=== PATIENT | male | born 1945 | race Caucasian/White ===

== ENCOUNTER 2017-09-01 08:33 | Inpatient (IN) | payer OTHER, MEDICARE ==
[~2017-09-01] VITALS: Ht 177.8 cm; Wt 120.8 kg
[~2017-09-01 08:33] MED LIST: ACET-1311 PO; ALL100 PO; AMLO10TA3 PO; ATOR10TA82 PO; CHOL20007 PO; CLC6 PO; HYDR12.56 PO; METO25TA56 PO; PXLUNK PO; REPA0.5T PO; WARF1TAB PO
[2017-09-01 09:07] LABS: BASO % 0.3 %; BASO ABS # 0.03 K/uL (0-0.2); EOS % 1.5 %; EOS ABS # 0.13 K/uL (0-0.5); HEMATOCRIT 41.1 % (42-52); HEMOGLOBIN 14.7 g/dL (14.0-18.0); IG# 0.04 K/uL (0.00-0.02); LYMPH % 15.3 %; LYMPH ABS # 1.34 K/uL (1.2-3.4); MEAN CELL VOLUME 91.7 fL (80-100); MEAN CORPUSCULAR HEMOGLOBIN 32.8 pg (25-34); MEAN CORPUSCULAR HGB CONC 35.8 g/dl (32-36); MEAN PLATELET VOLUME 9.8 fL (7.4-10.4); MONO % 11.4 %; PLATELET COUNT 169 K/uL (130-400); RED CELL DISTRIBUTION WIDTH CV 14.9 % (11.5-14.5); RED CELL DISTRIBUTION WIDTH SD 49.9 fL (36.4-46.3); WHITE BLOOD COUNT 8.74 K/uL (4.8-10.8)
--- NOTE | 2017-09-01 09:13 | DIAGNOSTIC IMAGING REPORT ---
CHEST ONE VIEW PORTABLE CLINICAL HISTORY: CHEST PAIN dyspnea COMPARISON STUDY: 12/06/2010 FINDINGS: Moderate cardiomegaly. Small left pleural effusion. Increased prominence of pulmonary vasculature. IMPRESSION: Congestive heart failure. Small left pleural effusion. The above report was generated using voice recognition software. It may contain grammatical, syntax or spelling errors. Electronically signed by: Alex Lara M.D. 09/01/2017 9:12 AM Dictated Date/Time: 09/01/2017 9:12 AM
[2017-09-01 09:22] LABS: ALBUMIN 3.5 gm/dl (3.4-5.0); ALKALINE PHOSPHATASE 167 U/L (45-117); ALT/SGPT 25 U/L (12-78); AST/SGOT 25 U/L (15-37); BLOOD UREA NITROGEN 28 mg/dl (7-18); CALCIUM 9.1 mg/dl (8.5-10.1); CARBON DIOXIDE 20 mmol/L (21-32); CKMB 1.1 ng/ml (0.5-3.6); CREATININE 1.52 mg/dl (0.60-1.40); GLUCOSE 94 mg/dl (70-99); LIPASE 103 U/L (73-393); POTASSIUM 3.2 mmol/L (3.5-5.1); SODIUM 137 mmol/L (136-145); TOTAL PROTEIN 8.2 gm/dl (6.4-8.2)
[2017-09-01] MEDS ORDERED: OPTIRAY 320 IV PRN (09:30)
[2017-09-01] MEDS ORDERED: PARO1TAB27 PO (09:36)
[2017-09-01] MEDS ORDERED: AMLO10TA3 PO (09:36)
[2017-09-01] MEDS ORDERED: ALL300 PO (09:36)
[2017-09-01] MEDS ORDERED: WARF2.5T8 PO ×2 (09:36)
[2017-09-01] MEDS ORDERED: HYDR-4716 PO (09:36)
[2017-09-01] MEDS ORDERED: GLIM2TAB2 PO (09:38)
[2017-09-01 09:46] LABS: INR 4.9 (0.9-1.1)
--- NOTE | 2017-09-01 09:55 | DIAGNOSTIC IMAGING REPORT ---
CT ANGIOGRAM OF THE CHEST CLINICAL HISTORY: Shortness of breath. History of pulmonary embolism. COMPARISON STUDY: Chest x-ray dated 09/01/2017 TECHNIQUE: Following the IV administration of 92 mL of Optiray-320, CT angiogram of the thorax was performed from the thoracic inlet to the lung bases utilizing the pulmonary embolus protocol. Images are reviewed in the axial, sagittal, and coronal planes. IV contrast was administered without complication. MIP imaging was performed. A dose lowering technique was utilized adhering to the principles of ALARA. CT DOSE: 604.31 mGy.cm FINDINGS: There are enlarged mediastinal lymph nodes with a right paratracheal lymph node measuring 18 mm in short axis. The ascending thoracic aorta measures 38 mm. There are coronary artery calcifications. There is dilatation of the right ventricle and right atrium. The left atrium also appears enlarged. Elevated right heart pressures are suspected. There were no pulmonary artery filling defects to indicate acute pulmonary embolism. There are bilateral pleural effusions left greater than right. There is respiratory motion artifact. There are left lower lobe airspace opacities, likely representing compressive atelectasis. An infectious process could appear similar. There is left-sided body wall edema. IMPRESSION: 1. No evidence of acute pulmonary embolism 2. CT findings suggestive of pulmonary arterial hypertension with elevated right heart pressures 3. Bilateral pleural effusions left greater than right. 4. Left lower lobe airspace opacities. Compressive atelectasis is favored over pneumonia 5. Mediastinal lymphadenopathy Electronically signed by: Milton Brooks M.D. 09/01/2017 9:53 AM Dictated Date/Time: 09/01/2017 9:46 AM
[2017-09-01] MEDS ORDERED: FUROSEMIDE 40 MG/4 ML VIAL IV STA (10:10)
[2017-09-01] MEDS ORDERED: NITROGLYCERIN 2% OINTMENT 30GM TUBE EXT ONE (10:15)
--- NOTE | 2017-09-01 10:42 | EMERGENCY ROOM VISIT NOTE ---
History Report prepared by Lani: Abel Mays Under the Supervision of: Dr. Kwasi De Los Santos M.D. First contact with patient: 08:45 Stated Complaint: SHORTNESS OF BREATH History of Present Illness The patient is a 72 year old male who presents to the Emergency Room by EMS with complaints of constant shortness of breath beginning shortly prior to arrival. He reports having a small amount of difficulty breathing over the past week, but it worsened significantly upon waking up this morning. He also complains of nausea. Nursing staff notes that the patient's oxygen saturation was found to be 87% upon arrival. The patient has a history of PE (thought to originally be from right knee) occurring six years ago, and states that his current symptoms remind him of his prior PE. He is currently on Coumadin. His most recent INR was checked 10 days ago, and was found to be 3.9. Pt denies chest pain, LOC, headache, fevers, chills, diaphoresis, visual changes, neck pain, tearing pain radiating to the back, uncontrolled hypertension, breathing difficulties, leg swelling, prolonged travel, recent surgery or immobilization, vomiting, abdominal pain, melena, hematochezia, urinary symptoms, numbness, weakness, lymphadenopathy, rash, or other complaints. He is on Allopurinol for gout, but has not had an attack for several years. He denies any recent medication changes. The patient notes that he had an IVF placed 6 years ago. Source of History: patient Onset: Shortly prior to arrival Symptom Intensity: oxygen saturation of 87% Quality: other (shortness of breath) Timing: constant Associated Symptoms: + nausea, No chest pain Review of Systems See HPI for pertinent positives and negatives. A total of ten systems were reviewed and were otherwise negative. Past Medical & Surgical Medical Problems: (1) Acute renal failure syndrome (2) Benign hypertension (3) Deep venous thrombosis of lower extremity (4) Diabetes mellitus type 2 (5) Gout (6) History of adenomatous polyp of colon (7) Hyperkalemia (8) Hyperlipidemia (9) Hypoxemia (10) Pulmonary embolism (11) Type II diabetes mellitus - poor control Family History No pertinent family history stated. Social History Smoking Status: Former Smoker Marital Status: Occupation Status: retired Current/Historical Medications Scheduled Allopurinol (Allopurinol), 300 MG PO DAILY Amlodipine (Norvasc), 10 MG PO DAILY Atorvastatin (Lipitor), 10 MG PO DAILY Cholecalciferol (Vitamin D3), 2,000 UNITS PO DAILY Glimepiride (Glimepiride), 2 MG PO DAILY Hydralazine HCl (Hydralazine HCl), 25 MG PO BID Hydrochlorothiazide (Hctz), 12.5 MG PO DAILY Metoprolol Tartrate (Lopressor) (Lopressor), 25 MG PO BID Paroxetine (Paxil), 20 MG PO DAILY Warfarin Sod (Jantoven), 2.5 MG PO 5XWK Warfarin Sod (Jantoven), 1.25 MG PO 2XWK Scheduled PRN Acetaminophen (Tylenol), 650 MG PO Q4H PRN Allergies Coded Allergies: No Known Allergies (Unverified , 09/01/17) Physical Exam Vital Signs Date Time Temp Pulse Resp B/P (MAP) Pulse Ox O2 Delivery O2 Flow Rate FiO2 09/01/17 11:09 95 Nasal Cannula 2.0 09/01/17 10:36 138/90 09/01/17 10:33 93 22 95 Nasal Cannula 2.0 09/01/17 10:03 97 17 94 Nasal Cannula 2.0 09/01/17 09:48 161/107 09/01/17 09:03 103 19 93 Nasal Cannula 2.0 09/01/17 09:02 94 Nasal Cannula 2.0 09/01/17 08:53 95 09/01/17 08:52 36.6 109 18 169/110 87 Room Air 09/01/17 08:52 87 Room Air 09/01/17 08:44 87 Room Air 09/01/17 08:39 169/120 Physical Exam GENERAL: Awake, alert, well-appearing, in no distress HENT: Normocephalic, atraumatic. Oropharynx unremarkable. EYES: Normal conjunctiva. Sclera non-icteric. NECK: Supple. No nuchal rigidity. FROM. No masses. RESPIRATORY: Clear to auscultation. No wheezes. No rales. Normal respiratory effort. CARDIAC: Borderline tachycardic rate. Irregular rhythm. No murmurs. No rubs. Extremities warm and well perfused. Pulses equal. No JVD. GI: Soft, non-distended. No tenderness to palpation. No rebound or guarding. No masses. RECTAL: Deferred. MUSCULOSKELETAL: Atraumatic. Chest examination reveals no tenderness. There is no CVA tenderness to palpation. No joint edema. LOWER EXTREMITIES: Calves are equal size bilaterally and non-tender. Chronic venous discoloration of the RLE (Patient states is normal). 1+ lower extremity edema. NEURO: Normal sensorium. No sensory or motor deficits noted. SKIN: No rash or jaundice noted. Medical Decision & Procedures ER Provider Diagnostic Interpretation: Radiology results as stated below per my review and radiologist interpretation: CHEST ONE VIEW PORTABLE FINDINGS: Moderate cardiomegaly. Small left pleural effusion. Increased prominence of pulmonary vasculature. IMPRESSION: Congestive heart failure. Small left pleural effusion. The above report was generated using voice recognition software. It may contain grammatical, syntax or spelling errors. Electronically signed by: Alex Lara M.D. 09/01/2017 9:[address] ANGIOGRAM OF THE CHEST FINDINGS: There are enlarged mediastinal lymph nodes with a right paratracheal lymph node measuring 18 mm in short axis. The ascending thoracic aorta measures 38 mm. There are coronary artery calcifications. There is dilatation of the right ventricle and right atrium. The left atrium also appears enlarged. Elevated right heart pressures are suspected. There were no pulmonary artery filling defects to indicate acute pulmonary embolism. There are bilateral pleural effusions left greater than right. There is respiratory motion artifact. There are left lower lobe airspace opacities, likely representing compressive atelectasis. An infectious process could appear similar. There is left-sided body wall edema. IMPRESSION: 1. No evidence of acute pulmonary embolism 2. CT findings suggestive of pulmonary arterial hypertension with elevated right heart pressures 3. Bilateral pleural effusions left greater than right. 4. Left lower lobe airspace opacities. Compressive atelectasis is favored over pneumonia 5. Mediastinal lymphadenopathy Electronically signed by: Milton Broosk M.D. 09/01/2017 9:53 AM Laboratory Results 09/01/17 08:49 Red Blood Count 4.48, Mean Corpuscular Volume 91.7, Mean Corpuscular Hemoglobin 32.8, Mean Corpuscular Hemoglobin Concent 35.8, Mean Platelet Volume 9.8, Neutrophils (%) (Auto) 71.0, Lymphocytes (%) (Auto) 15.3, Monocytes (%) (Auto) 11.4, Eosinophils (%) (Auto) 1.5, Basophils (%) (Auto) 0.3, Neutrophils # (Auto ) 6.20, Lymphocytes # (Auto) 1.34, Monocytes # (Auto) 1.00, Eosinophils # (Auto ) 0.13, Basophils # (Auto) 0.03 Test 09/01/17 08:49 White Blood Count 8.74 K/uL (4.8-10.8) Red Blood Count 4.48 M/uL (4.7-6.1) Hemoglobin 14.7 g/dL (14.0-18.0) Hematocrit 41.1 % (42-52) Mean Corpuscular Volume 91.7 fL (80-100) Mean Corpuscular Hemoglobin 32.8 pg (25-34) Mean Corpuscular Hemoglobin Concent 35.8 g/dl (32-36) Platelet Count 169 K/uL (130-400) Mean Platelet Volume 9.8 fL (7.4-10.4) Neutrophils (%) (Auto) 71.0 % Lymphocytes (%) (Auto) 15.3 % Monocytes (%) (Auto) 11.4 % Eosinophils (%) (Auto) 1.5 % Basophils (%) (Auto) 0.3 % Neutrophils # (Auto) 6.20 K/uL (1.4-6.5) Lymphocytes # (Auto) 1.34 K/uL (1.2-3.4) Monocytes # (Auto) 1.00 K/uL (0.11-0.59) Eosinophils # (Auto) 0.13 K/uL (0-0.5) Basophils # (Auto) 0.03 K/uL (0-0.2) RDW Standard Deviation 49.9 fL (36.4-46.3) RDW Coefficient of Variation 14.9 % (11.5-14.5) Immature Granulocyte % (Auto) 0.5 % Immature Granulocyte # (Auto) 0.04 K/uL (0.00-0.02) Prothrombin Time 49.4 SECONDS (9.0-12.0) Prothromb Time International Ratio 4.9 (0.9-1.1) Activated Partial Thromboplast Time 43.0 SECONDS (21.0-31.0) Partial Thromboplastin Ratio 1.7 Est Creatinine Clear Calc Drug Dose 58.7 ml/min Total Bilirubin 2.7 mg/dl (0.2-1) Direct Bilirubin 1.3 mg/dl (0-0.2) Aspartate Amino Transf (AST/SGOT) 25 U/L (15-37) Alanine Aminotransferase (ALT/SGPT) 25 U/L (12-78) Alkaline Phosphatase 167 U/L (45-117) Total Creatine Kinase 47 U/L (39-308) Creatine Kinase MB 1.1 ng/ml (0.5-3.6) Creatine Kinase MB Ratio 2.3 (0-3.0) Troponin I < 0.015 ng/ml (0-0.045) Pro-B-Type Natriuretic Peptide 5521 pg/ml (0-900) Total Protein 8.2 gm/dl (6.4-8.2) Albumin 3.5 gm/dl (3.4-5.0) Lipase 103 U/L (73-393) Hepatitis C Antibody Screen NEG (NEG) Laboratory results reviewed by me Medications Administered Medications (Trade) Dose Ordered Sig/Tash Route Start Time Stop Time Status Last Admin Dose Admin Nitroglycerin (Nitroglycerin 2% Oint) 1 inch NOW ONCE EXT 09/01/17 10:15 09/01/17 10:16 DC 09/01/17 10:15 1 INCH Furosemide (Lasix Inj) 20 mg NOW STAT IV 09/01/17 10:10 09/01/17 10:11 DC 09/01/17 10:10 20 MG Potassium Chloride (Klor-Con M10) 40 meq NOW STAT PO 09/01/17 11:15 09/01/17 11:34 DC 09/01/17 12:28 40 MEQ Potassium Chloride 100 ml @ 100 mls/hr NOW STAT IV 09/01/17 11:15 09/01/17 12:14 DC 09/01/17 12:28 100 MLS/HR ECG Per My Interpretation Indication: SOB/dyspnea Rate (beats per minute): 103 Rhythm: atrial fibrillation Findings: PAC, PVC, Q waves (Anterolateral, inferior), RBBB, other (No ST elevation. ) ED Course 851: The patient was evaluated in room C1B. A complete history and physical exam was performed. 1010: Ordered Lasix Inj 20 mg IV. 1015: Ordered Nitroglycerin 2% Oint 1 inch EXT. 1018: Upon reexamination, the patient was resting comfortably. I discussed the test results and treatment plan with him. The patient will be evaluated for further management. Medical Decision Prior records/ancillary studies reviewed. Triage Nursing notes reviewed and agree them. Additional history obtained from the family. The patient's history was concerning for shortness of breath. Differential diagnosis: Etiologies such as pneumonia, COPD, reactive airway disease, CHF, cardiac ischemia, pulmonary embolism, pneumothorax, musculoskeletal, infections, gastrointestinal, as well as others were entertained. Physical examination: As above. ER treatment provided: Nitropaste IV Lasix On reassessment the patient felt better. Diagnostic interpretation by me: The electrocardiogram was negative for pathologic change. The labs revealed an unremarkable CBC. Slightly supratherapeutic INR. Cardiac markers negative. The patient's BNP was elevated concerning for CHF. Imaging studies: Chest x-ray and CT scan as above. The patient appears to have a new onset A. fib and CHF. He was hypoxic on room air. Further management in the hospital will be necessary. Consultation: A consultation was placed with the hospitalist. The case was discussed and diagnostics were reviewed. The patient was evaluated in the ER for further treatment. Medication Reconcilliation Current Medication List: was personally reviewed by me Blood Pressure Screening Patient's blood pressure: Elevated blood pressure Blood pressure disposition: Referred to PCP Consults Time Called: 1018 Consulting Physician: Dr. Parmjit Long Hospitalist Returned Call: [phone] Discussed the patient's case. The patient will be evaluated for further treatment and disposition. Impression Primary Impression: Hypoxia Additional Impression: CHF (congestive heart failure) Scribe Attestation The scribe's documentation has been prepared under my direction and personally reviewed by me in its entirety. I confirm that the note above accurately reflects all work, treatment, procedures, and medical decision making performed by me. Departure Information Dispostion Being Evaluated By Hospitalist Referrals Ez Navarro D.O. (PCP) Problem Qualifiers
[2017-09-01 11:09] VITALS: O2SAT 95; Ht 177.8 cm; Wt 120.8 kg
[2017-09-01] MEDS ORDERED: ALUMINUM/MAGNESIUM/SIMETH (MAALOX MAX) 30 ML UDC PO PRN (11:15)
[2017-09-01] MEDS ORDERED: DEXTROSE 50% 50 ML SYR IV PRN (11:15)
[2017-09-01] MEDS ORDERED: MAGNESIUM HYDROXIDE SUSP 30 ML UDC PO PRN (11:15)
[2017-09-01] MEDS ORDERED: GLUCOSE 40% GEL 15 GM TUBE PO PRN (11:15)
[2017-09-01] MEDS ORDERED: POTASSIUM CHLORIDE 10 MEQ TABCR PO STA (11:15)
[2017-09-01] MEDS ORDERED: GLUCAGON FOR INJ 1 MG VIAL SQ PRN (11:15)
[2017-09-01] MEDS ORDERED: ACETAMINOPHEN 325 MG TAB PO PRN (11:15)
[2017-09-01] MEDS ORDERED: ONDANSETRON INJ 2 MG/ML 2 ML VIAL IV PRN (11:15)
[2017-09-01] MEDS ORDERED: POTASSIUM CHLR 10 MEQ / WTR 100 ML IV STA (11:15)
[2017-09-01] MEDS ORDERED: CARBOHYDRATES FOR HYPOGLYCEMIA PO PRN (11:15)
[2017-09-01] MEDS ORDERED: POLYETHYLENE (MIRALAX) 17 GM PACK PO PRN (11:15)
[2017-09-01] MEDS ORDERED: PHARMACY GLYCEMIC MGMT CONSULT PRN (11:15)
[2017-09-01] MEDS ORDERED: GLUCOSE 10 TABS/TUBE PO PRN (11:15)
--- NOTE | 2017-09-01 12:18 | History and Physical ---
History & Physical Date & Time of Service: Sep 01, 2017 at 11:42 Chief Complaint: Shortness Of Breath Primary Care Physician: Ez Navarro D.O. 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 States that it is worse with exertion - denies associated cough. Denies fevers/chills; states he does not have chest pain/palpitations. Breathing became acutely worse on the day of arrival. Presented to the ED - found to be hypoxic; improved with supplemental O2 via nasal cannula. On imaging; suggestion of fluid overload; patient has some lower extremity edema and venous stasis changes noted. Received IV Lasix in the ED and felt better. On EKG, there is an irregular rhythm with RBBB. Patient denies palpitations. Past Medical/Surgical History Medical Problems: (1) Acute renal failure syndrome (2) Benign hypertension (3) Deep venous thrombosis of lower extremity (4) Diabetes mellitus type 2 (5) Gout (6) History of adenomatous polyp of colon (7) Hyperkalemia (8) Hyperlipidemia (9) Hypoxemia (10) Pulmonary embolism (11) Type II diabetes mellitus - poor control Social History Smoking Status: Former Smoker Marital Status: Housing status: lives with family Occupational Status: retired Immunizations History of Influenza Vaccine: Yes Influenza Vaccine Date: Nov 19, 2010 History of Tetanus Vaccine?: Yes History of Pneumococcal: Yes Pneumococcal Date: Aug 29, 2009 History of Hepatitis B Vaccine: Yes Allergies Coded Allergies: No Known Allergies (Unverified , 09/01/17) Home Medications Scheduled Allopurinol (Allopurinol), 300 MG PO DAILY Amlodipine (Norvasc), 10 MG PO DAILY Atorvastatin (Lipitor), 10 MG PO DAILY Cholecalciferol (Vitamin D3), 2,000 UNITS PO DAILY Glimepiride (Glimepiride), 2 MG PO DAILY Hydralazine HCl (Hydralazine HCl), 25 MG PO BID Hydrochlorothiazide (Hctz), 12.5 MG PO DAILY Metoprolol Tartrate (Lopressor) (Lopressor), 25 MG PO BID Paroxetine (Paxil), 20 MG PO DAILY Warfarin Sod (Jantoven), 2.5 MG PO 5XWK Warfarin Sod (Jantoven), 1.25 MG PO 2XWK Scheduled PRN Acetaminophen (Tylenol), 650 MG PO Q4H PRN Review of Systems Constitutional: No fever, No chills, No weakness, No fatigue Respiratory: + shortness of breath, + dyspnea on exertion, No cough, No sputum , No wheezing, No dyspnea at rest, No hemoptysis Cardiovascular: + edema, No chest pain, No orthopnea, No palpitations Abdomen: No pain, No nausea, No vomiting, No diarrhea, No constipation, No GI bleeding Musculoskeletal: + joint pain (chronic knee pain), No muscle pain Genitourinary - Male: No hematuria, No dysuria, No urinary frequency, No urinary urgency Neurologic: No memory loss, No paralysis, No weakness, No numbness/tingling, No vertigo, No balance problems Psychiatric: No depression symptoms, No anxiety, No insomnia Endocrine: No fatigue Hematologic / Lymphatic: No abnormal bleeding/bruising Integumentary: No rash Allergic / Immunologic: No environmental allergies, No seasonal allergies Physical Exam Vital Signs Date Time Temp Pulse Resp B/P (MAP) Pulse Ox O2 Delivery O2 Flow Rate FiO2 09/01/17 11:25 88 09/01/17 11:09 95 Nasal Cannula 2.0 09/01/17 10:36 138/90 09/01/17 10:33 93 22 95 Nasal Cannula 2.0 09/01/17 10:03 97 17 94 Nasal Cannula 2.0 09/01/17 09:48 161/107 09/01/17 09:03 103 19 93 Nasal Cannula 2.0 09/01/17 09:02 94 Nasal Cannula 2.0 09/01/17 08:53 95 09/01/17 08:52 36.6 109 18 169/110 87 Room Air 09/01/17 08:52 87 Room Air 09/01/17 08:44 87 Room Air 09/01/17 08:39 169/120 General Appearance: no apparent distress, + obese Head: normocephalic, atraumatic Eyes: normal inspection ENT: hearing grossly normal Neck: supple Respiratory/Chest: no respiratory distress, no accessory muscle use, + decreased breath sounds Cardiovascular: no murmur, + irregularly irregular Abdomen/GI: normal bowel sounds, non tender, soft Extremities/Musculoskelatal: + pertinent finding (trace b/l edema; venous stasis dermatitis) Neurologic/Psych: research development director II-XII nml as tested, no motor/sensory deficits, alert, normal mood/affect, oriented x 3 Skin: normal color, warm/dry, no rash Lymphatic: no adenopathy Diagnostics Laboratory Results Results Past 24 Hours Test 09/01/17 08:49 Range/Units White Blood Count 8.74 4.8-10.8 K/uL Red Blood Count 4.48 4.7-6.1 M/uL Hemoglobin 14.7 14.0-18.0 g/dL Hematocrit 41.1 42-52 % Mean Corpuscular Volume 91.7 80-100 fL Mean Corpuscular Hemoglobin 32.8 25-34 pg Mean Corpuscular Hemoglobin Concent 35.8 32-36 g/dl Platelet Count 169 130-400 K/uL Mean Platelet Volume 9.8 7.4-10.4 fL Neutrophils (%) (Auto) 71.0 % Lymphocytes (%) (Auto) 15.3 % Monocytes (%) (Auto) 11.4 % Eosinophils (%) (Auto) 1.5 % Basophils (%) (Auto) 0.3 % Neutrophils # (Auto) 6.20 1.4-6.5 K/uL Lymphocytes # (Auto) 1.34 1.2-3.4 K/uL Monocytes # (Auto) 1.00 0.11-0.59 K/uL Eosinophils # (Auto) 0.13 0-0.5 K/uL Basophils # (Auto) 0.03 0-0.2 K/uL RDW Standard Deviation 49.9 36.4-46.3 fL RDW Coefficient of Variation 14.9 11.5-14.5 % Immature Granulocyte % (Auto) 0.5 % Immature Granulocyte # (Auto) 0.04 0.00-0.02 K/uL Prothrombin Time 49.4 9.0-12.0 SECONDS Prothromb Time International Ratio 4.9 0.9-1.1 Activated Partial Thromboplast Time 43.0 21.0-31.0 SECONDS Partial Thromboplastin Ratio 1.7 Sodium Level 137 136-145 mmol/L Potassium Level 3.2 3.5-5.1 mmol/L Chloride Level 104 98-107 mmol/L Carbon Dioxide Level 20 21-32 mmol/L Anion Gap 12.0 3-11 mmol/L Blood Urea Nitrogen 28 7-18 mg/dl Creatinine 1.52 0.60-1.40 mg/dl Est Creatinine Clear Calc Drug Dose 58.7 ml/min Estimated GFR () 51.9 Estimated GFR (Non- 44.8 BUN/Creatinine Ratio 18.2 10-20 Random Glucose 94 70-99 mg/dl Calcium Level 9.1 8.5-10.1 mg/dl Total Bilirubin 2.7 0.2-1 mg/dl Direct Bilirubin 1.3 0-0.2 mg/dl Aspartate Amino Transf (AST/SGOT) 25 15-37 U/L Alanine Aminotransferase (ALT/SGPT) 25 12-78 U/L Alkaline Phosphatase 167 45-117 U/L Total Creatine Kinase 47 39-308 U/L Creatine Kinase MB 1.1 0.5-3.6 ng/ml Creatine Kinase MB Ratio 2.3 0-3.0 Troponin I < 0.015 0-0.045 ng/ml Pro-B-Type Natriuretic Peptide 5521 0-900 pg/ml Total Protein 8.2 6.4-8.2 gm/dl Albumin 3.5 3.4-5.0 gm/dl Lipase 103 73-393 U/L Diagnostic Radiology CT ANGIOGRAM OF THE CHEST CLINICAL HISTORY: Shortness of breath. History of pulmonary embolism. COMPARISON STUDY: Chest x-ray dated 09/01/2017 TECHNIQUE: Following the IV administration of 92 mL of Optiray-320, CT angiogram of the thorax was performed from the thoracic inlet to the lung bases utilizing the pulmonary embolus protocol. Images are reviewed in the axial, sagittal, and coronal planes. IV contrast was administered without complication. MIP imaging was performed. A dose lowering technique was utilized adhering to the principles of ALARA. CT DOSE: 604.31 mGy.cm FINDINGS: There are enlarged mediastinal lymph nodes with a right paratracheal lymph node measuring 18 mm in short axis. The ascending thoracic aorta measures 38 mm. There are coronary artery calcifications. There is dilatation of the right ventricle and right atrium. The left atrium also appears enlarged. Elevated right heart pressures are suspected. There were no pulmonary artery filling defects to indicate acute pulmonary embolism. There are bilateral pleural effusions left greater than right. There is respiratory motion artifact. There are left lower lobe airspace opacities, likely representing compressive atelectasis. An infectious process could appear similar. There is left-sided body wall edema. IMPRESSION: 1. No evidence of acute pulmonary embolism 2. CT findings suggestive of pulmonary arterial hypertension with elevated right heart pressures 3. Bilateral pleural effusions left greater than right. 4. Left lower lobe airspace opacities. Compressive atelectasis is favored over pneumonia 5. Mediastinal lymphadenopathy CHEST ONE VIEW PORTABLE CLINICAL HISTORY: CHEST PAIN dyspnea COMPARISON STUDY: 12/06/2010 FINDINGS: Moderate cardiomegaly. Small left pleural effusion. Increased prominence of pulmonary vasculature. IMPRESSION: Congestive heart failure. Small left pleural effusion. 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 - will continue IV Lasix 20mg BID - cardiology consulted for further input Irregular Heart Rhythm - patient with a lot of artifactual beats noted on EKG - does not appear to be a regular rhythm - chronic RBBB - cardiology consulted for further input - continue Lopressor and continue anticoagulation - will check Mg and TSH Hx. of PE/DVT - on long-term Coumadin - supratherapuetic INR; will hold Coumadin and recheck in AM Hypokalemia - has had issues with low K in the past - will supplement potassium and will likely need chronic K supplementation - check Mg DM2 - hold oral agents - insulin sliding scale ordered - check Ha1c CKD stage 3 - creatinine at 1.5, baseline appears to be close to that (~1.4) - monitor kidney function with IV diuretic use OCD - continue Paxil Gilbert's Syndrome - elevated T. bili is chronic DVT ppx - Coumadin; goal INR of 2-3 FULL CODE Advanced Directives Existing Living Will: Yes Existing Power of Steam Brush Operator: Yes Resuscitation Status VTE Prophylaxis Will order VTE Prophylaxis: Yes
--- NOTE | 2017-09-01 12:30 | Pharmacy Progress Note ---
Glycemic Control Intl Consult Date of Service Sep 01, 2017. Scope Glycemic Pharmacist consulted by Dr Parnell on 09/01/17 for glycemic control and to write orders per [facility] inpatient glycemic control protocol Objective Weight (Kilograms): 130.200 Accuchecks BSG (last 24hrs): Test 09/01/17 08:49 Random Glucose 94 mg/dl (70-99) Laboratory Data (last 24hrs) Test 09/01/17 08:49 Anion Gap 12.0 mmol/L BUN/Creatinine Ratio 18.2 Blood Urea Nitrogen 28 mg/dl Creatinine 1.52 mg/dl Potassium Level 3.2 mmol/L Sodium Level 137 mmol/L White Blood Count 8.74 K/uL Red Blood Count 4.48 M/uL Hemoglobin 14.7 g/dL Hematocrit 41.1 % Mean Corpuscular Volume 91.7 fL Mean Corpuscular Hemoglobin 32.8 pg Mean Corpuscular Hemoglobin Concent 35.8 g/dl Platelet Count 169 K/uL Mean Platelet Volume 9.8 fL Neutrophils (%) (Auto) 71.0 % Lymphocytes (%) (Auto) 15.3 % Monocytes (%) (Auto) 11.4 % Eosinophils (%) (Auto) 1.5 % Basophils (%) (Auto) 0.3 % Neutrophils # (Auto) 6.20 K/uL Lymphocytes # (Auto) 1.34 K/uL Monocytes # (Auto) 1.00 K/uL Eosinophils # (Auto) 0.13 K/uL Basophils # (Auto) 0.03 K/uL Recent Pertinent Medications Outpatient Anti-diabetic Regimen: * glimepiride 2 mg PO daily * A1c = 7.6 % 12/06/10 Risk Factors for Insulin Resistance: * Diet: T2 DM Assessment & Plan ASSESSMENT: * Mr Pulido is a 72 y/o M with a PMH of DVT/PE on warfarin, HTN, gout, CHF, and type 2 diabetes with unknown control who presents with a RBBB and pulmonary complaints. The patient takes one oral medication at home and blood sugar this morning was 94 mg/dL. * Will provide basic scale for this evening of Lantus. Will start between weight -based stress of 1 and 2 Novolog. Utilizing lower stresses as the patient's weight is high and it appears that he should be insulin sensitive (only on one oral agent). * Pt is maintained on oral antidiabetic agents as an outpatient * Oral agents are not recommended for inpatient use d/t drug interactions, changing PO intake, and difficulty titrating for acute hyper/hypoglycemia. ADA recommends re-initiating outpatient oral agents 1-2 days prior to discharge if/ when appropriate if they were held on admission. * Will hold oral agents for admission and utilize SQ basal bolus insulin regimen which is the recommended regimen for inpatient glycemic control. * Will initiate weight based insulin dosing for insulin irving patient and titrate based on BSG trends. PLAN FOR INPATIENT GLYCEMIC CONTROL: * Holding outpatient oral diabetes medications * Basal insulin with LANTUS 0-15 units SQ HS (no insulin if blood sugar less than 140 mg/dL; 10 units if blood sugar between 140-180 mg/dL; 15 units if blood sugar greater than 180 mg/dL) * Correctional Insulin with NOVOLOG per scale ACHS or Q6hrs while NPO * Goal Range: Low 110 mg/dL - High 140 mg/dL * Correction Factor: 30 mg/dL/unit * Nutritional / Prandial insulin per carb ratio of 1 unit per 9 grams CHO consumed * Please note that the plan above was derived based on current level of insulin resistance and hospital stress. These recommendations are appropriate for inpatient admission only. Plan of care upon discharge will need to be reassessed to avoid potential outpatient hypo/hyperglycemia. Thank you.
--- NOTE | 2017-09-01 14:11 | ECHOCARDIOGRAM REPORT ---
*NOTICE TO RECEIVING REPUBLICAN AGENCY This information is strictly Confidential and protected under [place] law. [place] law prohibits you from making any further disclosure of this information unless further disclosure is expressly permitted by the written consent of the person to whom it pertains or is authorized by law. A general authorization for the release of medical or other information is not sufficient for this purpose. Hospital accepts no responsibility if the information is made available to any other person, INCLUDING THE PATIENT. Interpretation Summary * Name: SAMUEL AVELAR Study Date: 09/01/2017 12:56 PM BP: 145/87 mmHg * Patient Location: HR: 78 * : 1945 (M/d/yyyy) Gender: Male Height: 70 in * Age: 72 yrs Ethnicity: [place] Weight: 287 lb * Ordering Physician: Alireza Parnell * Performed By: Brandi Beal RDCS * * Reason For Study: CHF * BSA: 2.4 m2 * The study was technically difficult. * Compared to prior study, changes are noted. * -- Conclusions -- * The rhythm is atrial fibrillation. * Ejection Fraction = 55-60%. * The right ventricle is severely dilated. * The right ventricular systolic function is moderate to severely reduced. * Severe biatrial enlargement. * There is mild mitral regurgitation. * There is mild to moderate tricuspid regurgitation. * The estimated systolic pulmonary arterial pressure is 76mmHg. * Dilated inferior vena cava with reduced collapsability with sniff indicates an elevated right atrial pressure of 15 mmHg Procedure Details * A complete two-dimensional transthoracic echocardiogram was performed (2D, M-mode, Doppler and color flow Doppler). * The study was technically limited. * The study was technically difficult. * There were technical limitations due to patient'sbody habitus * A contrast injection of Definity was performed to improve assessment of LV function. * Contrast was injected into an intravenous site in the left arm. * One vial of Definity ultrasound contrast was diluted in normal saline to a total volume of 10 ml. A total of '4' ml of solution was administered during imaging. * Lot # [id number] of Definity utilized for procedure. * Expiration date 07/19. * The attending nurse who injected the contrast agent was IMANI GOODRICH RN. Left Ventricle * The left ventricle is normal in size. * The rhythm is atrial fibrillation. * There is normal left ventricular wall thickness. * Ejection Fraction = 55-60%. * No regional wall motion abnormalities noted. Right Ventricle * The right ventricle is severely dilated. * The right ventricular systolic function is moderate to severely reduced. Atria * The left atrium is severely dilated. * The right atrium is severely dilated. * There is no evidence of atrial septal defect, but resolution does not allow assessment for a patent foramen ovale. Mitral Valve * There is mild mitral annular calcification. * There is no mitral valve stenosis. * There is mild mitral regurgitation. Tricuspid Valve * The tricuspid valve is normal. * There is no tricuspid stenosis. * There is mild to moderate tricuspid regurgitation. * The estimated systolic pulmonary arterial pressure is 76mmHg. Aortic Valve * The aortic valve is trileaflet. * Aortic stenosis is absent. * There is no significant aortic regurgitation. Pulmonic Valve * The pulmonary valve is not well seen, but the Doppler examination is normal without significant regurgitation or stenosis. Great Vessels * The aortic root and proximal ascending aorta are normal sized. Pericardium/Pleural * There is no pericardial effusion. Great Vessels * Dilated inferior vena cava with reduced collapsability with sniff indicates an elevated right atrial pressure of 15 mmHg Left Ventricular Diastolic Function * Pulse wave TDI of the anterior and posterior mitral annulas demonstrates abnormal LV relaxation MMode 2D Measurements and Calculations IVSd 1.3 cm IVSs 2.0 cm LVIDd 3.9 cm LVIDs 2.3 cm LVPWd 1.3 cm LVPWs 1.7 cm IVS/LVPW 0.99 FS 40.4 % EDV(Teich) 66.0 ml ESV(Teich) 18.6 ml EF(Teich) 71.7 % EDV(cubed) 59.4 ml ESV(cubed) 12.6 ml EF(cubed) 78.8 % % IVS thick 52.7 % % LVPW thick 33.9 % LV mass(C)d 178.3 grams LV mass(C)dI 73.3 grams/m\S\2 LV mass(C)s 172.6 grams LV mass(C)sI 70.9 grams/m\S\2 CO(Teich) 4.1 l/min CI(Teich) 1.7 l/min/m\S\2 SV(Teich) 47.3 ml SI(Teich) 19.5 ml/m\S\2 CO(cubed) 4.1 l/min CI(cubed) 1.7 l/min/m\S\2 SV(cubed) 46.8 ml SI(cubed) 19.2 ml/m\S\2 asc Aorta Diam 3.7 cm LVOT diam 2.4 cm LVOT area 4.7 cm\S\2 LVAd ap4 38.1 cm\S\2 LVLd ap4 9.1 cm EDV(MOD-sp4) 129.0 ml LVAs ap4 17.7 cm\S\2 LVLs ap4 7.6 cm ESV(MOD-sp4) 36.1 ml EF(MOD-sp4) 72.0 % LVAd ap2 29.2 cm\S\2 LVLd ap2 8.5 cm EDV(MOD-sp2) 82.4 ml LVAs ap2 13.6 cm\S\2 LVLs ap2 7.0 cm ESV(MOD-sp2) 24.4 ml EF(MOD-sp2) 70.4 % CO(MOD-sp4) 8.1 l/min CI(MOD-sp4) 3.3 l/min/m\S\2 SV(MOD-sp4) 92.9 ml SI(MOD-sp4) 38.2 ml/m\S\2 CO(MOD-sp2) 5.0 l/min CI(MOD-sp2) 2.1 l/min/m\S\2 SV(MOD-sp2) 58.0 ml SI(MOD-sp2) 23.8 ml/m\S\2 Doppler Measurements and Calculations MV E max santy 142.6 cm/sec MV dec time 0.16 sec Ao V2 max 135.7 cm/sec Ao max PG 7.4 mmHg Ao max PG (full) 4.3 mmHg JASVIR(V,A) 3.0 cm\S\2 JASVIR(V,D) 3.0 cm\S\2 LV V1 max PG 3.1 mmHg LV V1 max 88.3 cm/sec MR max santy 389.2 cm/sec MR max PG 60.7 mmHg MR mean santy 271.5 cm/sec MR mean PG 33.6 mmHg MR VTI 122.4 cm PA V2 max 69.8 cm/sec PA max PG 2.0 mmHg
[2017-09-01 14:19] VITALS: BP 165/95; PULSE 92; TEMP 36.6; O2SAT 92
[2017-09-01 15:28] VITALS: BP 137/76; PULSE 92; TEMP 36.4; O2SAT 92
[2017-09-01 16:00] VITALS: O2SAT 94
--- NOTE | 2017-09-01 16:00 | CARDIOLOGY CONSULTATION ---
DATE OF CONSULTATION: 09/01/2017 REFERRING PHYSICIAN: Dr. Alireza Parnell. REASON FOR CONSULTATION: Congestive heart failure. HISTORY OF PRESENT ILLNESS: Mr. Pulido is a 72-year-old obese gentleman with a past medical history of deep venous thrombosis and pulmonary embolus in 2010, status post IVC filter placement and long-term anticoagulation. He also has a history of chronic right-sided heart failure, diabetes, hypertension, chronic kidney disease stage III and dyslipidemia. The patient reports gradually worsening dyspnea over a 6-8 week period. This morning, he was significantly short of breath when performing his a.m. tasks. Denies chest discomfort or heaviness. In the Emergency Department, the patient was found to be hypoxic with a room air SaO2 of 87%. Chest x-ray demonstrates congestive heart failure with bilateral pleural effusions. A CT angiogram of the chest was subsequently performed demonstrating a moderate to large left-sided effusion, mediastinal lymphadenopathy, as well as indirect evidence of pulmonary hypertension. Resting 2D transthoracic echocardiogram demonstrates significant right ventricular dilatation and dysfunction with evidence of severe pulmonary hypertension. Currently, the patient is resting comfortably. He has received 20 mg of intravenous furosemide. Diuresis has been adequate with more than 500 mL thus far. Clinically, feeling better. Denies orthopnea or PND. Reports chronic lower extremity edema for more than 1 year. Denies any palpitations or sensation of an irregular heart rhythm. Blood pressure has been elevated since admission. Topical nitrates applied with some improvement. The patient denies personal history of coronary disease or dysrhythmia. Telemetry reveals atrial fibrillation with borderline rate control. He has been chronically anticoagulated noted above due to history of DVT, PE with supratherapeutic INR on admission. is present at bedside. REVIEW OF SYSTEMS: The pertinent positive noted above. A comprehensive 10-system review is otherwise negative. PAST MEDICAL HISTORY: 1. DVT/PE 2010, status post IVC filter placement. 2. Obesity. 3. Diabetes type 2. 4. Chronic kidney disease stage III. 5. Gout. 6. Colon polyp. 7. Hyperkalemia. 8. Dyslipidemia. 9. Hypoxemia. PAST SURGICAL HISTORY: IVC filter placement. SOCIAL HISTORY: Former tobacco abuse, quitting in 1983. He is and lives with his family and he is retired. ALLERGIES: No known drug allergies. HOME MEDICATIONS: 1. Allopurinol 300 mg daily. 2. Amlodipine 10 mg daily. 3. Lipitor 10 mg daily. 4. Vitamin D 2000 units daily. 5. Glimepiride 2 mg daily. 6. Hydralazine 25 mg twice daily. 7. Hydrochlorothiazide 12.5 mg daily. 8. Lopressor 25 mg twice daily. 9. Paxil 20 mg daily. 10. Warfarin 2.5 mg on 5 days per week, 1.25 mg on the remaining 2 days. 11. Tylenol as needed. IMAGING DATA: ECG on admission demonstrates atrial fibrillation with right bundle-branch block and intermittent PVCs and/or aberrantly conducted complexes. LABORATORY DATA: ProBNP 5521, troponin less than 0.015. Sodium is 137, potassium is 3.8, chloride is 104, CO2 is 20, BUN is 20, creatinine is 1.52. White blood cell count is 8.74, hemoglobin is 14.7, platelet count is 169. INR is 4.9. Hepatitis screen is negative. PHYSICAL EXAMINATION: VITAL SIGNS: Temperature is 36.6 degrees centigrade, pulse is 97 beats per minute and irregular, respiratory rate is 17 breaths per minute, blood pressure 161/107. SaO2 is 94% on 2 liters nasal cannula. GENERAL: NAD, awake, alert and oriented x3. THROAT: His mucous membranes are moist. There is no scleral icterus. Conjunctivae are pink. NECK: Supple. There is elevated jugular venous distention. There are no carotid bruits appreciated. HEART: Irregular and borderline tachycardic with a normal S1, S2. No murmur, rub, gallop. LUNGS: Demonstrate diminished breath sounds at the bases. There are crackles at the left mid lung field. No wheezing. ABDOMEN: Obese and nontender. No rebound or guarding. Normal bowel sounds. EXTREMITIES: Warm and dry with bilateral +1 pedal edema and stasis changes. NEUROLOGIC: Demonstrates no focal motor deficit. FINAL IMPRESSION: 1. A 72-year-old male admitted with acute decompensated heart failure with preserved LV systolic function and evidence of significant right ventricular dilatation and dysfunction, cor pulmonale, pulmonary hypertension on 2D echocardiogram. 2. Paroxysmal atrial fibrillation with borderline rate control. 3. Chronic anticoagulation secondary to history of DVT/PE 2010 with supratherapeutic INR on admission. 4. Obesity. 5. Suspected obstructive sleep apnea. 6. Hypokalemia. 7. Chronic kidney disease stage III. 8. Mediastinal lymphadenopathy. PLAN AND RECOMMENDATIONS: Lasix will be titrated to 40 mg twice daily. We will monitor fluid balance, daily weight, electrolytes and renal function closely. Agree with topical nitrates and continued use of current antihypertensive therapies. We will consider titration of beta-carole pending clinical course. Coumadin will remain on hold today with a repeat INR in the a.m. Consider pulmonary consultation regarding large left pleural effusion and mediastinal lymphadenopathy. Thank you for allowing me to participate in the care of your patient. I will continue to follow the patient closely during hospitalization.
[2017-09-01] MEDS ORDERED: FUROSEMIDE INJ 20 MG in SYRINGE 0 ML IV SCH (17:00)
[2017-09-01] MEDS: FUROSEMIDE INJ 40 MG in SYRINGE 0 ML IV SCH (17:04)
[2017-09-01 17:49] LABS: CALCIUM 8.8 mg/dl (8.5-10.1); CREATININE 1.91 mg/dl (0.60-1.40); POTASSIUM 4.2 mmol/L (3.5-5.1)
[2017-09-01] MEDS: INSULIN ASPART 100 UNITS/ML 3 ML PEN SC SCH ×2 (18:17→21:00)
[2017-09-01 19:00] VITALS: BP 126/80; PULSE 99; TEMP 36.8; O2SAT 93
[2017-09-01] MEDS: INSULIN GLARGINE SOLOSTAR 100 UNITS/ML 3 ML PEN SC SCH (22:47)
[2017-09-01] MEDS: METOPROLOL TARTRATE 25 MG TAB PO SCH (22:47)
[2017-09-01 23:07] VITALS: BP 151/92; PULSE 90; TEMP 36.9; O2SAT 94
[2017-09-02] VITALS (8 sets, daily range): BP systolic 124–143; BP diastolic 78–84; PULSE 68–77; TEMP 36.7–37.3; O2SAT 89–95
[2017-09-02 05:39] LABS: INR 3.7 (0.9-1.1)
[2017-09-02 05:59] LABS: ALBUMIN 3.1 gm/dl (3.4-5.0); ALKALINE PHOSPHATASE 155 U/L (45-117); ALT/SGPT 30 U/L (12-78); AST/SGOT 32 U/L (15-37); BLOOD UREA NITROGEN 31 mg/dl (7-18); CALCIUM 8.5 mg/dl (8.5-10.1); CARBON DIOXIDE 25 mmol/L (21-32); CHOLESTEROL 98 mg/dl (0-200); CREATININE 1.76 mg/dl (0.60-1.40); GLUCOSE 88 mg/dl (70-99); LDL CHOLESTEROL CALCULATED 24 mg/dl; POTASSIUM 3.7 mmol/L (3.5-5.1); SODIUM 138 mmol/L (136-145); TOTAL PROTEIN 7.4 gm/dl (6.4-8.2)
[2017-09-02 06:25] LABS: HEMOGLOBIN A1C 6.2 % (4.5-5.6)
--- NOTE | 2017-09-02 06:47 | Clinical Documentation Query ---
CLINICAL DOCUMENTATION QUERY Dr. BATES, In your clinical opinion is this patient being managed for: ( x ) Acute kidney failure - please let me document prior to sending this ( ) Not Agree ( ) Other explanation of clinical findings (No explanation is considered a No Response) ( ) Unable to determine ( ) Need to Discuss (Phone CDS or qliq) (No discussion is considered a No Response) The medical record reflects the following clinical findings, treatment, and risk factors. Clinical Indicators: 72 yo male presenting with acute diastolic CHF. Baseline Cr approx 1.4 with initial Cr 1.5. Cr noemí to 1.91 and has started to trend back down, currently at 1.76. Treatment: monitor PRP's Risk Factors: acute diastolic CHF requiring IV lasix treatment, hypoxia, tachycardia/A fib, HTN, CKD, DMII Please clarify and document your clinical opinion in the progress notes and discharge summary. Terms such as "probable", "suspected", "likely", "questionable", "possible", or "still to be ruled out" are acceptable. IF IN AGREEMENT, YOU MUST DOCUMENT ABOVE DIAGNOSTIC STATEMENT IN DAILY PROGRESS NOTES AND DISCHARGE SUMMARY. This document is not part of the patient's record. Thank You, Celestina Singh, MARIA D [phone]
[2017-09-02] MEDS: INSULIN ASPART 100 UNITS/ML 3 ML PEN SC SCH ×4 (07:00→21:00)
[2017-09-02] MEDS ORDERED: POTASSIUM CHLORIDE 20 MEQ TABCR PO STA (07:33)
[2017-09-02] MEDS: FUROSEMIDE INJ 40 MG in SYRINGE 0 ML IV SCH ×2 (07:40→17:02)
[2017-09-02] MEDS: METOPROLOL TARTRATE 25 MG TAB PO SCH ×2 (07:41→21:25)
[2017-09-02] MEDS: ATORVASTATIN 10 MG TAB PO SCH (07:41)
[2017-09-02] MEDS: AMLODIPINE BESYLATE 5 MG TAB PO SCH (07:41)
[2017-09-02] MEDS: ALLOPURINOL 300 MG TAB PO SCH (07:42)
[2017-09-02] MEDS: PAROXETINE 20 MG TAB PO SCH (07:42)
[2017-09-02] MEDS: CHOLECALCIFEROL 1000 INTER.UNIT TAB PO SCH (07:42)
--- NOTE | 2017-09-02 11:21 | Pharmacy Progress Note ---
Pharmacy Glycemic Short Note 2 Date of Service Sep 02, 2017. OUTPATIENT ANTIDIABETIC REGIMEN: * glimepiride 2 mg PO daily * A1c = 7.6 % 12/06/10 Item Value Date Time Random Glucose 94 mg/dl 09/01/17 0849 Bedside Glucose 107 mg/dl H 09/01/17 1414 Bedside Glucose 150 mg/dl H 09/01/17 1624 Bedside Glucose 156 mg/dl H 09/01/17 1815 Bedside Glucose 128 mg/dl H 09/01/17 2039 Bedside Glucose 93 mg/dl 09/02/17 0731 Bedside Glucose 143 mg/dl H 09/02/17 1051 ASSESSMENT: * 72 yr old T2DM male with adequate outpatient glycemic control managed by a single oral anti-diabetic agent. * Will continue to hold oral agent for admission and utilize SQ basal bolus insulin regimen which is the recommended regimen for inpatient glycemic control. Only 1 unit of insulin was administered over the past 24 hours. * Fasting BSG and post-prandial BSGs are at goal. PLAN FOR INPATIENT GLYCEMIC CONTROL: * Hold outpatient oral diabetes medications * Basal insulin - only for BSG of 140 mg/dL or greater * Lantus SQ qPM * 0 units for BSG < 140 * 6 units for BSG 140-180 * 12 units for BSG > 180 * Bolus insulin - no change * NovoLog per scale ACHS or Q6hrs while NPO * Goal Range: Low 110 mg/dL - High 140 mg/dL * Correction Factor: 30 mg/dL/unit * Nutritional / Prandial insulin per carb ratio of 1 unit per 9 grams CHO consumed PLAN FOR DISCHARGE: * Continue home regimen based on A1c of 6.2%
--- NOTE | 2017-09-02 11:59 | Progress Note ---
Subjective Date of Service: Sep 02, 2017. Subjective Pt evaluation today including: conversation w/ patient, physical exam, lab review, review of studies, review of inpatient medication list Saw/examined the patient in room 238 He's feeling better today, shortness of breath improving +urinary frequency with Lasix use Output - 2L yesterday Denies chest pain/palpitations Problem List Medical Problems: (1) CHF (congestive heart failure) Status: Acute (2) Hypoxia Status: Acute Review of Systems Constitutional: No fever, No chills Respiratory: + shortness of breath (improving), + dyspnea on exertion ( improving), No cough, No sputum, No wheezing, No dyspnea at rest, No hemoptysis Cardiac: No chest pain, No edema, No palpitations Abdomen: No pain, No nausea, No vomiting, No diarrhea Medications Current Inpatient Medications Medications (Trade) Dose Ordered Sig/Tash Route Start Time Stop Time Status Last Admin Dose Admin Ioversol (Optiray 320) 100 ml UD PRN IV 09/01/17 09:30 09/05/17 09:29 Acetaminophen (Tylenol Tab) 650 mg Q4H PRN PO 09/01/17 11:15 10/01/17 11:14 Al Hydrox/Mg Hydrox/Simethicone (Maalox Max Susp) 15 ml Q4H PRN PO 09/01/17 11:15 10/01/17 11:14 Magnesium Hydroxide (Milk Of Magnesia Susp) 30 ml Q12H PRN PO 09/01/17 11:15 10/01/17 11:14 Ondansetron HCl (Zofran Inj) 4 mg Q6H PRN IV 09/01/17 11:15 10/01/17 11:14 Polyethylene (Miralax Powder Packet) 17 gm DAILY PRN PO 09/01/17 11:15 10/01/17 11:14 Insulin Aspart (novoLOG ASPART) SLIDING SCALE If C... ACHS SC 09/01/17 16:00 10/01/17 15:59 09/01/17 18:17 1 UNITS Glucose (Glucose 40% Gel) 15-30 GRAMS 15 GRAMS... UD PRN PO 09/01/17 11:15 10/01/17 11:14 Glucose (Glucose Chew Tab) 4-8 Tablets 4 Tabl... UD PRN PO 09/01/17 11:15 10/01/17 11:14 Dextrose (Dextrose 50% 50ML Syringe) 25-50ML 25ML FOR ... UD PRN IV 09/01/17 11:15 10/01/17 11:14 Glucagon (Glucagon Inj) 1 mg UD PRN SQ 09/01/17 11:15 10/01/17 11:14 Carbohydrates (Carbohydrates For Hypoglycemia) 15-30 GRAMS 15 grams if BSG 54-69... UD PRN PO 09/01/17 11:15 10/01/17 11:14 Miscellaneous Information (Consult Glycemic Management Pharmacy) 1 ea UD PRN N/A 09/01/17 11:15 10/01/17 11:14 Allopurinol (Zyloprim Tab) 300 mg DAILY PO 09/02/17 09:00 10/02/17 08:59 09/02/17 07:42 300 MG Amlodipine Besylate (Norvasc Tab) 10 mg DAILY PO 09/02/17 09:00 10/02/17 08:59 09/02/17 07:41 10 MG Atorvastatin Calcium (Lipitor Tab) 10 mg DAILY PO 09/02/17 09:00 10/02/17 08:59 09/02/17 07:41 10 MG Metoprolol Tartrate (Lopressor Tab) 25 mg BID PO 09/01/17 21:00 10/01/17 20:59 09/02/17 07:41 25 MG Paroxetine HCl (pAXil TAB) 20 mg DAILY PO 09/02/17 09:00 10/02/17 08:59 09/02/17 07:42 20 MG Cholecalciferol (Vitamin D Tab) 2,000 inter.unit DAILY PO 09/02/17 09:00 10/02/17 08:59 09/02/17 07:42 2,000 INTER.UNIT Insulin Glargine (Lantus Solostar Pen) SEE PROTOCOL TEXT HS SC 09/01/17 21:00 10/01/17 20:59 Furosemide 40 mg/ Syringe 4 ml @ 4 mls/min BID17 IV 09/01/17 17:00 10/01/17 16:59 09/02/17 07:40 4 MLS/MIN Objective Vital Signs Date Time Temp Pulse Resp B/P (MAP) Pulse Ox O2 Delivery O2 Flow Rate FiO2 09/02/17 08:00 95 Nasal Cannula 2.0 09/02/17 06:48 37.0 68 18 143/84 (103) 94 Nasal Cannula 2.0 09/02/17 04:33 36.7 75 19 140/82 (101) 94 Nasal Cannula 2.0 09/02/17 04:00 Nasal Cannula 2.0 09/02/17 00:01 Nasal Cannula 2.0 09/01/17 23:07 36.9 90 20 151/92 (111) 94 Nasal Cannula 2.0 09/01/17 20:00 Nasal Cannula 2.0 09/01/17 19:00 36.8 99 18 126/80 (95) 93 Nasal Cannula 2.0 09/01/17 16:00 94 Nasal Cannula 2.0 09/01/17 15:28 36.4 92 18 137/76 (96) 92 Nasal Cannula 2.0 09/01/17 14:19 36.6 92 18 165/95 (118) 92 Nasal Cannula 2.0 09/01/17 14:19 92 Nasal Cannula 2.0 09/01/17 12:30 78 18 145/87 98 Nasal Cannula 2.0 Physical Exam General Appearance: no apparent distress, + obese Respiratory/Chest: no respiratory distress, no accessory muscle use, + decreased breath sounds Cardiovascular: regular rate, rhythm, no edema, no murmur Extremities: no pedal edema, no calf tenderness, + pertinent finding (venous stasis dermatitis) Neurologic/Psychiatric: no motor/sensory deficits, alert, normal mood/affect Laboratory Results Last 24 Hours Test 09/01/17 14:14 09/01/17 16:24 09/01/17 17:09 09/01/17 18:15 Bedside Glucose 107 mg/dl 150 mg/dl 156 mg/dl Sodium Level 139 mmol/L Potassium Level 4.2 mmol/L Chloride Level 105 mmol/L Carbon Dioxide Level 25 mmol/L Anion Gap 9.0 mmol/L Blood Urea Nitrogen 30 mg/dl Creatinine 1.91 mg/dl Est Creatinine Clear Calc Drug Dose 46.7 ml/min Estimated GFR () 39.4 Estimated GFR (Non- 34.0 BUN/Creatinine Ratio 15.8 Random Glucose 151 mg/dl Calcium Level 8.8 mg/dl Magnesium Level 1.8 mg/dl Troponin I < 0.015 ng/ml Test 09/01/17 20:39 09/01/17 22:54 09/02/17 04:38 09/02/17 07:31 Bedside Glucose 128 mg/dl 93 mg/dl Troponin I < 0.015 ng/ml < 0.015 ng/ml Prothrombin Time 37.6 SECONDS Prothromb Time International Ratio 3.7 Sodium Level 138 mmol/L Potassium Level 3.7 mmol/L Chloride Level 103 mmol/L Carbon Dioxide Level 25 mmol/L Anion Gap 10.0 mmol/L Blood Urea Nitrogen 31 mg/dl Creatinine 1.76 mg/dl Est Creatinine Clear Calc Drug Dose 50.5 ml/min Estimated GFR () 43.5 Estimated GFR (Non- 37.5 BUN/Creatinine Ratio 17.5 Random Glucose 88 mg/dl Estimated Average Glucose 131 mg/dl Hemoglobin A1c 6.2 % Calcium Level 8.5 mg/dl Total Bilirubin 3.5 mg/dl Aspartate Amino Transf (AST/SGOT) 32 U/L Alanine Aminotransferase (ALT/SGPT) 30 U/L Alkaline Phosphatase 155 U/L Total Protein 7.4 gm/dl Albumin 3.1 gm/dl Globulin 4.3 gm/dl Albumin/Globulin Ratio 0.7 Triglycerides Level 93 mg/dl Cholesterol Level 98 mg/dl HDL Cholesterol 55 mg/dl LDL Cholesterol, Calculated 24 mg/dl VLDL Cholesterol, Calculated 19 mg/dl Cholesterol/HDL Ratio 1.8 Thyroid Stimulating Hormone (TSH) 2.920 uIu/ml Test 09/02/17 10:51 09/02/17 11:03 Bedside Glucose 143 mg/dl Assessment and Plan This is a 72 year old obese male with a 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, right heart failure, DM2, HTN, CKD stage 3, OCD, Gilbert's syndrome, hyperlipidemia - presents with worsening shortness of breath Acute Hypoxic Respiratory Failure secondary to Bilateral Pleural Effusions Underlying Pulmonary Artery Hypertension and R Heart Failure 09/02 - symptoms improving - continue Lasix and monitor I's and O's - will likely need maintenance diuretics - pulmonary consulted for management of L pleural effusion as well as possible underlying ALMITA - will likely need repeat imaging for mediastinal lymphadenopathy 09/01 - patient is coming in with hypoxia, requiring oxygen; with increased respiratory effort initially - improved with IV Lasix and supplemental oxygen - CT chest suggests bilateral pleural effusions; also suggests pulmonary artery hypertension - will check an echo for LVEF, pulmonary arterial pressures, etc. - will continue IV Lasix 20mg BID - cardiology consulted for further input Paroxysmal Atrial Fibrillation - patient with a lot of artifactual beats noted on EKG - does not appear to be a regular rhythm - chronic RBBB - cardiology consulted for further input - continue Lopressor and continue anticoagulation - TSH wnl, Mg wnl Hx. of PE/DVT - on long-term Coumadin - supratherapuetic INR; will hold Coumadin and recheck in AM Hypokalemia - has had issues with low K in the past - will supplement potassium and will likely need chronic K supplementation - check Mg DM2 - hold oral agents - insulin sliding scale ordered - check Ha1c Acute Kidney Injury superimposed on CKD stage 3 - creatinine up to 1.9 after diuretic dose - improving now to 1.7 will monitor, this may be his new baseline OCD - continue Paxil Gilbert's Syndrome - elevated T. bili is chronic DVT ppx - Coumadin; goal INR of 2-3 FULL CODE
--- NOTE | 2017-09-02 14:24 | Cardiology Follow-Up ---
Subjective General Date of Service: Sep 02, 2017. Pt evaluation today including: conversation w/ patient, physical exam, chart review, lab review, review of studies, review of inpatient medication list History of Present Illness The patient is a 72 year old male seen in follow-up. Respiratory status improved today. Edema improving as well. Fluid balance negative approximately 2700 cc. Patient reports urinary frequency. Denies dysuria. No orthopnea or paroxysmal nocturnal dyspnea. Allergies Coded Allergies: No Known Allergies (Unverified , 09/01/17) Social History Smoking Status: Former Smoker Hx Tobacco Use In Past Year?: No Hx Alcohol Use - Type And Amou: Yes (DAILY RUM 4OZ ) Hx Substance Use - Type And Am: No Problem List Medical Problems: (1) CHF (congestive heart failure) Status: Acute (2) Hypoxia Status: Acute Review of Systems Respiratory: No cough, No sputum, No wheezing, No shortness of breath, No dyspnea on exertion, No dyspnea at rest, No hemoptysis Cardiac: No chest pain, No orthopnea, No PND, No edema, No palpitations Physical Exam Vital Signs Last Vital Signs Documentation Date Time Temp Pulse Resp B/P (MAP) Pulse Ox O2 Delivery O2 Flow Rate FiO2 09/02/17 12:00 95 Nasal Cannula 2.0 09/02/17 10:55 36.8 76 20 135/83 (100) Physical Exam Constitutional: General Apperance: overweight Level of Distress: NAD ENMT: normal ENT inspection Lungs: Auscultation: no wheezing, decreased breath sounds, rales/crackles on the left Cardiovascular: Heart Auscultation: normal S1, normal S2, no murmurs, irregular rate rhythm Peripheral Pulses: Radial Pulse: normal on the left, normal on the right Abdomen: Bowel Sounds: normal Inspection & Palpation: soft, non-distended, no tenderness, guarding & rebound Extremities: no cyanosis, no clubbing, no ulcers, edema (1+ bilateral pedal and ankle edema) Neurologic: Gait & Station: pertinent finding (No focal motor deficit.) Cranial Nerves: grossly intact Assessment and Plan Assessment and Plan Final impression: 1. Acute decompensated heart failure with preserved LV systolic function and evidence of significant right ventricular dilatation and dysfunction, cor pulmonale, pulmonary hypertension on 2D echocardiogram. 2. Paroxysmal atrial fibrillation with borderline rate control. 3. Chronic anticoagulation secondary to history of DVT/PE 2010 with supratherapeutic INR on admission. -Coumadin on hold; INR 3.7 today 4. RBBB 5. Obesity with suspected obstructive sleep apnea. 6. Chronic kidney disease stage III. 7. Mediastinal lymphadenopathy. PLAN AND RECOMMENDATIONS: Continue on intravenous Lasix 40 mg twice daily. Follow fluid balance, electrolytes, renal function daily. Continue current fluids/sodium restriction. Patient will require outpatient ischemic evaluation in the future. Laboratory Results Last 24 Hours Test 09/01/17 16:24 09/01/17 17:09 09/01/17 18:15 09/01/17 20:39 Bedside Glucose 150 mg/dl 156 mg/dl 128 mg/dl Sodium Level 139 mmol/L Potassium Level 4.2 mmol/L Chloride Level 105 mmol/L Carbon Dioxide Level 25 mmol/L Anion Gap 9.0 mmol/L Blood Urea Nitrogen 30 mg/dl Creatinine 1.91 mg/dl Est Creatinine Clear Calc Drug Dose 46.7 ml/min Estimated GFR () 39.4 Estimated GFR (Non- 34.0 BUN/Creatinine Ratio 15.8 Random Glucose 151 mg/dl Calcium Level 8.8 mg/dl Magnesium Level 1.8 mg/dl Troponin I < 0.015 ng/ml Test 09/01/17 22:54 09/02/17 04:38 09/02/17 07:31 09/02/17 10:51 Troponin I < 0.015 ng/ml < 0.015 ng/ml Prothrombin Time 37.6 SECONDS Prothromb Time International Ratio 3.7 Sodium Level 138 mmol/L Potassium Level 3.7 mmol/L Chloride Level 103 mmol/L Carbon Dioxide Level 25 mmol/L Anion Gap 10.0 mmol/L Blood Urea Nitrogen 31 mg/dl Creatinine 1.76 mg/dl Est Creatinine Clear Calc Drug Dose 50.5 ml/min Estimated GFR () 43.5 Estimated GFR (Non- 37.5 BUN/Creatinine Ratio 17.5 Random Glucose 88 mg/dl Estimated Average Glucose 131 mg/dl Hemoglobin A1c 6.2 % Calcium Level 8.5 mg/dl Total Bilirubin 3.5 mg/dl Aspartate Amino Transf (AST/SGOT) 32 U/L Alanine Aminotransferase (ALT/SGPT) 30 U/L Alkaline Phosphatase 155 U/L Total Protein 7.4 gm/dl Albumin 3.1 gm/dl Globulin 4.3 gm/dl Albumin/Globulin Ratio 0.7 Triglycerides Level 93 mg/dl Cholesterol Level 98 mg/dl HDL Cholesterol 55 mg/dl LDL Cholesterol, Calculated 24 mg/dl VLDL Cholesterol, Calculated 19 mg/dl Cholesterol/HDL Ratio 1.8 Thyroid Stimulating Hormone (TSH) 2.920 uIu/ml Bedside Glucose 93 mg/dl 143 mg/dl Test 09/02/17 11:03 Troponin I < 0.015 ng/ml
--- NOTE | 2017-09-02 14:53 | Pulmonary Consultation ---
History General Date of Service: Sep 02, 2017. Stated Complaint: Chf,Hypoxia HPI The patient is a 72 year old male who presents to [facility] with complaints of Chf,Hypoxia. The patient's primary care provider is Ez Navarro D.O.. 72-year-old gentleman admitted for acute onset shortness of breath. Patient has a significant PmHx:VTE/PE/DVT (Coumadin & IVC), obesity, diabetes, hyperlipidemia, chronic RBBB, HIT, chronic kidney disease and Gilbert's Syndrome. After speaking with the patient he notes a progressive decline in his physical abilities/increasing dyspnea on exertion over 2 year window with appreciated lower extremity edema over that time as well. He does note that it seems to have progressed over the last 2 months in within the last month having a dry nonproductive cough which is associated with rhinitis. His signs and symptoms greatly increased on the morning of his admission but at that time he denied: Fever, chills, productive cough, pleurisy, palpitations or classic cardiac chest pain. His arrival to the emergency room his SaO2 was 87 % on room air which increased to 95% with 2 liters nasal cannula supplementation. Since this time of his arrival patient notes showed improvement in his respiratory status with no dyspnea at rest. Patient has been treated with aggressive diuresis with approximately 2.8 L of overall diuresis and oxygen supplementation. During our interview the patient denies: Fever, chills, B type symptoms, pleurisy, palpitations, classic cardiac chest pain, night sweats , rigors or chills. Current workup WBC: 9K PLT: 169K INR: 4.93.7 BUN/Cr: 31/1.76 Total Bili: >3.5 AO: >155 Albumin: <3.1 BNP: 5,521 CXR: Hilar fullness, peribronchial cuffing, opacification of the left costophrenic angle CTA: 4R adenopathy 18mm, (b) pleural effusion L>>R, L sided loculated EKG: Atrial fibrillation with a rate of 78 PmHx: 1. Hypertension 2. Diabetes mellitus type 2 3. Gout 4. Hyperlipidemia 5. Adenomatous tubular adenomas polyp of the colon 6. Obesity 7. Chronic right bundle-branch block 8. Lower Ext DVT 9. 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 Sigmoid and descending colonic diverticulosis 12. CKD stage III 13. 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 Colonoscopies 2. Dental surgeries 3. IVC filter placement 12/06/2010 Family History Mother- age 90, DM type II. Father- age 78, CAD/MO, DM, ? allergic reaction to heparin. Brother- DM. Brother- prostate Ca. Brother- heart disease, pacemaker. 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) Allergies No Known Allergies Home Medications Allopurinol (Allopurinol), 300 MG PO DAILY Amlodipine (Norvasc), 10 MG PO DAILY Atorvastatin (Lipitor), 10 MG PO DAILY Cholecalciferol (Vitamin D3), 2,000 UNITS PO DAILY Glimepiride (Glimepiride), 2 MG PO DAILY Hydralazine HCl (Hydralazine HCl), 25 MG PO BID Hydrochlorothiazide (Hctz), 12.5 MG PO DAILY Metoprolol Tartrate (Lopressor) (Lopressor), 25 MG PO BID Paroxetine (Paxil), 20 MG PO DAILY Warfarin Sod (Jantoven), 2.5 MG PO 5XWK Warfarin Sod (Jantoven), 1.25 MG PO 2XWK Acetaminophen (Tylenol), 650 MG PO Q4H PRN Historian: patient, EMS Review of Systems Constitutional: reports: as stated in HPI Eyes: reports: no symptoms ENT: reports: no symptoms Cardiovascular: reports: as stated in HPI Respiratory: reports: as stated in HPI Gastrointestinal: reports: no symptoms Genitourinary - Male: reports: no symptoms Musculoskeletal: reports: no symptoms Integumentary: reports: no symptoms Neurologic: reports: no symptoms Psychiatric: reports: no symptoms Endocrine: no symptoms Hematologic / Lymphatic: no symptoms Allergic / Immunologic: no symptoms Past Medical History Past Medical History: Please refer to HPI Past Surgical History: Please refer to HPI Family History Please refer to HPI Social History Please refer to HPI Hx Tobacco Use In Past Year?: No Smoking Status: Former Smoker Alcohol: daily Marital status: Housing status: lives with family Occupational Status: retired Immunizations History of Influenza Vaccine: Yes Influenza Vaccine Date: Nov 19, 2010 History of Tetanus Vaccine?: Yes History of Pneumococcal: Yes Pneumococcal Date: Aug 29, 2009 History of Hepatitis B Vaccine: Yes History of MDRO History of MDRO: No Allergies Coded Allergies: No Known Allergies (Unverified , 09/01/17) Current Medications Reported Home Medications Medications Dose Route/Sig Max Daily Dose Days Date Category Dose Instructions Glimepiride 2 Mg Tab 2 Mg PO DAILY 09/01/17 Reported Hydralazine HCl 25 Mg Tab 25 Mg PO BID 09/01/17 Reported Jantoven (Warfarin Sodium) 2.5 Mg Tab 1.25 Mg PO 2XWK 09/01/17 Reported TAKES MON AND FRI Jantoven (Warfarin Sodium) 2.5 Mg Tab 2.5 Mg PO 5XWK 09/01/17 Reported TAKES ,FRI,,SAT,SUN Paxil (Paroxetine HCl) 20 Mg Tab 20 Mg PO DAILY 09/01/17 Reported Norvasc (Amlodipine Besylate) 10 Mg Tab 10 Mg PO DAILY 09/01/17 Reported Allopurinol 300 Mg Tab 300 Mg PO DAILY 09/01/17 Reported Hctz (Hydrochlorothiazide) 12.5 Mg Cap 12.5 Mg PO DAILY 09/20/14 Reported Vitamin D3 (Cholecalciferol) 2,000 Unit Tab 2,000 Units PO DAILY 09/20/14 Reported Tylenol (Acetaminophen) 325 Mg Tab 650 Mg PO Q4H PRN 12/17/10 Rx Lopressor (Metoprolol Tartrate) 25 Mg Tab 25 Mg PO BID 12/17/10 Rx Lipitor (Atorvastatin Calcium) 10 Mg Tab 10 Mg PO DAILY 11/14/10 Reported Physical Physical Exam Vital Signs: Date Time Temp Pulse Resp B/P (MAP) Pulse Ox O2 Delivery O2 Flow Rate FiO2 09/02/17 12:00 95 Nasal Cannula 2.0 09/02/17 10:55 36.8 76 20 135/83 (100) 94 Room Air 09/02/17 08:00 95 Nasal Cannula 2.0 09/02/17 06:48 37.0 68 18 143/84 (103) 94 Nasal Cannula 2.0 09/02/17 04:33 36.7 75 19 140/82 (101) 94 Nasal Cannula 2.0 09/02/17 04:00 Nasal Cannula 2.0 09/02/17 00:01 Nasal Cannula 2.0 09/01/17 23:07 36.9 90 20 151/92 (111) 94 Nasal Cannula 2.0 09/01/17 20:00 Nasal Cannula 2.0 09/01/17 19:00 36.8 99 18 126/80 (95) 93 Nasal Cannula 2.0 09/01/17 16:00 94 Nasal Cannula 2.0 09/01/17 15:28 36.4 92 18 137/76 (96) 92 Nasal Cannula 2.0 General Appearance: WELL-APPEARING, NO APPARENT DISTRESS Head: NORMOCEPHALIC, ATRAUMATIC Eyes: PERRLA, NO DISCHARGE, EOMI, SCLERAE NORMAL ENT: NORMAL EAR EXAM, NORMAL NASAL EXAM, NORMAL MOUTH EXAM, NORMAL THROAT EXAM Neck: NORMAL RANGE OF MOTION, NO TENDERNESS, TRACHEA MIDLINE, NO STRIDOR, other (JVD approximately 2 centimeters) Respiratory: other (Decreased breath sounds at the bases left greater than right with some crackles appreciated) Cardiovasular: other (Regular rhythm but distant heart sounds unable to auscultate for murmurs rubs or gallops) Abdomen: other (Obese but positive bowel sounds soft nontender no rebound) Genitourinary - Male: EXTERNAL GENITALIA NORMAL Back: NORMAL INSPECTION, NO MIDLINE TENDERNESS, NO CVA TENDERNESS Upper Extremities: NO EDEMA, NO DEFORMITY, NORMAL ROM Lower Extremities: other (3+ bilateral pitting edema with stasis dermatitis) Pulses: carotid (R) (1+), carotid (L) (1+), dorsalis pedis (R) (0), dorsalis pedis (L) (0) Neuro: ALERT, ORIENTED x 3, NORMAL MOTOR EXAM, NORMAL SENSATION, NORMAL CEREBELLAR EXAM, NORMAL SPEECH Reflexes: biceps (R) (2+), bicpes (L) (2+), achilles (R) (1+), achilles (L) (1+ ) Babinski Testing: right (downgoing), left (downgoing) Psychiatric: NORMAL AFFECT, CONTRACTS FOR SAFETY Diagnostics Labs Results Past 24 Hours Test 09/01/17 16:24 09/01/17 17:09 09/01/17 18:15 09/01/17 20:39 Range/Units Bedside Glucose 150 156 128 70-99 mg/dl Sodium Level 139 136-145 mmol/L Potassium Level 4.2 3.5-5.1 mmol/L Chloride Level 105 98-107 mmol/L Carbon Dioxide Level 25 21-32 mmol/L Anion Gap 9.0 3-11 mmol/L Blood Urea Nitrogen 30 7-18 mg/dl Creatinine 1.91 0.60-1.40 mg/dl Est Creatinine Clear Calc Drug Dose 46.7 ml/min Estimated GFR () 39.4 Estimated GFR (Non- 34.0 BUN/Creatinine Ratio 15.8 10-20 Random Glucose 151 70-99 mg/dl Calcium Level 8.8 8.5-10.1 mg/dl Magnesium Level 1.8 1.8-2.4 mg/dl Troponin I < 0.015 0-0.045 ng/ml Test 09/01/17 22:54 09/02/17 04:38 09/02/17 07:31 09/02/17 10:51 Range/Units Troponin I < 0.015 < 0.015 0-0.045 ng/ml Prothrombin Time 37.6 9.0-12.0 SECONDS Prothromb Time International Ratio 3.7 0.9-1.1 Sodium Level 138 136-145 mmol/L Potassium Level 3.7 3.5-5.1 mmol/L Chloride Level 103 98-107 mmol/L Carbon Dioxide Level 25 21-32 mmol/L Anion Gap 10.0 3-11 mmol/L Blood Urea Nitrogen 31 7-18 mg/dl Creatinine 1.76 0.60-1.40 mg/dl Est Creatinine Clear Calc Drug Dose 50.5 ml/min Estimated GFR () 43.5 Estimated GFR (Non- 37.5 BUN/Creatinine Ratio 17.5 10-20 Random Glucose 88 70-99 mg/dl Estimated Average Glucose 131 mg/dl Hemoglobin A1c 6.2 4.5-5.6 % Calcium Level 8.5 8.5-10.1 mg/dl Total Bilirubin 3.5 0.2-1 mg/dl Aspartate Amino Transf (AST/SGOT) 32 15-37 U/L Alanine Aminotransferase (ALT/SGPT) 30 12-78 U/L Alkaline Phosphatase 155 45-117 U/L Total Protein 7.4 6.4-8.2 gm/dl Albumin 3.1 3.4-5.0 gm/dl Globulin 4.3 2.5-4.0 gm/dl Albumin/Globulin Ratio 0.7 0.9-2 Triglycerides Level 93 0-150 mg/dl Cholesterol Level 98 0-200 mg/dl HDL Cholesterol 55 mg/dl LDL Cholesterol, Calculated 24 mg/dl VLDL Cholesterol, Calculated 19 mg/dl Cholesterol/HDL Ratio 1.8 Thyroid Stimulating Hormone (TSH) 2.920 0.300-4.500 uIu/ml Bedside Glucose 93 143 70-99 mg/dl Test 09/02/17 11:03 Range/Units Troponin I < 0.015 0-0.045 ng/ml Diagnostic Radiology Please refer to HPI EKG Please refer to HPI Impression Assessment and Plan 72-year-old male admitted with acute on chronic shortness of breath: 1. Shortness of Breath: Patient appears to have acute on chronic shortness of breath after reviewing his history as well as his clinical evaluation. It does appear anywhere from cardiac 2 pulmonary derangements could be creating this patient's problems. I did review the CT angiogram with Radiology and there are no signs of pulmonary hypertension based off classic criteria with a pulmonary artery to aorta ratio being less than 1. Volumetric averaging of the left atrium does suggest signs of left atrial volume overload. To move forward this patient would most likely benefit from a right and left heart catheterization as well as pulmonary function studies, nocturnal desaturation study and possibly even V/Q study. At this time aggressive diuresis and monitoring are appropriate. Final results of the echocardiogram are currently pending. 2. Pulmonary Embolism: Possibility of recurrent pulmonary embolism or even CTEPH or low as the patient has been on chronic Coumadin and came in with a super therapeutic level. I will order DVT study for further evaluation. It should be noted that IVC filters chronically do not decrease the rate of pulmonary emboli and possibly mildly increased the rate of recurrent embolism, this is usually off anticoagulation though. We should continue to monitor his INR in maintain his levels in the therapeutic range on Coumadin. 3. Pleural Effusion: Patient's INR still supratherapeutic so moving forward with thoracentesis in a patient who is notably improving is not warranted. If with aggressive diuresis we do not on note improvement of the pleural effusion thoracentesis would be warranted at that time.
--- NOTE | 2017-09-02 18:37 | DIAGNOSTIC IMAGING REPORT ---
VENOUS DOPPLER LWR EXT BILA HISTORY: Pain. Edema. Evaluation for DVT COMPARISON STUDY: 12/10/2010 FINDINGS: There is normal compressibility, flow, and augmentation within the bilateral lower extremity deep venous systems. IMPRESSION: No DVT within the right or left lower extremity. The above report was generated using voice recognition software. It may contain grammatical, syntax or spelling errors. Electronically signed by: Alex Lara M.D. 09/02/2017 6:36 PM Dictated Date/Time: 09/02/2017 6:35 PM
[2017-09-02] MEDS: INSULIN GLARGINE SOLOSTAR 100 UNITS/ML 3 ML PEN SC SCH (21:00)
[2017-09-03] VITALS (8 sets, daily range): BP systolic 116–142; BP diastolic 72–81; PULSE 65–78; TEMP 36.1–37; O2SAT 91–94
[2017-09-03 08:00] LABS: HEMATOCRIT 39.8 % (42-52); HEMOGLOBIN 13.8 g/dL (14.0-18.0); MEAN CELL VOLUME 94.1 fL (80-100); MEAN CORPUSCULAR HEMOGLOBIN 32.6 pg (25-34); MEAN CORPUSCULAR HGB CONC 34.7 g/dl (32-36); MEAN PLATELET VOLUME 10.3 fL (7.4-10.4); PLATELET COUNT 160 K/uL (130-400); RED CELL DISTRIBUTION WIDTH CV 14.7 % (11.5-14.5); RED CELL DISTRIBUTION WIDTH SD 49.7 fL (36.4-46.3); WHITE BLOOD COUNT 7.39 K/uL (4.8-10.8)
[2017-09-03 08:05] LABS: INR 2.6 (0.9-1.1)
[2017-09-03] MEDS: FUROSEMIDE INJ 40 MG in SYRINGE 0 ML IV SCH ×2 (08:06→16:48)
[2017-09-03] MEDS: AMLODIPINE BESYLATE 5 MG TAB PO SCH (08:07)
[2017-09-03] MEDS: ATORVASTATIN 10 MG TAB PO SCH (08:07)
[2017-09-03] MEDS: METOPROLOL TARTRATE 25 MG TAB PO SCH ×2 (08:07→21:07)
[2017-09-03] MEDS: ALLOPURINOL 300 MG TAB PO SCH (08:08)
[2017-09-03] MEDS: PAROXETINE 20 MG TAB PO SCH (08:08)
[2017-09-03] MEDS: CHOLECALCIFEROL 1000 INTER.UNIT TAB PO SCH (08:08)
[2017-09-03] MEDS: INSULIN ASPART 100 UNITS/ML 3 ML PEN SC SCH ×4 (08:11→20:47)
[2017-09-03 08:27] LABS: CALCIUM 8.7 mg/dl (8.5-10.1); CREATININE 1.8 mg/dl (0.60-1.40); POTASSIUM 3.3 mmol/L (3.5-5.1)
[2017-09-03] MEDS ORDERED: POTASSIUM CHLORIDE 20 MEQ TABCR PO STA (09:40)
[2017-09-03] MEDS ORDERED: MAGNESIUM SULFATE 1GM / D5W 100 ML IV STA (11:24)
--- NOTE | 2017-09-03 11:35 | Progress Note ---
Subjective Date of Service: Sep 03, 2017. Subjective Pt evaluation today including: conversation w/ patient, conversation w/ family , physical exam, lab review, review of studies, review of inpatient medication list Saw/examined the patient in room 238 He's feeling better, denies shortness of breath/chest pain/palpitations Feeling better; with negative fluid balance Problem List Medical Problems: (1) CHF (congestive heart failure) Status: Acute (2) Hypoxia Status: Acute Review of Systems Constitutional: No fever, No chills Respiratory: No cough, No sputum, No shortness of breath Cardiac: No chest pain Abdomen: No pain, No nausea, No vomiting, No diarrhea Medications Current Inpatient Medications Medications (Trade) Dose Ordered Sig/Tash Route Start Time Stop Time Status Last Admin Dose Admin Ioversol (Optiray 320) 100 ml UD PRN IV 09/01/17 09:30 09/05/17 09:29 Acetaminophen (Tylenol Tab) 650 mg Q4H PRN PO 09/01/17 11:15 10/01/17 11:14 Al Hydrox/Mg Hydrox/Simethicone (Maalox Max Susp) 15 ml Q4H PRN PO 09/01/17 11:15 10/01/17 11:14 Magnesium Hydroxide (Milk Of Magnesia Susp) 30 ml Q12H PRN PO 09/01/17 11:15 10/01/17 11:14 Ondansetron HCl (Zofran Inj) 4 mg Q6H PRN IV 09/01/17 11:15 10/01/17 11:14 Polyethylene (Miralax Powder Packet) 17 gm DAILY PRN PO 09/01/17 11:15 10/01/17 11:14 Insulin Aspart (novoLOG ASPART) SLIDING SCALE If C... ACHS SC 09/01/17 16:00 10/01/17 15:59 09/03/17 08:11 3 UNITS Glucose (Glucose 40% Gel) 15-30 GRAMS 15 GRAMS... UD PRN PO 09/01/17 11:15 10/01/17 11:14 Glucose (Glucose Chew Tab) 4-8 Tablets 4 Tabl... UD PRN PO 09/01/17 11:15 10/01/17 11:14 Dextrose (Dextrose 50% 50ML Syringe) 25-50ML 25ML FOR ... UD PRN IV 09/01/17 11:15 10/01/17 11:14 Glucagon (Glucagon Inj) 1 mg UD PRN SQ 09/01/17 11:15 10/01/17 11:14 Carbohydrates (Carbohydrates For Hypoglycemia) 15-30 GRAMS 15 grams if BSG 54-69... UD PRN PO 09/01/17 11:15 10/01/17 11:14 Miscellaneous Information (Consult Glycemic Management Pharmacy) 1 ea UD PRN N/A 09/01/17 11:15 10/01/17 11:14 Allopurinol (Zyloprim Tab) 300 mg DAILY PO 09/02/17 09:00 10/02/17 08:59 09/03/17 08:08 300 MG Amlodipine Besylate (Norvasc Tab) 10 mg DAILY PO 09/02/17 09:00 10/02/17 08:59 09/03/17 08:07 10 MG Atorvastatin Calcium (Lipitor Tab) 10 mg DAILY PO 09/02/17 09:00 10/02/17 08:59 09/03/17 08:07 10 MG Metoprolol Tartrate (Lopressor Tab) 25 mg BID PO 09/01/17 21:00 10/01/17 20:59 09/03/17 08:07 25 MG Paroxetine HCl (pAXil TAB) 20 mg DAILY PO 09/02/17 09:00 10/02/17 08:59 09/03/17 08:08 20 MG Cholecalciferol (Vitamin D Tab) 2,000 inter.unit DAILY PO 09/02/17 09:00 10/02/17 08:59 09/03/17 08:08 2,000 INTER.UNIT Furosemide 40 mg/ Syringe 4 ml @ 4 mls/min BID17 IV 09/01/17 17:00 10/01/17 16:59 09/03/17 08:06 4 MLS/MIN Objective Vital Signs Date Time Temp Pulse Resp B/P (MAP) Pulse Ox O2 Delivery O2 Flow Rate FiO2 09/03/17 08:00 Nasal Cannula 2.0 09/03/17 07:58 36.4 77 18 131/72 (91) 94 Nasal Cannula 2.0 09/03/17 05:37 67 18 92 Room Air 09/03/17 04:30 Nasal Cannula 2.0 09/03/17 03:43 37.0 78 18 128/77 (94) 91 Room Air 09/03/17 00:25 Nasal Cannula 2.0 09/02/17 23:25 37.3 76 18 124/84 (97) 89 Room Air 09/02/17 20:50 Nasal Cannula 2.0 09/02/17 19:18 36.7 68 20 129/78 (95) 94 Nasal Cannula 3.0 09/02/17 16:00 Nasal Cannula 2.0 09/02/17 15:19 37.0 77 20 138/84 (102) 94 Nasal Cannula 2.0 09/02/17 12:00 95 Nasal Cannula 2.0 Physical Exam General Appearance: no apparent distress Respiratory/Chest: chest non-tender, lungs clear, normal breath sounds, no respiratory distress, no accessory muscle use Cardiovascular: regular rate, rhythm, no edema, no murmur Neurologic/Psychiatric: no motor/sensory deficits, alert, normal mood/affect Laboratory Results Last 24 Hours Test 09/02/17 16:34 09/02/17 20:45 09/03/17 07:22 09/03/17 07:30 Bedside Glucose 101 mg/dl 116 mg/dl 102 mg/dl White Blood Count 7.39 K/uL Red Blood Count 4.23 M/uL Hemoglobin 13.8 g/dL Hematocrit 39.8 % Mean Corpuscular Volume 94.1 fL Mean Corpuscular Hemoglobin 32.6 pg Mean Corpuscular Hemoglobin Concent 34.7 g/dl RDW Standard Deviation 49.7 fL RDW Coefficient of Variation 14.7 % Platelet Count 160 K/uL Mean Platelet Volume 10.3 fL Prothrombin Time 27.2 SECONDS Prothromb Time International Ratio 2.6 Sodium Level 139 mmol/L Potassium Level 3.3 mmol/L Chloride Level 102 mmol/L Carbon Dioxide Level 26 mmol/L Anion Gap 11.0 mmol/L Blood Urea Nitrogen 35 mg/dl Creatinine 1.80 mg/dl Est Creatinine Clear Calc Drug Dose 49.2 ml/min Estimated GFR () 42.3 Estimated GFR (Non- 36.5 BUN/Creatinine Ratio 19.4 Random Glucose 84 mg/dl Calcium Level 8.7 mg/dl Magnesium Level 1.5 mg/dl Assessment and Plan This is a 72 year old obese male with a 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, right heart failure, DM2, HTN, CKD stage 3, OCD, Gilbert's syndrome, hyperlipidemia - presents with worsening shortness of breath Acute Hypoxic Respiratory Failure secondary to Bilateral Pleural Effusions Underlying Pulmonary Artery Hypertension and R Heart Failure 09/03 - good output, with a negative fluid balance - has had a total of 3.5L removed - continue IV Lasix, replace Mg and K - further input from cardiology - nocturnal pulse ox without significant desaturation - can wean off O2 as tolerated 09/02 - symptoms improving - continue Lasix and monitor I's and O's - will likely need maintenance diuretics - pulmonary consulted for management of L pleural effusion as well as possible underlying ALMITA - will likely need repeat imaging for mediastinal lymphadenopathy 09/01 - patient is coming in with hypoxia, requiring oxygen; with increased respiratory effort initially - improved with IV Lasix and supplemental oxygen - CT chest suggests bilateral pleural effusions; also suggests pulmonary artery hypertension - will check an echo for LVEF, pulmonary arterial pressures, etc. - will continue IV Lasix 20mg BID - cardiology consulted for further input Paroxysmal Atrial Fibrillation - patient with a lot of artifactual beats noted on EKG - does not appear to be a regular rhythm - chronic RBBB - cardiology consulted for further input - continue Lopressor and continue anticoagulation - TSH wnl, Mg wnl Hx. of PE/DVT - on long-term Coumadin - INR therapeutic - continue Coumadin Hypokalemia - has had issues with low K in the past - will supplement potassium and will likely need chronic K supplementation - check Mg DM2 - hold oral agents - insulin sliding scale ordered - Ha1c = 6.2% and well controlled Acute Kidney Injury superimposed on CKD stage 3 - creatinine up to 1.9 after diuretic dose - improving now to 1.7 will monitor, this may be his new baseline OCD - continue Paxil Gilbert's Syndrome - elevated T. bili is chronic DVT ppx - Coumadin; goal INR of 2-3 FULL CODE
--- NOTE | 2017-09-03 13:00 | Cardiology Follow-Up ---
Subjective General Date of Service: Sep 03, 2017. Pt evaluation today including: conversation w/ patient, physical exam, chart review, lab review, review of studies, review of inpatient medication list History of Present Illness The patient is a 72 year old male seen in follow-up. Continues to improve from a respiratory perspective. Fluid balance is negative with mild weight loss. Denies chest pain or palpitations. Rate controlled atrial fibrillation on telemetry. Allergies Coded Allergies: No Known Allergies (Unverified , 09/01/17) Social History Smoking Status: Former Smoker Hx Tobacco Use In Past Year?: No Hx Alcohol Use - Type And Amou: Yes (DAILY RUM 4OZ ) Hx Substance Use - Type And Am: No Problem List Medical Problems: (1) CHF (congestive heart failure) Status: Acute (2) Hypoxia Status: Acute Review of Systems Respiratory: + shortness of breath, + dyspnea on exertion, No cough, No sputum , No wheezing, No dyspnea at rest, No hemoptysis Cardiac: + edema, No chest pain, No orthopnea, No PND, No claudication, No palpitations Physical Exam Vital Signs Last Vital Signs Documentation Date Time Temp Pulse Resp B/P (MAP) Pulse Ox O2 Delivery O2 Flow Rate FiO2 09/03/17 12:11 36.4 75 18 128/72 (90) 92 Nasal Cannula 2.0 Physical Exam Constitutional: General Apperance: overweight Level of Distress: NAD ENMT: normal ENT inspection Lungs: Auscultation: no wheezing, decreased breath sounds, rales/crackles on the left Cardiovascular: Heart Auscultation: normal S1, normal S2, no murmurs, irregular rate rhythm Peripheral Pulses: Radial Pulse: normal on the left, normal on the right Abdomen: Bowel Sounds: normal Inspection & Palpation: soft, non-distended, no tenderness, guarding & rebound Extremities: no cyanosis, no clubbing, no ulcers, edema (1+ bilateral pedal and ankle edema) Neurologic: Gait & Station: pertinent finding (No focal motor deficit.) Cranial Nerves: grossly intact Assessment and Plan Assessment and Plan Final impression: 1. Acute decompensated heart failure with preserved LV systolic function and evidence of significant right ventricular dilatation and dysfunction, cor pulmonale, pulmonary hypertension on 2D echocardiogram. 2. Paroxysmal atrial fibrillation -rate controlled 3. Chronic anticoagulation secondary to history of DVT/PE 2010 with supratherapeutic INR on admission. -Coumadin on hold; INR 2.6 today 4. RBBB 5. Obesity with suspected obstructive sleep apnea. 6. Chronic kidney disease stage III. 7. Mediastinal lymphadenopathy. PLAN AND RECOMMENDATIONS: Continue on intravenous Lasix 40 mg twice daily. Follow fluid balance, electrolytes, renal function daily. Continue current fluids/sodium restriction. Patient will likely require sleep study and VQ scan as per pulmonary medicine. Laboratory Results Last 24 Hours Test 09/02/17 16:34 09/02/17 20:45 09/03/17 07:22 09/03/17 07:30 Bedside Glucose 101 mg/dl 116 mg/dl 102 mg/dl White Blood Count 7.39 K/uL Red Blood Count 4.23 M/uL Hemoglobin 13.8 g/dL Hematocrit 39.8 % Mean Corpuscular Volume 94.1 fL Mean Corpuscular Hemoglobin 32.6 pg Mean Corpuscular Hemoglobin Concent 34.7 g/dl RDW Standard Deviation 49.7 fL RDW Coefficient of Variation 14.7 % Platelet Count 160 K/uL Mean Platelet Volume 10.3 fL Prothrombin Time 27.2 SECONDS Prothromb Time International Ratio 2.6 Sodium Level 139 mmol/L Potassium Level 3.3 mmol/L Chloride Level 102 mmol/L Carbon Dioxide Level 26 mmol/L Anion Gap 11.0 mmol/L Blood Urea Nitrogen 35 mg/dl Creatinine 1.80 mg/dl Est Creatinine Clear Calc Drug Dose 49.2 ml/min Estimated GFR () 42.3 Estimated GFR (Non- 36.5 BUN/Creatinine Ratio 19.4 Random Glucose 84 mg/dl Calcium Level 8.7 mg/dl Magnesium Level 1.5 mg/dl
--- NOTE | 2017-09-03 13:20 | Pulmonology Progress Note ---
Pulmonary Progress Note Date of Service Sep 03, 2017. Attending Dr. Cortes Subjective Patient is sitting up in bed notes overall improvement in his respiratory status. He was able to walk 25-30 yards last evening with minimal dyspnea which is notably improved from his baseline over the last 2-3 months which she can only walk 10-20 feet without experiencing dyspnea. Objective Patient is sitting up bed wearing nasal cannula no signs of respiratory insufficiency during our conversation: PmHx: Hypertension, Diabetes mellitus type 2, gout, hyperlipidemia, tubular adenomas of the colon, obesity, chronic RBBB, DVT/PE (Coumadin), HIT, sigmoid/ descending colonic diverticulosis, CKD stage III, OCD, Bolton Syndrome PsHx: Colonoscopy, dental surgery, IVC filter placement 12/06/2010 Vital Signs: Stable on 2 liters nasal cannula I/Os: -3.5L Respiratory: Bilateral crackles with dullness to percussion at the bases left greater than right Cardiac: S1-S2 regular rhythm but distant heart sounds Abdomen: Positive bowel sounds soft nontender Extremities: 2+ pitting edema Current workup WBC: 9K---7K PLT: [id number] INR: 4.9--3.7---2.9 BUN/Cr: 35/1.80 BNP: 5,521 CXR: Hilar fullness, peribronchial cuffing, opacification of the left costophrenic angle CTA: 4R adenopathy 18mm, (b) pleural effusion L>>R, L sided loculated EKG: Atrial fibrillation with PVCs and a rate of 72 (B) Lower EXT Doppler (09/02/17): No signs of DVT Nocturnal oximetry study 09/02/2017 --- 09/03/2017: Max single desaturation less than 88% 14min Echocardiogram 09/01/2017 LV: Normal size, EF=55-60% RV: Severely dilated, with systolic function moderately to severely reduced Atria: Left atrium severely dilated, right atrium severely dilated RSVP: 76mmHg IVC: Reduced collapsibility RA Pressure: 15mmHg Assessment & Plan 72-year-old male admitted with acute on chronic shortness of breath: 1. Shortness of Breath: Echocardiogram does show signs of elevated right ventricular pressures. This is most likely combination group 2 and group 3 pulmonary hypertension but will require more definitive workup with right and possibly left heart catheterization. 2. Pulmonary Embolism: Patient low risk for pulmonary embolism as he has been chronically/therapeutically anticoagulated and no signs of DVT in the his lower extremities. Patient is being re-initiated on Coumadin at this time as his INR is therapeutic. 3. Pleural Effusion: Left greater than right. Patient responding well to diuresis. This time his INR is therapeutic but I do not feel perform thoracentesis would provide clinical benefit at this time. I will continue to monitor. 4. Nocturnal Hypoxemia: Polysomnogram shows consistent desaturation less than 88% for 14 minutes with window. Patient does meet Medicare standards for initiating BiPAP. Will start at 7 over 10 cm H2O and at 2 liters of supplemental oxygen. Data Medications: Current Inpatient Medications Medications (Trade) Dose Ordered Sig/Tash Route Start Time Stop Time Status Last Admin Dose Admin Ioversol (Optiray 320) 100 ml UD PRN IV 09/01/17 09:30 09/05/17 09:29 Acetaminophen (Tylenol Tab) 650 mg Q4H PRN PO 09/01/17 11:15 10/01/17 11:14 Al Hydrox/Mg Hydrox/Simethicone (Maalox Max Susp) 15 ml Q4H PRN PO 09/01/17 11:15 10/01/17 11:14 Magnesium Hydroxide (Milk Of Magnesia Susp) 30 ml Q12H PRN PO 09/01/17 11:15 10/01/17 11:14 Ondansetron HCl (Zofran Inj) 4 mg Q6H PRN IV 09/01/17 11:15 10/01/17 11:14 Polyethylene (Miralax Powder Packet) 17 gm DAILY PRN PO 09/01/17 11:15 10/01/17 11:14 Insulin Aspart (novoLOG ASPART) SLIDING SCALE If C... ACHS SC 09/01/17 16:00 10/01/17 15:59 09/03/17 12:13 4 UNITS Glucose (Glucose 40% Gel) 15-30 GRAMS 15 GRAMS... UD PRN PO 09/01/17 11:15 10/01/17 11:14 Glucose (Glucose Chew Tab) 4-8 Tablets 4 Tabl... UD PRN PO 09/01/17 11:15 10/01/17 11:14 Dextrose (Dextrose 50% 50ML Syringe) 25-50ML 25ML FOR ... UD PRN IV 09/01/17 11:15 10/01/17 11:14 Glucagon (Glucagon Inj) 1 mg UD PRN SQ 09/01/17 11:15 10/01/17 11:14 Carbohydrates (Carbohydrates For Hypoglycemia) 15-30 GRAMS 15 grams if BSG 54-69... UD PRN PO 09/01/17 11:15 10/01/17 11:14 Miscellaneous Information (Consult Glycemic Management Pharmacy) 1 ea UD PRN N/A 09/01/17 11:15 10/01/17 11:14 Allopurinol (Zyloprim Tab) 300 mg DAILY PO 09/02/17 09:00 10/02/17 08:59 09/03/17 08:08 300 MG Amlodipine Besylate (Norvasc Tab) 10 mg DAILY PO 09/02/17 09:00 10/02/17 08:59 09/03/17 08:07 10 MG Atorvastatin Calcium (Lipitor Tab) 10 mg DAILY PO 09/02/17 09:00 10/02/17 08:59 09/03/17 08:07 10 MG Metoprolol Tartrate (Lopressor Tab) 25 mg BID PO 09/01/17 21:00 10/01/17 20:59 09/03/17 08:07 25 MG Paroxetine HCl (pAXil TAB) 20 mg DAILY PO 09/02/17 09:00 10/02/17 08:59 09/03/17 08:08 20 MG Cholecalciferol (Vitamin D Tab) 2,000 inter.unit DAILY PO 09/02/17 09:00 10/02/17 08:59 09/03/17 08:08 2,000 INTER.UNIT Furosemide 40 mg/ Syringe 4 ml @ 4 mls/min BID17 IV 09/01/17 17:00 10/01/17 16:59 09/03/17 08:06 4 MLS/MIN Warfarin Sodium (Coumadin Tab) 1.25 mg DAILY@16 PO 09/03/17 16:00 10/03/17 15:59 Vital Signs: Date Time Temp Pulse Resp B/P (MAP) Pulse Ox O2 Delivery O2 Flow Rate FiO2 09/03/17 12:11 36.4 75 18 128/72 (90) 92 Nasal Cannula 2.0 09/03/17 12:00 Room Air 09/03/17 08:00 Nasal Cannula 2.0 09/03/17 07:58 36.4 77 18 131/72 (91) 94 Nasal Cannula 2.0 09/03/17 05:37 67 18 92 Room Air 09/03/17 04:30 Nasal Cannula 2.0 09/03/17 03:43 37.0 78 18 128/77 (94) 91 Room Air 09/03/17 00:25 Nasal Cannula 2.0 09/02/17 23:25 37.3 76 18 124/84 (97) 89 Room Air 09/02/17 20:50 Nasal Cannula 2.0 09/02/17 19:18 36.7 68 20 129/78 (95) 94 Nasal Cannula 3.0 09/02/17 16:00 Nasal Cannula 2.0 09/02/17 15:19 37.0 77 20 138/84 (102) 94 Nasal Cannula 2.0 Laboratory Results: Last 24 Hours Test 09/02/17 16:34 09/02/17 20:45 09/03/17 07:22 09/03/17 07:30 Bedside Glucose 101 mg/dl 116 mg/dl 102 mg/dl White Blood Count 7.39 K/uL Red Blood Count 4.23 M/uL Hemoglobin 13.8 g/dL Hematocrit 39.8 % Mean Corpuscular Volume 94.1 fL Mean Corpuscular Hemoglobin 32.6 pg Mean Corpuscular Hemoglobin Concent 34.7 g/dl RDW Standard Deviation 49.7 fL RDW Coefficient of Variation 14.7 % Platelet Count 160 K/uL Mean Platelet Volume 10.3 fL Prothrombin Time 27.2 SECONDS Prothromb Time International Ratio 2.6 Sodium Level 139 mmol/L Potassium Level 3.3 mmol/L Chloride Level 102 mmol/L Carbon Dioxide Level 26 mmol/L Anion Gap 11.0 mmol/L Blood Urea Nitrogen 35 mg/dl Creatinine 1.80 mg/dl Est Creatinine Clear Calc Drug Dose 49.2 ml/min Estimated GFR () 42.3 Estimated GFR (Non- 36.5 BUN/Creatinine Ratio 19.4 Random Glucose 84 mg/dl Calcium Level 8.7 mg/dl Magnesium Level 1.5 mg/dl Test 09/03/17 11:16 Bedside Glucose 131 mg/dl
[2017-09-03] MEDS ORDERED: WARFARIN SOD 1.25 MG TAB PO SCH (16:00)
[2017-09-04] VITALS (9 sets, daily range): BP systolic 122–149; BP diastolic 69–90; PULSE 66–82; TEMP 36.6–37.1; O2SAT 91–94
[2017-09-04 06:37] LABS: HEMATOCRIT 41.4 % (42-52); HEMOGLOBIN 14.2 g/dL (14.0-18.0); MEAN CELL VOLUME 94.1 fL (80-100); MEAN CORPUSCULAR HEMOGLOBIN 32.3 pg (25-34); MEAN CORPUSCULAR HGB CONC 34.3 g/dl (32-36); PLATELET COUNT 151 K/uL (130-400); RED CELL DISTRIBUTION WIDTH CV 14.7 % (11.5-14.5); RED CELL DISTRIBUTION WIDTH SD 50.2 fL (36.4-46.3); WHITE BLOOD COUNT 8.91 K/uL (4.8-10.8)
[2017-09-04] MEDS: INSULIN ASPART 100 UNITS/ML 3 ML PEN SC SCH ×4 (07:00→20:31)
[2017-09-04 07:07] LABS: CALCIUM 9.1 mg/dl (8.5-10.1); CREATININE 2.11 mg/dl (0.60-1.40)
[2017-09-04] MEDS: ATORVASTATIN 10 MG TAB PO SCH (08:01)
[2017-09-04] MEDS: FUROSEMIDE INJ 40 MG in SYRINGE 0 ML IV SCH (08:01)
[2017-09-04] MEDS: METOPROLOL TARTRATE 25 MG TAB PO SCH (08:01)
[2017-09-04] MEDS: CHOLECALCIFEROL 1000 INTER.UNIT TAB PO SCH (08:02)
[2017-09-04] MEDS: AMLODIPINE BESYLATE 5 MG TAB PO SCH (08:02)
[2017-09-04] MEDS: PAROXETINE 20 MG TAB PO SCH (08:02)
[2017-09-04] MEDS: ALLOPURINOL 300 MG TAB PO SCH (08:03)
[2017-09-04] MEDS ORDERED: MAGNESIUM SULFATE 1GM / D5W 100 ML IV STA (10:06)
--- NOTE | 2017-09-04 10:44 | Pharmacy Progress Note ---
Pharmacy Glycemic Short Note 2 Date of Service Sep 04, 2017. OUTPATIENT ANTIDIABETIC REGIMEN: * glimepiride 2 mg PO daily * A1c = 7.6 % 12/06/10 Item Value Date Time Bedside Glucose 93 mg/dl 09/02/17 0731 Bedside Glucose 143 mg/dl H 09/02/17 1051 Bedside Glucose 101 mg/dl H 09/02/17 1634 Bedside Glucose 116 mg/dl H 09/02/17 2045 Bedside Glucose 102 mg/dl H 09/03/17 0730 ASSESSMENT: * 72 yr old T2DM male with adequate outpatient glycemic control managed by a single oral anti-diabetic agent. * Will continue to hold oral agent for admission and utilize SQ basal bolus insulin regimen which is the recommended regimen for inpatient glycemic control. Patient is requiring bolus insulin only. He was administered a total of 15 units over the past 24 hours. * Fasting BSG and post-prandial BSGs are at goal. * No basal insulin needed. * Current carb ratio appears to be too tight. Will reduce to 1 unit for every 12 grams CHO. PLAN FOR INPATIENT GLYCEMIC CONTROL: * Hold outpatient oral diabetes medications * Basal insulin - none * Bolus insulin - loosen * NovoLog per scale ACHS or Q6hrs while NPO * Goal Range: Low 110 mg/dL - High 140 mg/dL * Correction Factor: 30 mg/dL/unit * Nutritional / Prandial insulin per carb ratio of 1 unit per 12 grams CHO consumed PLAN FOR DISCHARGE: * Continue home regimen based on A1c of 6.2%
--- NOTE | 2017-09-04 10:44 | PROGRESS NOTE ---
DATE: 09/04/2017 The patient seen and examined. Chart, medications, telemetry reviewed. SUBJECTIVE: The patient feels substantially improved since hospitalization. His fluid balance is negative for approximately 5 kg. Heart rates have been controlled. Weight remains in atrial fibrillation, did trial with CPAP supplementation last night and noted a remarkably good tolerance by his own description. Notes generally feeling improved. OBJECTIVE: VITAL SIGNS: Heart rate is 66, blood pressure is 133/76. HEENT: Normocephalic and atraumatic. NECK: Thick. There is no jugular venous distention at 30 degrees. LUNGS: Reveal mildly diminished breath sounds diffusely, but are clear. CARDIOVASCULAR: Irregularly irregular. There is no S3 gallop. ABDOMEN: Soft. EXTREMITIES: Reveal mild stasis changes bilaterally. LABORATORY DATA: Today, white cell count 8.9, hemoglobin is 14.2, hematocrit is 41.4, sodium is 138, potassium is 4.0, chloride is 100, bicarbonate is 30, BUN is 39, creatinine is 2.1. Magnesium level is 1.6 today. Telemetry reveals atrial fibrillation with right bundle-branch block configuration with controlled ventricular response rate. IMPRESSION: 1. A complex 72-year-old male admitted with acute on chronic decompensated right heart failure, clinically improved with IV diuretics. 2. Acute on chronic renal insufficiency with longstanding history of stage III renal insufficiency with chronic proteinuria. 3. Newly observed atrial fibrillation with controlled ventricular response rate. 4. Obstructive sleep apnea with new initiation of CPAP therapy. PLAN: Will optimize medical therapies, beginning with holding diuretics today given worsening renal insufficiency and prompt diuresis. On previous admission, he was on low-dose hydrochlorothiazide, but will likely reinstitute furosemide once renal function plateaus. We will change metoprolol tartrate to metoprolol succinate for optimal therapy. We will reduce amlodipine to 5 mg per day, reinstitute hydralazine and held on time of admission for hypertension control. The patient is clinically improving. Urge continued use of CPAP at night.
[2017-09-04] MEDS ORDERED: WARFARIN SOD 2.5 MG TAB PO SCH (16:00)
--- NOTE | 2017-09-04 17:08 | Pulmonology Progress Note ---
Pulmonary Progress Note Date of Service Sep 04, 2017. Attending Dr. Cortes Subjective Patient did well with the BiPAP last night at 12/07. He notes initial 15 minutes were mildly difficult/claustrophobic otherwise he slept most of the evening with the mask on and the respiratory therapist verify this. He also noted increased energy level and decreased shortness of breath over the last 24 hours. Objective Patient did well on BiPAP in notes decreasing shortness of breath since his admission. PmHx: Hypertension, Diabetes mellitus type 2, gout, hyperlipidemia, tubular adenomas of the colon, obesity, chronic RBBB, DVT/PE (Coumadin), HIT, sigmoid/ descending colonic diverticulosis, CKD stage III, OCD, Paradox Syndrome PsHx: Colonoscopy, dental surgery, IVC filter placement 12/06/2010 Vital Signs: Stable on 2 liters nasal cannula I/Os: -6.3L Respiratory: Clear to auscultation Cardiac: S1-S2 regular rhythm but distant heart sounds Abdomen: Positive bowel sounds soft nontender Extremities: 2+ pitting edema Current workup Cr: 2.11 BNP: 5,521 CXR: Hilar fullness, peribronchial cuffing, opacification of the left costophrenic angle CTA: 4R adenopathy 18mm, (b) pleural effusion L>>R, L sided loculated EKG: Atrial fibrillation with PVCs and a rate of 72 (B) Lower EXT Doppler (09/02/17): No signs of DVT Nocturnal oximetry study 09/02/2017 --- 09/03/2017: Max single desaturation less than 88% 14min Echocardiogram 09/01/2017 LV: Normal size, EF=55-60% RV: Severely dilated, with systolic function moderately to severely reduced Atria: Left atrium severely dilated, right atrium severely dilated RSVP: 76mmHg IVC: Reduced collapsibility RA Pressure: 15mmHg Assessment & Plan 72-year-old male admitted with acute on chronic shortness of breath: 1. Shortness of Breath: Patient shortness of breath has greatly improved with almost 7 liters of diuresis as well as supplemental oxygen and initiated on BiPAP last night. This time I would like to perform a 2 step and help the patient get set up for home coverage both for BiPAP as well as oxygenation. 2. Pulmonary Embolism: Currently therapeutic on warfarin. 3. Pleural Effusion: Will continue to monitor with bedside ultrasonography. 4. Nocturnal Hypoxemia: Patient will require polysomnogram/split sleep study as an outpatient. Will continue him on BiPAP at the current settings of 7/10cm H2O and 2L supplemental oxygen. Patient will require home set up. Data Medications: Current Inpatient Medications Medications (Trade) Dose Ordered Sig/Tash Route Start Time Stop Time Status Last Admin Dose Admin Ioversol (Optiray 320) 100 ml UD PRN IV 09/01/17 09:30 09/05/17 09:29 Acetaminophen (Tylenol Tab) 650 mg Q4H PRN PO 09/01/17 11:15 10/01/17 11:14 Al Hydrox/Mg Hydrox/Simethicone (Maalox Max Susp) 15 ml Q4H PRN PO 09/01/17 11:15 10/01/17 11:14 Magnesium Hydroxide (Milk Of Magnesia Susp) 30 ml Q12H PRN PO 09/01/17 11:15 10/01/17 11:14 Ondansetron HCl (Zofran Inj) 4 mg Q6H PRN IV 09/01/17 11:15 10/01/17 11:14 Polyethylene (Miralax Powder Packet) 17 gm DAILY PRN PO 09/01/17 11:15 10/01/17 11:14 Insulin Aspart (novoLOG ASPART) SLIDING SCALE If C... ACHS SC 09/01/17 16:00 10/01/17 15:59 09/04/17 14:36 6 UNITS Glucose (Glucose 40% Gel) 15-30 GRAMS 15 GRAMS... UD PRN PO 09/01/17 11:15 10/01/17 11:14 Glucose (Glucose Chew Tab) 4-8 Tablets 4 Tabl... UD PRN PO 09/01/17 11:15 10/01/17 11:14 Dextrose (Dextrose 50% 50ML Syringe) 25-50ML 25ML FOR ... UD PRN IV 09/01/17 11:15 10/01/17 11:14 Glucagon (Glucagon Inj) 1 mg UD PRN SQ 09/01/17 11:15 10/01/17 11:14 Carbohydrates (Carbohydrates For Hypoglycemia) 15-30 GRAMS 15 grams if BSG 54-69... UD PRN PO 09/01/17 11:15 10/01/17 11:14 Miscellaneous Information (Consult Glycemic Management Pharmacy) 1 ea UD PRN N/A 09/01/17 11:15 10/01/17 11:14 Allopurinol (Zyloprim Tab) 300 mg DAILY PO 09/02/17 09:00 10/02/17 08:59 09/04/17 08:03 300 MG Atorvastatin Calcium (Lipitor Tab) 10 mg DAILY PO 09/02/17 09:00 10/02/17 08:59 09/04/17 08:01 10 MG Paroxetine HCl (pAXil TAB) 20 mg DAILY PO 09/02/17 09:00 10/02/17 08:59 09/04/17 08:02 20 MG Cholecalciferol (Vitamin D Tab) 2,000 inter.unit DAILY PO 09/02/17 09:00 10/02/17 08:59 09/04/17 08:02 2,000 INTER.UNIT Furosemide 40 mg/ Syringe 4 ml @ 4 mls/min BID17 IV 09/01/17 17:00 10/01/17 16:59 Future Hold 09/04/17 08:01 4 MLS/MIN Amlodipine Besylate (Norvasc Tab) 5 mg DAILY PO 09/05/17 09:00 10/02/17 08:59 Metoprolol Succinate (Toprol Xl Tab) 25 mg BID PO 09/04/17 21:00 10/04/17 20:59 Hydralazine HCl (Apresoline Tab) 12.5 mg BID17 PO 09/04/17 17:00 10/04/17 16:59 Warfarin Sodium (Coumadin Tab) 2.5 mg DAILY@16 PO 09/04/17 16:00 10/04/17 15:59 09/04/17 15:57 2.5 MG I & O: 24-Hour Column 09/05/17 08:00 Intake Total 900 ml Output Total 1350 ml Balance -450 ml Vital Signs: Date Time Temp Pulse Resp B/P (MAP) Pulse Ox O2 Delivery O2 Flow Rate FiO2 09/04/17 15:58 36.6 68 20 130/78 (95) 93 Nasal Cannula 2.0 100 09/04/17 12:00 Nasal Cannula 2.0 09/04/17 11:15 36.9 69 18 126/72 (90) 92 2.0 09/04/17 08:00 Nasal Cannula 2.0 09/04/17 07:03 36.8 66 20 133/76 (95) 94 Nasal Cannula 2.0 09/04/17 04:03 BiPAP 2.0 09/04/17 03:29 36.6 70 15 149/90 (109) 91 BiPAP 09/04/17 00:02 BiPAP 2.0 09/03/17 23:49 65 94 2.0 09/03/17 23:45 36.1 70 17 142/81 (101) 92 BiPAP 09/03/17 20:01 Nasal Cannula 2.0 09/03/17 19:27 36.7 71 18 120/76 (91) 94 Nasal Cannula 1.5 Laboratory Results: Last 24 Hours Test 09/03/17 20:20 09/04/17 06:17 09/04/17 07:27 09/04/17 11:27 Bedside Glucose 100 mg/dl 120 mg/dl 171 mg/dl White Blood Count 8.91 K/uL Red Blood Count 4.40 M/uL Hemoglobin 14.2 g/dL Hematocrit 41.4 % Mean Corpuscular Volume 94.1 fL Mean Corpuscular Hemoglobin 32.3 pg Mean Corpuscular Hemoglobin Concent 34.3 g/dl RDW Standard Deviation 50.2 fL RDW Coefficient of Variation 14.7 % Platelet Count 151 K/uL Mean Platelet Volume 10.0 fL Prothrombin Time 20.8 SECONDS Prothromb Time International Ratio 2.0 Sodium Level 138 mmol/L Potassium Level 4.0 mmol/L Chloride Level 100 mmol/L Carbon Dioxide Level 30 mmol/L Anion Gap 8.0 mmol/L Blood Urea Nitrogen 39 mg/dl Creatinine 2.11 mg/dl Est Creatinine Clear Calc Drug Dose 41.5 ml/min Estimated GFR () 34.9 Estimated GFR (Non- 30.1 BUN/Creatinine Ratio 18.6 Random Glucose 119 mg/dl Calcium Level 9.1 mg/dl Magnesium Level 1.6 mg/dl
--- NOTE | 2017-09-04 18:26 | Progress Note ---
Subjective Date of Service: Sep 04, 2017. Subjective Pt evaluation today including: conversation w/ patient, physical exam, lab review, review of studies, review of inpatient medication list Saw/examined the patient in room 238-1 No problems/issues at this time Feeling much better in terms of breathing Denies chest pain/palpitations Did well with bipap nocturnally Problem List Medical Problems: (1) CHF (congestive heart failure) Status: Acute (2) Hypoxia Status: Acute Review of Systems Constitutional: No fever, No chills Respiratory: No cough, No sputum, No wheezing, No shortness of breath, No dyspnea on exertion, No dyspnea at rest, No hemoptysis Cardiac: No chest pain, No edema, No palpitations Medications Current Inpatient Medications Medications (Trade) Dose Ordered Sig/Tash Route Start Time Stop Time Status Last Admin Dose Admin Ioversol (Optiray 320) 100 ml UD PRN IV 09/01/17 09:30 09/05/17 09:29 Acetaminophen (Tylenol Tab) 650 mg Q4H PRN PO 09/01/17 11:15 10/01/17 11:14 Al Hydrox/Mg Hydrox/Simethicone (Maalox Max Susp) 15 ml Q4H PRN PO 09/01/17 11:15 10/01/17 11:14 Magnesium Hydroxide (Milk Of Magnesia Susp) 30 ml Q12H PRN PO 09/01/17 11:15 10/01/17 11:14 Ondansetron HCl (Zofran Inj) 4 mg Q6H PRN IV 09/01/17 11:15 10/01/17 11:14 Polyethylene (Miralax Powder Packet) 17 gm DAILY PRN PO 09/01/17 11:15 10/01/17 11:14 Insulin Aspart (novoLOG ASPART) SLIDING SCALE If C... ACHS SC 09/01/17 16:00 10/01/17 15:59 09/04/17 17:28 6 UNITS Glucose (Glucose 40% Gel) 15-30 GRAMS 15 GRAMS... UD PRN PO 09/01/17 11:15 10/01/17 11:14 Glucose (Glucose Chew Tab) 4-8 Tablets 4 Tabl... UD PRN PO 09/01/17 11:15 10/01/17 11:14 Dextrose (Dextrose 50% 50ML Syringe) 25-50ML 25ML FOR ... UD PRN IV 09/01/17 11:15 10/01/17 11:14 Glucagon (Glucagon Inj) 1 mg UD PRN SQ 09/01/17 11:15 10/01/17 11:14 Carbohydrates (Carbohydrates For Hypoglycemia) 15-30 GRAMS 15 grams if BSG 54-69... UD PRN PO 09/01/17 11:15 10/01/17 11:14 Miscellaneous Information (Consult Glycemic Management Pharmacy) 1 ea UD PRN N/A 09/01/17 11:15 10/01/17 11:14 Allopurinol (Zyloprim Tab) 300 mg DAILY PO 09/02/17 09:00 10/02/17 08:59 09/04/17 08:03 300 MG Atorvastatin Calcium (Lipitor Tab) 10 mg DAILY PO 09/02/17 09:00 10/02/17 08:59 09/04/17 08:01 10 MG Paroxetine HCl (pAXil TAB) 20 mg DAILY PO 09/02/17 09:00 10/02/17 08:59 09/04/17 08:02 20 MG Cholecalciferol (Vitamin D Tab) 2,000 inter.unit DAILY PO 09/02/17 09:00 10/02/17 08:59 09/04/17 08:02 2,000 INTER.UNIT Furosemide 40 mg/ Syringe 4 ml @ 4 mls/min BID17 IV 09/01/17 17:00 10/01/17 16:59 Future Hold 09/04/17 08:01 4 MLS/MIN Amlodipine Besylate (Norvasc Tab) 5 mg DAILY PO 09/05/17 09:00 10/02/17 08:59 Metoprolol Succinate (Toprol Xl Tab) 25 mg BID PO 09/04/17 21:00 10/04/17 20:59 Hydralazine HCl (Apresoline Tab) 12.5 mg BID17 PO 09/04/17 17:00 10/04/17 16:59 09/04/17 17:22 12.5 MG Warfarin Sodium (Coumadin Tab) 2.5 mg DAILY@16 PO 09/04/17 16:00 10/04/17 15:59 09/04/17 15:57 2.5 MG Objective Vital Signs Date Time Temp Pulse Resp B/P (MAP) Pulse Ox O2 Delivery O2 Flow Rate FiO2 09/04/17 16:00 93 Nasal Cannula 2.0 09/04/17 15:58 36.6 68 20 130/78 (95) 93 Nasal Cannula 2.0 100 09/04/17 12:00 Nasal Cannula 2.0 09/04/17 11:15 36.9 69 18 126/72 (90) 92 2.0 09/04/17 08:00 Nasal Cannula 2.0 09/04/17 07:03 36.8 66 20 133/76 (95) 94 Nasal Cannula 2.0 09/04/17 04:03 BiPAP 2.0 09/04/17 03:29 36.6 70 15 149/90 (109) 91 BiPAP 09/04/17 00:02 BiPAP 2.0 09/03/17 23:49 65 94 2.0 09/03/17 23:45 36.1 70 17 142/81 (101) 92 BiPAP 09/03/17 20:01 Nasal Cannula 2.0 09/03/17 19:27 36.7 71 18 120/76 (91) 94 Nasal Cannula 1.5 Physical Exam General Appearance: no apparent distress Respiratory/Chest: chest non-tender, lungs clear, normal breath sounds, no respiratory distress, no accessory muscle use Cardiovascular: regular rate, rhythm, no edema, no murmur Extremities: normal inspection, no pedal edema Neurologic/Psychiatric: no motor/sensory deficits, alert, normal mood/affect Skin: normal color Laboratory Results Last 24 Hours Test 09/03/17 20:20 09/04/17 06:17 09/04/17 07:27 09/04/17 11:27 Bedside Glucose 100 mg/dl 120 mg/dl 171 mg/dl White Blood Count 8.91 K/uL Red Blood Count 4.40 M/uL Hemoglobin 14.2 g/dL Hematocrit 41.4 % Mean Corpuscular Volume 94.1 fL Mean Corpuscular Hemoglobin 32.3 pg Mean Corpuscular Hemoglobin Concent 34.3 g/dl RDW Standard Deviation 50.2 fL RDW Coefficient of Variation 14.7 % Platelet Count 151 K/uL Mean Platelet Volume 10.0 fL Prothrombin Time 20.8 SECONDS Prothromb Time International Ratio 2.0 Sodium Level 138 mmol/L Potassium Level 4.0 mmol/L Chloride Level 100 mmol/L Carbon Dioxide Level 30 mmol/L Anion Gap 8.0 mmol/L Blood Urea Nitrogen 39 mg/dl Creatinine 2.11 mg/dl Est Creatinine Clear Calc Drug Dose 41.5 ml/min Estimated GFR () 34.9 Estimated GFR (Non- 30.1 BUN/Creatinine Ratio 18.6 Random Glucose 119 mg/dl Calcium Level 9.1 mg/dl Magnesium Level 1.6 mg/dl Assessment and Plan This is a 72 year old obese male with a 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, right heart failure, DM2, HTN, CKD stage 3, OCD, Gilbert's syndrome, hyperlipidemia - presents with worsening shortness of breath Acute Hypoxic Respiratory Failure secondary to Bilateral Pleural Effusions Underlying Pulmonary Artery Hypertension and R Heart Failure 09/04 - Lasix stopped due to kidney function decline - did well with nocturnal bipap - will need bipap on discharge - two step to be performed in AM 09/03 - good output, with a negative fluid balance - has had a total of 3.5L removed - continue IV Lasix, replace Mg and K - further input from cardiology - nocturnal pulse ox without significant desaturation - can wean off O2 as tolerated 09/02 - symptoms improving - continue Lasix and monitor I's and O's - will likely need maintenance diuretics - pulmonary consulted for management of L pleural effusion as well as possible underlying ALMITA - will likely need repeat imaging for mediastinal lymphadenopathy 09/01 - patient is coming in with hypoxia, requiring oxygen; with increased respiratory effort initially - improved with IV Lasix and supplemental oxygen - CT chest suggests bilateral pleural effusions; also suggests pulmonary artery hypertension - will check an echo for LVEF, pulmonary arterial pressures, etc. - will continue IV Lasix 20mg BID - cardiology consulted for further input Paroxysmal Atrial Fibrillation - patient with a lot of artifactual beats noted on EKG - does not appear to be a regular rhythm - chronic RBBB - cardiology consulted for further input - continue Lopressor and continue anticoagulation - TSH wnl, Mg wnl Hx. of PE/DVT - on long-term Coumadin - INR therapeutic - continue Coumadin Hypokalemia - has had issues with low K in the past - will supplement potassium and will likely need chronic K supplementation - check Mg DM2 - hold oral agents - insulin sliding scale ordered - Ha1c = 6.2% and well controlled Acute Kidney Injury superimposed on CKD stage 3 - elevated creatinine on 09/04; hold Lasix OCD - continue Paxil Gilbert's Syndrome - elevated T. bili is chronic DVT ppx - Coumadin; goal INR of 2-3 FULL CODE
[2017-09-04] MEDS: METOPROLOL SUCC 25MG EXT REL TAB PO SCH (20:33)
--- NOTE | 2017-09-04 21:41 | DIAGNOSTIC IMAGING REPORT ---
DECUBITUS CHEST RADIOGRAPHS CLINICAL HISTORY: Pleural effusions. FINDINGS: Right and left lateral decubitus chest radiographs are compared to chest x-ray and chest CT dated 09/01/2017. The heart is enlarged and there is atherosclerotic calcification of the thoracic aorta. There is mild pulmonary vascular congestion. Small pleural effusions are identified and layer freely bilaterally. The left pleural effusion is larger than the right. There is associated atelectasis. The skeletal structures are osteopenic. The bony thorax is grossly intact. IMPRESSION: 1. Cardiomegaly with evidence of mild congestive failure. 2. Left larger than right layering pleural effusions. Electronically signed by: Danial Rajput M.D. 09/04/2017 9:40 PM Dictated Date/Time: 09/04/2017 9:37 PM
[2017-09-05] VITALS (10 sets, daily range): BP systolic 119–147; BP diastolic 60–91; PULSE 50–74; TEMP 36.5–37.1; O2SAT 91–94
[2017-09-05 06:36] LABS: HEMATOCRIT 39.6 % (42-52); HEMOGLOBIN 14.1 g/dL (14.0-18.0); MEAN CELL VOLUME 93.8 fL (80-100); MEAN CORPUSCULAR HEMOGLOBIN 33.4 pg (25-34); MEAN CORPUSCULAR HGB CONC 35.6 g/dl (32-36); MEAN PLATELET VOLUME 9.7 fL (7.4-10.4); PLATELET COUNT 141 K/uL (130-400); RED CELL DISTRIBUTION WIDTH CV 14.5 % (11.5-14.5); RED CELL DISTRIBUTION WIDTH SD 49.2 fL (36.4-46.3); WHITE BLOOD COUNT 8.14 K/uL (4.8-10.8)
[2017-09-05 06:45] LABS: INR 1.7 (0.9-1.1)
[2017-09-05 07:14] LABS: CALCIUM 8.9 mg/dl (8.5-10.1); CREATININE 1.93 mg/dl (0.60-1.40); POTASSIUM 3.6 mmol/L (3.5-5.1)
[2017-09-05] MEDS: INSULIN ASPART 100 UNITS/ML 3 ML PEN SC SCH ×4 (07:53→20:54)
[2017-09-05] MEDS: METOPROLOL SUCC 25MG EXT REL TAB PO SCH ×2 (08:35→20:51)
[2017-09-05] MEDS: ALLOPURINOL 300 MG TAB PO SCH (08:37)
[2017-09-05] MEDS: ATORVASTATIN 10 MG TAB PO SCH (08:37)
[2017-09-05] MEDS: PAROXETINE 20 MG TAB PO SCH (08:37)
[2017-09-05] MEDS: AMLODIPINE BESYLATE 5 MG TAB PO SCH (08:38)
[2017-09-05] MEDS: CHOLECALCIFEROL 1000 INTER.UNIT TAB PO SCH (08:38)
[2017-09-05] MEDS ORDERED: FUROSEMIDE 40 MG TAB PO ONE (10:49)
--- NOTE | 2017-09-05 11:17 | CARDIOLOGY PROGRESS NOTE ---
DATE: 09/05/2017 The patient was seen and examined. Chart, medications, and telemetry reviewed. SUBJECTIVE: The patient once again demonstrates improvement. Notes has been up in the room, walked with physical therapy yesterday, tolerated CPAP for 6 hours overnight. Notes no chest pains. Notes no dizziness. Notes no lightheadedness. OBJECTIVE: VITAL SIGNS: Heart rate is 68, blood pressure is 124/64. HEENT: Normocephalic and atraumatic. NECK: Thick. There is no distinct jugular venous distention. LUNGS: Revealed diminished breath sounds at the bases. CARDIOVASCULAR: Regular. There is no S3 gallop. ABDOMEN: Soft. EXTREMITIES: Without cyanosis or clubbing. There is trace pedal edema. LABORATORY DATA: White cell count is 8.1, hemoglobin is 14.1. Sodium is 138, potassium is 3.6, chloride is 100, bicarbonate is 29, BUN is 43, creatinine is 1.9. IMPRESSION: A 72-year-old male with complex issues as outlined prior includin. [id number] decompensated right heart failure. 2. Kgyll-[id number] renal insufficiency with stage III chronic renal insufficiency and chronic proteinuria. 3. Atrial fibrillation with good rate control, on chronic anticoagulation due to past thromboembolic history. PLAN: Medication optimization will be once again continued. We will resume diuretic dosing orally with furosemide 40 mg per day. If renal function continues to improve, would have low threshold for adding low dose spironolactone to regimen as an outpatient. Gradual increase in activities will be pursued. The patient will require cardiology and have followup as an outpatient.
--- NOTE | 2017-09-05 11:34 | Pharmacy Progress Note ---
Pharmacy Glycemic Sign Off Nt Date of Service Sep 05, 2017. Assessment & Plan ASSESSMENT: * Pharmacy was consulted by Dr Parnell on 09/01/17 for glycemic control and to write orders per [facility] inpatient glycemic control protocol. * Major changes made by pharmacy to antidiabetic regimen include: * holding outpatient glimepiride and utilizing bolus insulin scale with NovoLog * No basal insulin was needed as AM fasting BSGs in range * Patient has been receiving/requiring 10-15 units of insulin per day for adequate glycemic control * BSGs ranging 119-180 mg/dl * Regimen has only required minor adjustments over the past 48hrs to achieve this level of control * Do not anticipate further changes in patient status that would quickly deteriorate glycemic control (i.e. patient to be NPO for upcoming procedure, steroids tapering, starting tube feedings, etc). * Please see recommendations for outpatient antidiabetic regimen below. PLAN FOR INPATIENT GLYCEMIC CONTROL: No changes needed to current regimen. * No basal insulin needed * Continue NovoLog per scale ACHS/Q6hrs while NPO * Goal range = 110 - 140 mg/dl * CF = 35 mg/dl/unit * CR = 1 unit for ever 9 g CHO consumed * A1c added to discharge instructions to be communicated to PCP. * Pharmacy is signing off of glycemic consult and will no longer be making adjustments to inpatient regimen. Please feel free to re-consult if needed. Thank you. DISCHARGE RECOMMENDATIONS: * A1c 6.2 % on 09/02/17 * Indicates excellent glycemic control as an outpatient * Reasonable to continue glimepiride 2mg PO QAM at discharge. No insulin or additional PO agents needed at discharge
[2017-09-05] MEDS ORDERED: POTASSIUM CHLORIDE 10 MEQ TABCR PO STA (11:37)
[2017-09-05] MEDS ORDERED: MAGNESIUM SULFATE 1GM / D5W 100 ML IV STA (11:37)
--- NOTE | 2017-09-05 12:21 | Progress Note ---
Subjective Date of Service: Sep 05, 2017. Subjective Pt evaluation today including: conversation w/ patient, physical exam, lab review, review of studies, conversation w/ senior safety management consultant, review of inpatient medication list Saw/examined the patient in room 238 No problems today; his breathing is much improved Denies any chest pain/palpitations Problem List Medical Problems: (1) CHF (congestive heart failure) Status: Acute (2) Hypoxia Status: Acute Review of Systems Constitutional: No fever, No chills Respiratory: No wheezing, No shortness of breath (improved), No dyspnea on exertion (improved) Cardiac: No chest pain, No edema, No palpitations Abdomen: No pain, No nausea, No vomiting, No diarrhea Medications Current Inpatient Medications Medications (Trade) Dose Ordered Sig/Tash Route Start Time Stop Time Status Last Admin Dose Admin Acetaminophen (Tylenol Tab) 650 mg Q4H PRN PO 09/01/17 11:15 10/01/17 11:14 Al Hydrox/Mg Hydrox/Simethicone (Maalox Max Susp) 15 ml Q4H PRN PO 09/01/17 11:15 10/01/17 11:14 Magnesium Hydroxide (Milk Of Magnesia Susp) 30 ml Q12H PRN PO 09/01/17 11:15 10/01/17 11:14 Ondansetron HCl (Zofran Inj) 4 mg Q6H PRN IV 09/01/17 11:15 10/01/17 11:14 Polyethylene (Miralax Powder Packet) 17 gm DAILY PRN PO 09/01/17 11:15 10/01/17 11:14 Insulin Aspart (novoLOG ASPART) SLIDING SCALE If C... ACHS SC 09/01/17 16:00 10/01/17 15:59 09/05/17 07:53 6 UNITS Glucose (Glucose 40% Gel) 15-30 GRAMS 15 GRAMS... UD PRN PO 09/01/17 11:15 10/01/17 11:14 Glucose (Glucose Chew Tab) 4-8 Tablets 4 Tabl... UD PRN PO 09/01/17 11:15 10/01/17 11:14 Dextrose (Dextrose 50% 50ML Syringe) 25-50ML 25ML FOR ... UD PRN IV 09/01/17 11:15 10/01/17 11:14 Glucagon (Glucagon Inj) 1 mg UD PRN SQ 09/01/17 11:15 10/01/17 11:14 Carbohydrates (Carbohydrates For Hypoglycemia) 15-30 GRAMS 15 grams if BSG 54-69... UD PRN PO 09/01/17 11:15 10/01/17 11:14 Allopurinol (Zyloprim Tab) 300 mg DAILY PO 09/02/17 09:00 10/02/17 08:59 09/05/17 08:37 300 MG Atorvastatin Calcium (Lipitor Tab) 10 mg DAILY PO 09/02/17 09:00 10/02/17 08:59 09/05/17 08:37 10 MG Paroxetine HCl (pAXil TAB) 20 mg DAILY PO 09/02/17 09:00 10/02/17 08:59 09/05/17 08:37 20 MG Cholecalciferol (Vitamin D Tab) 2,000 inter.unit DAILY PO 09/02/17 09:00 10/02/17 08:59 09/05/17 08:38 2,000 INTER.UNIT Furosemide 40 mg/ Syringe 4 ml @ 4 mls/min BID17 IV 09/01/17 17:00 10/01/17 16:59 Future Hold 09/04/17 08:01 4 MLS/MIN Amlodipine Besylate (Norvasc Tab) 5 mg DAILY PO 09/05/17 09:00 10/02/17 08:59 09/05/17 08:38 5 MG Metoprolol Succinate (Toprol Xl Tab) 25 mg BID PO 09/04/17 21:00 10/04/17 20:59 09/05/17 08:35 25 MG Hydralazine HCl (Apresoline Tab) 12.5 mg BID17 PO 09/04/17 17:00 10/04/17 16:59 09/05/17 08:38 12.5 MG Furosemide (Lasix Tab) 40 mg QAM PO 09/06/17 09:00 10/06/17 08:59 Magnesium Sulfate 100 ml @ 100 mls/hr NOW STAT IV 09/05/17 11:37 09/05/17 12:36 Magnesium Oxide (Mag-Ox Tab) 400 mg QAM PO 09/06/17 09:00 10/06/17 08:59 Warfarin Sodium (Coumadin Tab) 5 mg DAILY@16 PO 09/05/17 16:00 8/5/18 15:59 Objective Vital Signs Date Time Temp Pulse Resp B/P (MAP) Pulse Ox O2 Delivery O2 Flow Rate FiO2 09/05/17 08:36 68 09/05/17 07:54 36.6 54 18 124/64 (84) 93 09/05/17 07:50 Nasal Cannula 2.0 09/05/17 04:35 36.6 50 16 119/73 (88) 91 Nasal Cannula 3.0 09/05/17 04:00 Nasal Cannula 2.0 09/05/17 02:20 74 92 2.0 09/04/17 23:59 CPAP 09/04/17 23:38 36.7 82 20 139/84 (102) 92 CPAP 09/04/17 22:42 73 94 2.0 09/04/17 20:00 92 Nasal Cannula 2.0 09/04/17 19:18 37.1 66 18 122/69 (86) 92 Nasal Cannula 2.0 100 09/04/17 16:00 93 Nasal Cannula 2.0 09/04/17 15:58 36.6 68 20 130/78 (95) 93 Nasal Cannula 2.0 100 Physical Exam General Appearance: no apparent distress Respiratory/Chest: no respiratory distress, no accessory muscle use, + decreased breath sounds Cardiovascular: regular rate, rhythm, no edema, no murmur Extremities: normal range of motion, non-tender, normal inspection, no pedal edema, no calf tenderness Neurologic/Psychiatric: no motor/sensory deficits, alert, normal mood/affect Laboratory Results Last 24 Hours Test 09/04/17 16:50 09/04/17 19:58 09/05/17 06:22 09/05/17 07:21 Bedside Glucose 147 mg/dl 121 mg/dl 147 mg/dl White Blood Count 8.14 K/uL Red Blood Count 4.22 M/uL Hemoglobin 14.1 g/dL Hematocrit 39.6 % Mean Corpuscular Volume 93.8 fL Mean Corpuscular Hemoglobin 33.4 pg Mean Corpuscular Hemoglobin Concent 35.6 g/dl RDW Standard Deviation 49.2 fL RDW Coefficient of Variation 14.5 % Platelet Count 141 K/uL Mean Platelet Volume 9.7 fL Prothrombin Time 18.0 SECONDS Prothromb Time International Ratio 1.7 Sodium Level 138 mmol/L Potassium Level 3.6 mmol/L Chloride Level 100 mmol/L Carbon Dioxide Level 29 mmol/L Anion Gap 9.0 mmol/L Blood Urea Nitrogen 43 mg/dl Creatinine 1.93 mg/dl Est Creatinine Clear Calc Drug Dose 45.0 ml/min Estimated GFR () 38.9 Estimated GFR (Non- 33.6 BUN/Creatinine Ratio 22.1 Random Glucose 141 mg/dl Calcium Level 8.9 mg/dl Magnesium Level 1.7 mg/dl Test 09/05/17 11:20 Bedside Glucose 180 mg/dl Assessment and Plan This is a 72 year old obese male with a 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, right heart failure, DM2, HTN, CKD stage 3, OCD, Gilbert's syndrome, hyperlipidemia - presents with worsening shortness of breath Acute Hypoxic Respiratory Failure secondary to Bilateral Pleural Effusions Underlying Pulmonary Artery Hypertension and R Heart Failure 09/05 - restart Lasix 40mg today, and likely once daily - replacing K and Mg, will likely need daily supplementation - two step to be performed - nocturnal pulse ox to be performed in AM (09/06), AM ABG to be performed on 09/06 to see if he qualifies for bipap 09/04 - Lasix stopped due to kidney function decline - did well with nocturnal bipap - will need bipap on discharge - two step to be performed in AM 09/03 - good output, with a negative fluid balance - has had a total of 3.5L removed - continue IV Lasix, replace Mg and K - further input from cardiology - nocturnal pulse ox without significant desaturation - can wean off O2 as tolerated 09/02 - symptoms improving - continue Lasix and monitor I's and O's - will likely need maintenance diuretics - pulmonary consulted for management of L pleural effusion as well as possible underlying ALMITA - will likely need repeat imaging for mediastinal lymphadenopathy 09/01 - patient is coming in with hypoxia, requiring oxygen; with increased respiratory effort initially - improved with IV Lasix and supplemental oxygen - CT chest suggests bilateral pleural effusions; also suggests pulmonary artery hypertension - will check an echo for LVEF, pulmonary arterial pressures, etc. - will continue IV Lasix 20mg BID - cardiology consulted for further input Paroxysmal Atrial Fibrillation - patient with a lot of artifactual beats noted on EKG - does not appear to be a regular rhythm - chronic RBBB - cardiology consulted for further input - continue Lopressor and continue anticoagulation - TSH wnl, Mg wnl Hx. of PE/DVT - giving an increased dose of Coumadin (5mg) today due to INR being 1.7 - recheck INR in AM Hypokalemia - resolved Hypomagnesemia - improving DM2 - hold oral agents - insulin sliding scale ordered - Ha1c = 6.2% and well controlled Acute Kidney Injury superimposed on CKD stage 3 - restart Lasix on 09/05 OCD - continue Paxil Gilbert's Syndrome - elevated T. bili is chronic DVT ppx - Coumadin; goal INR of 2-3 FULL CODE
--- NOTE | 2017-09-05 14:40 | Procedure Note ---
Procedure Note Date of Service Sep 05, 2017. Procedure Note Procedures: left sided Thoracentesis Consent: obtained via the patient and placed into the chart Pre-Procedural Dx: Pleural Effusion Post-Procedural Dx: Pleural Effusion Analgesia: 8cc of 1% Liquid Lidocaine Procedure: The patient was placed in an upright position and thoracic US was used to select a spot for the procedure. A spot along the posterior axillary line was marked in the 7th intercostal space. The patient was then draped and prepped in a sterile fashion. A modified Seldinger technique was then used for catheter placement. Flowing this approximately 800cc of orange-yellow pleural fluid was removed. The patient was then cleaned and placed at a 60 degree angle in the bed were the US was used to evaluate for possible pneumothorax. The US showed good lung sliding and [place]. EBL: none Complications: none
--- NOTE | 2017-09-05 15:12 | Pulmonology Progress Note ---
Pulmonary Progress Note Date of Service Sep 05, 2017. Attending Dr. Cortes Subjective Patient notes stability over the last 24 hours and his respiratory status but notes dramatic improvement since his arrival. He was able to do a two-step ambulation study yesterday with no significant desaturations. During our conversation the patient showed no signs of respiratory insufficiency. Objective Patient doing well no signs of respiratory insufficiency able to sit up in bed. PmHx: Hypertension, Diabetes mellitus type 2, gout, hyperlipidemia, tubular adenomas of the colon, obesity, chronic RBBB, DVT/PE (Coumadin), HIT, sigmoid/ descending colonic diverticulosis, CKD stage III, OCD, [place] Syndrome PsHx: Colonoscopy, dental surgery, IVC filter placement 12/06/2010 Vital Signs: Stable on room air I/Os: -7.0L Respiratory: Clear to auscultation Cardiac: S1-S2 regular rhythm but distant heart sounds Abdomen: Positive bowel sounds soft nontender Extremities: 2+ pitting edema Thoracic US: Moderate sized left pleural effusion Current workup Cr: 1.93 INR: 1.7 BNP: 5,521 CXR: Hilar fullness, peribronchial cuffing, opacification of the left costophrenic angle CTA: 4R adenopathy 18mm, (b) pleural effusion L>>R, L sided loculated EKG: Atrial fibrillation with PVCs and a rate of 72 (B) Lower EXT Doppler (09/02/17): No signs of DVT Nocturnal oximetry study 09/02/2017 --- 09/03/2017: Max single desaturation less than 88% 14min Echocardiogram 09/01/2017 LV: Normal size, EF=55-60% RV: Severely dilated, with systolic function moderately to severely reduced Atria: Left atrium severely dilated, right atrium severely dilated RSVP: 76mmHg IVC: Reduced collapsibility RA Pressure: 15mmHg Two-step 09/05/2017: Per notation did not have significant drop to meet Medicare standards for oxygen supplementation Assessment & Plan 72-year-old male admitted with acute on chronic shortness of breath: 1. Shortness of Breath: Patient shortness of breath has greatly improved with almost 7 liters of diuresis as well as supplemental oxygen and initiated on BiPAP last night. Patient's two-step was within normal limits so he did not cry follow-up for home oxygen supplementation. I should also note that patient did not have an ABG with a PaCO2 greater than 55 which would qualify him for BiPAP. 2. Pulmonary Embolism: Patient currently on warfarin but INR subtherapeutic. 3. Pleural Effusion: Left lateral decubitus as well as thoracic ultrasound showed free-flowing fluid. Thoracentesis performed please refer to note. 4. Nocturnal Hypoxemia: Patient currently does not meet Medicare standards for BiPAP. Will need outside split study titration/polysomnogram for further evaluation. The patient should follow-up with the [facility] sleep team either Alessandro Barnes, Delilah Gonzalez or Armando Ruiz. Data Medications: Current Inpatient Medications Medications (Trade) Dose Ordered Sig/Tash Route Start Time Stop Time Status Last Admin Dose Admin Acetaminophen (Tylenol Tab) 650 mg Q4H PRN PO 09/01/17 11:15 10/01/17 11:14 Al Hydrox/Mg Hydrox/Simethicone (Maalox Max Susp) 15 ml Q4H PRN PO 09/01/17 11:15 10/01/17 11:14 Magnesium Hydroxide (Milk Of Magnesia Susp) 30 ml Q12H PRN PO 09/01/17 11:15 10/01/17 11:14 Ondansetron HCl (Zofran Inj) 4 mg Q6H PRN IV 09/01/17 11:15 10/01/17 11:14 Polyethylene (Miralax Powder Packet) 17 gm DAILY PRN PO 09/01/17 11:15 10/01/17 11:14 Insulin Aspart (novoLOG ASPART) SLIDING SCALE If C... ACHS SC 09/01/17 16:00 10/01/17 15:59 09/05/17 12:27 6 UNITS Glucose (Glucose 40% Gel) 15-30 GRAMS 15 GRAMS... UD PRN PO 09/01/17 11:15 10/01/17 11:14 Glucose (Glucose Chew Tab) 4-8 Tablets 4 Tabl... UD PRN PO 09/01/17 11:15 10/01/17 11:14 Dextrose (Dextrose 50% 50ML Syringe) 25-50ML 25ML FOR ... UD PRN IV 09/01/17 11:15 10/01/17 11:14 Glucagon (Glucagon Inj) 1 mg UD PRN SQ 09/01/17 11:15 10/01/17 11:14 Carbohydrates (Carbohydrates For Hypoglycemia) 15-30 GRAMS 15 grams if BSG 54-69... UD PRN PO 09/01/17 11:15 10/01/17 11:14 Allopurinol (Zyloprim Tab) 300 mg DAILY PO 09/02/17 09:00 10/02/17 08:59 09/05/17 08:37 300 MG Atorvastatin Calcium (Lipitor Tab) 10 mg DAILY PO 09/02/17 09:00 10/02/17 08:59 09/05/17 08:37 10 MG Paroxetine HCl (pAXil TAB) 20 mg DAILY PO 09/02/17 09:00 10/02/17 08:59 09/05/17 08:37 20 MG Cholecalciferol (Vitamin D Tab) 2,000 inter.unit DAILY PO 09/02/17 09:00 10/02/17 08:59 09/05/17 08:38 2,000 INTER.UNIT Furosemide 40 mg/ Syringe 4 ml @ 4 mls/min BID17 IV 09/01/17 17:00 10/01/17 16:59 Future Hold 09/04/17 08:01 4 MLS/MIN Amlodipine Besylate (Norvasc Tab) 5 mg DAILY PO 09/05/17 09:00 10/02/17 08:59 09/05/17 08:38 5 MG Metoprolol Succinate (Toprol Xl Tab) 25 mg BID PO 09/04/17 21:00 10/04/17 20:59 09/05/17 08:35 25 MG Hydralazine HCl (Apresoline Tab) 12.5 mg BID17 PO 09/04/17 17:00 10/04/17 16:59 09/05/17 08:38 12.5 MG Furosemide (Lasix Tab) 40 mg QAM PO 09/06/17 09:00 10/06/17 08:59 Magnesium Oxide (Mag-Ox Tab) 400 mg QAM PO 09/06/17 09:00 10/06/17 08:59 Warfarin Sodium (Coumadin Tab) 5 mg DAILY@16 PO 09/05/17 16:00 10/05/17 15:59 I & O: 24-Hour Column 09/06/17 08:00 Intake Total 575 ml Output Total 750 ml Balance -175 ml Vital Signs: Date Time Temp Pulse Resp B/P (MAP) Pulse Ox O2 Delivery O2 Flow Rate FiO2 09/05/17 12:09 36.7 62 18 131/60 (83) 93 09/05/17 11:30 Room Air 09/05/17 08:36 68 09/05/17 07:54 36.6 54 18 124/64 (84) 93 09/05/17 07:50 Nasal Cannula 2.0 09/05/17 04:35 36.6 50 16 119/73 (88) 91 Nasal Cannula 3.0 09/05/17 04:00 Nasal Cannula 2.0 09/05/17 02:20 74 92 2.0 09/04/17 23:59 CPAP 09/04/17 23:38 36.7 82 20 139/84 (102) 92 CPAP 09/04/17 22:42 73 94 2.0 09/04/17 20:00 92 Nasal Cannula 2.0 09/04/17 19:18 37.1 66 18 122/69 (86) 92 Nasal Cannula 2.0 100 09/04/17 16:00 93 Nasal Cannula 2.0 09/04/17 15:58 36.6 68 20 130/78 (95) 93 Nasal Cannula 2.0 100 Laboratory Results: Last 24 Hours Test 09/04/17 16:50 09/04/17 19:58 09/05/17 06:22 09/05/17 07:21 Bedside Glucose 147 mg/dl 121 mg/dl 147 mg/dl White Blood Count 8.14 K/uL Red Blood Count 4.22 M/uL Hemoglobin 14.1 g/dL Hematocrit 39.6 % Mean Corpuscular Volume 93.8 fL Mean Corpuscular Hemoglobin 33.4 pg Mean Corpuscular Hemoglobin Concent 35.6 g/dl RDW Standard Deviation 49.2 fL RDW Coefficient of Variation 14.5 % Platelet Count 141 K/uL Mean Platelet Volume 9.7 fL Prothrombin Time 18.0 SECONDS Prothromb Time International Ratio 1.7 Sodium Level 138 mmol/L Potassium Level 3.6 mmol/L Chloride Level 100 mmol/L Carbon Dioxide Level 29 mmol/L Anion Gap 9.0 mmol/L Blood Urea Nitrogen 43 mg/dl Creatinine 1.93 mg/dl Est Creatinine Clear Calc Drug Dose 45.0 ml/min Estimated GFR () 38.9 Estimated GFR (Non- 33.6 BUN/Creatinine Ratio 22.1 Random Glucose 141 mg/dl Calcium Level 8.9 mg/dl Magnesium Level 1.7 mg/dl Test 09/05/17 11:20 09/05/17 14:20 Bedside Glucose 180 mg/dl Pleural Fluid pH 7.47
[2017-09-05] MEDS ORDERED: WARFARIN SOD 5 MG TAB PO SCH (16:00)
[2017-09-06 03:20] VITALS: BP 131/76; PULSE 69; TEMP 36.5; O2SAT 94
[2017-09-06 06:31] LABS: INR 1.8 (0.9-1.1)
[2017-09-06 06:42] LABS: CREATININE 1.57 mg/dl (0.60-1.40); POTASSIUM 3.7 mmol/L (3.5-5.1)
[2017-09-06] MEDS: INSULIN ASPART 100 UNITS/ML 3 ML PEN SC SCH (07:00)
[2017-09-06 07:11] VITALS: BP 138/86; PULSE 78; TEMP 36.7; O2SAT 94
[2017-09-06] MEDS: METOPROLOL SUCC 25MG EXT REL TAB PO SCH (07:50)
[2017-09-06] MEDS: PAROXETINE 20 MG TAB PO SCH (07:50)
[2017-09-06] MEDS: CHOLECALCIFEROL 1000 INTER.UNIT TAB PO SCH (07:50)
[2017-09-06] MEDS: ALLOPURINOL 300 MG TAB PO SCH (07:50)
[2017-09-06] MEDS: ATORVASTATIN 10 MG TAB PO SCH (07:50)
[2017-09-06] MEDS: AMLODIPINE BESYLATE 5 MG TAB PO SCH (07:51)
[2017-09-06] MEDS ORDERED: FUROSEMIDE 40 MG TAB PO SCH (09:00)
[2017-09-06] MEDS ORDERED: MAGNESIUM OXIDE 400 MG TAB PO SCH (09:00)
--- NOTE | 2017-09-06 11:08 | Pulmonology Progress Note ---
Pulmonary Progress Note Date of Service Sep 06, 2017. Attending Dr. Cortes Subjective Patient doing well sitting up bed notes overall positive progress in his breathing status since admission and stability over the last 24 hours. The patient did note any notable relief via thoracentesis. Objective Patient is sitting up in bed showing no signs of respiratory insufficiency PmHx: Hypertension, Diabetes mellitus type 2, gout, hyperlipidemia, tubular adenomas of the colon, obesity, chronic RBBB, DVT/PE (Coumadin), HIT, sigmoid/ descending colonic diverticulosis, CKD stage III, OCD, [place] Syndrome PsHx: Colonoscopy, dental surgery, IVC filter placement 12/06/2010 Vital Signs: Stable on room air I/Os: -8.7L Respiratory: Clear to auscultation Cardiac: S1-S2 regular rhythm but distant heart sounds Abdomen: Positive bowel sounds soft nontender Extremities: 1+ pitting edema Thoracic US: Minimal pleural effusion left-sided/right-sided Current workup Cr: 1.57 INR: 1.8 BNP: 5,521 CXR: Hilar fullness, peribronchial cuffing, opacification of the left costophrenic angle CTA: 4R adenopathy 18mm, (b) pleural effusion L>>R, L sided loculated EKG: Atrial fibrillation with PVCs and a rate of 72 (B) Lower EXT Doppler (09/02/17): No signs of DVT Nocturnal oximetry study 09/02/2017 --- 09/03/2017: Max single desaturation less than 88% 14min Echocardiogram 09/01/2017 LV: Normal size, EF=55-60% RV: Severely dilated, with systolic function moderately to severely reduced Atria: Left atrium severely dilated, right atrium severely dilated RSVP: 76mmHg IVC: Reduced collapsibility RA Pressure: 15mmHg Two-step 09/05/2017: Per notation did not have significant drop to meet Medicare standards for oxygen supplementation Assessment & Plan 72-year-old male admitted with acute on chronic shortness of breath: 1. Shortness of Breath: Patient shortness of breath has greatly improved with almost 8.7L of diuresis as well as supplemental oxygen and initiated on BiPAP last night. At this time is difficult to say if the patient's overall improvement is just based off his diuresis. I do believe this patient needs an outpatient workup for possible sleep apnea with the [facility] sleep teen. Members of this team are Dr. Alessandro burrell, Delilah Gonzalez are Armando Ruiz. Prior to this patient's discharge I do believe repeating his 2 step is appropriate as he did desaturate to 87% which is significant via 2 step protocol /6 minute-walk study. 2. Pulmonary Embolism: Patient currently on warfarin but INR subtherapeutic. Patient will need follow-up on his INR currently 1.8. 3. Pleural Effusion: Status post left-sided thoracentesis with no respiratory improvement. Minimal pleural effusion noted on the left side as well as right at this time. 4. Nocturnal Hypoxemia: Patient currently does not meet Medicare standards for BiPAP. Will need outside split study titration/polysomnogram for further evaluation. The patient should follow-up with the [facility] sleep team either Delilah Cameron or Armando Ruiz. Data Medications: Current Inpatient Medications Medications (Trade) Dose Ordered Sig/Tash Route Start Time Stop Time Status Last Admin Dose Admin Acetaminophen (Tylenol Tab) 650 mg Q4H PRN PO 09/01/17 11:15 10/01/17 11:14 Al Hydrox/Mg Hydrox/Simethicone (Maalox Max Susp) 15 ml Q4H PRN PO 09/01/17 11:15 10/01/17 11:14 Magnesium Hydroxide (Milk Of Magnesia Susp) 30 ml Q12H PRN PO 09/01/17 11:15 10/01/17 11:14 Ondansetron HCl (Zofran Inj) 4 mg Q6H PRN IV 09/01/17 11:15 10/01/17 11:14 Polyethylene (Miralax Powder Packet) 17 gm DAILY PRN PO 09/01/17 11:15 10/01/17 11:14 Insulin Aspart (novoLOG ASPART) SLIDING SCALE If C... ACHS SC 09/01/17 16:00 10/01/17 15:59 09/05/17 20:54 1 UNITS Glucose (Glucose 40% Gel) 15-30 GRAMS 15 GRAMS... UD PRN PO 09/01/17 11:15 10/01/17 11:14 Glucose (Glucose Chew Tab) 4-8 Tablets 4 Tabl... UD PRN PO 09/01/17 11:15 10/01/17 11:14 Dextrose (Dextrose 50% 50ML Syringe) 25-50ML 25ML FOR ... UD PRN IV 09/01/17 11:15 10/01/17 11:14 Glucagon (Glucagon Inj) 1 mg UD PRN SQ 09/01/17 11:15 10/01/17 11:14 Carbohydrates (Carbohydrates For Hypoglycemia) 15-30 GRAMS 15 grams if BSG 54-69... UD PRN PO 09/01/17 11:15 10/01/17 11:14 Allopurinol (Zyloprim Tab) 300 mg DAILY PO 09/02/17 09:00 10/02/17 08:59 09/06/17 07:50 300 MG Atorvastatin Calcium (Lipitor Tab) 10 mg DAILY PO 09/02/17 09:00 10/02/17 08:59 09/06/17 07:50 10 MG Paroxetine HCl (pAXil TAB) 20 mg DAILY PO 09/02/17 09:00 10/02/17 08:59 09/06/17 07:50 20 MG Cholecalciferol (Vitamin D Tab) 2,000 inter.unit DAILY PO 09/02/17 09:00 10/02/17 08:59 09/06/17 07:50 2,000 INTER.UNIT Furosemide 40 mg/ Syringe 4 ml @ 4 mls/min BID17 IV 09/01/17 17:00 10/01/17 16:59 Future Hold 09/04/17 08:01 4 MLS/MIN Amlodipine Besylate (Norvasc Tab) 5 mg DAILY PO 09/05/17 09:00 10/02/17 08:59 09/06/17 07:51 5 MG Metoprolol Succinate (Toprol Xl Tab) 25 mg BID PO 09/04/17 21:00 10/04/17 20:59 09/06/17 07:50 25 MG Hydralazine HCl (Apresoline Tab) 12.5 mg BID17 PO 09/04/17 17:00 10/04/17 16:59 09/06/17 07:52 12.5 MG Furosemide (Lasix Tab) 40 mg QAM PO 09/06/17 09:00 10/06/17 08:59 09/06/17 07:51 40 MG Magnesium Oxide (Mag-Ox Tab) 400 mg QAM PO 09/06/17 09:00 10/06/17 08:59 09/06/17 07:51 400 MG Warfarin Sodium (Coumadin Tab) 5 mg DAILY@16 PO 09/05/17 16:00 10/05/17 15:59 09/05/17 15:56 5 MG Vital Signs: Date Time Temp Pulse Resp B/P (MAP) Pulse Ox O2 Delivery O2 Flow Rate FiO2 09/06/17 08:00 Room Air 09/06/17 07:11 36.7 78 20 138/86 (103) 94 09/06/17 03:20 36.5 69 24 131/76 (94) 94 Room Air 09/05/17 23:59 Room Air 09/05/17 23:02 37.1 70 22 133/69 (90) 93 Room Air 09/05/17 21:34 73 16 91 Room Air 09/05/17 19:20 36.6 73 18 141/91 (108) 94 09/05/17 16:03 36.5 69 18 147/86 (106) 93 09/05/17 16:00 93 Room Air 09/05/17 12:09 36.7 62 18 131/60 (83) 93 09/05/17 11:30 Room Air Laboratory Results: Last 24 Hours Test 09/05/17 11:20 09/05/17 14:20 09/05/17 16:16 09/05/17 20:34 Bedside Glucose 180 mg/dl 171 mg/dl 148 mg/dl Pleural Fluid Source LEFT LUNG Pleural Fluid Color YELLOW Pleural Fluid Appearance CLOUDY Pleural Fluid WBC 1168 /uL Pleural Fluid RBC 4000 /uL Pleural Fluid pH 7.47 Pleural Fluid Polynuclear WBCs % 7.4 % Pleural Fluid Mononuclear WBCs % 92.6 % Pleural Fluid Total Protein 3.0 g/dl Pleural Fluid LDH 78 IU Pleural Fluid Glucose 201 mg/dl Pleural Fluid Amylase 22 U/L Test 09/06/17 05:55 09/06/17 06:02 09/06/17 07:19 Prothrombin Time 18.6 SECONDS Prothromb Time International Ratio 1.8 Sodium Level 136 mmol/L Potassium Level 3.7 mmol/L Chloride Level 100 mmol/L Carbon Dioxide Level 28 mmol/L Anion Gap 8.0 mmol/L Blood Urea Nitrogen 32 mg/dl Creatinine 1.57 mg/dl Est Creatinine Clear Calc Drug Dose 54.6 ml/min Estimated GFR () 49.9 Estimated GFR (Non- 43.1 BUN/Creatinine Ratio 20.6 Random Glucose 124 mg/dl Calcium Level 9.0 mg/dl Magnesium Level 1.8 mg/dl Arterial Blood pH 7.48 Arterial Blood Partial Pressure CO2 36 mmHg Arterial Blood Partial Pressure O2 56 mm/Hg Arterial Blood HCO3 26 mmol/L Arterial Blood Oxygen Saturation 89.6 % Arterial Blood Base Excess 2.9 mEq/L Arterial Blood Gas Delivery RA Dinesh Test POS Bedside Glucose 131 mg/dl
--- NOTE | 2017-09-06 11:29 | PROGRESS NOTE ---
DATE: 09/06/2017 The patient seen and examined. Chart, medications, telemetry reviewed. SUBJECTIVE: The patient once again feels gradually improved this morning. Did undergo thoracentesis yesterday with good tolerance with removal of 800 mL pleural effusion from left chest. Pulmonary status has been stable. Notes no dizziness or lightheadedness. Generally, he has been tolerating CPAP, first 2 days trial, last night underwent nocturnal oximetry. OBJECTIVE: VITAL SIGNS: Heart rate 78, blood pressure is 138/86. NECK: Thick. There is no distinct jugular venous distention. LUNGS: Reveal improved aeration of the left base. CARDIOVASCULAR: Irregularly irregular. There is no S3 gallop. ABDOMEN: Soft. EXTREMITIES: Reveals diminishing edema. LABORATORY DATA: Sodium is 136, potassium is 3.7, chloride is 100, bicarbonate is 28, BUN is 32, creatinine is 1.57. IMPRESSION: A 72-year-old male with complex history, admitted with acute on chronic decompensated right heart failure with associated acute renal insufficiency. The patient has demonstrated substantial improvement since hospitalization with 9 kg weight loss and improving renal function. PLAN: Continue current oral dosing of furosemide at 40 mg per day, adjustments made in medical therapies as noted, including reduction in amlodipine and hydralazine dosing. Switch to long-acting extended release Toprol versus metoprolol. We will trial dose of spironolactone today at 12.5 mg, increase activity with close clinical follow up recommended post-hospital discharge. [facility]
[2017-09-06] MEDS ORDERED: SPIRONOLACTONE 25 MG TAB PO ONE (11:30)
[2017-09-06 11:34] VITALS: BP 120/79; PULSE 68; TEMP 36.6; O2SAT 95
[2017-09-06] MEDS ORDERED: WARFARIN SOD 5 MG TAB PO ONE (11:50)
--- NOTE | 2017-09-06 11:52 | Progress Note ---
Subjective Date of Service: Sep 06, 2017. Subjective Pt evaluation today including: conversation w/ patient, conversation w/ family , physical exam, lab review, review of studies, conversation w/ marketing operations consultant, review of inpatient medication list Saw/examined the patient in room 238 Breathing is much improved after diuresis and thoracentesis Denies chest pain/palpitations Problem List Medical Problems: (1) CHF (congestive heart failure) Status: Acute (2) Hypoxia Status: Acute Review of Systems Constitutional: No fever, No chills Respiratory: No cough, No sputum, No shortness of breath (improving) Cardiac: No chest pain, No edema, No palpitations Abdomen: No pain, No nausea, No vomiting, No diarrhea Medications Current Inpatient Medications Medications (Trade) Dose Ordered Sig/Tash Route Start Time Stop Time Status Last Admin Dose Admin Acetaminophen (Tylenol Tab) 650 mg Q4H PRN PO 09/01/17 11:15 10/01/17 11:14 Al Hydrox/Mg Hydrox/Simethicone (Maalox Max Susp) 15 ml Q4H PRN PO 09/01/17 11:15 10/01/17 11:14 Magnesium Hydroxide (Milk Of Magnesia Susp) 30 ml Q12H PRN PO 09/01/17 11:15 10/01/17 11:14 Ondansetron HCl (Zofran Inj) 4 mg Q6H PRN IV 09/01/17 11:15 10/01/17 11:14 Polyethylene (Miralax Powder Packet) 17 gm DAILY PRN PO 09/01/17 11:15 10/01/17 11:14 Insulin Aspart (novoLOG ASPART) SLIDING SCALE If C... ACHS SC 09/01/17 16:00 10/01/17 15:59 09/05/17 20:54 1 UNITS Glucose (Glucose 40% Gel) 15-30 GRAMS 15 GRAMS... UD PRN PO 09/01/17 11:15 10/01/17 11:14 Glucose (Glucose Chew Tab) 4-8 Tablets 4 Tabl... UD PRN PO 09/01/17 11:15 10/01/17 11:14 Dextrose (Dextrose 50% 50ML Syringe) 25-50ML 25ML FOR ... UD PRN IV 09/01/17 11:15 10/01/17 11:14 Glucagon (Glucagon Inj) 1 mg UD PRN SQ 09/01/17 11:15 10/01/17 11:14 Carbohydrates (Carbohydrates For Hypoglycemia) 15-30 GRAMS 15 grams if BSG 54-69... UD PRN PO 09/01/17 11:15 10/01/17 11:14 Allopurinol (Zyloprim Tab) 300 mg DAILY PO 09/02/17 09:00 10/02/17 08:59 09/06/17 07:50 300 MG Atorvastatin Calcium (Lipitor Tab) 10 mg DAILY PO 09/02/17 09:00 10/02/17 08:59 09/06/17 07:50 10 MG Paroxetine HCl (pAXil TAB) 20 mg DAILY PO 09/02/17 09:00 10/02/17 08:59 09/06/17 07:50 20 MG Cholecalciferol (Vitamin D Tab) 2,000 inter.unit DAILY PO 09/02/17 09:00 10/02/17 08:59 09/06/17 07:50 2,000 INTER.UNIT Furosemide 40 mg/ Syringe 4 ml @ 4 mls/min BID17 IV 09/01/17 17:00 10/01/17 16:59 Future Hold 09/04/17 08:01 4 MLS/MIN Amlodipine Besylate (Norvasc Tab) 5 mg DAILY PO 09/05/17 09:00 10/02/17 08:59 09/06/17 07:51 5 MG Metoprolol Succinate (Toprol Xl Tab) 25 mg BID PO 09/04/17 21:00 10/04/17 20:59 09/06/17 07:50 25 MG Hydralazine HCl (Apresoline Tab) 12.5 mg BID17 PO 09/04/17 17:00 10/04/17 16:59 09/06/17 07:52 12.5 MG Furosemide (Lasix Tab) 40 mg QAM PO 09/06/17 09:00 10/06/17 08:59 09/06/17 07:51 40 MG Magnesium Oxide (Mag-Ox Tab) 400 mg QAM PO 09/06/17 09:00 10/06/17 08:59 09/06/17 07:51 400 MG Warfarin Sodium (Coumadin Tab) 5 mg DAILY@16 PO 09/05/17 16:00 10/05/17 15:59 7/6/18 15:56 5 MG Spironolactone (Aldactone Tab) 12.5 mg NOW ONCE PO 09/06/17 11:30 09/06/17 11:31 Objective Vital Signs Date Time Temp Pulse Resp B/P (MAP) Pulse Ox O2 Delivery O2 Flow Rate FiO2 09/06/17 08:00 Room Air 09/06/17 07:11 36.7 78 20 138/86 (103) 94 09/06/17 03:20 36.5 69 24 131/76 (94) 94 Room Air 09/05/17 23:59 Room Air 09/05/17 23:02 37.1 70 22 133/69 (90) 93 Room Air 09/05/17 21:34 73 16 91 Room Air 09/05/17 19:20 36.6 73 18 141/91 (108) 94 09/05/17 16:03 36.5 69 18 147/86 (106) 93 09/05/17 16:00 93 Room Air 09/05/17 12:09 36.7 62 18 131/60 (83) 93 09/05/17 11:30 Room Air Physical Exam General Appearance: no apparent distress, + obese Respiratory/Chest: chest non-tender, lungs clear, normal breath sounds, no respiratory distress, no accessory muscle use Cardiovascular: regular rate, rhythm, no edema, no murmur Extremities: normal inspection, no pedal edema Neurologic/Psychiatric: no motor/sensory deficits, alert, normal mood/affect Laboratory Results Last 24 Hours Test 09/05/17 14:20 09/05/17 16:16 09/05/17 20:34 09/06/17 05:55 Pleural Fluid Source LEFT LUNG Pleural Fluid Color YELLOW Pleural Fluid Appearance CLOUDY Pleural Fluid WBC 1168 /uL Pleural Fluid RBC 4000 /uL Pleural Fluid pH 7.47 Pleural Fluid Polynuclear WBCs % 7.4 % Pleural Fluid Mononuclear WBCs % 92.6 % Pleural Fluid Total Protein 3.0 g/dl Pleural Fluid LDH 78 IU Pleural Fluid Glucose 201 mg/dl Pleural Fluid Amylase 22 U/L Bedside Glucose 171 mg/dl 148 mg/dl Prothrombin Time 18.6 SECONDS Prothromb Time International Ratio 1.8 Sodium Level 136 mmol/L Potassium Level 3.7 mmol/L Chloride Level 100 mmol/L Carbon Dioxide Level 28 mmol/L Anion Gap 8.0 mmol/L Blood Urea Nitrogen 32 mg/dl Creatinine 1.57 mg/dl Est Creatinine Clear Calc Drug Dose 54.6 ml/min Estimated GFR () 49.9 Estimated GFR (Non- 43.1 BUN/Creatinine Ratio 20.6 Random Glucose 124 mg/dl Calcium Level 9.0 mg/dl Magnesium Level 1.8 mg/dl Test 09/06/17 06:02 09/06/17 07:19 Arterial Blood pH 7.48 Arterial Blood Partial Pressure CO2 36 mmHg Arterial Blood Partial Pressure O2 56 mm/Hg Arterial Blood HCO3 26 mmol/L Arterial Blood Oxygen Saturation 89.6 % Arterial Blood Base Excess 2.9 mEq/L Arterial Blood Gas Delivery RA Dinesh Test POS Bedside Glucose 131 mg/dl Assessment and Plan This is a 72 year old obese male with a 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, right heart failure, DM2, HTN, CKD stage 3, OCD, Gilbert's syndrome, hyperlipidemia - presents with worsening shortness of breath Acute Hypoxic Respiratory Failure secondary to Bilateral Pleural Effusions Underlying Pulmonary Artery Hypertension and R Heart Failure 09/06 - will d/c with Lasix 40mg and Aldactone 12.5mg daily - qualifies for nocturnal oxygen; will use 2L nocturnally - 5mg of Coumadin now, recheck INR as outpatient 09/05 - restart Lasix 40mg today, and likely once daily - replacing K and Mg, will likely need daily supplementation - two step to be performed - nocturnal pulse ox to be performed in AM (09/06), AM ABG to be performed on 09/06 to see if he qualifies for bipap 09/04 - Lasix stopped due to kidney function decline - did well with nocturnal bipap - will need bipap on discharge - two step to be performed in AM 09/03 - good output, with a negative fluid balance - has had a total of 3.5L removed - continue IV Lasix, replace Mg and K - further input from cardiology - nocturnal pulse ox without significant desaturation - can wean off O2 as tolerated 09/02 - symptoms improving - continue Lasix and monitor I's and O's - will likely need maintenance diuretics - pulmonary consulted for management of L pleural effusion as well as possible underlying ALMITA - will likely need repeat imaging for mediastinal lymphadenopathy 09/01 - patient is coming in with hypoxia, requiring oxygen; with increased respiratory effort initially - improved with IV Lasix and supplemental oxygen - CT chest suggests bilateral pleural effusions; also suggests pulmonary artery hypertension - will check an echo for LVEF, pulmonary arterial pressures, etc. - will continue IV Lasix 20mg BID - cardiology consulted for further input Paroxysmal Atrial Fibrillation - patient with a lot of artifactual beats noted on EKG - does not appear to be a regular rhythm - chronic RBBB - cardiology consulted for further input - continue Lopressor and continue anticoagulation - TSH wnl, Mg wnl Hx. of PE/DVT - giving an increased dose of Coumadin (5mg) today due to INR being 1.7 - recheck INR in AM Hypokalemia - resolved Hypomagnesemia - improving DM2 - hold oral agents - insulin sliding scale ordered - Ha1c = 6.2% and well controlled Acute Kidney Injury superimposed on CKD stage 3 - restart Lasix on 09/05 OCD - continue Paxil Gilbert's Syndrome - elevated T. bili is chronic DVT ppx - Coumadin; goal INR of 2-3 FULL CODE
[2017-09-06] MEDS ORDERED: METO-478 PO (12:00)
[2017-09-06] MEDS ORDERED: MGNO400 PO (12:00)
[2017-09-06] MEDS ORDERED: AMLO5TAB2 PO (12:00)
[2017-09-06] MEDS ORDERED: HYDR-4716 PO (12:00)
[2017-09-06] MEDS ORDERED: LSX40 PO (12:00)
[2017-09-06] MEDS ORDERED: OXGN (12:00)
--- NOTE | 2017-09-06 12:24 | Discharge Instructions ---
Discharge Instructions Date of Service Sep 06, 2017. Admission Reason for Admission: Chf,Hypoxia Discharge Discharge Diagnosis / Problem: CHF, Hypoxia, R sided heart failure Discharge Goals Goal(s): Decrease discomfort, Improve function, Diagnostic testing, Therapeutic intervention Activity Recommendations Activity Limitations: resume your previous activity . Instructions / Follow-Up Instructions / Follow-Up Please follow-up with Dr. Soni (covering for Dr. Navarro) on September 12 at 11:05AM * You will be on Lasix and Aldactone (diuretics/water pills) to remove fluid * Stop taking hydrochlorothiazide * Your metoprolol is changed to a different type of metoprolol (succinate); please take the new one * Your dose of amlodipine and hydralazine are both lower * Continue magnesium supplementation * have your INR checked sometime early next week * Please follow-up with cardiology as an outpatient * Please follow-up with pulmonology (Dr. Alessandro Barnes) for a sleep study as an outpatient Current Hospital Diet Patient's current hospital diet: AHA Diet (Heart Healthy), Diabetes Type 2 Diet Discharge Diet Recommended Diet: AHA Diet (Heart Healthy), Diabetes Type 2 Diet Pending Studies Studies pending at discharge: no Laboratory Results Hemoglobin A1c Test 09/02/17 04:38 Range/Units Estimated Average Glucose 131 mg/dl Hemoglobin A1c 6.2 H 4.5-5.6 % Lipid Panel Test 09/02/17 04:38 Range/Units Triglycerides Level 93 0-150 mg/dl Cholesterol Level 98 0-200 mg/dl HDL Cholesterol 55 mg/dl Cholesterol/HDL Ratio 1.8 LDL Cholesterol, Calculated 24 mg/dl Medical Emergencies . Who to Call and When: Medical Emergencies: If at any time you feel your situation is an emergency, please call 911 immediately. . Non-Emergent Contact Non-Emergency issues call your: Primary Care Provider, Political Science Professor, Scrap Piler . . "Provider Documentation" section prepared by Alireza Parnell. .
--- NOTE | 2017-09-06 12:28 | Discharge Summary ---
Discharge Summary Date of Service Sep 06, 2017. Discharge Summary Admission Date: Sep 01, 2017 at 11:21 Discharge Date: Sep 06, 2017 Discharge Disposition: Home Principal Diagnosis: Acute Hypoxic Respiratory Failure secondary to Bilateral Pleural Effusions Underlying Pulmonary Artery Hypertension and R Heart Failure Paroxysmal Atrial Fibrillation Hx. of PE/DVT on long-term anticoagulation Hypokalemia - resolved Hypomagnesemia - improving DM2 Acute Kidney Injury superimposed on CKD stage 3 - improved OCD Gilbert's Syndrome Medication Reconciliation New Medications: Home O2 Therapy (Oxygen) Gas 2 LITERS NA HS for 30 Days, BTL Furosemide (Furosemide) 40 Mg Tab 40 MG PO QAM for 30 Days, #30 TAB Magnesium Oxide (Magnesium-Oxide) 400 Mg Tab 400 MG PO QAM for 30 Days, #30 TAB Changed Medications: Amlodipine Besylate (Norvasc) 5 Mg Tab 1 TAB PO DAILY for 30 Days, #30 TAB 5 Refills (Changed from: Amlodipine (Norvasc ) 10 Mg Tab 10 Mg PO DAILY) Hydralazine HCl (Hydralazine HCl) 25 Mg Tab 12.5 MG PO BID for 30 Days, #30 TABS (Changed from: 25 MG) Metoprolol Succinate (Toprol Xl) 25 Mg Tab 1 TAB PO BID for 30 Days, #60 TAB 5 Refills (Changed from: Metoprolol Tartrate ( Lopressor) (Lopressor) 25 Mg Tab 25 Mg PO BID #60 Ref 0) Continued Medications: Acetaminophen (Tylenol) 325 Mg Tab 650 MG PO Q4H PRN, #0 0 Refills Allopurinol (Allopurinol) 300 Mg Tab 300 MG PO DAILY Atorvastatin (Lipitor) 10 Mg Tab 10 MG PO DAILY, 0 Refills Cholecalciferol (Vitamin D3) 2,000 Unit Tab 2000 UNITS PO DAILY Glimepiride (Glimepiride) 2 Mg Tab 2 MG PO DAILY Paroxetine (Paxil) 20 Mg Tab 20 MG PO DAILY Warfarin Sod (Jantoven) 2.5 Mg Tab 2.5 MG PO 5XWK TAKES TUES,WED,THURS,SAT,SUN Warfarin Sod (Jantoven) 2.5 Mg Tab 1.25 MG PO 2XWK TAKES MON AND FRI Discontinued Medications: Hydrochlorothiazide (Hctz) 12.5 Mg Cap 12.5 MG PO DAILY Admission Information HPI (per Admitting provider): This is a 72 year old obese male with a 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 States that it is worse with exertion - denies associated cough. Denies fevers/chills; states he does not have chest pain/palpitations. Breathing became acutely worse on the day of arrival. Presented to the ED - found to be hypoxic; improved with supplemental O2 via nasal cannula. On imaging; suggestion of fluid overload; patient has some lower extremity edema and venous stasis changes noted. Received IV Lasix in the ED and felt better. On EKG, there is an irregular rhythm with RBBB. Patient denies palpitations. Physical Exam (per Admitting): General Appearance: no apparent distress, + obese Head: normocephalic, atraumatic Eyes: normal inspection ENT: hearing grossly normal Neck: supple Respiratory/Chest: no respiratory distress, no accessory muscle use, + decreased breath sounds Cardiovascular: no murmur, + irregularly irregular Abdomen/GI: normal bowel sounds, non tender, soft Extremities/Musculoskelatal: + pertinent finding (trace b/l edema; venous stasis dermatitis) Neurologic/Psych: bag sorter II-XII nml as tested, no motor/sensory deficits, alert , normal mood/affect, oriented x 3 Skin: normal color, warm/dry, no rash Lymphatic: no adenopathy Hospital Course This is a 72 year old obese male with a 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, right heart failure, DM2, HTN, CKD stage 3, OCD, Gilbert's syndrome, hyperlipidemia - presents with worsening shortness of breath Acute Hypoxic Respiratory Failure secondary to Bilateral Pleural Effusions Underlying Pulmonary Artery Hypertension and R Heart Failure 09/06 - will d/c with Lasix 40mg and Aldactone 12.5mg daily - qualifies for nocturnal oxygen; will use 2L nocturnally - 5mg of Coumadin now, recheck INR as outpatient 09/05 - restart Lasix 40mg today, and likely once daily - replacing K and Mg, will likely need daily supplementation - two step to be performed - nocturnal pulse ox to be performed in AM (09/06), AM ABG to be performed on 09/06 to see if he qualifies for bipap 09/04 - Lasix stopped due to kidney function decline - did well with nocturnal bipap - will need bipap on discharge - two step to be performed in AM 09/03 - good output, with a negative fluid balance - has had a total of 3.5L removed - continue IV Lasix, replace Mg and K - further input from cardiology - nocturnal pulse ox without significant desaturation - can wean off O2 as tolerated 09/02 - symptoms improving - continue Lasix and monitor I's and O's - will likely need maintenance diuretics - pulmonary consulted for management of L pleural effusion as well as possible underlying ALMITA - will likely need repeat imaging for mediastinal lymphadenopathy 09/01 - patient is coming in with hypoxia, requiring oxygen; with increased respiratory effort initially - improved with IV Lasix and supplemental oxygen - CT chest suggests bilateral pleural effusions; also suggests pulmonary artery hypertension - will check an echo for LVEF, pulmonary arterial pressures, etc. - will continue IV Lasix 20mg BID - cardiology consulted for further input Paroxysmal Atrial Fibrillation - patient with a lot of artifactual beats noted on EKG - does not appear to be a regular rhythm - chronic RBBB - cardiology consulted for further input - continue Lopressor and continue anticoagulation - TSH wnl, Mg wnl Hx. of PE/DVT - giving an increased dose of Coumadin (5mg) today due to INR being 1.7 - recheck INR in AM Hypokalemia - resolved Hypomagnesemia - improving DM2 - hold oral agents - insulin sliding scale ordered - Ha1c = 6.2% and well controlled Acute Kidney Injury superimposed on CKD stage 3 - restart Lasix on 09/05 OCD - continue Paxil Gilbert's Syndrome - elevated T. bili is chronic DVT ppx - Coumadin; goal INR of 2-3 FULL CODE Total time spent on discharge = 50 minutes This includes examination of the patient, discharge planning, medication reconciliation, and communication with other providers. Discharge Instructions Please follow-up with Dr. Soni (covering for Dr. Navarro) on September 12 at 11:05AM * You will be on Lasix and Aldactone (diuretics/water pills) to remove fluid * Stop taking hydrochlorothiazide * Your metoprolol is changed to a different type of metoprolol (succinate); please take the new one * Your dose of amlodipine and hydralazine are both lower * Continue magnesium supplementation * have your INR checked sometime early next week * Please follow-up with cardiology as an outpatient * Please follow-up with pulmonology (Dr. Alessandro Barnes) for a sleep study as an outpatient
[2017-09-06 12:42] VITALS: BP 120/79; PULSE 68; TEMP 36.6; O2SAT 95
== END 2017-09-06 14:58 | disposition home or self-care (01) | DRG 291 ==
LOC: EDBD 08:33 → C.EDC 08:34 → C.2T 11:21 → ENRESERV 11:44 → C.2T 09-02 08:10
PROVIDERS: ADMIT Family Medicine; ATTEND Family Medicine
PROC: 0W993ZX Drainage of Right Pleural Cavity, Percutaneous Approach, Diagnostic (ICD-10-PCS; principal; 2017-09-05)
DX: I13.0 Hypertensive heart and chronic kidney disease with heart failure and stage 1 through stage 4 chronic kidney disease, or unspecified chronic kidney disease (principal); J96.01 Acute respiratory failure with hypoxia; N17.9 Acute kidney failure, unspecified; J91.8 Pleural effusion in other conditions classified elsewhere; Z86.718 Personal history of other venous thrombosis and embolism; E11.9 Type 2 diabetes mellitus without complications; Z86.010 Personal history of colon polyps; I50.810 Right heart failure, unspecified; E78.5 Hyperlipidemia, unspecified; Z86.711 Personal history of pulmonary embolism; Z87.891 Personal history of nicotine dependence; I50.9 Heart failure, unspecified; E66.9 Obesity, unspecified; N18.3 Chronic kidney disease, stage 3 (moderate); F42.9 Obsessive-compulsive disorder, unspecified; E80.4 Gilbert syndrome; I27.20 Pulmonary hypertension, unspecified; I48.0 Paroxysmal atrial fibrillation; E87.6 Hypokalemia; E83.42 Hypomagnesemia

== ENCOUNTER → 2017-10-15 | Outpatient (CLI) | payer OTHER, MEDICARE ==
[~2017-10-15] MED LIST changes: -ALL100 PO; +ALL300 PO; -AMLO10TA3 PO; +AMLO5TAB2 PO; -CLC6 PO; +GLIM2TAB2 PO; +HYDR-4716 PO; -HYDR12.56 PO; +LSX40 PO; +METO-478 PO; -METO25TA56 PO; +MGNO400 PO; +OXGN; +PARO1TAB27 PO; -PXLUNK PO; -REPA0.5T PO; -WARF1TAB PO; +WARF2.5T8 PO
--- NOTE | 2017-10-16 06:06 | SPLIT NIGHT TECHNICIAN REPORT ---
[facility] Split Night Polysomnogram - Linotype Machinist Apprentice Report Study date: 10/15/2017 Referring Physician: DR. STU BOJORQUEZ Name: SAMUEL PULIDO Linotype Machinist Apprentice: KISHAN Herrera. Date of : 1945 Height: 72 years, Height 5' 10" Sex: Male Weight: 267 lbs Age: 72 BMI: Medications: 38.31 HYDRALAZINE 25 MG, FUROSEMIDE 40 MG, MAGNESIUM 400 MG, AMLODIPINE 5 MG, WARFARIN 2.5 MG, O2 GAS 2 LPM AT NIGHT, TYLENOL 325 MG Patient History 72 yr-old male here for a baseline/split study. He was hospitalized for shortness of breath. While in the hospital, he was placed on CPAP. He is here to assess his ALMITA. His [place] scale is 5. The test was started on room air. ETCO2 testing is included in this study. Room 7 Parameters Monitored NPSG: E1-M2, E2-M1, Fp1-M2, Fp2-M1, F3-M2, F4-M2, F4-M1, C3-M2, C4-M2, C4-M1, O1-M2, O2-M2, O2-M1, T3-M2, T4-M1, P3-M2, P4-M1, CHIN1, CHIN2, HR, EKG, Legs, PFLOW, SNOR, FLOW, CFLOW, Tidal Volume, THOR, ABDO, SpO2, PLTH, CPRESS, ETCO2 Wave, ETCO2, pH SLEEP SUMMARY DATA DIAGNOSTIC TREATMENT Lights Out: 10:15:27 PM 2:18:27 AM Lights On: 2:06:27 AM 5:28:57 AM Total Recording Time (TRT): 231.0 min. 190.5 min. Total Sleep Time (TST): 137.5 min. 114.0 min. NREM Time: 137.5 min. 114.0 min. REM Time: 0.0 min. 0.0 min. Sleep Period Time (SPT): 183.0 min. 123.0 min. Sleep Efficiency (SE): 60 % 60 % Sleep Latency: 48.0 min. 49.0 min. Arousal Index: 19.2 8.4 PAP Treatment Levels: 4, 6, 8, 9, 10, 11 * Optimal Pressure(s) SLEEP STAGING DATA DIAGNOSTIC TREATMENT Duration (min) TST % Duration (min) TST % Stage Wake: 93.5 min. -- 76.5 min. -- WASO: 45.5 min. -- 9.0 min. -- NREM: 137.5 min. 100 % 114.0 min. 100 % Stage N1: 62.5 min. 45 % 22.0 min. 19 % Stage N2: 75.0 min. 55 % 92.0 min. 81 % Stage N3: 0.0 min. 0 % 0.0 min. 0 % REM: 0.0 min. 0 % 0.0 min. 0 % POSITIONAL DATA Event Count Index Event Count Index Supine: 94 38 69 36.3 Supine NREM: 94 37.5 69 36.3 Supine REM: N/A N/A N/A N/A Non-Supine: N/A N/A N/A N/A Non-Supine NREM: N/A N/A N/A N/A Non-Supine REM: N/A N/A N/A N/A AROUSAL SUMMARY DATA: Event Count Index Event Count Index Apnea Arousals: 1 2.6 0 3.2 Hypopnea Arousals: 5 2.2 1 0.5 Snore Arousals: 3 1.3 5 2.6 PLM Arousals: 0 0.0 2 1.1 Non-Specific Arousals: 25 10.9 8 4.2 Total Arousals: 44 19.2 16 8.4 MYOCLONUS (PLM) Event Count Index Event Count Index PLM: 0 0.0 126 66.3 PLM AROUSAL: 0 0.0 2 1.1 PLM W/O AROUSAL 0 0.0 124 65.3 PLM W/RESP EVENT 0 0.0 4 0.0 MYOCLONUS (PLM) Event Count Index Event Count Index LM: 2 7.9 18 9.5 LM AROUSAL: 2 0.9 0 0.0 LM W/O AROUSAL LM W/RESP EVENT LM NON SPECIFIC 14 6.1 134 70.5 HEART RATE DATA DIAGNOSTIC TREATMENT Sleep (bpm): 71 66 REM (bpm): N/A N/A NREM (bpm): 90 92 Tachycardia Count: 0 0 Tachycardia Duration: 0.00 0 Bradycardia Count: 0 0 Bradycardia Duration: 0.00 0 DIAGNOSTIC PORTION TREATMENT PORTION RESPIRATORY DATA Event Count Index Event Count Index AHI: -- 37.5 -- 36.3 RDI: -- 41.0 -- 36 Obstructive Apnea: 4 1.7 0 0.0 Central Apnea: 2 0.9 6 3.2 Mixed Apnea: 0 0.0 0 0.0 Hypopnea: 80 34.9 63 33.2 RERA: 8 3.5 0 0.0 Total Apneas: 6 2.6 6 3.2 RESPIRATORY DATA REM NREM SLEEP REM NREM SLEEP Supine Position: Obstructive Apneas: N/A 4 4 N/A 0 0 Central Apneas: N/A 2 2 N/A 6 6 Mixed Apneas: N/A 0 0 N/A 0 0 Hypopneas: N/A 80 80 N/A 63 63 RERA N/A 8 8 N/A 0 0 Total Supine Events: N/A 94 94 N/A 69 69 Supine AHI: N/A 37.5 38 N/A 36.3 36.3 Supine RDI: N/A 41.0 41.0 N/A 36.3 36.3 REM NREM SLEEP REM NREM SLEEP Non-Supine Position: Obstructive Apneas: N/A N/A N/A N/A N/A N/A Central Apneas: N/A N/A N/A N/A N/A N/A Mixed Apneas: N/A N/A N/A N/A N/A N/A Hypopneas: N/A N/A N/A N/A N/A N/A RERA N/A N/A N/A N/A N/A N/A Total Supine Events: N/A N/A N/A N/A N/A N/A Supine AHI: N/A N/A N/A N/A N/A N/A Supine RDI: N/A N/A N/A N/A N/A N/A OXYGEN DESTAURATION DATA: Event Count Index Event Count Index REM Desaturations: N/A N/A N/A N/A NREM Desaturations: 93 40.6 80 42.1 SNORE DATA DIAGNOSTIC TREATMENT Snore Time: 1.5 3:07:27 AM Snore TST%: 1 3 Snore Arousal Count: 3 5 Snore Arousal Index: 1.3 2.6 Desaturation Event Summary: Minimum %SpO2 Event Count Mean/Min/Max Duration(sec.) Desaturation Index % Time In Bed > 90 156 22.8 / 8.8 / 60.0 36.9 60.8 86 - 90 73 18.9 / 11.0 / 58.0 27.9 37.6 81 - 85 1 18.8 / 18.8 / 18.8 9.0 1.6 76 - 80 0 N/A 0.0 0.0 71 - 75 0 N/A 0.0 0.0 66 - 70 0 N/A 0.0 0.0 61 - 65 0 N/A 0.0 0.0 56 - 60 0 N/A 0.0 0.0 51 - 55 0 N/A 0.0 0.0 < 50 0 N/A 0.0 0.0 OXYGEN SATURATION DATA DIAGNOSTIC TREATMENT SpO2 Mean Sleep: 90 % 92 % SpO2 Mean REM: N/A % N/A % SpO2 Mean NREM: 90 % 92 % SpO2 Minimum Sleep: 83 % 85 % SpO2 Minimum REM: N/A % N/A % SpO2 Minimum NREM: 83 % 85 % Time Below 90% (TST): 59.4 16.2 Time Below 88% (TST): 21.0 3.1 Total REM NREM Awake <50% 0.0 min. 0.0 min. 0.0 min. 0.0 min. 51 - 60% 0.0 min. 0.0 min. 0.0 min. 0.0 min. 61 - 70% 0.0 min. 0.0 min. 0.0 min. 0.0 min. 71 - 80% 0.0 min. 0.0 min. 0.0 min. 0.0 min. 81 - 90% 163.7 min. 0.0 min. 115.6 min. 48.0 min. 91 - 100% 253.4 min. 0.0 min. 135.7 min. 117.7 min. Average 91 0 91 92 Minimum SpO2 83 N/A 83 85 Desaturation Event Index 25.8 0.0 41.3 3.5 # Desat. Events below 89% 96 N/A 94 2 Time(%) with Saturation below 89% 16.4 0.0 11.1 5.3 Time(min.) with Saturation below 89% 68.3 0.0 46.3 22.1 Recording Linotype Machinist Apprentice Comments: Mr. Pulido slept only in the supine position with the head of the bed elevated. Cardiac arrhythmias were noted (please refer to the printouts). PLMs were noted. No bruxism noted. Snoring was noted and scored as a 2 on a scale of 1 through 5. (0=no snoring, 5=snoring loud enough to be heard through a closed door or down the dover way) At 2:15 am, he met specific Split-Night criteria during the diagnostic portion of this study. CPAP was initiated at +4 CMH2O and up-titrated to a level of +11 CMH2O, Cflex 3. A Mirage FX Soft edge nasal mask size standard from [employer] was used during titration. He awoke to use the restroom three times during the night. Mr. Pulido stated that he slept ok with the mask. The final report will be interpreted and signed by a sleep physician. The completed physician report will then be placed in the patient medical record. Therapy Event: Therapy (cm H20) 0 4 6 8 9 10 11 Total Time at Pressure (min.) 231.0 75.1 19.9 14.9 33.0 22.8 24.8 TST at Pressure (min.) 137.5 26.1 18.4 14.9 27.0 21.3 6.3 # Periods 1 1 1 1 1 1 1 Sleep Onset (min.) 48.0 49.0 0.0 0.0 0.0 0.0 0.0 REM Onset (min.) N/A N/A N/A N/A N/A N/A N/A Sleep Efficiency % 59 34 92 100 81 93 25 Wakefulness (%) 40.5 65.2 7.5 0.0 18.2 6.6 74.6 Wakefulness (min.) 93.5 49.0 1.5 0.0 6.0 1.5 18.5 NREM 1 (%) 27.1 14.6 17.6 0.0 15.2 4.4 6.0 NREM 1 (min.) 62.5 11.0 3.5 0.0 5.0 1.0 1.5 NREM 2 (%) 32.5 20.1 74.8 100.0 66.6 89.0 19.4 NREM 2 (min.) 75.0 15.1 14.9 14.9 22.0 20.3 4.8 NREM 3 (%) 0.0 0.0 0.0 0.0 0.0 0.0 0.0 NREM 3 (min.) 0.0 0.0 0.0 0.0 0.0 0.0 0.0 REM (%) 0.0 0.0 0.0 0.0 0.0 0.0 0.0 REM (min.) 0.0 0.0 0.0 0.0 0.0 0.0 0.0 # Arousals 44 4 2 0 4 1 5 Arousal Index 19.2 9.2 6.5 0.0 8.9 2.8 47.6 # Snore 48 17 14 6 21 25 21 Snore Index 20.9 39.1 45.7 24.1 46.7 70.4 199.8 AHI 37.5 64.4 42.4 28.1 26.7 25.3 0.0 AHI Supine 37.5 64.4 42.4 28.1 26.7 25.3 0.0 AHI Non-Supine N/A N/A N/A N/A N/A N/A N/A NREM AHI 37.5 64.4 42.4 28.1 26.7 25.3 0.0 REM AHI N/A N/A N/A N/A N/A N/A N/A RDI 41.0 64.4 42.4 28.1 26.7 25.3 0.0 # Obstructive 4 0 0 0 0 0 0 # Central Ap 2 6 0 0 0 0 0 # Mixed 0 0 0 0 0 0 0 # Hypopneas 80 22 13 7 12 9 0 RERAS 8 0 0 0 0 0 0 Total Respiratory Events 94 28 13 7 12 9 0 Time Below SpO2 89.00% (min.) 39.7 5.7 0.7 0.1 0.0 0.0 0.0 Mean NREM SpO2 (%) 90 90 91 92 93 93 94 Mean REM SpO2 (%) N/A N/A N/A N/A N/A N/A N/A Mean Sleep SpO2 (%) 90 90 91 92 93 93 94 Min NREM SpO2 (%) 83 85 88 88 89 90 90 Min REM SpO2 (%) N/A N/A N/A N/A N/A N/A N/A Position Supine (min.) 137.5 26.1 18.4 14.9 27.0 21.3 6.3 Position Non-supine (min.) 0.0 0.0 0.0 0.0 0.0 0.0 0.0 LM Index Sleep 7.9 69.0 81.6 92.4 64.5 73.2 104.6 LM Index NREM 7.9 69.0 81.6 92.4 64.5 73.2 104.6 LM Index REM N/A N/A N/A N/A N/A N/A N/A Mean Heart Rate (bpm) 71 64 66 66 67 66 66 Min Heart Rate (bpm) 53 48 52 54 54 53 57 CPAP REPORT Therapy Detail Time / Page # Comment CPAP 4 cm H2O Nasal Mask Flex Pressure Relief Humidifier on 2:17:40 AM / pg. 706 HE IS MEDICARE, USING SLEEP TIME. HE HAS BEEN ASLEEP FOR OVER 2 HOURS AND HIS AHI IS BETWEEN 20 AND 40 WITH COMORBIDITIES. CPAP 6 cm H2O Nasal Mask Flex Pressure Relief Humidifier on 3:33:33 AM / pg. 858 INCREASED FOR HYPOPNEAS CPAP 8 cm H2O Nasal Mask Flex Pressure Relief Humidifier on 3:53:26 AM / pg. 897 INCREASED FOR MORE HYPOPNEAS CPAP 9 cm H2O Nasal Mask Flex Pressure Relief Humidifier on 4:08:22 AM / pg. 927 INCREASED FOR HYPOPNEAS CPAP 10 cm H2O Nasal Mask Flex Pressure Relief Humidifier on 4:41:20 AM / pg. 993 INCREASED FOR HYPOPNEAS CPAP 11 cm H2O Nasal Mask Flex Pressure Relief Humidifier on 5:04:09 AM / pg. 1039 INCREASED FOR HYPOPNEAS
--- NOTE | 2017-10-18 02:11 | POLYSOMNOGRAPH REPORT ---
CLINICAL DATA: The patient is a 72-year-old male who recently was hospitalized with shortness of breath. He was found to have nocturnal hypoxia. He has a history of atrial fibrillation. Obstructive sleep apnea is suspected. This was an in-lab split night study. The patient's BMI is 38.31. SLEEP ARCHITECTURE: For the diagnostic portion of the study, the sleep period time was 183 minutes. The total sleep time was 137.5 minutes. The sleep efficiency was reduced to 60%. The sleep latency was prolonged to 48 minutes. Sleep consisted of stage N1 45%, stage N2 55%, stage N3 0%, stage REM 0%. During the treatment portion of the study, the patient was treated with nasal CPAP. The sleep period time was 123 minutes. The total sleep time was 114 minutes. The sleep efficiency was again reduced to 60%. The sleep latency was prolonged to 49 minutes. Sleep consisted of stage N1 19%, stage N2 81%, stage N3 0%, stage REM 0%. AROUSAL DATA: During the diagnostic portion of the study, the patient had 44 arousals including 25 nonspecific arousals, 3 snoring arousals, 5 hypopnea arousals, and 1 apnea arousal. The arousal index was 19.2. During the treatment portion of the study, he had 16 arousals including 8 nonspecific arousals, 2 PLM arousals, 5 snoring arousals, and 1 hypopnea arousal. The arousal index was 8.4. PERIODIC LIMB MOVEMENTS DATA: During the diagnostic portion of the study, there were no periodic limb movements. During the treatment portion of the study, he had 126 periodic limb movements for a PLM index of 66.3. There were 2 arousals associated with limb movements for a PLM arousal index of 1.1. EKG: The cardiac rates ranged from 66-92 beats per minute. The rhythm was atrial fibrillation throughout. RESPIRATORY DATA: During the diagnostic portion of the study, the patient had 86 respiratory events including 4 obstructive apneas, 2 central apneas, and 80 hypopneas. The patient also had 8 RERAs. The apnea hypopnea index was elevated at 37.5. This reflects moderately severe sleep apnea. During the treatment portion of the study, he was treated with nasal CPAP, which was titrated to a final pressure of 11 cm. There was a total of 69 respiratory events including 6 central apneas, 63 hypopneas. The apnea hypopnea index was 36.3. At the final pressure of 11 cm, the apnea-hypopnea index was 0, but the patient only had 6.3 minutes of sleep at that pressure. OXIMETRY DATA: During the diagnostic portion of the study, the mean saturation was 90%. The minimum saturation was 83%. There was 21 minutes with saturations less than 88%. During the treatment portion of the study, the mean saturation was 92%, the minimum saturation was 85%, and the time below 88% was 3.1 minutes. AQUATIC ECOLOGIST COMMENTS: The patient slept in the supine position with the head of the bed elevated. Cardiac arrhythmia noted. PLMs were noted. No bruxism noted. Snoring was noted and scored as a 2 on a scale of 1 through 5. At 2:15 a.m., he met the specific split night criteria during the diagnostic portion of the study. CPAP was initiated at 4 cm and up titrated to a level of 11 cm with C-Flex 3. A Mirage FX soft edge nasal mask size standard from [employer] was used during the titration. He stated that he slept okay with the mask. IMPRESSION: 1. Obstructive sleep apnea - moderately severe. 2. Atrial fibrillation. COMMENTS: A split study was performed. The patient had moderately severe sleep apnea. This prompted performing a split study. An overall adequate titration could not be obtained. The patient persisted with a moderate amount of apnea with a CPAP of 10. At a CPAP of 11, he had no events, but with only 6.3 minutes of sleep time. In light of this, it is advised that he be treated with an auto CPAP. The patient did have atrial fibrillation throughout but the rates were controlled. It should be noted he had no stage N3 or REM sleep at any time during the night. His sleep architecture did improve somewhat with the addition of CPAP. Likewise, there was an improvement in the arousals. There was an increase in limb movements, which is not unexpected with resolution of sleep disordered breathing. RECOMMENDATIONS: 1. It is advised that the patient be treated with auto CPAP with a minimum pressure of 6 and a maximum of 16. 2. Weight loss is advised in light of the elevation of body mass index at 38.31. 3. If possible, the patient should avoid sleeping in the supine position. 4. The patient should be reevaluated between day 31 and day 90 after the initiation of nasal CPAP.
== END | disposition home or self-care (01) ==
LOC: C.NEUR 20:00
PROVIDERS: ATTEND Internal Medicine Critical Care Medicine
DX: G47.33 Obstructive sleep apnea (adult) (pediatric) (principal); I48.91 Unspecified atrial fibrillation

== ENCOUNTER 2018-08-06 02:00 | Inpatient (IN) ==
--- OUTSIDE RECORDS SUMMARY | 2018-08-06 02:03 | External Medical Summary | Continuity of Care Document ---
:1945 Author Name Samantha Gómez, Provider Address Unavailable Unavailable , Care Team Providers Name Role Phone Unavailable Unavailable Unavailable MRAU HODGES Unavailable Unavailable Unavailable Unavailable Unavailable Problems Gilbert's syndrome (277.4) (E80.4) HTN (hypertension) (401.9) (I10) OCD (obsessive compulsive disorder) (300.3) (F42.9) Obesity (278.00) (E66.9) Pulmonary embolism (415.19) (I26.99) Obstructive sleep apnea of adult (327.23) (G47.33) Paroxysmal atrial fibrillation (427.31) (I48.0) Chronic edema (782.3) (R60.9) SOB (shortness of breath) (786.05) (R06.02) Hyperlipidemia (272.4) (E78.5) Allergies and Adverse Reactions No Known Allergies (Allergy) Medications Toprol XL 25 MG Oral Tablet Extended Release 24 Hour; take 1 tab PO BID , M.D. Start: 22-Sep-2017 Refills: 0 Magnesium Oxide 400 MG Oral Tablet; TAKE 1 TABLET DAILY. , M .DLeopoldo Start: 22-Sep-2017 Refills: 0 Oxygen; 2L NA HS FOR 30 DAYS. , M.DLeopoldo Start: Aug-2017 Refills: 0 Lasix 40 MG Oral Tablet; TAKE 1 TABLET TWICE DAILY. , M.DLeopoldo Start: 22-Sep-2017 Refills: 0 Tylenol 325 MG Oral Capsule; prn , M.D. Start: 22-Sep-2017 Refills: 0 Warfarin Sodium 2.5 MG Oral Tablet; TAKE 2.5MG ON 5 DAYS PER WEEK, 1.25MG ON THE REMAINING TWO DAYS. , M.D. Start: 22-Sep-2017 Refills: 0 Paxil 20 MG Oral Tablet; TAKE 1 TABLET DAILY DIRECTED. Rico Start: 22-Sep-2017 Refills: 0 hydrALAZINE HCl - 25 MG Oral Tablet; Take 1/2 tab po bid. , M.D. Start: 22-Sep-2017 Refills: 0 Glimepiride 4 MG Oral Tablet; TAKE 2 TABLETS DAILY. , M.DLeopoldo Start: 22-Sep-2017 Refills: 0 Vitamin D 2000 UNIT Oral Tablet; take 1 po daily. M.DLeopoldo Start: 22-Sep-2017 Refills: 0 Lipitor 10 MG Oral Tablet; TAKE 1 TABLET DAILY DIRECTED. , M.DLeopoldo Start: 22-Sep-2017 Refills: 0 amLODIPine Besylate 5 MG Oral Tablet; TAKE 1 TABLET DAILY DIRECTED. Sarabjit.DLeopoldo Start: 22-Sep-2017 Refills: 0 90 Tablet Bottle Allopurinol 300 MG Oral Tablet; TAKE 1 TABLET DAILY. , M.DLeopoldo Start: 22-Sep-2017 Refills: 0 Docusate Sodium 100 MG Oral Capsule; TAKE 1 CAPSULE TW ICE DAILY NEEDED. , M.DLeopoldo Refills: 0 Milk of Magnesia SUSP Rioc Refills: 0 Bisacodyl 10 MG Rectal Suppository , M.DLeopoldo Refills: 0 Fleet Enema ENEM Rico Refills: 0 Senokot S TABS Rico Refills: 0 MiraLax POWD Rico Refills: 0 NovoLOG SOLN Rico Refills: 0 traMADol HCl - 50 MG Oral Tablet; TAKE 1 TABLET EVERY 4 HOUR S NEEDED Rico Refills: 0 Lidoderm PTCH Rico Refills: 0 Procedures History of inferior vena cava filter placement Status: Completed Immunizations Pneumococcal polysaccharide vaccine, 23 valent On: 30-Aug-19 influenza, seasonal, intradermal, preservative free On: Tetanus-Diphtheria Toxoids Td 2-2 LF/0.5ML Intramuscular [place]ina pension Comments:unknown Hepatitis B, adult Comments:unknown Social History - Smoking Status Former smoker Interventions SuppliesCPAP/Supplies; Done: 18 Nov 2017 Plan of Treatment Planned Observations Planned Goals not documented Results No Known Results Results not documented Encounters Appointment; Alessandro Barnes DO 07-Nov-2017 15:00 Encounter Diagnosis: Problem not documented Appointment; Pulmonary, Funct Testing 07-Nov-2017 14:00 Encounter Diagnosis: Problem not documented Appointment; Hilton Cortes M.D. 23-Sep-2017 15:45 Encounter Diagnosis: Problem not documented
[2018-08-06 02:32] LABS: Basophils # (auto) 0.05 K/uL (0-0.2); Basophils % (auto) 0.4 %; Eosinophils # (auto) 0.31 K/uL (0-0.5); Eosinophils % (auto) 2.5 %; Hematocrit (blood only) 39.4 % (42-52); Hemoglobin 14.2 g/dL (14.0-18.0); Immature Granulocytes # (auto) 0.05 K/uL (0.00-0.02); Immature Granulocytes % (auto) 0.4 %; Lymphocytes # (auto) 2.75 K/uL (1.2-3.4); Lymphocytes % (auto) 21.8 %; Mean Corpuscular Volume 92.7 fL (80-100); Mean Platelet Volume 10.2 fL (7.4-10.4); Monocytes # (auto) 0.82 K/uL (0.11-0.59); Monocytes % (auto) 6.5 %; Neutrophils # (auto) 8.65 K/uL (1.4-6.5); Neutrophils % (auto) 68.4 %; Platelet Count 168 K/uL (130-400); RDW Coefficient of Variation 13.9 % (11.5-14.5); RDW Standard Deviation 46.3 fL (36.4-46.3); Red Blood Count 4.25 M/uL (4.7-6.1); White Blood Count 12.63 K/uL (4.8-10.8)
[2018-08-06 02:50] LABS: Albumin Level 3.3 gm/dl (3.4-5.0); BUN Creatinine Ratio 20.7 (10-20); Calcium 8.9 mg/dl (8.5-10.1); Creatinine Clr Calc Pharmacy 38.8 ml/min; Est GFR (African American) 31.9; Est GFR (Non-African American) 27.5; Magnesium 2.2 mg/dl (1.8-2.4); Potassium 3.6 mmol/L (3.5-5.1)
[2018-08-06] MEDS ORDERED: SODIUM CHLORIDE 0.9% 500 ML IV ONE (02:57)
[2018-08-06 03:01] LABS: Albumin Globulin Ratio 0.8 (0.9-2); Bilirubin,Total 1.4 mg/dl (0.2-1); Total Protein 7.3 gm/dl (6.4-8.2)
[2018-08-06 06:19] LABS: Appearance Urine Clear (Clear); Bacteria Urine Automated Negative (Negative); Bilirubin Urine Negative (Negative); Blood Urine Negative (Negative); Color Urine Dark Yellow; Glucose Urine UA Negative (Negative); Ketones Urine Negative (Negative); Leukocyte Esterase Urine Negative (Negative); Nitrite Urine Negative (Negative); Protein Urine Trace (Negative); RBC Urine Automated 0-4 /hpf (0-4); Specific Gravity Urine 1.023 (1.000-1.030); Urobilinogen Urine Negative (Negative)
[2018-08-06 06:39] LABS: Cast Urine Automated >30 /lpf (0-5)
--- NOTE | 2018-08-06 07:02 | CT Scan Report ---
CT hip LT wo con HISTORY: 73 years-old Male eval for fx. Acute left hip pain status post fall COMPARISON: Pelvis and left hip radiographs 08/06/2018 TECHNIQUE: Multiple axial CT images of the left hip were obtained without the use of IV contrast. A d ose lowering technique was used consistent with the principals of MAGDA. FINDINGS: Demineralized appearance the bones limits evaluation for acute nondisplaced fracture. The imaged left hemipelvis structures appear intact without acute fracture. Moderate left hip osteoarthritis. No acu te fracture or dislocation of the imaged left femur. No avascular necrosis or intra-articular loose b osman. No large joint effusion identified. Peripheral arterial calcifications are noted. Colonic diverticulo sis. Small fat filled left inguinal hernia. IMPRESSION: 1. Demineralized appearance of the bones without acute fracture or dislocation identified. 2. Moderate left hip osteoarthritis. The above report was generated using voice recognition software. It may contain grammatical, syntax o r spelling errors. Electronically signed by: Sami Rodrigues M.D. 08/06/2018 7:01 AM
--- NOTE | 2018-08-06 07:17 | XRay Report ---
XR hip LT 2-3V w pelvis CLINICAL HISTORY: fall. Left hip pain. COMPARISON STUDY: None. FINDINGS: No fracture or dislocation within the left hip. The pelvic bones and right hip are intact. Mild osteoarthritis within the bilateral hips. 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 IMPRESSION: 1. No fracture or dislocation within the pelvis are hips. 2. Recommend follow-up CT of the left femur for further evaluation of the lytic lesion within the pro ximal femoral shaft. Electronically signed by: Carroll Chong M.D. 08/06/2018 7:15 AM
--- NOTE | 2018-08-06 07:56 | CT Scan Report ---
LEFT FEMUR CT CT DOSE: 442.02 mGy.cm HISTORY: Abnormal radiograph. eval lytic lesion TECHNIQUE: Multiaxial CT images of the left femur were performed and reformatted in the sagittal and coronal plane without the use of contrast. A dose lowering technique was utilized adhering to the pr inciples of MAGDA. COMPARISON: Left hip radiograph 08/06/2018. FINDINGS: Confirmation of the 2.3 x 1.6 cm lytic lesion within the posterior medullary cavity of the left proximal femoral shaft. This is best seen on axial image 353 and sagittal image 45. This demonst rates greater than 50% erosion of the posterior cortex of the proximal femoral shaft. Therefore, this is at risk for an impending fracture. No associated soft tissue component. Trace knee effusion. No a cute fracture or dislocation within the left femur. IMPRESSION: Confirmation of the 2.3 x 1.6 cm lytic lesion within the posterior medullary cavity of the left proxi mal femoral shaft. This is nonspecific could represent benign or aggressive lesions. This demonstrate s greater than 50% erosion of the posterior cortex and is therefore at risk for an impending fracture . Orthopedic consultation recommended. Electronically signed by: Carroll Chong M.D. 08/06/2018 7:55 AM
[2018-08-06] MEDS ORDERED: SODIUM CHLORIDE 0.9% 500 ML IV SCH (08:15)
--- NOTE | 2018-08-06 08:21 | Emergency Department Note ---
Entered by Perfecto Milligan acting as a scribe for Veda Jacob DO History of Present Illness General Chief complaint: Weakness Stated complaint: WEAKNESS Time Seen by Provider: 08/06/18 02:08 Source: patient History of Present Illness Provider complaint: weakness Onset (ago): hour(s) less than 1 Location: lower extremity Pain Consistency: + now resolved Relieved By: + none Exacerbated By: + none Associated symptoms: + denies other symptoms The patient is a 73 y/o male who presents to the emergency department for evaluation of weakness beginning prior to arrival. The patient states that he was lying down, when he stood up to go to the bathroom he fell hitting his left hip. He notes that once he made it to the bathroom, he had a loose bowel movement. The patient believes that he fell because he stood up to quickly, though he notes it felt like a low blood sugar episode which he does not comm only have. He also stated that he had a few rum and diet cokes this evening. The patient denies hitting his head or having pain anywhere else. Home Medications Home Medications Medication Instructions Recorded Confirmed Type allopurinol 300 mg PO DAILY 08/06/18 08/06/18 History amlodipine 5 mg PO DAILY 08/06/18 08/06/18 History atorvastatin 10 mg PO DAILY 08/06/18 08/06/18 History cholecalciferol (vitamin D3) 2,000 unit PO DAILY 08/06/18 08/06/18 History [Vitamin D3] furosemide 20 mg PO DAILY 08/06/18 08/06/18 History glimepiride 2 mg PO DAILY 08/06/18 08/06/18 History lisinopril 10 mg PO DAILY 08/06/18 08/06/18 History magnesium oxide 400 mg PO QAM 08/06/18 08/06/18 History metoprolol succinate 25 mg PO BID 08/06/18 08/06/18 History paroxetine HCl 20 mg PO DAILY 08/06/18 08/06/18 History warfarin 1.25 mg PO WK 08/06/18 08/06/18 History warfarin 2.5 mg PO 6XWK 08/06/18 08/06/18 History Allergies Allergy/AdvReac Type Severity Reaction Status Date / Time No Known Allergies Allergy Unverified 06/06/19 04:45 Past Med/Surg History Medical History Type 2 diabetes mellitus (Chronic) Hypoxemia (Resolved) Hyperkalemia Social History Feels Safe at Home: Yes Smoking Status: Unknown if ever smoked Review of Systems See HPI for pertinent positives & negatives. and A total of 10 systems reviewed and were otherwise negative Physical Exam Vital Signs Vital Signs - 24 hr 08/06/18 02:04 08/06/18 02:17 08/06/18 02:21 Temperature 36.8 C Temperature Source Oral Sepsis Recent Fever Within 48 Hours No Sepsis New/Unexplained Change in Mental Status No Sepsis Action Taken by Nursing No Action Required Pulse Rate - Lying Pulse Rate - Sitting Pulse Rate - Standing Pulse Rate 61 72 65 Pulse Rate [Right Finger] Pulse Rate from SpO2 Sensor Pulse Rhythm Regular Respiratory Rate 15 15 16 Respiratory Effort / Characteristics Non-Labored Spontaneous Respiratory Depth Normal Respiratory Pattern Regular Blood Pressure - Lying Blood Pressure - Sitting Blood Pressure- Standing Blood Pressure 97/54 L Blood Pressure [Right Arm] Blood Pressure Mean 68 Blood Pressure Mean [Right Arm] Blood Pressure Position Lying Pulse Oximetry 95 95 Oxygen Delivery Method Room Air Room Air 08/06/18 02:33 08/06/18 02:34 08/06/18 03:00 Temperature Temperature Source Sepsis Recent Fever Within 48 Hours Sepsis New/Unexplained Change in Mental Status Sepsis Action Taken by Nursing Pulse Rate - Lying Pulse Rate - Sitting Pulse Rate - Standing Pulse Rate 75 80 85 Pulse Rate [Right Finger] Pulse Rate from SpO2 Sensor 72 78 73 Pulse Rhythm Respiratory Rate 24 23 Respiratory Effort / Characteristics Respiratory Depth Respiratory Pattern Blood Pressure - Lying Blood Pressure - Sitting Blood Pressure- Standing Blood Pressure 96/45 L Blood Pressure [Right Arm] Blood Pressure Mean 62 Blood Pressure Mean [Right Arm] Blood Pressure Position Pulse Oximetry 95 99 90 Oxygen Delivery Method Room Air 08/06/18 03:01 08/06/18 03:13 08/06/18 03:27 Temperature Temperature Source Sepsis Recent Fever Within 48 Hours Sepsis New/Unexplained Change in Mental Status Sepsis Action Taken by Nursing Pulse Rate - Lying 66 Pulse Rate - Sitting 78 Pulse Rate - Standing 75 Pulse Rate 67 61 Pulse Rate [Right Finger] Pulse Rate from SpO2 Sensor 65 59 L Pulse Rhythm Respiratory Rate 20 20 Respiratory Effort / Characteristics Respiratory Depth Respiratory Pattern Blood Pressure - Lying 112/68 Blood Pressure - Sitting 94/58 L Blood Pressure- Standing 119/74 Blood Pressure 88/60 L 108/58 L Blood Pressure [Right Arm] Blood Pressure Mean 69 74 Blood Pressure Mean [Right Arm] Blood Pressure Position Pulse Oximetry 90 90 Oxygen Delivery Method 08/06/18 04:01 08/06/18 04:03 08/06/18 04:04 Temperature Temperature Source Sepsis Recent Fever Within 48 Hours Sepsis New/Unexplained Change in Mental Status Sepsis Action Taken by Nursing Pulse Rate - Lying Pulse Rate - Sitting Pulse Rate - Standing Pulse Rate 66 78 Pulse Rate [Right Finger] Pulse Rate from SpO2 Sensor 73 74 77 Pulse Rhythm Respiratory Rate 17 25 H Respiratory Effort / Characteristics Respiratory Depth Respiratory Pattern Blood Pressure - Lying Blood Pressure - Sitting Blood Pressure- Standing Blood Pressure 115/72 Blood Pressure [Right Arm] Blood Pressure Mean 86 Blood Pressure Mean [Right Arm] Blood Pressure Position Pulse Oximetry 98 97 96 Oxygen Delivery Method 08/06/18 04:30 08/06/18 04:31 08/06/18 05:21 Temperature Temperature Source Sepsis Recent Fever Within 48 Hours Sepsis New/Unexplained Change in Mental Status Sepsis Action Taken by Nursing Pulse Rate - Lying Pulse Rate - Sitting Pulse Rate - Standing Pulse Rate 67 71 65 Pulse Rate [Right Finger] Pulse Rate from SpO2 Sensor 76 72 70 Pulse Rhythm Respiratory Rate 18 18 19 Respiratory Effort / Characteristics Respiratory Depth Respiratory Pattern Blood Pressure - Lying Blood Pressure - Sitting Blood Pressure- Standing Blood Pressure 112/70 109/66 Blood Pressure [Right Arm] Blood Pressure Mean 84 80 Blood Pressure Mean [Right Arm] Blood Pressure Position Pulse Oximetry 95 93 93 Oxygen Delivery Method Room Air 08/06/18 06:00 08/06/18 06:30 08/06/18 06:31 Temperature Temperature Source Sepsis Recent Fever Within 48 Hours Sepsis New/Unexplained Change in Mental Status Sepsis Action Taken by Nursing Pulse Rate - Lying Pulse Rate - Sitting Pulse Rate - Standing Pulse Rate 76 69 82 Pulse Rate [Right Finger] Pulse Rate from SpO2 Sensor 76 70 81 Pulse Rhythm Respiratory Rate 14 22 20 Respiratory Effort / Characteristics Respiratory Depth Respiratory Pattern Blood Pressure - Lying Blood Pressure - Sitting Blood Pressure- Standing Blood Pressure 137/63 108/68 Blood Pressure [Right Arm] Blood Pressure Mean 87 81 Blood Pressure Mean [Right Arm] Blood Pressure Position Pulse Oximetry 98 92 92 Oxygen Delivery Method Room Air 08/06/18 08:09 Temperature Temperature Source Sepsis Recent Fever Within 48 Hours Sepsis New/Unexplained Change in Mental Status Sepsis Action Taken by Nursing Pulse Rate - Lying Pulse Rate - Sitting Pulse Rate - Standing Pulse Rate Pulse Rate [Right Finger] 81 Pulse Rate from SpO2 Sensor Pulse Rhythm Respiratory Rate 18 Respiratory Effort / Characteristics Respiratory Depth Respiratory Pattern Blood Pressure - Lying Blood Pressure - Sitting Blood Pressure- Standing Blood Pressure Blood Pressure [Right Arm] 120/79 Blood Pressure Mean Blood Pressure Mean [Right Arm] 92 Blood Pressure Position Pulse Oximetry 95 Oxygen Delivery Method General: Patient smells of alcohol. HEENT: Head - normocephalic and atraumatic Pupils are equal, round, and reactive to light. Extraocular eye muscles are intact, and sclera are anicteric. Nose - moist nasal mucosa without discharge. Mouth - moist buccal mucosa. Oropharynx is nonerythematous and there is no tonsillar exudate or edema noted. Neck: Supple; no JVD, nuchal rigidity, cervical lymphadenopathy, or auscultated bruits. Heart: Regular rate and rhythm. There is a normal S1 and S2 with no murmurs, clicks, or gallops appreciated. Lungs: Clear to auscultation bilaterally with no wheezes, rales, or rhonchi. Abdomen: Soft, completely nontender, nondistended, with good bowel sounds. There are no palpable pulsatile masses or hepatosplenomegaly. There is no guarding, rigidity, or rebound noted. Extremities: No evidence of cyanosis, clubbing, or edema. There are easily palpable peripheral pulses. Dried stool on legs. Skin: warm and dry with good turgor and no rashes. Course 0215: The patient was evaluated in room A11B. A complete history and physical exam was performed. 0257: Ordered Nss 999mls/hr. 0337: orthostatic vital signs were normal but he complained of left hip pain upon standing . 0400: Patient is at X-ray. 0440: I spoke with patient regarding his results. He will be tested to see if he is fit to return home. 0546: I spoke with patient following him trying to walk. He was not able to walk very far. He will go for a CT of the hip. 0714: [facility] will evaluate for further management. Radiology called this morning and is concerned about a possible lytic lesion on left femur that was see on the x-ray. 0808: I spoke with Dr. Tapia Hospitalist. He will evaluate for further management. Administered Medications Sodium Chloride (Nss) 500 mls @ 125 mls/hr IV .Q4H JESSICA Stop: 09/05/18 08:14 Last Admin: 08/06/18 08:13 Dose: 125 mls/hr Documented by: [id number] Discontinued Medications Sodium Chloride (Nss) 500 mls @ 999 mls/hr IV .Q31M ONE Stop: 08/06/18 03:27 Last Infusion: 08/06/18 03:40 Dose: 0 mls/hr Documented by: [id number] Admin: 08/06/18 03:08 Dose: 999 mls/hr Documented by: [id number] Medical Decision Making Differential Diagnosis Differential diagnosis: syncope, alcohol intoxication, dehydration. Medical Records Attestation: I reviewed the patient's medical records. Home Medications Current Medication List: was personally reviewed by me Laboratory Data Attestation: I reviewed the patient's lab results. Result diagrams: 08/06/18 02:18 08/06/18 02:18 Lab Results 08/06/18 08/06/18 08/06/18 Range/Units 02:18 02:18 02:18 WBC 12.63 H (4.8-10.8) K/uL RBC 4.25 L (4.7-6.1) M/uL Hgb 14.2 (14.0-18.0) g/dL Hct 39.4 L (42-52) % MCV 92.7 (80-100) fL MCH 33.4 (25-34) pg MCHC 36.0 (32-36) g/dL RDW Std Deviation 46.3 (36.4-46.3) fL RDW Coeff of Tarun 13.9 (11.5-14.5) % Plt Count 168 (130-400) K/uL MPV 10.2 (7.4-10.4) fL Immature Gran % (Auto) 0.4 % Neut % (Auto) 68.4 % Lymph % (Auto) 21.8 % Andrews % (Auto) 6.5 % Eos % (Auto) 2.5 % Baso % (Auto) 0.4 % Immature Gran # (Auto) 0.05 H (0.00-0.02) K/uL Neut # (Auto) 8.65 H (1.4-6.5) K/uL Lymph # (Auto) 2.75 (1.2-3.4) K/uL Andrews # (Auto) 0.82 H (0.11-0.59) K/uL Eos # (Auto) 0.31 (0-0.5) K/uL Baso # (Auto) 0.05 (0-0.2) K/uL Sodium 138 (136-145) mmol/L Potassium 3.6 (3.5-5.1) mmol/L Chloride 104 (98-107) mmol/L Carbon Dioxide 19 L (21-32) mmol/L Anion Gap 15.0 H (3-11) BUN 47 H (7-18) mg/dl Creatinine 2.26 H (0.6-1.4) mg/dl Est Cr Clr Drug Dosing 38.8 ml/min Est GFR ( Amer) 31.9 Est GFR (Non-Af Amer) 27.5 BUN/Creatinine Ratio 20.7 H (10-20) Glucose 248 H (70-99) mg/dl Calcium 8.9 (8.5-10.1) mg/dl Magnesium 2.2 (1.8-2.4) mg/dl Total Bilirubin 1.4 H (0.2-1) mg/dl AST 27 (15-37) U/L ALT 48 (12-78) U/L Alkaline Phosphatase 103 (45-117) U/L Total Protein 7.3 (6.4-8.2) gm/dl Albumin 3.3 L (3.4-5.0) gm/dl Globulin 4.0 (2.5-4.0) gm/dl Albumin/Globulin Ratio 0.8 L (0.9-2) TSH 3.700 (0.300-4.500) uIu/ml Urine Color Urine Appearance (Clear) Urine pH (4.5-7.5) Ur Specific [place] (1.000-1.030) Urine Protein (Negative) Urine Glucose (UA) (Negative) Urine Ketones (Negative) Urine Blood (Negative) Urine Nitrite (Negative) Urine Bilirubin (Negative) Urine Urobilinogen (Negative) Ur Leukocyte Esterase (Negative) Urine WBC (Auto) (0-5) /hpf Urine RBC (Auto) (0-4) /hpf U Hyaline Cast (Auto) (0-5) /lpf U Epithel Cells (Auto) (0-5) /lpf Urine Bacteria (Auto) (Negative) Ethyl Alcohol mg/dL 90.0 H (0-3) mg/dl 08/06/18 Range/Units 06:00 WBC (4.8-10.8) K/uL RBC (4.7-6.1) M/uL Hgb (14.0-18.0) g/dL Hct (42-52) % MCV (80-100) fL MCH (25-34) pg MCHC (32-36) g/dL RDW Std Deviation (36.4-46.3) fL RDW Coeff of Tarun (11.5-14.5) % Plt Count (130-400) K/uL MPV (7.4-10.4) fL Immature Gran % (Auto) % Neut % (Auto) % Lymph % (Auto) % Andrews % (Auto) % Eos % (Auto) % Baso % (Auto) % Immature Gran # (Auto) (0.00-0.02) K/uL Neut # (Auto) (1.4-6.5) K/uL Lymph # (Auto) (1.2-3.4) K/uL Andrews # (Auto) (0.11-0.59) K/uL Eos # (Auto) (0-0.5) K/uL Baso # (Auto) (0-0.2) K/uL Sodium (136-145) mmol/L Potassium (3.5-5.1) mmol/L Chloride (98-107) mmol/L Carbon Dioxide (21-32) mmol/L Anion Gap (3-11) BUN (7-18) mg/dl Creatinine (0.6-1.4) mg/dl Est Cr Clr Drug Dosing ml/min Est GFR ( Amer) Est GFR (Non-Af Amer) BUN/Creatinine Ratio (10-20) Glucose (70-99) mg/dl Calcium (8.5-10.1) mg/dl Magnesium (1.8-2.4) mg/dl Total Bilirubin (0.2-1) mg/dl AST (15-37) U/L ALT (12-78) U/L Alkaline Phosphatase (45-117) U/L Total Protein (6.4-8.2) gm/dl Albumin (3.4-5.0) gm/dl Globulin (2.5-4.0) gm/dl Albumin/Globulin Ratio (0.9-2) TSH (0.300-4.500) uIu/ml Urine Color Dark Yellow Urine Appearance Clear (Clear) Urine pH 5.0 (4.5-7.5) Ur Specific [place] 1.023 (1.000-1.030) Urine Protein Trace H (Negative) Urine Glucose (UA) Negative (Negative) Urine Ketones Negative (Negative) Urine Blood Negative (Negative) Urine Nitrite Negative (Negative) Urine Bilirubin Negative (Negative) Urine Urobilinogen Negative (Negative) Ur Leukocyte Esterase Negative (Negative) Urine WBC (Auto) 1-5 (0-5) /hpf Urine RBC (Auto) 0-4 (0-4) /hpf U Hyaline Cast (Auto) >30 H (0-5) /lpf U Epithel Cells (Auto) 10-20 H (0-5) /lpf Urine Bacteria (Auto) Negative (Negative) Ethyl Alcohol mg/dL (0-3) mg/dl Imaging Data Attestation: I personally reviewed and interpreted this imaging study as follows: My Impression: Left hip x-ray: Showed no obvious fracture, or dislocation Radiologist's Impression: Radiology results as stated below per my review and the radiologist's interpretation: XR hip LT 2-3V w pelvis CLINICAL HISTORY: fall. Left hip pain. COMPARISON STUDY: None. FINDINGS: No fracture or dislocation within the left hip. The pelvic bones and right hip are intact. Mild osteoarthritis within the bilateral hips. 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 IMPRESSION: 1. No fracture or dislocation within the pelvis are hips. 2. Recommend follow-up CT of the left femur for further evaluation of the lytic lesion within the proximal femoral shaft. Electronically signed by: Carroll Chong M.D. 08/06/2018 7:[address] hip LT wo con HISTORY: 73 years-old Male eval for fx. Acute left hip pain status post fall COMPARISON: Pelvis and left hip radiographs 08/06/2018 TECHNIQUE: Multiple axial CT images of the left hip were obtained without the use of IV contrast. A dose lowering technique was used consistent with the principals of ALARA. FINDINGS: Demineralized appearance the bones limits evaluation for acute nondisplaced fracture. The imaged left hemipelvis structures appear intact without acute fracture. Moderate left hip osteoarthritis. No acute fracture or dislocation of the imaged left femur. No avascular necrosis or intra-articular loose body. No large joint effusion identified. Peripheral arterial calcifications are noted. Colonic diverticulosis. Small fat filled left inguinal hernia. IMPRESSION: 1. Demineralized appearance of the bones without acute fracture or dislocation identified. 2. Moderate left hip osteoarthritis. The above report was generated using voice recognition software. It may contain grammatical, syntax or spelling errors. Electronically signed by: Sami Rodrigues M.D. 08/06/2018 7:[address] DOSE: 442.02 mGy.cm HISTORY: Abnormal radiograph. eval lytic lesion TECHNIQUE: Multiaxial CT images of the left femur were performed and reformatted in the sagittal and coronal plane without the use of contrast. A dose lowering technique was utilized adhering to the principles of ALARA. COMPARISON: Left hip radiograph 08/06/2018. FINDINGS: Confirmation of the 2.3 x 1.6 cm lytic lesion within the posterior medullary cavity of the left proximal femoral shaft. This is best seen on axial image 353 and sagittal image 45. This demonstrates greater than 50% erosion of the posterior cortex of the proximal femoral shaft. Therefore, this is at risk for an impending fracture. No associated soft tissue component. Trace knee effusion. No acute fracture or dislocation within the left femur. IMPRESSION: Confirmation of the 2.3 x 1.6 cm lytic lesion within the posterior medullary cav ity of the left proximal femoral shaft. This is nonspecific could represent benign or aggressive lesions. This demonstrates greater than 50% erosion of the posterior cortex and is therefore at risk for an impending fracture. Orthopedic consultation recommended. Electronically signed by: Carroll Chong M.D. 08/06/2018 7:55 AM ECG Data Attestation: I personally reviewed and interpreted this ECG as follows: Indication: weakness Rate (beats per minute): 65 Rhythm: atrial fibrillation Findings: + RBBB Comparison ECG Date: from (09/02/17) Change: no significant change Blood Pressure Blood Pressure Findings: Normal blood pressure Blood Pressure Disposition: did not require urgent referral MDM Narrative The patient is a 73 y/o male who presents to the emergency department for evaluation of weakness beginning prior to arrival. Impression & Plan Ambulatory dysfunction, Fall, Renal insufficiency Discharge Plan Visit Data Chief Complaint: Weakness Stated Complaint: WEAKNESS ED Provider: Veda Jacob Discharge Problem: Ambulatory dysfunction, Fall, Renal insufficiency Patient Disposition: Being Evaluated by Hospitalist Forms Stand Alone Forms: Important Visit Information Prescriptions Prescriptions: No Action atorvastatin 10 mg tablet 10 mg PO DAILY RF: 0 warfarin 2.5 mg tablet 1.25 mg PO WK RF: 0 amlodipine 5 mg tablet 5 mg PO DAILY RF: 0 glimepiride 2 mg tablet 2 mg PO DAILY RF: 0 magnesium oxide 400 mg (241.3 mg magnesium) tablet 400 mg PO QAM RF: 0 paroxetine HCl 20 mg tablet 20 mg PO DAILY RF: 0 lisinopril 10 mg tablet 10 mg PO DAILY RF: 0 allopurinol 300 mg tablet 300 mg PO DAILY RF: 0 metoprolol succinate 25 mg tablet extended release 24 hr 25 mg PO BID RF: 0 warfarin 2.5 mg tablet 2.5 mg PO [id number] RF: 0 furosemide 20 mg Tablet 20 mg PO DAILY RF: 0 cholecalciferol (vitamin D3) [Vitamin D3] 2,000 unit Tablet 2,000 unit PO DAILY RF: 0 Referrals Referrals: Ez Navarro DO [Primary Care Provider] - Discharge Problem: Fall Qualifiers: Encounter type: initial encounter Qualified Code(s): W19.XXXA - Unspecified fall, initial encounter The scribe's documentation has been prepared under my direction and personally reviewed by me in its entirety. I confirm that the note above accurately reflects all work, treatment, procedures, and medical decision making performed by me.
[2018-08-06] MEDS ORDERED: POTASSIUM CHLORIDE 10 MEQ TABCR PO STA (09:30)
--- NOTE | 2018-08-06 09:35 | History & Physical Report ---
Date of Service August 06, 2018 Assessment & Plan (1) Fall: (2) Ambulatory dysfunction: This is a 73-year-old male who has a significant PMH of PAF, history of DVT/PE, long-term anticoagulation with warfarin, right heart failure T2DM, CKD stage III, HTN, HLD, gout, OCD who presents to [facility] ED after sustaining fall from standing height at approximately 12 AM. Sustained fall likely secondary to orthostasis and mild dehydration, Bun/Cr 47/2.26 Imaging was without fracture but concerning for Incidental finding on Femur CT/Hip Xray admit under observation to med/tele consult PT/OT orthopedics consulted - spoke to IKER Guadarrama APAP for mild-mod pain; Perocet for severe pain Avoid NSAIDS given renal dysfunction; consider steroids but caution with T2DM (3) Osteoarthritis of hip: mild b/l osteoarthritis consult PT/OT avoid NSAIDS given CKD (4) Acute worsening of stage 3 chronic kidney disease: baseline Cr 1.5-1.7 Cr today 2.26 hold lasix for now, gentle IVF but caution given R heart Failure IVF NS 80 cc/hr x 1.5L reassess renal function in a.m. (5) Abnormal finding on CT scan: Incidental findings on CT: Confirmation of the 2.3 x 1.6 cm lytic lesion within the posterior medullary cavity of the left proximal femoral shaft. This is nonspecific could represent benign or aggressive lesions. This demonstrates greater than 50% erosion of the posterior cortex and is therefore at risk for an impending fracture. Consult orthopedics - discussed with Thierry Vargas PA-C (6) Right heart failure: Last echo 09/01/2017 revealed LVEF 55 to 60% with severely reduced right ventricular systolic function, RV dilated, biatrial enlargement, pulmonary arterial pressure elevated at [address] Acuña cardiology Daily Weights, Strict I and O Heart healthy, low na diet Hold lasix for now in light of GABRIELA reassess daily (7) PAF (paroxysmal atrial fibrillation): Rate controlled on metoprolol Continue warfarin for anticoagulant Follows Dr. Acuña for cardiology (8) T2DM (type 2 diabetes mellitus): A1C 7.1 ( 06/16/18) hold oral glimepride Lantus/novolog sliding scale per protocol (9) HTN (hypertension): Blood pressure stable continue amlodipine Holding lisinopril and Lasix in light of GABRIELA (10) History of pulmonary embolism: Continue warfarin Monitor INR (11) DVT prophylaxis: SCDS/TEDs, warfarin Disposition: case management consulted; likely rehab Follow up: PCP Dr. Navarro upon discharge Patient was seen and examined in collaboration with Dr. Vegas, please see addendum History of Present Illness Chief Complaint: Fall from standing height at 12am Primary Care Provider: Ez Navarro, DO This is a 73-year-old male who has a significant PMH of PAF, history of DVT/PE, long-term anticoagulation with warfarin, right heart failure T2DM, CKD stage III, HTN, HLD, gout, OCD who presents to [facility] ED after sustaining fall from standing height at approximately 12 AM. at bedside. Patient states he woke up abruptly from sleep and had to use the bathroom. He stood up quickly, got lightheaded, lost balance and fell on his left side. He immediately had left hip pain. He was able to make it to bathroom when he had a large loose BM. According to records he felt he may have had a low blood sugar which he usually doesn't have. He feels he fell because he got up to quickly. He also had 3 rum/cokes prior to going to bed last evening. He has done this for the past 50 years. He did not lose consciousness and did not hit his head. He remembers feeling lightheaded prior to falling, denies chest pain, palpitations, dizziness, n/v, pain. He further denies any recent illness, f/c/s, abdominal pain, cough. His appetite has been good and drinks approx 40-50oz fluid daily, excluding ETOH. Denies weight loss or freq falls. Last fall was november which required him to go to [facility] for acute rehab. Allergies Allergy/AdvReac Type Severity Reaction Status Date / Time No Known Allergies Allergy Unverified 08/06/18 04:45 Home Medications Home Medications Medication Instructions Recorded Confirmed Type allopurinol 300 mg PO DAILY 08/06/18 08/06/18 History amlodipine 5 mg PO DAILY 08/06/18 08/06/18 History atorvastatin 10 mg PO DAILY 08/06/18 08/06/18 History cholecalciferol (vitamin D3) 2,000 unit PO DAILY 08/06/18 08/06/18 History [Vitamin D3] furosemide 20 mg PO DAILY 08/06/18 08/06/18 History glimepiride 2 mg PO DAILY 08/06/18 08/06/18 History lisinopril 10 mg PO DAILY 08/06/18 08/06/18 History magnesium oxide 400 mg PO QAM 08/06/18 08/06/18 History metoprolol succinate 25 mg PO BID 08/06/18 08/06/18 History paroxetine HCl 20 mg PO DAILY 08/06/18 08/06/18 History warfarin 1.25 mg PO WK 08/06/18 08/06/18 History warfarin 2.5 mg PO 6XWK 08/06/18 08/06/18 History acetaminophen [Tylenol Arthritis 650 mg PO Q6H PRN #30 tab 08/09/18 Rx Pain] baclofen 5 mg PO BID #30 tab 08/09/18 Rx tramadol 50 mg PO Q6H PRN #10 tab 08/09/18 Rx Past Med/Surg History Medical History T2DM (type 2 diabetes mellitus) (Chronic) CKD (chronic kidney disease) stage 3, GFR 30-59 ml/min (Chronic) HLD (hyperlipidemia) (Chronic) Hyperparathyroidism (Chronic) Right heart failure (Chronic) HTN (hypertension) (Chronic) PAF (paroxysmal atrial fibrillation) (Chronic) Gout (Chronic) Obesity (Chronic) History of pulmonary embolism (Chronic) History of DVT (deep vein thrombosis) (Chronic) 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) Type 2 diabetes mellitus (Chronic) Hypoxemia (Resolved) Hyperkalemia Surgical History History of colonoscopy (Chronic) History of inferior vena caval filter placement (Chronic) Family History Brother Prostate cancer Diabetes Father Coronary heart disease, Onset Age: 78 during CABG - felt heparin allergy Mother Old age Social History Preferred Language: Micronesian Communication Ability: Effective Shank Skinner Required: No Beliefs That Will Affect Care: None marital status: Current Living Situation: Spouse Current Living Situation Comment: ambulate with cane/walker when out and about Other Information That Helps Us Care for You: No Feels Safe at Home: Yes Safety Concerns: Feels Safe At This Time Smoking Status: Former smoker Years Smoked: 10 Do You Dip or Chew Tobacco: No Smoking End Date: 1983 Second Hand Exposure: No Tobacco Cessation Education Requested by Patient: No Hx Alcohol Use: Yes Alcohol type: hard liquor Alcohol Intake Frequency Comment: 3 rum/cokes daily Hx Substance Use: No Review of Systems Review of Systems: As noted per HPI, 10 systems reviewed and negative unless noted above. Physical Exam Physical Exam: Gen: WD/WN, Obese, M, NAD, sitting up in bed, pleasant, conversing easily Head: Normocephalic, Atraumatic Eyes: Sclera normal, no conjunctival injection, PERRLA, EOMI ENT: Gross hearing intact, normal pharynx, mucous membranes moist Neck: supple, no adenopathy, No JVD, no bruit, Resp: Clear to auscultation b/l, no wheeze, rales, rhonchi. Normal insp/exp effort, no accessory muscle use CV: irregular rate, irregular rhythm, no murmur, rub, gallop, or ectopy Abd: +BS x 4, soft, nontender, nondistended Musculoskeletal: moves extremities active rom x 3, unwilling to actively move LLE given pain, strength intact, good recreational director strength Extremities: No edema bilaterally with venous stasis changes R > L, obese lower ext Skin: warm, moist, no rash, negative turgor, cap refill < 2sec Neuro: Alert and oriented x 3, speech normal, good mood/affect, cran nerve 2-12 intact grossly : deferred Results & Data Vital Signs (Past 12 Hours) Vital Signs Temp Pulse Pulse Resp BP BP Pulse Ox 08/06/18 08:31 76 19 120/80 94 08/06/18 08:30 77 21 93 08/06/18 08:09 81 18 120/79 95 08/06/18 07:01 70 21 111/64 85 L 08/06/18 06:31 82 20 108/68 92 08/06/18 06:30 69 22 92 08/06/18 06:00 76 14 137/63 98 08/06/18 05:21 65 19 109/66 93 08/06/18 04:31 71 18 112/70 93 08/06/18 04:30 67 18 95 08/06/18 04:04 78 25 H 96 08/06/18 04:03 66 17 115/72 97 08/06/18 04:01 98 08/06/18 03:13 61 20 108/58 L 90 08/06/18 03:01 67 20 88/60 L 90 08/06/18 03:00 85 23 90 08/06/18 02:34 80 99 08/06/18 02:33 75 24 96/45 L 95 08/06/18 02:21 65 16 95 08/06/18 02:17 72 15 08/06/18 02:04 36.8 C 61 15 97/54 L 95 Laboratory Results Sodium Chloride (Nss) 500 mls @ 125 mls/hr IV .Q4H [facility] Stop: 09/05/18 08:14 Last Admin: 08/06/18 08:13 Dose: 125 mls/hr Documented by: [id number] Discontinued Medications Sodium Chloride (Nss) 500 mls @ 999 mls/hr IV .Q31M ONE Stop: 08/06/18 03:27 Last Infusion: 08/06/18 03:40 Dose: 0 mls/hr Documented by: [id number] Admin: 08/06/18 03:08 Dose: 999 mls/hr Documented by: [id number] Diagnostic Findings Hip/Pelvis Xray: IMPRESSION: 1. No fracture or dislocation within the pelvis are hips. 2. Recommend follow-up CT of the left femur for further evaluation of the lytic lesion within the proximal femoral shaft. Hip CT: IMPRESSION: 1. Demineralized appearance of the bones without acute fracture or dislocation identified. 2. Moderate left hip osteoarthritis. Femur CT: IMPRESSION: Confirmation of the 2.3 x 1.6 cm lytic lesion within the posterior medullary cavity of the left proximal femoral shaft. This is nonspecific could represent benign or aggressive lesions. This demonstrates greater than 50% erosion of the posterior cortex and is therefore at risk for an impending fracture. Orthopedic consultation recommended. Medications Administered Sodium Chloride (Nss) 500 mls @ 125 mls/hr IV .Q4H [facility] Stop: 09/05/18 08:14 Last Admin: 08/06/18 08:13 Dose: 125 mls/hr Documented by: [id number] Discontinued Medications Sodium Chloride (Nss) 500 mls @ 999 mls/hr IV .Q31M ONE Stop: 08/06/18 03:27 Last Infusion: 08/06/18 03:40 Dose: 0 mls/hr Documented by: [id number] Admin: 08/06/18 03:08 Dose: 999 mls/hr Documented by: [id number] Potassium Chloride (Klor-Con M10) Confirm Administered Dose 20 meq PO .STK-MED ONE Stop: 08/06/18 09:40 Last Admin: 08/06/18 09:42 Dose: 20 meq Documented by: ECG Rhythm: atrial fibrillation Findings: + LAFB Code Status & VTE Plan Code Status Full Code VTE Prophylaxis Plan VTE Prophylaxis will be ordered: Yes Supervising Physician Co-Signing Physician Notes Pt was seen and examined. Agreed with Elsa DONG exam, assessment and plan. 73-year-old male with PMH of PAF, history of DVT/PE, long-term anticoagulation with warfarin, right heart failure T2DM, CKD stage III, HTN, HLD, gout, OCD was brought to [facility] after sustaining fall. Pt said that he woke up to use the bathroom, he said that when he got up too quick, he felt dizzy and lost his balance and felt on his left side. Pt denies any loss of consciousness, chest pain and palpitation. CT femur done showed confirmation of the 2.3 x 1.6 cm lytic lesion within the posterior medullary cavity of the left proximal femoral shaft. Lab also showed elevated creatinine. Will consult orthopedic. Will start on gentle hydration. Pain control and fall precaution. MD [facility] (1) Fall Encounter type: initial encounter Qualified Code(s): W19.XXXA - Unspecified fall, initial encounter
[2018-08-06 09:36] LABS: INR 2.2 (0.9-1.1)
[2018-08-06] MEDS ORDERED: POTASSIUM CHLORIDE 10 MEQ TABCR PO ONE (09:39)
[2018-08-06] MEDS ORDERED: GLUCOSE 40% GEL 15 GM TUBE PO PRN (10:25)
[2018-08-06] MEDS ORDERED: CARBOHYDRATES FOR HYPOGLYCEMIA PO PRN (10:25)
[2018-08-06] MEDS ORDERED: OXYCODONE/ACETAMINOPHEN 5mg/325mg TAB PO PRN (10:25)
[2018-08-06] MEDS ORDERED: POLYETHYLENE (MIRALAX) 17 GM PACK PO PRN (10:25)
[2018-08-06] MEDS ORDERED: GLUCOSE 10 TABS/TUBE PO PRN (10:25)
[2018-08-06] MEDS ORDERED: GLUCAGON FOR INJ 1 MG VIAL SQ PRN (10:25)
[2018-08-06] MEDS ORDERED: SODIUM CHLORIDE 0.9% 1000ML 1,000 ML IV SCH (10:25)
[2018-08-06] MEDS ORDERED: DEXTROSE 50% 50 ML SYRINGE IV PRN (10:25)
[2018-08-06] MEDS ORDERED: ONDANSETRON INJ 2 MG/ML 2 ML VIAL IV PRN (10:25)
[2018-08-06] MEDS ORDERED: GABAPENTIN 600MG ALCOHOL WITHDRAWAL LOAD PO STA (10:25)
[2018-08-06] MEDS ORDERED: LORazepam 1 MG TAB PO PRN (10:25)
[2018-08-06] MEDS ORDERED: GABAPENTIN 600 MG TAB PO ONE (10:45)
[2018-08-06] MEDS: INSULIN GLARGINE SOLOSTAR 100 UNITS/ML 3 ML PEN SC SCH ×2 (11:46→20:55)
[2018-08-06] MEDS: INSULIN ASPART 100 UNITS/ML 3 ML PEN SC SCH ×3 (12:27→20:54)
[2018-08-06] MEDS: GABAPENTIN 100 MG CAP PO SCH ×2 (16:34→20:53)
[2018-08-06] MEDS: WARFARIN SOD 2.5 MG TAB PO SCH (16:34)
[2018-08-06] MEDS ORDERED: METOPROLOL SUCC 25MG EXT REL TAB PO SCH (21:00)
[2018-08-07] MEDS ORDERED: POTASSIUM CHLORIDE 20 MEQ TABCR PO STA (01:57)
--- NOTE | 2018-08-07 01:59 | Hospitalist Progress Note ---
Date of Service August 07, 2018 Subjective Made aware by RN of transient bradycardia, cardiac rate 30s on the monitor with longer pauses than usual around 2 AM. Patient comfortable as per RN. AP Transient bradycardia/sinus pause Hold home beta-carole for now. Home beta-carole may need resumption at lower dose at a later time. Will relay to AM provider. Results & Data Vital Signs (Past 12 Hours) Vital Signs Temp Pulse Pulse Resp BP BP Pulse Ox 08/07/18 00:00 70 08/06/18 23:29 36.9 C 68 18 116/67 94 08/06/18 20:10 36.9 C 67 18 133/84 93 08/06/18 16:02 36.9 C 78 18 124/85 95 08/06/18 15:55 78
[2018-08-07 02:11] LABS: Basophils # (auto) 0.06 K/uL (0-0.2); Basophils % (auto) 0.7 %; Eosinophils # (auto) 0.54 K/uL (0-0.5); Eosinophils % (auto) 5.9 %; Hematocrit (blood only) 36.2 % (42-52); Hemoglobin 12.8 g/dL (14.0-18.0); Immature Granulocytes # (auto) 0.01 K/uL (0.00-0.02); Immature Granulocytes % (auto) 0.1 %; Lymphocytes # (auto) 2.18 K/uL (1.2-3.4); Lymphocytes % (auto) 23.7 %; Mean Corpuscular Hgb Conc 35.4 g/dL (32-36); Mean Corpuscular Volume 93.5 fL (80-100); Mean Platelet Volume 9.7 fL (7.4-10.4); Monocytes # (auto) 0.79 K/uL (0.11-0.59); Monocytes % (auto) 8.6 %; Neutrophils # (auto) 5.61 K/uL (1.4-6.5); Platelet Count 130 K/uL (130-400); RDW Standard Deviation 47.5 fL (36.4-46.3); Red Blood Count 3.87 M/uL (4.7-6.1); White Blood Count 9.19 K/uL (4.8-10.8)
[2018-08-07 02:19] LABS: INR 2.4 (0.9-1.1); Prothrombin Time 22.8 Seconds (9.0-12.0)
[2018-08-07 02:34] LABS: BUN Creatinine Ratio 23.8 (10-20); Calcium 8.4 mg/dl (8.5-10.1); Creatinine Clr Calc Pharmacy 45.8 ml/min; Est GFR (African American) 39.1; Est GFR (Non-African American) 33.8; Magnesium 2.1 mg/dl (1.8-2.4); Potassium 4.1 mmol/L (3.5-5.1)
--- NOTE | 2018-08-07 08:08 | Orthopedic Consultation ---
Date of Consultation August 07, 2018 Assessment & Plan (1) Lytic bone lesion of left femur: I discussed this case with Dr. Reid. Plan will be to order an MRI with contrast to further evaluate the lytic lesion. Per CT scan, with 50% erosion into the cortex, patient is at risk for fracture and may be a candidate for prophylactic rodding of the left femur. I discussed the case with Elsa Zamora PA-C. Patient has no previous history of cancer for himself. Oncology has been consulted. With his history of CKD, Med Service will give him gentle hydration prior to the MRI today. Await MRI results and Dr. Reid will see the patient later today to discuss further treatment. Pt should be Non weightbearing on the LLE at this time. History of Present Illness Reason for Consultation: Left Femur Lytic Lesion Attending Physician: Dalila Vegas MD History of Present Illness Patient is a 73 -year-old white male who was admitted yesterday after a fall. Patient states that he feels he stood up too fast and became lightheaded. He ended up falling hard onto his left side. He had pain in his left hip and was having some difficulty ambulating. He was also having weakness etc. and came into the emergency room. He denies loss of consciousness at the time of the fall. X-rays were taken of the left hip and did show a lytic type lesion in the proximal femur. CT scan was then done as well noting the lytic lesion. The patient was admitted per [facility] service and we have been asked to see him for this lytic lesion in his left femur. Patient denies any pain in the left femur prior to the fall. No history of left groin pain. He states that he has been in his usual state of health. Denies fevers or unexplained weight loss. Allergies Allergy/AdvReac Type Severity Reaction Status Date / Time No Known Allergies Allergy Unverified 08/06/18 04:45 Home Medications Home Medications Medication Instructions Recorded Confirmed Type allopurinol 300 mg PO DAILY 08/06/18 08/06/18 History amlodipine 5 mg PO DAILY 08/06/18 08/06/18 History atorvastatin 10 mg PO DAILY 08/06/18 08/06/18 History cholecalciferol (vitamin D3) 2,000 unit PO DAILY 08/06/18 08/06/18 History [Vitamin D3] furosemide 20 mg PO DAILY 08/06/18 08/06/18 History glimepiride 2 mg PO DAILY 08/06/18 08/06/18 History lisinopril 10 mg PO DAILY 08/06/18 08/06/18 History magnesium oxide 400 mg PO QAM 08/06/18 08/06/18 History metoprolol succinate 25 mg PO BID 08/06/18 08/06/18 History paroxetine HCl 20 mg PO DAILY 08/06/18 08/06/18 History warfarin 1.25 mg PO WK 08/06/18 08/06/18 History warfarin 2.5 mg PO 6XWK 08/06/18 08/06/18 History Patient History Medical History T2DM (type 2 diabetes mellitus) (Chronic) CKD (chronic kidney disease) stage 3, GFR 30-59 ml/min (Chronic) HLD (hyperlipidemia) (Chronic) Hyperparathyroidism (Chronic) Right heart failure (Chronic) HTN (hypertension) (Chronic) PAF (paroxysmal atrial fibrillation) (Chronic) Gout (Chronic) Obesity (Chronic) History of pulmonary embolism (Chronic) History of DVT (deep vein thrombosis) (Chronic) 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) Type 2 diabetes mellitus (Chronic) Hypoxemia (Resolved) Hyperkalemia Surgical History History of colonoscopy (Chronic) History of inferior vena caval filter placement (Chronic) Family History Brother Prostate cancer Diabetes Father Coronary heart disease, Onset Age: 78 during CABG - felt heparin allergy Mother Old age Social History Preferred Language: Indonesian Communication Ability: Effective Audio Narrator Required: No Beliefs That Will Affect Care: None marital status: Current Living Situation: Spouse Current Living Situation Comment: ambulate with cane/walker when out and about Other Information That Helps Us Care for You: No Feels Safe at Home: Yes Safety Concerns: Feels Safe At This Time Smoking Status: Former smoker Years Smoked: 10 Do You Dip or Chew Tobacco: No Smoking End Date: 1983 Second Hand Exposure: No Tobacco Cessation Education Requested by Patient: No Hx Alcohol Use: Yes Alcohol type: hard liquor Alcohol Intake Frequency Comment: 3 rum/cokes daily Hx Substance Use: No Physical Exam Physical Exam: On examination, the patient is sitting up in bed. He has his left leg in a comfortable position which is externally rotated with the knee slightly flexed. He states he has pain in the lateral hip where he had fallen onto the hip itself. No overt bruising that I can see but palpation over the area of the greater trochanter is tender on palpation to the point where it makes the patient jump a little bit. Patient currently has difficulty doing a straight leg raise because of the pain in his hip. He is able to fully straighten his knee at this time. He has good range of motion of the left ankle without pain. He has range of motion within normal limits of the left knee without pain. Trying to flex the hip at this time does cause him increased pain at the left hip. He denies any decreased sensation in left lower extremity and denies any radiculopathy. Right lower extremity is within normal limits at the hip knee and ankle. Upper extremities are unaffected and denies discomfort in the shoulders elbows or wrist. He denies any neck pain at this time and has good range of motion. Denies any thoracic or lumbar pain. Capillary refill is less than 2 seconds. He has decreased ability to do straight leg raise more due to pain in the left hip at this time. No gross motor or sensory loss seen at this time. Results & Data Vital Signs (Past 12 Hours) Vital Signs Temp Pulse Pulse Resp BP BP Pulse Ox 08/07/18 07:29 36.3 C L 67 20 115/72 92 08/07/18 03:09 36.4 C L 73 18 131/86 95 08/07/18 00:00 70 08/06/18 23:29 36.9 C 68 18 116/67 94 08/06/18 20:10 36.9 C 67 18 133/84 93 Diagnostic Findings LEFT FEMUR CT CT DOSE: 442.02 mGy.cm HISTORY: Abnormal radiograph. eval lytic lesion TECHNIQUE: Multiaxial CT images of the left femur were performed and reformatted in the sagittal and coronal plane without the use of contrast. A dose lowering technique was utilized adhering to the principles of ALARA. COMPARISON: Left hip radiograph 08/06/2018. FINDINGS: Confirmation of the 2.3 x 1.6 cm lytic lesion within the posterior medullary cavity of the left proximal femoral shaft. This is best seen on axial image 353 and sagittal image 45. This demonstrates greater than 50% erosion of the posterior cortex of the proximal femoral shaft. Therefore, this is at risk for an impending fracture. No associated soft tissue component. Trace knee effusion. No acute fracture or dislocation within the left femur. IMPRESSION: Confirmation of the 2.3 x 1.6 cm lytic lesion within the posterior medullary cavity of the left proximal femoral shaft. This is nonspecific could represent benign or aggressive lesions. This demonstrates greater than 50% erosion of the posterior cortex and is therefore at risk for an impending fracture. Orthopedic consultation recommended.
[2018-08-07] MEDS ORDERED: SODIUM CHLORIDE 0.9% 1000ML 1,000 ML IV SCH (08:30)
[2018-08-07] MEDS: MAGNESIUM OXIDE 400 MG TAB PO SCH (08:37)
[2018-08-07] MEDS: ATORVASTATIN 10 MG TAB PO SCH (08:37)
[2018-08-07] MEDS: CHOLECALCIFEROL 1,000 UNITS TAB PO SCH (08:37)
[2018-08-07] MEDS: PARoxetine HCl 20 MG TAB PO SCH (08:38)
[2018-08-07] MEDS: AMLODIPINE BESYLATE 5 MG TAB PO SCH (08:38)
[2018-08-07] MEDS: ALLOPURINOL 300 MG TAB PO SCH (08:38)
[2018-08-07] MEDS: INSULIN GLARGINE SOLOSTAR 100 UNITS/ML 3 ML PEN SC SCH ×2 (08:39→21:24)
[2018-08-07] MEDS: INSULIN ASPART 100 UNITS/ML 3 ML PEN SC SCH ×4 (08:40→21:25)
[2018-08-07] MEDS: ACETAMINOPHEN 325 MG TAB PO PRN (08:46)
[2018-08-07] MEDS ORDERED: GABAPENTIN 600 MG TAB PO SCH (10:00)
[2018-08-07] MEDS ORDERED: GADOBUTROL 65ML VIAL IV PRN (11:02)
--- NOTE | 2018-08-07 12:29 | Magnetic Resonance Report ---
MR femur LT wo/w con HISTORY: Lytic lesion proximal left femur TECHNIQUE: Multiplanar multisequence MRI of the left femur was performed both before and after the in travenous administration of 12 cc of Gadavist contrast. COMPARISON STUDY: Left femur CT 08/06/2018. FINDINGS: No fracture or dislocation within the left femur. Trace left knee effusion. Mild lateral caba bcutaneous edema within the left thigh. Trace knee effusion. Focal edema lateral to the greater troch anter. This favors a mild trochanteric bursitis. There is a nondisplaced fracture within the anterior column of the left acetabulum which extends into the superior pubic ramus. This is best seen on axia l image 6. There is associated mild edema within the anterior acetabulum. The fracture appears to ext end to the articular surface of the acetabulum. Mild edema within the groin muscles likely secondary to the adjacent fracture. Focal endosteal scalloping within the posterior cortex of the proximal to m id femoral shaft. This area measures 2.6 x 1.5 cm. This results in greater than 50% thinning of the p osterior cortex. However, there is no abnormal signal intensity or enhancement within the medullary c avity to confirm the presence of a lesion. IMPRESSION: 1. Nondisplaced fracture within the anterior column of the left acetabulum which extends into the sup erior pubic ramus. 2. No fracture or dislocation within the left femur. 3. Mild left trochanteric bursitis. 4. Focal endosteal scalloping within the posterior cortex of the proximal to mid femoral shaft. This area measures 2.6 x 1.5 cm. This results in greater than 50% thinning of the posterior cortex. Howeve r, there is no abnormal signal intensity or enhancement within the medullary cavity to confirm the pr esence of a lesion. Therefore, this is likely developmental and is considered to be benign. Electronically signed by: Carroll Chong M.D. 08/07/2018 12:28 PM
[2018-08-07] MEDS ORDERED: MoRPHine SULFATE 4 MG/ML 1 ML CARP\\VIAL IV STA (12:32)
--- NOTE | 2018-08-07 13:52 | Hospitalist Progress Note ---
Date of Service August 07, 2018 Assessment & Plan (1) Fall: (2) Closed left acetabular fracture: (3) Ambulatory dysfunction: This is a 73-year-old male who has a significant PMH of PAF, history of DVT/PE, long-term anticoagulation with warfarin, right heart failure T2DM, CKD stage III, HTN, HLD, gout, OCD who presents to [facility] ED after sustaining fall from standing height at approximately 12 AM. Sustained fall likely secondary to orthostasis and mild dehydration, Bun/Cr 47/2.26 Imaging was without fracture but concerning for Incidental finding on Femur CT/Hip Xray MRI Obtained reveals: 1. Nondisplaced fracture within the anterior column of the left acetabulum which extends into the superior pubic ramus. 2. No fracture or dislocation within the left femur. 3. Mild left trochanteric bursitis. 4. Focal endosteal scalloping within the posterior cortex of the proximal to mid femoral shaft. This area measures 2.6 x 1.5 cm. This results in greater than 50% thinning of the posterior cortex. However, there is no abnormal signal intensity or enhancement within the medullary cavity to confirm the presence of a lesion. Therefore, this is likely developmental and is considered to be benign. Orthopedics on board - appreciate their recommendations - NWB LLE until evaluated by Dr. Reid Lytic Lesion considered to be benign but consulted Dr. Manning oncology for thorough evaluation Patient had colonoscopy in 2014 with polypectomy of adenomatous polyp recommending follow-up in 2 years. His last PSA was in 2013, repeated today was 0.[address] scan of abdomen pelvis and chest SPEP, UPEP, kappa/lambda light chains, ldh, crp r/p Multiple myleoma Continue PT/OT APAP for mild-mod pain; Perocet for severe pain Avoid NSAIDS given renal dysfunction; consider steroids but caution with T2DM (4) Osteoarthritis of hip: mild b/l osteoarthritis consult PT/OT avoid NSAIDS given CKD (5) Acute worsening of stage 3 chronic kidney disease: baseline Cr 1.5-1.7 Cr improved with IVF to 1.91 receiving additional 1L of gentle IVF given MRI w/contrast lasix on hold - reassess initiation on daily basis bmp in a.m. (6) Abnormal finding on CT scan: Incidental findings on CT: Confirmation of the 2.3 x 1.6 cm lytic lesion within the posterior medullary cavity of the left proximal femoral shaft. This is nonspecific could represent benign or aggressive lesions. This demonstrates greater than 50% erosion of the posterior cortex and is therefore at risk for an impending fracture. Orthopedics on board MRI suspecting benign lesion work up as above (7) Right heart failure: Last echo 09/01/2017 revealed LVEF 55 to 60% with severely reduced right ventricular systolic function, RV dilated, biatrial enlargement, pulmonary arterial pressure elevated at [address] Acuña cardiology Daily Weights, Strict I and O Heart healthy, low na diet Hold lasix for now in light of GABRIELA reassess daily (8) PAF (paroxysmal atrial fibrillation): Rate controlled on metoprolol - currently on hold given sinus pause and mark into 30-40s overnight monitor - consider resuming at 12.5mg bid Continue warfarin for anticoagulant Follows Dr. Acuña for cardiology (9) T2DM (type 2 diabetes mellitus): A1C 7.1 ( 06/16/18) hold oral glimepride Blood sugars elevated - titrate lantus Lantus/novolog sliding scale per protocol (10) HTN (hypertension): Blood pressure stable continue amlodipine Holding lisinopril and Lasix in light of GABRIELA (11) History of pulmonary embolism: Continue warfarin Monitor INR (12) DVT prophylaxis: SCDS/TEDs, warfarin Disposition: case management consulted; likely [facility] Follow up: PCP Dr. Navarro upon discharge Patient was seen and examined in collaboration with Dr. Vegas, please see addendum Supervising Physician Co-Signing Physician Notes Pt was seen and examined. Agreed with Elsa DONG exam, assessment and Plan. Pt said that he only has pain when he moves his left leg. He said that the pain medication help with the pain. Denies any chest pain, palpitation, dizziness and SOB Exam General- No acute distress Head- atraumatic Eyes- PERRL, EOMI, ENT- oropharynx clear Neck- supple, no JVD Lungs- clear to auscultation Heart- irregular rhythm; no murmur Abdomen- normal bowel sounds, soft, nontender Extremities- No calf tenderness, left LE tenderness with movement Neuro- alert, oriented x 3; PERRL, EOMI; no facial palsy; no dysarthria Skin- warm & dry A/P 1) Fall 2) Ambulatory dysfunction MRI done today showed nondisplaced fracture within the anterior column of the left acetabulum which extends into the superior pubic ramus. Ortho on board Continue pain control Fall precaution 3)Abnormal finding on CT scan: Lytic lesion found on CT femur MRI femur showed Focal endosteal scalloping within the posterior cortex of the proximal to mid femoral shaft. This area measures 2.6 x 1.5 cm. This results in greater than 50% thinning of the posterior cortex. However, there is no abnormal signal intensity or enhancement within the medullary cavity to confirm the presence of a lesion. Therefore, this is likely developmental and is considered to be benign Case discussed with Oncology Dr. Manning recommended work up for multiple myeloma, will check PSA Will get CT chest/Abd/pelvis without contrast DVT px on Coumadin Please follow Elsa DONG documentation for other problems. MD [facility] Subjective Patient was seen and examined in room 286-2. Follow-up fall with left hip pain. Patient currently feels well. Complains of left hip pain only when standing. Has been having intermittent loose stool today. Denies fever, chills, sweats, chest pain, shortness of breath, nausea, vomiting, abdominal pain. Denies recent antibiotic use. His appetite is good. Feels like his day has been, "whirlwind." Review of Systems Review of Systems: As noted per HPI, 10 systems reviewed and negative unless noted above. Physical Exam Physical Exam: Gen: WD/WN, Morbidly obese M, NAD, A&O x3 HEENT: Normocephalic, atraumatic, conjunctivae moist, sclerae anicteric, mucous membranes moist. Lung: Clear to Auscultation bilaterally, no wheezes/rales/rhonchi Heart: Regular rate, regular rhythm, no murmurs, rubs, or gallops Abdomen: Soft, NT, ND +BS x 4 Extremities: No edema, b/l venous stasis changes Skin: Warm, +rash to b/l shoulders and upper thorax, lesions are macular and scabbed over, negative turgor. Results & Data Vital Signs (Past 12 Hours) Vital Signs Temp Pulse Resp BP BP Pulse Ox 08/07/18 11:49 36.5 C 71 18 118/72 95 08/07/18 07:29 36.3 C L 67 20 115/72 92 08/07/18 03:09 36.4 C L 73 18 131/86 95 Laboratory Results Short CBC 08/07/18 Range/Units 02:00 WBC 9.19 (4.8-10.8) K/uL Hgb 12.8 L (14.0-18.0) g/dL Hct 36.2 L (42-52) % Plt Count 130 (130-400) K/uL BMP 08/07/18 02:00 Sodium 139 Potassium 4.1 Chloride 111 H Carbon Dioxide 25 BUN 45 H Creatinine 1.91 H D Glucose 121 H Calcium 8.4 L Diagnostic Findings MR: 1. Nondisplaced fracture within the anterior column of the left acetabulum which extends into the superior pubic ramus. 2. No fracture or dislocation within the left femur. 3. Mild left trochanteric bursitis. 4. Focal endosteal scalloping within the posterior cortex of the proximal to mid femoral shaft. This area measures 2.6 x 1.5 cm. This results in greater than 50% thinning of the posterior cortex. However, there is no abnormal signal intensity or enhancement within the medullary cavity to confirm the presence of a lesion. Therefore, this is likely developmental and is considered to be benign. Medications Administered Acetaminophen (Tylenol) 650 mg PO Q4H PRN PRN Reason: Pain or Fever Stop: 09/05/18 10:24 Last Admin: 08/07/18 08:46 Dose: 650 mg Documented by: [id number] Allopurinol (Zyloprim) 300 mg PO DAILY [facility] Stop: 09/06/18 08:59 Last Admin: 08/07/18 08:38 Dose: 300 mg Documented by: [id number] Amlodipine Besylate (Norvasc) 5 mg PO DAILY [facility] Stop: 09/06/18 08:59 Last Admin: 08/07/18 08:38 Dose: 5 mg Documented by: [id number] Atorvastatin Calcium (Lipitor) 10 mg PO DAILY JESSICA Stop: 09/06/18 08:59 Last Admin: 08/07/18 08:37 Dose: 10 mg Documented by: [id number] Gadobutrol (Gadavist 65ml) 12 ml IV ONCE PRN PRN Reason: Interaction Checking Stop: 08/11/18 11:01 Last Admin: 08/07/18 11:04 Dose: 12 ml Documented by: [id number] Sodium Chloride (Nss 1000ml) 1,000 mls @ 60 mls/hr IV .[id number] JESSICA Stop: 08/08/18 01:09 Last Admin: 08/07/18 08:30 Dose: 60 mls/hr Documented by: [id number] Insulin Aspart (Novolog Flexpen) 0 units SC ACHS [facility] Stop: 09/05/18 11:29 Last Admin: 08/07/18 12:39 Dose: 6 units Documented by: [id number] Cosigned by: [id number] Admin: 08/07/18 08:40 Dose: 4 units Documented by: [id number] Cosigned by: [id number] Admin: 08/06/18 20:54 Dose: 2 units Documented by: [id number] Cosigned by: [id number] Admin: 08/06/18 17:39 Dose: 6 units Documented by: [id number] Cosigned by: [id number] Admin: 08/06/18 12:27 Dose: 7 units Documented by: [id number] Cosigned by: [id number] Insulin Glargine (Lantus Solostar Pen) 0 - 5 units SC BID [facility]; Protocol Stop: 09/05/18 10:59 Last Admin: 08/07/18 08:39 Dose: Not Given Documented by: [id number] Cosigned by: [id number] Admin: 08/06/18 20:55 Dose: 5 units Documented by: [id number] Cosigned by: [id number] Admin: 08/06/18 11:46 Dose: 5 units Documented by: [id number] Cosigned by: [id number] Magnesium Oxide (Mag-Ox) 400 mg PO QAM [facility] Stop: 09/06/18 08:59 Last Admin: 08/07/18 08:37 Dose: 400 mg Documented by: [id number] Paroxetine HCl (Paxil) 20 mg PO DAILY [facility] Stop: 09/06/18 08:59 Last Admin: 08/07/18 08:38 Dose: 20 mg Documented by: [id number] Vitamin D (Vitamin D3) 2,000 units PO DAILY [facility] Stop: 09/06/18 08:59 Last Admin: 08/07/18 08:37 Dose: 2,000 units Documented by: [id number] Warfarin Sodium (Coumadin) 2.5 mg PO [id number] [facility] Stop: 09/05/18 15:59 Last Admin: 08/06/18 16:34 Dose: 2.5 mg Documented by: [id number] Discontinued Medications Gabapentin (Neurontin) 100 mg PO Q6H [facility] Stop: 08/06/18 22:01 Last Admin: 08/06/18 20:53 Dose: 100 mg Documented by: [id number] Admin: 08/06/18 16:34 Dose: 100 mg Documented by: [id number] Gabapentin (Neurontin) 600 mg PO NOW ONE Stop: 08/06/18 10:46 Last Admin: 08/06/18 11:46 Dose: 600 mg Documented by: [id number] Gabapentin (Neurontin) 600 mg PO Q24H JESSICA Stop: 08/07/18 10:01 Last Admin: 08/07/18 11:50 Dose: 600 mg Documented by: [id number] Sodium Chloride (Nss) 500 mls @ 999 mls/hr IV .Q31M ONE Stop: 08/06/18 03:27 Last Infusion: 08/06/18 03:40 Dose: 0 mls/hr Documented by: [id number] Admin: 08/06/18 03:08 Dose: 999 mls/hr Documented by: [id number] Sodium Chloride (Nss) 500 mls @ 125 mls/hr IV .Q4H JESSICA Stop: 09/05/18 08:14 Last Infusion: 08/06/18 10:31 Dose: 0 mls/hr Documented by: [id number] Admin: 08/06/18 08:13 Dose: 125 mls/hr Documented by: [id number] Sodium Chloride (Nss 1000ml) 1,000 mls @ 80 mls/hr IV .[id number] [facility] Stop: 08/06/18 22:54 Last Infusion: 08/07/18 00:17 Dose: 0 mls/hr Documented by: [id number] Admin: 08/06/18 11:46 Dose: 80 mls/hr Documented by: [id number] Metoprolol Succinate (Toprol Xl) 25 mg PO BID JESSICA Stop: 09/05/18 20:59 Last Admin: 08/06/18 20:54 Dose: 25 mg Documented by: [id number] Potassium Chloride (Klor-Con M10) 20 meq PO NOW STA Stop: 08/06/18 09:31 Last Admin: 08/06/18 09:52 Dose: Not Given Documented by: [id number] Potassium Chloride (Klor-Con M10) Confirm Administered Dose 20 meq PO .STK-MED ONE Stop: 08/06/18 09:40 Last Admin: 08/06/18 09:42 Dose: 20 meq Documented by: [id number] Potassium Chloride (Klor-Con M20) 40 meq PO NOW STA Stop: 08/07/18 01:58 Last Admin: 08/07/18 03:27 Dose: 40 meq Documented by: [id number] (1) Fall Encounter type: initial encounter Qualified Code(s): W19.XXXA - Unspecified fall, initial encounter
--- NOTE | 2018-08-07 16:07 | CT Scan Report ---
CT chest wo con CT DOSE: 2584.21 mGy.cm CLINICAL HISTORY: 73 years-old Male with r/o malignancy. Screening for possible malignancy. Benign-a ppearing lesion of the left femur described on MRI study of same day TECHNIQUE: Multiaxial CT images of the chest were performed without contrast. A dose lowering techni que was utilized adhering to the principles of ALARA. COMPARISON: MRI of the left femur of same day, CTA chest 09/01/2017 FINDINGS: Moderate multichamber cardiac enlargement. No pericardial effusion. Coronary arterial calcifications are noted. No thoracic aortic aneurysm. Mild dilation of the main pulmonary artery may reflect pulmon vipin arterial hypertension the appropriate clinical setting. Mildly enlarged right paratracheal lymph node, 11 mm in short axis. Mildly enlarged subcarinal and right hilar lymph nodes are also seen measu ring up to 10 mm. Trace left pleural effusion. Subsegmental dependent bibasilar opacities suggest atelectasis/scarring. There is no pneumothorax or overt pulmonary edema. Punctate calcified granuloma of the lateral segme nt right middle lobe. Mild bibasilar traction bronchiectasis. No suspicious pulmonary nodules or mass es. No lobar airspace consolidation typical for pneumonia. Central airways appear to be patent. No acute process of the imaged upper abdominal structures. Gynecomastia is noted bilaterally. Soft ti ssues are unremarkable. Degenerative changes are seen about the shoulders and spine. No suspicious darshan ne lesions identified. IMPRESSION: 1. Nonspecific mildly prominent and enlarged mediastinal and hilar lymph nodes, possibly reactive. 2. Cardiomegaly with findings suggestive of pulmonary arterial hypertension. 3. Mild subsegmental bibasilar atelectasis/scarring with mild traction bronchiectasis of the lung bas es. 4. No suspicious pulmonary nodules or masses. Electronically signed by: Sami Rodrigues M.D. 08/07/2018 4:06 PM
[2018-08-07] MEDS: WARFARIN SOD 2.5 MG TAB PO SCH (16:12)
--- NOTE | 2018-08-07 16:18 | CT Scan Report ---
CT abd pelvis wo con CLINICAL HISTORY: 73 years-old Male presenting with r/o malignancy, left femur lesion on contemporane ous MRI. TECHNIQUE: Multidetector CT of the abdomen and pelvis was performed without the use of intravenous co ntrast. IV contrast: None. One or more dose lowering techniques were used consistent with the princip les of ALARA (as low as reasonably achievable), including automatic exposure control, mA or kV adjust ment to individual patient size, and/or use of iterative reconstruction. COMPARISON: None. CT DOSE (mGy.cm): The estimated cumulative dose is 2584.21. FINDINGS: [employer] topogram: IVC filter projects at the level of the mid lumbar spine. Lung bases: Multichamber enlargement of the heart. Coronary artery calcification. No pericardial or p leural effusion. Extensive reticular opacities at the lung bases likely indicating underlying chronic lung disease. Liver: Normal morphology. Density consistent with hepatic steatosis. Biliary: No gross biliary ductal dilatation allowing for noncontrast technique. Normal gallbladder. Pancreas: Moderate parenchymal atrophy. Spleen: Normal noncontrast appearance. Splenule noted. Adrenal glands: Normal noncontrast appearance. Kidneys and ureters: Normal noncontrast appearance. No nephrolithiasis. No hydronephrosis. Normal ure ters. Nonspecific moderate perinephric fat infiltration. Bladder: Incompletely evaluated secondary to underdistention. Pelvic organs: Mild prostate enlargement. Bowel: Mild circumferential wall thickening of the mid to lower rectum. Mild infiltration of the meso rectal fat with thickening of the presacral fascia. Diverticulosis of the proximal to mid sigmoid col on as well as the descending colon. No wall thickening or pericolonic inflammatory change in these re gions. Scattered additional colonic diverticula elsewhere. The appendix is normal. Peritoneal cavity: No free fluid or intraperitoneal gas. Lymph nodes: No gross lymphadenopathy allowing for noncontrast technique. Vasculature: Atherosclerosis of the normal caliber abdominal aorta. IVC filter in place in the infrar enal IVC. Abdominal wall: Normal. Musculoskeletal: Degenerative changes of the spine. IMPRESSION: 1. Mild circumferential rectal wall thickening in the mid to lower portion with associated mild infi ltration of perirectal fat and presacral fascial thickening. These findings can be seen in the settin g of post radiation change or a mild infectious or inflammatory proctitis. Correlate patient's clinic al history. 2. Allowing for noncontrast technique, no gross evidence of malignancy in abdomen or pelvis. 3. Hepatic steatosis. 4. Diverticulosis coli. No evidence of diverticulitis. Electronically signed by: Marquis Guerrero M.D. 08/07/2018 4:16 PM
--- NOTE | 2018-08-07 18:35 | Oncology Consultation ---
Date of Consultation August 07, 2018 Assessment & Plan (1) Lytic bone lesion of left femur: 73-year-old male, who is admitted at [facility] following a fall with injury to the left side of the hip region, imaging study showed nondisplaced fracture in the left acetabulum, also noticed to have about 2.5 cm cortical lesion involving the proximal femur, imaging study of the chest, abdomen pelvis showed no obvious mass lesions noted anywhere else, no history of cancer diagnosis in his case in the past, PSA level not increased, no lower GI symptoms, no bleeding from any sites, no blood in the stool, has several comorbid conditions. Seen by ortho, they have suggested MRI and they will decide about further diagnostic workup. SPEP and light chain assay result pending. (It may take couple of days to get a report back) As per the radiology findings of left femur, the lesion appears to be developmental and considered to be benign. Let us see what orthopedic surgeon suggest regarding further workup. If they decide to go for surgical intervention, will review the pathology report. It SPEP, light chain result is suspicious for myeloma, will consider for bone marrow for further diagnostic workup. Thanks for the consultation. Julio Manning MD Hem/Onc History of Present Illness Attending Physician: Dalila Vegas MD 73-year-old male, who is admitted at [facility] following a fall and found to have nondisplaced fracture in the left acetabulum, lytic lesion noted in the proximal humeral shaft, has few other comorbid conditions. - He is on oral Coumadin for the last 7 years for right lower extremity DVT and pulmonary embolism which occurred spontaneously - Diabetes mellitus - Chronic renal insufficiency - Hypertension - Hyperlipidemia - Gout, - OCD He says that recently in midnight, when he was trying to get off from the bed, he felt dizzy, fell down, injured left hip region, had increasing pain in the left hip region, came to ER, now admitted for further evaluation. I saw him at bedside, before the fall he denies any increasing pain, ambulating slowly by himself, he says that he ambulates with the help of the walker when he goes to the unfamiliar area, otherwise no weight loss, no fever, discontinued smoking habit about 35 years back, drinks alcohol on a regular basis, no nausea or vomiting, no predicament sites, no blood in the urine, no diarrhea, no constipation, no blood in stool. No history of any cancer diagnosis in the past His brother diagnosed with prostate cancer. No fever, no night sweats. No skin rash, no increasing headache, no focal neurological symptoms. Allergies Allergy/AdvReac Type Severity Reaction Status Date / Time No Known Allergies Allergy Unverified 08/06/18 04:45 Home Medications Home Medications Medication Instructions Recorded Confirmed Type allopurinol 300 mg PO DAILY 08/06/18 08/06/18 History amlodipine 5 mg PO DAILY 08/06/18 08/06/18 History atorvastatin 10 mg PO DAILY 08/06/18 08/06/18 History cholecalciferol (vitamin D3) 2,000 unit PO DAILY 08/06/18 08/06/18 History [Vitamin D3] furosemide 20 mg PO DAILY 08/06/18 08/06/18 History glimepiride 2 mg PO DAILY 08/06/18 08/06/18 History lisinopril 10 mg PO DAILY 08/06/18 08/06/18 History magnesium oxide 400 mg PO QAM 08/06/18 08/06/18 History metoprolol succinate 25 mg PO BID 08/06/18 08/06/18 History paroxetine HCl 20 mg PO DAILY 08/06/18 08/06/18 History warfarin 1.25 mg PO WK 08/06/18 08/06/18 History warfarin 2.5 mg PO 6XWK 08/06/18 08/06/18 History Patient History Medical History T2DM (type 2 diabetes mellitus) (Chronic) CKD (chronic kidney disease) stage 3, GFR 30-59 ml/min (Chronic) HLD (hyperlipidemia) (Chronic) Hyperparathyroidism (Chronic) Right heart failure (Chronic) HTN (hypertension) (Chronic) PAF (paroxysmal atrial fibrillation) (Chronic) Gout (Chronic) Obesity (Chronic) History of pulmonary embolism (Chronic) History of DVT (deep vein thrombosis) (Chronic) retirement current use of anticoagulant (Chronic) Type 2 diabetes mellitus (Chronic) Hypoxemia (Resolved) Hyperkalemia Surgical History History of colonoscopy (Chronic) History of inferior vena caval filter placement (Chronic) Family History Brother Prostate cancer Diabetes Father Coronary heart disease, Onset Age: 78 during CABG - felt heparin allergy Mother Old age Social History Preferred Language: Mohawk Communication Ability: Effective Sanitation Associate Required: No Beliefs That Will Affect Care: None marital status: Current Living Situation: Spouse Current Living Situation Comment: ambulate with cane/walker when out and about Other Information That Helps Us Care for You: No Feels Safe at Home: Yes Safety Concerns: Feels Safe At This Time Smoking Status: Former smoker Years Smoked: 10 Do You Dip or Chew Tobacco: No Smoking End Date: 1983 Second Hand Exposure: No Tobacco Cessation Education Requested by Patient: No Hx Alcohol Use: Yes Alcohol type: hard liquor Alcohol Intake Frequency Comment: 3 rum/cokes daily Hx Substance Use: No Review of Systems Review of Systems: GENERAL: No recent change in weight, no weakness, no fatigue, no fever, sweats or chills. SKIN: No skin rash, no bruising. HEAD: No new or increasing headache, no dizziness. EYES: No recent change in the vision, no diplopia, EARS: No earache ,no tinnitus, NOSE: No epistaxis, No nasal discharge or stuffiness, MOUTH: No sores, no dysphagia, no hoarseness of voice, NECK: No lumps, No swelling in thyroid area. No stiffness. PULMONARY: No cough, No shortness of breath, no hemoptysis, no chest pain, No wheezing. CARDIOVASCULAR: No anginal chest pain, no PND, no orthopnea. No palpitation, no leg edema. No syncope. GASTROINTESTINAL: No abdominal pain, no nausea or vomiting. No diarrhea, No constipation. No blood in stool or black tarry stools. No abdominal distention. UROLOGIC: No burning urination. No hematuria. MUSCULOSKELETAL: left hip pain noted. Before the recent fall, he did not have any left hip pain. He was ambulating with the help of the walker when you go to the unfamiliar area. HEMATOLOGIC: No anemia, no bleeding disorder, No bruising. No history of blood transfusion. NEUROLOGIC: No seizures, no focal weakness, no speech difficulty, No memory disturbances. No tingling or numbness of the extremities. Physical Exam Physical Exam: On exam: - Alert and oriented x3, well built man, not in any distress. - HEENT: no icterus, no pallor, Throat: Normal. - Neck: No palpable cervical lymphadenopathy. - Chest: clear to auscultation. - Abdomen: soft, nontender, no hepatomegaly, no splenomegaly. - No focal neuro deficit. - Extremities: no finger clubbing, no leg edema. Results & Data Vital Signs (Past 12 Hours) Vital Signs Temp Pulse Pulse Resp BP BP Pulse Ox 08/07/18 16:00 79 08/07/18 15:47 37.1 C 65 20 130/74 91 08/07/18 11:49 36.5 C 71 18 118/72 95 08/07/18 07:29 36.3 C L 67 20 115/72 92 LABS: - AST 27, ALT 48, plan phosphate is 103, Total bilirubin: 1.4 (08/06/2018). - Serum creatinine level > 2.6 (08/06/2018). Blood workup done on 08/07/2018: - WBC 9100, H&H of 12.8/36.2, MCV 93, Platelet count of 130,000 - BUN/creatinine: 45/1.9, calcium 8.4 - PSA level > 0.64 - SPEP and light chain assay > Pending. IMAGING: CT scan of the hip (08/06/2018) - Demineralization of the bones noted - Left hip osteoarthritis noted. Left femur CT scan (08/06/2018) - 2.3 x 1.6 cm lytic lesion within the posterior medullary cavity of the left proximal humeral shaft. This could be benign or aggressive lesion. This demonstrates greater than 50 was erosion of the posterior cortex and so it is at a risk for impending fracture. Femur MRI (08/07/2018) - Nondisplaced fracture of the anterior column of the left acetabulum which extends into the superior pubic ramus - 2.6 x 1.5 area of focal endosteal scalloping within the posterior cortex of the proximal to mid femur well shaft. It results in more than 50% thinning of the posterior cortex. No abnormal signal intensity or enhancement within the me dullary cavity to confirm the presence of lesion. This is likely developmental and it is considered to be benign. CT scan of the chest (08/07/2018, done without intravenous contrast) - Nonspecific mildly prominent and enlarged mediastinal hilar lymph nodes. Right paratracheal lymph node measuring 1.1 cm. Right hilar lymph node measuring 1 cm. - Trace left pleural effusion noted with - Cardiomegaly and findings suggestive of pulmonary hypertension noted. - No suspicious lung mass noted. CT scan of the abdomen and pelvis (08/07/2018, done without intravenous contrast because of abnormal kidney function test) - IVC filter present - Thickening of the rectal wall noted. - No liver lesions. - No intra-abdominal lymphadenopathy noted.
[2018-08-07] MEDS: BACLOFEN 10 MG TAB PO SCH (21:26)
--- NOTE | 2018-08-07 22:23 | Hospitalist Progress Note ---
Date of Service August 07, 2018 Subjective BP noted to be 150s, cardiac rate 80s. Patient comfortable. No sinus pauses since 2 AM event as per relay technician as per RN. Resume home beta-carole, Lopressor 12.5 BID for now. Results & Data Vital Signs (Past 12 Hours) Vital Signs Temp Pulse Pulse Resp BP BP Pulse Ox 08/07/18 21:17 36.7 C 84 20 158/84 H 94 08/07/18 16:00 79 08/07/18 15:47 37.1 C 65 20 130/74 91 08/07/18 11:49 36.5 C 71 18 118/72 95
[2018-08-07] MEDS: METOPROLOL TARTRATE 25 MG TAB PO SCH (23:15)
--- NOTE | 2018-08-08 00:03 | Consultation Report ---
DATE OF CONSULTATION: 08/07/2018 DATE OF CONSULTATION: 08/07/2018 PERTINENT HISTORY: This is a 73-year-old gentleman seen at request of Dr. Dalila Vegas and Dr. Alessandro Cordero. The patient had in his normal state of health until 08/06/2018. He had a fall from a standing height, approximately 12:00 a.m. He then presented to [facility], unable to ambulate and had radiographs performed and noted to have a lesion within the left hip with concern regarding bone lesion. Orthopedics was consulted. PAST MEDICAL HISTORY: Reviewed. CONSULTATION: Thierry Vargas PA-C and reviewed. Other care and management reviewed by the other medical services involved. The patient was noted to have a CT scan with 50% erosion into the posterior cortex of the femur. He had an MRI which also revealed the same findings; however, appeared to be benign per the findings on MRI. Multiple laboratory markers have been drawn. These were also reviewed. At this time, the lesion in the femur and the subsequent finding of anterior column nondisplaced fracture of the acetabulum appeared to be stable. The acetabular fracture will be treated closed. The femoral fractures should be likely instrumented, intramedullary device stabilize it, so he can regain weightbearing as soon as the procedure is cleared pending final workup by Dr. Manning with oncology and the medical team. The current weightbearing status should be touchdown weightbearing only with a walker for transfers to the bedside chair and to the commode or possibly into the bathroom for hygiene. Will discuss with my partner Dr. Moody who is zoning administrator this weekend and Robert Shanks PA-C for continuity of care. Will await further recommendations from the medical and oncologic teams to schedule likely long trochanteric nailing of the femur fracture. Thanks for the opportunity to consult in the care of this patient.
[2018-08-08 06:03] LABS: Basophils # (auto) 0.08 K/uL (0-0.2); Basophils % (auto) 0.9 %; Eosinophils # (auto) 0.54 K/uL (0-0.5); Eosinophils % (auto) 6.1 %; Hematocrit (blood only) 37.7 % (42-52); Hemoglobin 13.5 g/dL (14.0-18.0); Immature Granulocytes # (auto) 0.02 K/uL (0.00-0.02); Immature Granulocytes % (auto) 0.2 %; Lymphocytes # (auto) 1.87 K/uL (1.2-3.4); Lymphocytes % (auto) 21.3 %; Mean Corpuscular Hgb Conc 35.8 g/dL (32-36); Mean Corpuscular Volume 94.5 fL (80-100); Mean Platelet Volume 9.9 fL (7.4-10.4); Monocytes # (auto) 0.72 K/uL (0.11-0.59); Monocytes % (auto) 8.2 %; Neutrophils # (auto) 5.57 K/uL (1.4-6.5); Neutrophils % (auto) 63.3 %; Platelet Count 126 K/uL (130-400); RDW Coefficient of Variation 13.9 % (11.5-14.5); RDW Standard Deviation 47.6 fL (36.4-46.3); Red Blood Count 3.99 M/uL (4.7-6.1)
[2018-08-08 06:26] LABS: INR 1.8 (0.9-1.1); Prothrombin Time 17.9 Seconds (9.0-12.0)
[2018-08-08 06:27] LABS: BUN Creatinine Ratio 19.6 (10-20); C Reactive Protein 1.15 mg/dl (0-0.29); Calcium 8.9 mg/dl (8.5-10.1); Creatinine Clr Calc Pharmacy 55.8 ml/min; Est GFR (African American) 49.6; Est GFR (Non-African American) 42.8; Potassium 4.6 mmol/L (3.5-5.1)
[2018-08-08] MEDS: METOPROLOL TARTRATE 25 MG TAB PO SCH ×2 (09:23→20:44)
[2018-08-08] MEDS: MAGNESIUM OXIDE 400 MG TAB PO SCH (09:23)
[2018-08-08] MEDS: PARoxetine HCl 20 MG TAB PO SCH (09:23)
[2018-08-08] MEDS: BACLOFEN 10 MG TAB PO SCH ×2 (09:24→20:44)
[2018-08-08] MEDS: INSULIN GLARGINE SOLOSTAR 100 UNITS/ML 3 ML PEN SC SCH ×2 (09:25→20:43)
[2018-08-08] MEDS: ALLOPURINOL 300 MG TAB PO SCH (09:26)
[2018-08-08] MEDS: CHOLECALCIFEROL 1,000 UNITS TAB PO SCH (09:26)
[2018-08-08] MEDS: AMLODIPINE BESYLATE 5 MG TAB PO SCH (09:26)
[2018-08-08] MEDS: ATORVASTATIN 10 MG TAB PO SCH (09:26)
[2018-08-08] MEDS: INSULIN ASPART 100 UNITS/ML 3 ML PEN SC SCH ×4 (09:27→20:42)
[2018-08-08] MEDS ORDERED: GABAPENTIN 400 MG CAP PO SCH (10:00)
--- NOTE | 2018-08-08 12:16 | Progress Note ---
DATE: 08/08/2018 SUBJECTIVE: He notes pain in the hip region. He has no complaints of pain in the femur. He states that he has not had any complaints of pain in the femur prior to this injury. OBJECTIVE: He has no tenderness of the femur. No abnormal swelling in the femur region. No abnormal skin changes. REVIEW OF RADIOGRAPHIC STUDIES: Does show benign-appearing, slightly scalped eccentric lesion in the mid aspect of the femur. There was no increased signal on T1 or T2 images on MRI. There is absolutely no enhancement on MRI. ASSESSMENT: A 73-year-old male with: 1. Nondisplaced fracture anterior column of the left acetabulum. 2. Lytic lesion in the left mid femoral shaft, benign. PLAN: Discussed findings with the patient. I reviewed the studies with radiology. The lesion in the femur does appear to be an incidental finding and is completely benign on both radiographs as well as MRI and CAT scan. I do not see a significant risk of impending pathologic fracture. I feel this may likely represent either a burnt out non-ossifying fibroma or an ossified fibroma. It is likely developmental lesion that is noted incidentally. Recommendation at this point is for observation. I would not pursue further treatment. I did discuss with the radiology, possibility of bone scan, but they feel that is unnecessary. Would not recommend surgical treatment. We will sign off and then he will followup with [facility] in 10-14 days for management of a left anterior column acetabular fracture. Treatment for acetabular fracture will be toe-touch weightbearing. No further treatment needed.
[2018-08-08] MEDS: WARFARIN SOD 2.5 MG TAB PO SCH (17:25)
--- NOTE | 2018-08-08 17:26 | Hospitalist Progress Note ---
Date of Service August 08, 2018 Assessment & Plan (1) Fall: (2) Closed left acetabular fracture: (3) Ambulatory dysfunction: Present on admission after sustained a fall CT hip showed demineralized appearance of the bones without acute fracture or dislocation. Moderate left hip osteoarthritis. CT left femur showed Confirmation of the 2.3 x 1.6 cm lytic lesion within the posterior medullary cavity of the left proximal femoral shaft. This is nonspecific could represent benign or aggressive lesions. MRI showed nondisplaced fracture within the anterior column of the left acetabulum which extends into the superior pubic ramus.Focal endosteal scalloping within the posterior cortex of the proximal to mid femoral shaft. This area measures 2.6 x 1.5 cm. This results in greater than 50% thinning of the posterior cortex. However, there is no abnormal signal intensity or enhancement within the medullary cavity to confirm the presence of a lesion. Therefore, this is likely developmental and is considered to be benign. Ortho on board - no surgical intervention Case discussed with Ortho, who reviewed MRI finding with the radiologist and confirmed that it is mostly benign. Ortho asked radiology for possibility of bone scan, but they feel that is unnecessary. Ortho recommended toe-touch weightbearing for the the treatment of acetabular fracture Pain control and fall precaution Follow up with ortho in 10-14 days outpatient [place] from ortho standpoint to discharge (4) Osteoarthritis of hip: PT/OT Continue pain control (5) Acute worsening of stage 3 chronic kidney disease: Creatined baseline Cr 1.5-1.7 Cr improved to 1.5 Lasix and lisinopril on hold Will resume lasix in am Avoid nephrotoxic agent Monitor BMP (6) Abnormal finding on CT scan: Lytic lesion found on CT femur MRI femur showed Focal endosteal scalloping within the posterior cortex of the proximal to mid femoral shaft. This area measures 2.6 x 1.5 cm. This results in greater than 50% thinning of the posterior cortex. However, there is no abnormal signal intensity or enhancement within the medullary cavity to confirm the presence of a lesion. Therefore, this is likely developmental and is considered to be benign. No need to get bone scan as per radiologist because the finding mostly to be benign Oncology on board PSA normal CT chest/Abd/Pelvis showed no abnormal masses Work up for multiple myeloma pending (7) Right heart failure: Last echo 09/01/2017 revealed LVEF 55 to 60% with severely reduced right ventricular systolic function, RV dilated, biatrial enlargement, pulmonary arterial pressure elevated at 75 mmHg received IV fluid Lasix on hold due to elevate creatinine Will resume lasix in am Monitor for sign of fluid overload (8) PAF (paroxysmal atrial fibrillation): Rate controlled on metoprolol Continue metoprolol Continue warfarin for anticoagulant stable (9) T2DM (type 2 diabetes mellitus): A1C 7.1 ( 06/16/18) hold oral glimepride Blood sugars elevated - titrate lantus Lantus/novolog sliding scale per protocol (10) HTN (hypertension): Blood pressure stable continue amlodipine Will resume lisinopril and Lasix in am (11) History of pulmonary embolism: Continue warfarin Monitor INR (12) DVT prophylaxis: SCDS/TEDs, warfarin Disposition: Will discharge to [facility] for rehab tomorow Subjective Pt was seen and examined Lying in bed with no distress Pt said that he only has pain if he moves his left LE He said that he sat for about 90 minutes today on the chair after walking with therapy Pt said that he felt tired now Denies any chest pain, palpitation, dizziness and SOB Physical Exam Physical Exam: General- No acute distress Head- atraumatic Eyes- PERRL, EOMI, ENT- oropharynx clear Neck- supple, no JVD Lungs- clear to auscultation Heart- irregular rhythm; no murmur Abdomen- normal bowel sounds, soft, nontender Extremities- no calf tenderness Neuro- alert, oriented x 3; PERRL, EOMI; no facial palsy; no dysarthria Skin- warm & dry Results & Data Vital Signs (Past 12 Hours) Vital Signs Temp Pulse Pulse Resp BP BP Pulse Ox 08/08/18 15:38 36.9 C 71 18 136/80 95 08/08/18 11:58 37.0 C 75 18 127/76 91 08/08/18 07:00 36.7 C 70 20 140/85 90 (1) Fall Encounter type: initial encounter Qualified Code(s): W19.XXXA - Unspecified fall, initial encounter
[2018-08-09 06:39] LABS: INR 1.9 (0.9-1.1); Prothrombin Time 18.4 Seconds (9.0-12.0)
[2018-08-09 07:25] LABS: BUN Creatinine Ratio 22.4 (10-20); Creatinine Clr Calc Pharmacy 57.7 ml/min; Est GFR (African American) 51.6; Est GFR (Non-African American) 44.5; Potassium 4.4 mmol/L (3.5-5.1)
[2018-08-09] MEDS: INSULIN GLARGINE SOLOSTAR 100 UNITS/ML 3 ML PEN SC SCH (08:52)
[2018-08-09] MEDS: INSULIN ASPART 100 UNITS/ML 3 ML PEN SC SCH ×2 (08:53→12:56)
[2018-08-09] MEDS: MAGNESIUM OXIDE 400 MG TAB PO SCH (08:56)
[2018-08-09] MEDS: BACLOFEN 10 MG TAB PO SCH (08:56)
[2018-08-09] MEDS: ALLOPURINOL 300 MG TAB PO SCH (08:56)
[2018-08-09] MEDS: AMLODIPINE BESYLATE 5 MG TAB PO SCH (08:57)
[2018-08-09] MEDS: METOPROLOL TARTRATE 25 MG TAB PO SCH (08:57)
[2018-08-09] MEDS: CHOLECALCIFEROL 1,000 UNITS TAB PO SCH (08:57)
[2018-08-09] MEDS: PARoxetine HCl 20 MG TAB PO SCH (08:58)
[2018-08-09] MEDS: ATORVASTATIN 10 MG TAB PO SCH (08:58)
[2018-08-09] MEDS ORDERED: GABAPENTIN 100 MG CAP PO SCH (10:00)
--- NOTE | 2018-08-09 13:33 | Hospitalist Progress Note ---
Date of Service August 09, 2018 Assessment & Plan (1) Fall: (2) Closed left acetabular fracture: (3) Ambulatory dysfunction: Present on admission after sustained a fall CT hip showed demineralized appearance of the bones without acute fracture or dislocation. Moderate left hip osteoarthritis. CT left femur showed Confirmation of the 2.3 x 1.6 cm lytic lesion within the posterior medullary cavity of the left proximal femoral shaft. This is nonspecific could represent benign or aggressive lesions. MRI showed nondisplaced fracture within the anterior column of the left acetabulum which extends into the superior pubic ramus.Focal endosteal scalloping within the posterior cortex of the proximal to mid femoral shaft. This area measures 2.6 x 1.5 cm. This results in greater than 50% thinning of the posterior cortex. However, there is no abnormal signal intensity or enhancement within the medullary cavity to confirm the presence of a lesion. Therefore, this is likely developmental and is considered to be benign. Ortho on board - no surgical intervention Case discussed with Ortho, who reviewed MRI finding with the radiologist and confirmed that it is mostly benign. Ortho asked radiology for possibility of bone scan, but they feel that is unnecessary. Ortho recommended toe-touch weightbearing for the the treatment of acetabular fracture Pain control and fall precaution Follow up with ortho in 10-14 days outpatient [place] from ortho standpoint to discharge (4) Osteoarthritis of hip: PT/OT Continue pain control (5) Acute worsening of stage 3 chronic kidney disease: Creatined baseline Cr 1.5-1.7 Cr improved to 1.5 Lasix resumed today Avoid nephrotoxic agent Check BMP in 1 week (6) Abnormal finding on CT scan: Lytic lesion found on CT femur MRI femur showed Focal endosteal scalloping within the posterior cortex of the proximal to mid femoral shaft. This area measures 2.6 x 1.5 cm. This results in greater than 50% thinning of the posterior cortex. However, there is no abnormal signal intensity or enhancement within the medullary cavity to confirm the presence of a lesion. Therefore, this is likely developmental and is considered to be benign. No need to get bone scan as per radiologist because the finding mostly to be benign Oncology on board PSA normal CT chest/Abd/Pelvis showed no abnormal masses Work up for multiple myeloma pending Follow up with oncology outpatient (7) Right heart failure: Last echo 09/01/2017 revealed LVEF 55 to 60% with severely reduced right ventricular systolic function, RV dilated, biatrial enlargement, pulmonary arterial pressure elevated at 75 mmHg received IV fluid Lasix on hold due to elevate creatinine Lasix resumes today Monitor for sign of fluid overload (8) PAF (paroxysmal atrial fibrillation): Rate controlled on metoprolol Continue metoprolol Continue warfarin for anticoagulant INR 1.9 today Monitor PT/INR (9) T2DM (type 2 diabetes mellitus): A1C 7.1 ( 06/16/18) hold oral glimepride Blood sugars elevated - titrate lantus Lantus/novolog sliding scale per protocol (10) HTN (hypertension): Blood pressure stable continue amlodipine Will resume lisinopril and Lasix in am (11) History of pulmonary embolism: Continue warfarin INR 1.9 today Monitor INR (12) DVT prophylaxis: SCDS/TEDs, warfarin Disposition: Will discharge to [facility] for rehab today Subjective Pt was seen and examined Lying in bed with no distress Pt said that he slept well last night He said that the pain control with the pain med Denies any chest pain, palpitation, dizziness and SOB Physical Exam Physical Exam: General- No acute distress Head- atraumatic Eyes- PERRL, EOMI, ENT- oropharynx clear Neck- supple, no JVD Lungs- clear to auscultation Heart- irregular rhythm; no murmur Abdomen- normal bowel sounds, soft, nontender Extremities- no calf tenderness Neuro- alert, oriented x 3; PERRL, EOMI; no facial palsy; no dysarthria Skin- warm & dry Results & Data Vital Signs (Past 12 Hours) Vital Signs Temp Pulse Pulse Resp BP BP Pulse Ox 08/09/18 13:26 36.9 C 84 75 18 129/92 143/83 H 94 08/09/18 13:12 36.9 C 84 75 18 129/92 143/83 H 94 08/09/18 11:51 36.9 C 84 18 129/92 94 08/09/18 08:00 36.7 C 75 20 143/83 H 93 08/09/18 03:44 36.9 C 67 18 139/83 91 (1) Fall Encounter type: initial encounter Qualified Code(s): W19.XXXA - Unspecified fall, initial encounter
[2018-08-09] MEDS: ACETAMINOPHEN 325 MG TAB PO PRN (13:35)
[2018-08-09] MEDS ORDERED: FUROSEMIDE 20 MG TAB PO SCH (13:45)
--- NOTE | 2018-08-10 08:01 | Discharge Summary ---
Date of Service August 09, 2018 Admission HPI Per Admitting Provider This is a 73-year-old male who has a significant PMH of PAF, history of DVT/PE, long-term anticoagulation with warfarin, right heart failure T2DM, CKD stage III, HTN, HLD, gout, OCD who presents to [facility] ED after sustaining fall from standing height at approximately 12 AM. at bedside. Patient states he woke up abruptly from sleep and had to use the bathroom. He stood up quickly, got lightheaded, lost balance and fell on his left side. He immediately had left hip pain. He was able to make it to bathroom when he had a large loose BM. According to records he felt he may have had a low blood sugar which he usually doesn't have. He feels he fell because he got up to quickly. He also had 3 rum/cokes prior to going to bed last evening. He has done this for the past 50 years. He did not lose consciousness and did not hit his head. He remembers feeling lightheaded prior to falling, denies chest pain, palpitations, dizziness, n/v, pain. He further denies any recent illness, f/c/s, abdominal pain, cough. His appetite has been good and drinks approx 40-50oz fluid daily, excluding ETOH. Denies weight loss or freq falls. Last fall was november which required him to go to [facility] for acute rehab. Admission Exam Per Admitting Provider Gen: WD/WN, Obese, M, NAD, sitting up in bed, pleasant, conversing easily Head: Normocephalic, Atraumatic Eyes: Sclera normal, no conjunctival injection, PERRLA, EOMI ENT: Gross hearing intact, normal pharynx, mucous membranes moist Neck: supple, no adenopathy, No JVD, no bruit, Resp: Clear to auscultation b/l, no wheeze, rales, rhonchi. Normal insp/exp effort, no accessory muscle use CV: irregular rate, irregular rhythm, no murmur, rub, gallop, or ectopy Abd: +BS x 4, soft, nontender, nondistended Musculoskeletal: moves extremities active rom x 3, unwilling to actively move LLE given pain, strength intact, good joint filler strength Extremities: No edema bilaterally with venous stasis changes R > L, obese lower ext Skin: warm, moist, no rash, negative turgor, cap refill < 2sec Neuro: Alert and oriented x 3, speech normal, good mood/affect, cran nerve 2-12 intact grossly : deferred Principal Diagnosis (1) Fall: (2) Closed left acetabular fracture: (3) Ambulatory dysfunction: (4) Osteoarthritis of hip: (5) Acute worsening of stage 3 chronic kidney disease: (6) Paroxysmal A fib (7) History of pulmonary embolism: (8) Right heart failure (9) HTN (10) Tobacco use Discharge Exam General- No acute distress Head- atraumatic Eyes- PERRL, EOMI, ENT- oropharynx clear Neck- supple, no JVD Lungs- clear to auscultation Heart- irregular rhythm; no murmur Abdomen- normal bowel sounds, soft, nontender Extremities- no calf tenderness Neuro- alert, oriented x 3; PERRL, EOMI; no facial palsy; no dysarthria Skin- warm & dry Discharge Data Allergies Allergy/AdvReac Type Severity Reaction Status Date / Time No Known Allergies Allergy Unverified 08/06/18 04:45 Consultations 08/06/18 08:10 ED Decision to Admit Stat 08/06/18 08:50 Consult Orthopedic Surgery Routine 08/06/18 10:25 Consult Case Management - Discharge Planning Routine 08/07/18 08:30 Consult Oncology Routine Ordered Studies 08/06/18 05:46 CT hip LT wo con Urgent 08/06/18 07:19 CT femur LT wo con Stat 08/07/18 08:27 MR femur LT wo/w con Routine 08/07/18 15:06 CT abd pelvis wo con Routine CT chest wo con Routine CT chest wo con CT DOSE: 2584.21 mGy.cm CLINICAL HISTORY: 73 years-old Male with r/o malignancy. Screening for possible malignancy. Benign-appearing lesion of the left femur described on MRI study of same day TECHNIQUE: Multiaxial CT images of the chest were performed without contrast. A dose lowering technique was utilized adhering to the principles of ALARA. COMPARISON: MRI of the left femur of same day, CTA chest 09/01/2017 FINDINGS: Moderate multichamber cardiac enlargement. No pericardial effusion. Coronary arterial calcifications are noted. No thoracic aortic aneurysm. Mild dilation of the main pulmonary artery may reflect pulmonary arterial hypertension the appropriate clinical setting. Mildly enlarged right paratracheal lymph node, 11 mm in short axis. Mildly enlarged subcarinal and right hilar lymph nodes are also seen measuring up to 10 mm. Trace left pleural effusion. Subsegmental dependent bibasilar opacities suggest atelectasis/scarring. There is no pneumothorax or overt pulmonary edema. Punctate calcified granuloma of the lateral segment right middle lobe. Mild bibasilar traction bronchiectasis. No suspicious pulmonary nodules or masses. No lobar airspace consolidation typical for pneumonia. Central airways appear to be patent. No acute process of the imaged upper abdominal structures. Gynecomastia is noted bilaterally. Soft tissues are unremarkable. Degenerative changes are seen about the shoulders and spine. No suspicious bone lesions identified. IMPRESSION: 1. Nonspecific mildly prominent and enlarged mediastinal and hilar lymph nodes, possibly reactive. 2. Cardiomegaly with findings suggestive of pulmonary arterial hypertension. 3. Mild subsegmental bibasilar atelectasis/scarring with mild traction bronchiectasis of the lung bases. 4. No suspicious pulmonary nodules or masses. Electronically signed by: Sami Rodrigues M.D. 08/07/2018 4:06 PM Dictated: 08/07/18 1556 Transcribed: 08/07/[address] abd pelvis wo con CLINICAL HISTORY: 73 years-old Male presenting with r/o malignancy, left femur lesion on contemporaneous MRI. TECHNIQUE: Multidetector CT of the abdomen and pelvis was performed without the use of intravenous contrast. IV contrast: None. One or more dose lowering techniques were used consistent with the principles of ALARA (as low as reasonably achievable), including automatic exposure control, mA or kV adjustment to individual patient size, and/or use of iterative reconstruction. COMPARISON: None. CT DOSE (mGy.cm): The estimated cumulative dose is 2584.21. FINDINGS: Spanish Translator topogram: IVC filter projects at the level of the mid lumbar spine. Lung bases: Multichamber enlargement of the heart. Coronary artery calcification. No pericardial or pleural effusion. Extensive reticular opacities at the lung bases likely indicating underlying chronic lung disease. Liver: Normal morphology. Density consistent with hepatic steatosis. Biliary: No gross biliary ductal dilatation allowing for noncontrast technique. Normal gallbladder. Pancreas: Moderate parenchymal atrophy. Spleen: Normal noncontrast appearance. Splenule noted. Adrenal glands: Normal noncontrast appearance. Kidneys and ureters: Normal noncontrast appearance. No nephrolithiasis. No hydronephrosis. Normal ureters. Nonspecific moderate perinephric fat infiltration. Bladder: Incompletely evaluated secondary to underdistention. Pelvic organs: Mild prostate enlargement. Bowel: Mild circumferential wall thickening of the mid to lower rectum. Mild infiltration of the mesorectal fat with thickening of the presacral fascia. Diverticulosis of the proximal to mid sigmoid colon as well as the descending colon. No wall thickening or pericolonic inflammatory change in these regions. Scattered additional colonic diverticula elsewhere. The appendix is normal. Peritoneal cavity: No free fluid or intraperitoneal gas. Lymph nodes: No gross lymphadenopathy allowing for noncontrast technique. Vasculature: Atherosclerosis of the normal caliber abdominal aorta. IVC filter in place in the infrarenal IVC. Abdominal wall: Normal. Musculoskeletal: Degenerative changes of the spine. IMPRESSION: 1. Mild circumferential rectal wall thickening in the mid to lower portion with associated mild infiltration of perirectal fat and presacral fascial thickening. These findings can be seen in the setting of post radiation change or a mild infectious or inflammatory proctitis. Correlate patient's clinical history. 2. Allowing for noncontrast technique, no gross evidence of malignancy in abdomen or pelvis. 3. Hepatic steatosis. 4. Diverticulosis coli. No evidence of diverticulitis. Electronically signed by: Marquis Guerrero M.D. 08/07/2018 4:16 PM Dictated: 08/07/18 1610 Transcribed: 08/07/18 1610 MR femur LT wo/w con HISTORY: Lytic lesion proximal left femur TECHNIQUE: Multiplanar multisequence MRI of the left femur was performed both before and after the intravenous administration of 12 cc of Gadavist contrast. COMPARISON STUDY: Left femur CT 08/06/2018. FINDINGS: No fracture or dislocation within the left femur. Trace left knee effusion. Mild lateral subcutaneous edema within the left thigh. Trace knee effusion. Focal edema lateral to the greater trochanter. This favors a mild trochanteric bursitis. There is a nondisplaced fracture within the anterior column of the left acetabulum which extends into the superior pubic ramus. This is best seen on axial image 6. There is associated mild edema within the anterior acetabulum. The fracture appears to extend to the articular surface of the acetabulum. Mild edema within the groin muscles likely secondary to the adjacent fracture. Focal endosteal scalloping within the posterior cortex of the proximal to mid femoral shaft. This area measures 2.6 x 1.5 cm. This results in greater than 50% thinning of the posterior cortex. However, there is no abnormal signal intensity or enhancement within the medullary cavity to confirm the presence of a lesion. IMPRESSION: 1. Nondisplaced fracture within the anterior column of the left acetabulum which extends into the superior pubic ramus. 2. No fracture or dislocation within the left femur. 3. Mild left trochanteric bursitis. 4. Focal endosteal scalloping within the posterior cortex of the proximal to mid femoral shaft. This area measures 2.6 x 1.5 cm. This results in greater than 50% thinning of the posterior cortex. However, there is no abnormal signal intensity or enhancement within the medullary cavity to confirm the presence of a lesion. Therefore, this is likely developmental and is considered to be benign. Electronically signed by: Carroll Chong M.D. 08/07/2018 12:28 PM Dictated: 08/07/18 1123 Transcribed: 08/07/[address] DOSE: 442.02 mGy.cm HISTORY: Abnormal radiograph. eval lytic lesion TECHNIQUE: Multiaxial CT images of the left femur were performed and reformatted in the sagittal and coronal plane without the use of contrast. A dose lowering technique was utilized adhering to the principles of ALARA. COMPARISON: Left hip radiograph 08/06/2018. FINDINGS: Confirmation of the 2.3 x 1.6 cm lytic lesion within the posterior medullary cavity of the left proximal femoral shaft. This is best seen on axial image 353 and sagittal image 45. This demonstrates greater than 50% erosion of the posterior cortex of the proximal femoral shaft. Therefore, this is at risk for an impending fracture. No associated soft tissue component. Trace knee effusion. No acute fracture or dislocation within the left femur. IMPRESSION: Confirmation of the 2.3 x 1.6 cm lytic lesion within the posterior medullary cavity of the left proximal femoral shaft. This is nonspecific could represent benign or aggressive lesions. This demonstrates greater than 50% erosion of the posterior cortex and is therefore at risk for an impending fracture. Orthopedic consultation recommended. Electronically signed by: Carroll Chong M.D. 08/06/2018 7:55 AM Dictated: 08/06/18 0748 Transcribed: 08/06/[address] hip LT wo con HISTORY: 73 years-old Male eval for fx. Acute left hip pain status post fall COMPARISON: Pelvis and left hip radiographs 08/06/2018 TECHNIQUE: Multiple axial CT images of the left hip were obtained without the use of IV contrast. A dose lowering technique was used consistent with the principals of MAGDA. FINDINGS: Demineralized appearance the bones limits evaluation for acute nondisplaced fracture. The imaged left hemipelvis structures appear intact without acute fracture. Moderate left hip osteoarthritis. No acute fracture or dislocation of the imaged left femur. No avascular necrosis or intra-articular loose body. No large joint effusion identified. Peripheral arterial calcifications are noted. Colonic diverticulosis. Small fat filled left inguinal hernia. IMPRESSION: 1. Demineralized appearance of the bones without acute fracture or dislocation identified. 2. Moderate left hip osteoarthritis. The above report was generated using voice recognition software. It may contain grammatical, syntax or spelling errors. Electronically signed by: Sami Rodrigues M.D. 08/06/2018 7:01 AM Dictated: 08/06/18 0657 Transcribed: 08/06/18 0657 XR hip LT 2-3V w pelvis CLINICAL HISTORY: fall. Left hip pain. COMPARISON STUDY: None. FINDINGS: No fracture or dislocation within the left hip. The pelvic bones and right hip are intact. Mild osteoarthritis within the bilateral hips. 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 IMPRESSION: 1. No fracture or dislocation within the pelvis are hips. 2. Recommend follow-up CT of the left femur for further evaluation of the lytic lesion within the proximal femoral shaft. Electronically signed by: Carroll Chong M.D. 08/06/2018 7:15 AM Dictated: 08/06/18 0709 Transcribed: 08/06/18 0709 Hospital Course (1) Fall: (2) Closed left acetabular fracture: (3) Ambulatory dysfunction: Present on admission after sustained a fall CT hip showed demineralized appearance of the bones without acute fracture or dislocation. Moderate left hip osteoarthritis. CT left femur showed Confirmation of the 2.3 x 1.6 cm lytic lesion within the posterior medullary cavity of the left proximal femoral shaft. This is nonspecific could represent benign or aggressive lesions. MRI showed nondisplaced fracture within the anterior column of the left acetabulum which extends into the superior pubic ramus.Focal endosteal scalloping within the posterior cortex of the proximal to mid femoral shaft. This area measures 2.6 x 1.5 cm. This results in greater than 50% thinning of the posterior cortex. However, there is no abnormal signal intensity or enhancement within the medullary cavity to confirm the presence of a lesion. Therefore, this is likely developmental and is considered to be benign. Ortho on board - no surgical intervention Case discussed with Ortho, who reviewed MRI finding with the radiologist and confirmed that it is mostly benign. Ortho asked radiology for possibility of bone scan, but they feel that is unnecessary. Ortho recommended toe-touch weightbearing for the the treatment of acetabular fracture Pain control and fall precaution Follow up with ortho in 10-14 days outpatient OK from ortho standpoint to discharge (4) Osteoarthritis of hip: PT/OT Continue pain control (5) Acute worsening of stage 3 chronic kidney disease: Creatined baseline Cr 1.5-1.7 Cr improved to 1.5 Lasix resumed today Avoid nephrotoxic agent Check BMP in 1 week (6) Abnormal finding on CT scan: Lytic lesion found on CT femur MRI femur showed Focal endosteal scalloping within the posterior cortex of the proximal to mid femoral shaft. This area measures 2.6 x 1.5 cm. This results in greater than 50% thinning of the posterior cortex. However, there is no abnormal signal intensity or enhancement within the medullary cavity to confirm the presence of a lesion. Therefore, this is likely developmental and is considered to be benign. No need to get bone scan as per radiologist because the finding mostly to be benign Oncology on board PSA normal CT chest/Abd/Pelvis showed no abnormal masses Work up for multiple myeloma pending Follow up with oncology outpatient (7) Right heart failure: Last echo 09/01/2017 revealed LVEF 55 to 60% with severely reduced right ventricular systolic function, RV dilated, biatrial enlargement, pulmonary arterial pressure elevated at 75 mmHg received IV fluid Lasix on hold due to elevate creatinine Lasix resumes today Monitor for sign of fluid overload (8) PAF (paroxysmal atrial fibrillation): Rate controlled on metoprolol Continue metoprolol Continue warfarin for anticoagulant INR 1.9 today Monitor PT/INR (9) T2DM (type 2 diabetes mellitus): A1C 7.1 ( 06/16/18) hold oral glimepride Blood sugars elevated - titrate lantus Lantus/novolog sliding scale per protocol (10) HTN (hypertension): Blood pressure stable continue amlodipine Will resume lisinopril and Lasix in am (11) History of pulmonary embolism: Continue warfarin INR 1.9 today Monitor INR Alcohol abuse No signs of alcohol withdrawn received gabapentin for alcohol withdrawn Counseling on alcohol cessation (12) DVT prophylaxis: SCDS/TEDs, warfarin Disposition: Will discharge to [facility] for rehab today Total Time Total Time Spent Total Time Spent (In Minutes): 35 minutes Total Time Includes: Examination of the Patient, Discharge Planning, Medication Reconciliation, Communication With Other Providers and Other Discharge Plan Discharge Items Patient Disposition: Transfer Inpatient Rehab Fac Reason For Visit: WEAKNESS Discharge Diagnosis: (1) Fall: (2) Closed left acetabular fracture: (3) Ambulatory dysfunction: (4) Osteoarthritis of hip: (5) Acute worsening of stage 3 chronic kidney disease: (6) Paroxysmal A fib (7) History of pulmonary embolism: (8) Right heart failure (9) HTN Discharge Goals: Decrease discomfort, Improve disease control, Improve function and Increase independence Activity: As commented below Non-emergency contact: Primary Care Provider Call non-emergency contact if: you have any medication questions Follow-up/Referrals: Ez Navarro, [Primary Care Provider] - Diet: Carb Consistent or DM2 and Heart Healthy Addtl Provider Instructions: Follow up with your primary care provider once discharge from rehab Follow up with [facility] in 10-14 days (Please call to schedule follow appointment) Follow up with oncology Dr. Manning (Please call to schedule for the appointment ) Lab pending for multiple myeloma work up (your physician or oncology will review results with you) Ortho recommended toe-touch weightbearing for the the treatment of acetabular fracture Continue physical and occupational therapy Fall precaution Check BMP in 1 week to monitor kidney function Follow up with the coumadin clinic Monitor PT/INR (INT today 1.9) Continue pain control Please hold next dose of tramadol if pt becomes drowsy or lethargy Prescriptions: New baclofen 10 mg Tablet 5 mg PO BID Qty: 30 RF: 0 tramadol 50 mg tablet 50 mg PO Q6H PRN (Reason: pain) Qty: 10 RF: 0 acetaminophen [Tylenol Arthritis Pain] 650 mg tablet extended release 650 mg PO Q6H PRN (Reason: pain) Qty: 30 RF: 0 Continued atorvastatin 10 mg tablet 10 mg PO DAILY RF: 0 warfarin 2.5 mg tablet 1.25 mg PO WK RF: 0 amlodipine 5 mg tablet 5 mg PO DAILY RF: 0 glimepiride 2 mg tablet 2 mg PO DAILY RF: 0 magnesium oxide 400 mg (241.3 mg magnesium) tablet 400 mg PO QAM RF: 0 paroxetine HCl 20 mg tablet 20 mg PO DAILY RF: 0 lisinopril 10 mg tablet 10 mg PO DAILY RF: 0 allopurinol 300 mg tablet 300 mg PO DAILY RF: 0 metoprolol succinate 25 mg tablet extended release 24 hr 25 mg PO BID RF: 0 warfarin 2.5 mg tablet 2.5 mg PO [id number] RF: 0 furosemide 20 mg Tablet 20 mg PO DAILY RF: 0 cholecalciferol (vitamin D3) [Vitamin D3] 2,000 unit Tablet 2,000 unit PO DAILY RF: 0 Stand-Alone Forms: [facility] Discharge Orders: Discharge Order (Routine); Ordered 08/09/18 Ordered By: Dalila Vegas Skilled Items Patient informed of condition?: Yes DNR: No Discharge Level of Care: Acute rehab Communicable Disease: No Discharge Prognosis: Stable Admission Data Admit Date/Time: 08/08/18 07:29 Attending Provider: Dalila Vegas Admit Provider: Dalila Vegas Primary Care Provider: Ez Navarro Other Providers: Steven Reid Nilesh A ; Dalila Vegas Service: Telemetry Medical Other Interventions: Discharge Summary Assessment (RN) Last Done: 08/09/18 13:54 DC Date/Time DO NOT enter until pt leaves facility: 08/09/18 14:00
[2018-08-10 11:51] LABS: Free Kappa 54.5 MG/L (3.3-19.4); Free Kappa/Lambda Ratio 1.31 (0.26-1.65); Free Lambda 41.5 MG/L (5.7-26.3)
[2018-08-10] MEDS ORDERED: WARFARIN SOD 1.25 MG TAB PO SCH (16:00)
[2018-08-11 06:39] LABS: Creatinine Ur 67 MG/DL (20-320); Protein, Urine Random 44 MG/DL (5-25); Urine Protein/Creatinine Ratio 657 (22-128)
[2018-08-11 19:25] LABS: Alpha 1 Globulin 0.3 G/DL (0.2-0.3); Alpha 2 Globulin 0.6 G/DL (0.5-0.9); Beta-1-Globulin 0.4 G/DL (0.4-0.6); Beta-2-Globulin 0.4 G/DL (0.2-0.5); Gamma Globulin 1.1 G/DL (0.8-1.7); Monoclonal Protein Band 1 DNR G/DL (NOT DETECTED); Monoclonal Protein Band 2 DNR G/DL (NOT DETECTED); Monoclonal Protein Band 3 DNR G/DL (NOT DETECTED); Total Protein 5.9 G/DL (6.2-8.3)
== END 2018-08-09 14:00 | DRG 536 ==
LOC: 2N 02:00 → ED 02:00 → 2N 09:57
DX: F10.10 Alcohol abuse, uncomplicated; E11.22 Type 2 diabetes mellitus with diabetic chronic kidney disease; Z86.711 Personal history of pulmonary embolism; M10.9 Gout, unspecified; Z79.01 Long term (current) use of anticoagulants; W19.XXXA Unspecified fall, initial encounter; Z86.718 Personal history of other venous thrombosis and embolism; E86.0 Dehydration; I13.0 Hypertensive heart and chronic kidney disease with heart failure and stage 1 through stage 4 chronic kidney disease, or unspecified chronic kidney disease; I50.810 Right heart failure, unspecified; M16.0 Bilateral primary osteoarthritis of hip; N18.3 Chronic kidney disease, stage 3 (moderate); I95.1 Orthostatic hypotension; Y93.01 Activity, walking, marching and hiking; M89.9 Disorder of bone, unspecified; S32.415A Nondisplaced fracture of anterior wall of left acetabulum, initial encounter for closed fracture; Y92.009 Unspecified place in unspecified non-institutional (private) residence as the place of occurrence of the external cause; I48.0 Paroxysmal atrial fibrillation

== ENCOUNTER 2025-01-15 18:24 | Inpatient (IN) ==
--- NOTE | 2025-01-15 18:59 | Emergency Department Note ---
Impression & Plan Bilateral pleural effusion, Generalized weakness, Abnormal LFTs, Atrial fibrillation, Elevated INR ED Provider Note NAME: SAMUEL AVELAR AGE: 79 SEX: M : 1945 ARRIVES VIA: Ambulance INFORMANT: Patient, ED PROVIDER(S): Wing Ware DO CHIEF COMPLAINT: Generalized weakness HPI: The patient is an 79-year-old male who presented to the emergency department for an evaluation of generalized weakness. The patient states that he been having generalized weakness a dry cough as well as shortness of breath over the course of the last several days. The patient states symptoms did not improve in usual fashion. He denies having any black stool. He denies having any abdominal pain or chest pain. He states he normally does have some leg swelling but nothing new for him. The patient denies having any fever. The patient came to the emerged from today via ambulance for evaluation. ROS: See above HPI for pertinent positives & negatives. A total of 10 systems reviewed and were otherwise negative. PAST MEDICAL HISTORY: See Below PAST SURGICAL HISTORY: See Below FAMILY HISTORY: See Below SOCIAL HISTORY: See Below HOME MEDICATIONS: See Below ALLERGIES: See Below VITALS: See Below PHYSICAL EXAMINATION: GENERAL: Patient is awake alert in no acute distress patient is resting comfortably and showing no signs of anxiety EYES: The conjunctivae are clear. The pupils are round and reactive. EARS, NOSE, MOUTH AND THROAT: The nose is without any evidence of any deformity. NECK: The neck is nontender and supple. RESPIRATORY: Normal respiratory effort is noted there is no evidence of wheezing rhonchi or rales CARDIOVASCULAR: Irregular heart sounds were noted to auscultation. There is no definite murmur. GASTROINTESTINAL: The abdomen is soft and mildly distended. There is no guarding or rigidity noted. MUSCULOSKELETAL/EXTREMITIES: There is no evidence of gross deformity full range of motion is noted in the hips and shoulders. SKIN: Skin is warm and dry. Venous stasis changes were noted bilaterally. NEUROLOGIC: Patient is awake alert and oriented x3. Strength was symmetric but diminished bilateral. MEDICAL DECISION MAKING: The patient is an 79-year-old male who presented to the emergency department for an evaluation of generalized weakness. The patient did have hypertension noted in the emergency department. Oxygen saturation was borderline. The patient had ongoing and worsening symptoms over the course the last several days. I discussed patient's laboratory and radiographic studies with him. Given his age and comorbidities several laboratory and radiographic studies were obtained. Ultimately what was found is that the patient does have bilateral pleural effusions. It is likely this is what is causing the patient's problems. He does have borderline oxygen saturation. With exertion he states he does have some shortness of breath. The patient was felt to be a good candidate for inpatient management. [facility] have agreed to evaluate the patient in the emergency department for further management and disposition. Triage Nursing notes reviewed. Prior medical records reviewed Vital Signs: reviewed and remarkable for elevated blood pressure. Differential diagnosis: Infection, dehydration, metabolic abnormality, hypo/hyperglycemia, electrolyte disturbance, anemia, hypoxia, cardiac sources, intracerebral event, toxicologic, neurologic, as well as other pathologies. ER treatment provided: See below Diagnostics interpreted by me: ECG: EKG was obtained in the emergency department. My interpretation is atrial fibrillation at 99 bpm. No PVCs were noted. Right bundle branch block pattern was appreciated. This was compared to a tracing from August 06, 2018. No changes were noted. Cardiac Monitoring: An order was placed for continuous cardiac monitoring. The monitor shows a rate of 80 bpm with atrial fibrillation. Laboratory studies: As stated above and show below. Imaging studies: See below. Radiographic imaging was reviewed by myself Consultation(s): I discussed this case with Dr. Cordero who [facility] He will evaluate the patient in the emergency department. Past Med/Surg History Problem List (Updated 01/15/25 @ 22:18 by Wing Ware DO) Elevated INR (Acute) Abnormal LFTs (Acute) Generalized weakness (Acute) Bilateral pleural effusion (Acute) Compression fracture of body of thoracic vertebra Encounter for pre-operative examination Diabetic ulcer of left foot associated with type 2 diabetes mellitus Acquired lymphedema (Chronic) Venous insufficiency Dyslipidemia Hypertension Obstructive sleep apnea of adult Paroxysmal atrial fibrillation Personal history of diabetic foot ulcer Diabetic peripheral neuropathy associated with type 2 diabetes mellitus Venous ulcer of right lower extremity without varicose veins (Acute) Obsessive compulsive disorder Obstructive sleep apnea Morbid obesity with BMI of 40.0-44.9, adult Chronic venous insufficiency of lower extremity (Chronic) Venous stasis ulcer of left lower leg with edema of left lower leg (Acute) Diabetic ulcer of left foot associated with diabetes mellitus due to underlying condition, limited to breakdown of skin (Acute) Abnormal finding on CT scan DVT prophylaxis T2DM (type 2 diabetes mellitus) CKD (chronic kidney disease) stage 3, GFR 30-59 ml/min Hyperparathyroidism Right heart failure PAF (paroxysmal atrial fibrillation) Gout Obesity History of pulmonary embolism History of DVT (deep vein thrombosis) 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 History of inferior vena caval filter placement Ambulatory dysfunction Renal insufficiency Fall Atrial fibrillation (Acute) Medical History (Updated 01/15/25 @ 22:18 by Wing Ware DO) Gout Diabetes mellitus, type 2 On anticoagulant therapy warfarin daily Hypertension Hyperlipidemia Pulmonary embolism hx of 11/2009--unknown cause--reason for warfarin Sleep apnea pt states sleep study test stated he need CPAP, pt does not have a CPAP Morbid obesity [place] syndrome Lytic bone lesion of left femur Osteoarthritis of hip Acute worsening of stage 3 chronic kidney disease Hyperkalemia History of adenomatous polyp of colon (Unknown) Surgical History History of left cataract surgery History of prior ablation treatment left leg History of colonoscopy with polypectomy History of repair of retinal defect by laser photocoagulation bilt eyes S/P insertion of IVC (inferior vena caval) filter 11/2009 @ [facility] Family History Brother Prostate cancer Diabetes Father Coronary heart disease, Onset Age: 78 during CABG - felt heparin allergy Family history of diabetes mellitus Mother Old age Family history of diabetes mellitus Other No family history of adverse response to anesthesia Social History Smoking Status: Former smoker Second Hand Exposure: No; Do You Dip or Chew Tobacco: No; Hx Alcohol Use: Yes Alcohol type: beer, wine and hard liquor Alcohol Intake Frequency Comment: 2 rum/cokes daily Hx Substance Use: No Preferred Language: Portuguese Communication Ability: Effective 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 Beliefs That Will Affect Care: None marital status: Current Living Situation: Spouse Current Living Situation Comment: ambulate with cane/walker when out and about Feels Safe at Home: Yes Diet: low salt during the past year weight has: remained stable Assistive Devices: Glasses Allergies Allergies Allergy/AdvReac Type Severity Reaction Status Date / Time No Known Allergies Allergy Verified 01/15/25 19:52 Home Meds Home Medications Medication Instructions Recorded Confirmed warfarin 2.5 mg tablet 1.25 mg PO 2XWK 08/06/18 01/15/25 warfarin 2.5 mg tablet 2.5 mg PO 5XWK 08/06/18 01/15/25 furosemide 40 mg tablet (Lasix) 40 mg PO QAM 07/08/19 01/15/25 allopurinol 300 mg tablet 300 mg PO QAM 11/04/19 01/15/25 atorvastatin 40 mg tablet 40 mg PO QAM 01/15/25 01/15/25 empagliflozin 25 mg tablet 25 mg PO QAM 01/15/25 01/15/25 (Jardiance) furosemide 40 mg tablet (Lasix) 20 mg PO .QAFTERNOON 01/15/25 01/15/25 insulin glargine 100 unit/mL (3 28 unit subcut PENDING SALE TO [facility] 01/15/25 01/15/25 mL) subcutaneous pen (Lantus Solostar U-100 Insulin) magnesium oxide 400 mg PO DAILY 01/15/25 01/15/25 metoprolol succinate 50 mg 25 mg PO QPM 01/15/25 01/15/25 tablet,extended release 24 hr metoprolol succinate 50 mg 50 mg PO QAM 01/15/25 01/15/25 tablet,extended release 24 hr Results & Data (ED) Vital Signs Vital Signs - 24 hr 01/15/25 18:28 01/15/25 18:28 01/15/25 18:34 Temperature 36.5 C 36.5 C Temperature Source Oral Oral Pulse Rate 96 H 100 H Pulse Rate [Apical] 96 H Pulse Rate from SpO2 Sensor Respiratory Rate 18 18 Respiratory Effort / Characteristics Non-Labored Non-Labored Respiratory Depth Normal Normal Blood Pressure 146/108 H Blood Pressure [Right Arm] 146/108 H Blood Pressure Mean 120 Blood Pressure Mean [Right Arm] 120 Pulse Oximetry 94 94 Oxygen Delivery Method Room Air Room Air Sepsis Recent Fever Within 48 Hours No Sepsis New/Unexplained Change in Mental Status No Sepsis Action Taken by Nursing No Action Required 01/15/25 18:43 01/15/25 18:49 01/15/25 20:36 Temperature Temperature Source Pulse Rate 80 Pulse Rate [Apical] Pulse Rate from SpO2 Sensor 85 Respiratory Rate 21 Respiratory Effort / Characteristics Respiratory Depth Blood Pressure 143/82 H 133/103 H Blood Pressure [Right Arm] Blood Pressure Mean 108 113 Blood Pressure Mean [Right Arm] Pulse Oximetry 94 93 Oxygen Delivery Method Room Air Room Air Sepsis Recent Fever Within 48 Hours Sepsis New/Unexplained Change in Mental Status Sepsis Action Taken by Residential Medications Current Medication List: was personally reviewed by me Laboratory Data Attestation: I reviewed the patient's lab results. 01/15/25 18:52 01/15/25 18:52 Lab Results 01/15/25 01/15/25 Range/Units 18:52 20:05 WBC 11.64 H (4.8-10.8) K/ul RBC 5.41 (4.70-6.10) M/uL Hgb 16.4 (14.0-18.0) g/dL Hct 48.2 (42.0-52.0) % MCV 89.1 (80.0-100.0) fL MCH 30.3 (25.0-34.0) pg MCHC 34.0 (32.0-36.0) g/dL RDW Std Deviation 48.7 H (36.4-46.3) fL RDW Coeff of Tarun 14.9 H (11.5-14.5) % Plt Count 224 (130-400) K/uL MPV 9.5 (9.4-12.4) fL Immature Gran % (Auto) 0.9 % Neut % (Auto) 73.8 % Lymph % (Auto) 14.2 % [place] % (Auto) 9.3 % Eos % (Auto) 1.3 % Baso % (Auto) 0.5 % Neut # (Auto) 8.60 H (1.40-6.50) K/uL Lymph # (Auto) 1.65 (1.20-3.40) K/uL [place] # (Auto) 1.08 H (0.11-0.59) K/uL Eos # (Auto) 0.15 (0.00-0.50) K/uL Baso # (Auto) 0.06 (0.00-0.20) K/uL Immature Gran # (Auto) 0.10 (0.01-0.20) K/uL PT 70.2 H (9.0-12.0) Seconds INR 7.4 H* (0.9-1.1) APTT 53 H (21-31) Seconds PTT Ratio 1.9 Sodium 136 (136-145) mmol/L Potassium 3.9 (3.5-5.1) mmol/L Chloride 100 (98-107) mmol/L Carbon Dioxide 27 (21-32) mmol/L Anion Gap 9 (3-11) BUN 39 H (6-23) mg/dl Creatinine 1.61 H (0.6-1.4) mg/dl Est Cr Clr Drug Dosing 43.8 ml/min eGFR 42.96 BUN/Creatinine Ratio 24.2 H (10-20) Glucose 213 H (70-99(Fasting)) mg/dl Calcium 8.7 (8.6-10.3) mg/dl Magnesium 2.3 (1.7-2.4) mg/dl Total Bilirubin 1.6 H (0.2-1.0) mg/dl AST 80 H (13-39) U/L ALT 105 H (7-52) U/L Alkaline Phosphatase 177 H (34-104) U/L Total Creatine Kinase 20 L (30-223) U/L Troponin I High Sens 14.1 (0-20) pg/ml Total Protein 6.7 (6.0-8.3) gm/dl Albumin 2.9 L (3.4-5.0) gm/dl Globulin 3.8 (2.5-4.0) gm/dl Albumin/Globulin Ratio 0.8 L (0.9-2) TSH 2.106 (0.300-4.500) uIu/ml Urine Color Yellow Urine Appearance Clear (Clear) Urine pH 7.5 (4.5-7.5) Ur Specific [place] 1.019 (1.000-1.030) Urine Protein 2+ H (Negative) Urine Glucose (UA) 3+ H (Negative) Urine Ketones Negative (Negative) Urine Blood Negative (Negative) Urine Nitrite Negative (Negative) Urine Bilirubin Negative (Negative) Urine Urobilinogen Negative (Negative) Ur Leukocyte Esterase Negative (Negative) Urine WBC (Auto) 0-5 (0-5) /hpf Urine RBC (Auto) 0-2 (0-2) /hpf U Hyaline Cast (Auto) 0-2 (0-2) /lpf U Epithel Cells (Auto) 0-2 (0-2) /hpf Urine Bacteria (Auto) None Seen (None Seen) Urine Comment SARS-CoV-2 (PCR) NEGATIVE (Negative) Influenza Type A (PCR) Negative (Neg) Influenza Type B (PCR) Negative (Neg) RSV (RT-PCR) Negative (Neg) Administered Medications Discontinued Medications Ioversol (Optiray 320 125ml) 119 ml IV ONCE ONE Stop: 01/15/25 20:29 Last Admin: 01/15/25 20:28 Dose: 119 ml Documented By: KANK Imaging Data Attestation: I personally reviewed and interpreted this imaging study as follows: My Impression: 1 view chest x-ray was obtained in the emergency department. My interpretation is cardiomegaly, no free air, final report below. Radiologist's Impression: Chest X-Ray 01/15/25 18:41 Exam: Chest one view portable. Reason for exam: Weakness Previous studies: 11/21/2023. FINDINGS: Heart remains moderately enlarged with chronic pulmonary venous hypertension. Areas of bibasilar atelectasis/fibrosis persist without new areas of consolidation. IMPRESSION: 1. Chronic cardiomegaly and pulmonary venous hypertension. 2. Chronic bibasilar fibrosis/atelectasis. Electronically signed by Booker Anthony 01-15-2025 7:[address] 01/15/25 18:42 Exam: CT head/brain without contrast. Reason for exam: Weakness Previous studies: 10/31/2017. FINDINGS: Again the CSF density extra-axial space is increased on the right consistent with chronic hygroma unchanged since the previous study. At this time no acute intracranial mass, hemorrhage or edema is seen. Diffuse lucency again seen in the deep right matter. Vascular calcifications of the intercerebral artery is present. The mastoids and visualized sinuses remain well aerated. No acute process of the bony calvarium is noted. IMPRESSION: 1. Negative for acute intracranial process and unenhanced head CT scan. 2. 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 3. Stable appearance of the chronic ischemic angiopathy and atherosclerotic changes of the cerebral arteries. Electronically signed by Booker Anthony 01-15-2025 8:01 PM Abdomen/Pelvis CT 01/15/25 19:57 Exam(s): CT ABDOMEN + PELVIS With Contrast IV Amt: 119ML OPTIRAY 320 EXAM: CT Abdomen and Pelvis With Intravenous Contrast CLINICAL HISTORY: Reason for exam: RUQ pain. TECHNIQUE: Axial computed tomography images of the abdomen and pelvis with intravenous contrast. CTDI is 71.52 mGy and DLP is 2422.02 mGy-cm. Automated exposure control was utilized for the study. A dose lowering technique was utilized adhering to the principles of ALARA. CONTRAST: Patient received 119ML OPTIRAY 320 of IV contrast COMPARISON: No relevant prior studies available. FINDINGS: Lung bases: Unremarkable. No mass. No consolidation. ABDOMEN: Liver: Unremarkable. No mass. Gallbladder and bile ducts: Cholelithiasis without evidence acute cholecystitis Pancreas: Unremarkable. No mass. No ductal dilation. Spleen: Unremarkable. No splenomegaly. Adrenals: Unremarkable. No mass. Kidneys and ureters: Unremarkable. No solid mass. No hydronephrosis. Stomach and bowel: Moderate amount of stool within the colon. Diverticulosis without evidence of diverticulitis. No obstruction. PELVIS: Appendix: Postop changes prior appendectomy. Bladder: Unremarkable. No mass. Reproductive: Unremarkable as visualized. ABDOMEN and PELVIS: Intraperitoneal space: Unremarkable. No free air. No significant fluid collection. Bones/joints: Please see separate dictation for details of the intrathoracic contents. No acute fracture. No dislocation. Soft tissues: Unremarkable. Vasculature: IVC filter is present. . No abdominal aortic aneurysm. Lymph nodes: Unremarkable. No enlarged lymph nodes. IMPRESSION: No acute findings in the abdomen or pelvis. Electronically signed by: Toby Scott MD 01/15/25 21:32 PM Chest CTA 01/15/25 19:57 Exam(s): CTA CHEST IV Amt: 119ML OPTIRAY 320 EXAM: CT Angiography Chest With Intravenous Contrast CLINICAL HISTORY: Reason for exam: PE. TECHNIQUE: Axial computed tomographic angiography images of the chest with intravenous contrast. CTDI is 71.52 mGy and DLP is 2422.02 mGy-cm. Automated exposure control was utilized for the study. A dose lowering technique was utilized adhering to the principles of ALARA. MIP reconstructed images were created and reviewed. COMPARISON: No relevant prior studies available. FINDINGS: Pulmonary arteries: Unremarkable. No pulmonary embolism. Aorta: No acute findings. No thoracic aortic aneurysm. Lungs: See below. Pleural space: Large bilateral pleural effusions. Compressive atelectasis both lower lobes. No pneumothorax. Heart: Cardiomegaly. No significant pericardial effusion. No evidence of RV dysfunction. Bones/joints: No acute fracture. No dislocation. Soft tissues: Unremarkable. Lymph nodes: Unremarkable. No enlarged lymph nodes. IMPRESSION: No pulmonary embolus CHF with large bilateral pleural effusions [id number] Electronically signed by: Toby Scott MD 01/15/25 21:23 PM Discharge Plan Visit Data Chief Complaint: Illness Stated Complaint: ILLNESS ED Provider: Wing Ware Discharge Problem: Bilateral pleural effusion, Generalized weakness, Abnormal LFTs, Atrial fibrillation, Elevated INR Patient Disposition: Being Evaluated by Hospitalist Condition: Fair Forms Stand Alone Forms: [facility] Prescriptions Prescriptions: No Action furosemide [Lasix] 40 mg tablet 40 mg PO QAM allopurinol 300 mg Tablet 300 mg PO QAM warfarin 2.5 mg tablet 1.25 mg PO 2XWK Patient Comments: takes on sun/wed in the qpm Rx Instructions: MON, & FRI. EVENINGS warfarin 2.5 mg tablet 2.5 mg PO 5XWK Patient Comments: fri/e/thur/fri/sat Rx Instructions: SUN, TU, WED, THURS, & SAT EVENINGS furosemide [Lasix] 40 mg Tablet 20 mg PO .QAFTERNOON Rx Instructions: MAY TAKE ADDITIONAL 20 MG FOR INCREASED SWELLING, IF NEEDED. atorvastatin 40 mg tablet 40 mg PO QAM metoprolol succinate 50 mg tablet extended release 24 hr 50 mg PO QAM metoprolol succinate 50 mg tablet extended release 24 hr 25 mg PO QPM insulin glargine [Lantus Solostar U-100 Insulin] 100 unit/mL (3 mL) insulin pen 28 unit SUBCUT QAM Jardiance 25 mg Tablet 25 mg PO QAM magnesium oxide 400 mg magnesium Tablet 400 mg PO DAILY Referrals Referrals: Rachael Dao MD [Primary Care Provider] -
[2025-01-15 19:07] LABS: Hematocrit (blood only) 48.2 % (42.0-52.0); Hemoglobin 16.4 g/dL (14.0-18.0); Immature Granulocytes # (auto) 0.10 K/uL (0.01-0.20); Immature Granulocytes % (auto) 0.9 %; Mean Corpuscular Hemoglobin 30.3 pg (25.0-34.0); Mean Corpuscular Volume 89.1 fL (80.0-100.0); Platelet Count 224 K/uL (130-400); RDW Standard Deviation 48.7 fL (36.4-46.3); Red Blood Count 5.41 M/uL (4.70-6.10); White Blood Count 11.64 K/ul (4.8-10.8)
[2025-01-15 19:25] LABS: Alanine Aminotransferase 105.0 U/L (7-52); Albumin Globulin Ratio 0.8 (0.9-2); Albumin Level 2.9 gm/dl (3.4-5.0); Alkaline Phosphatase 177.0 U/L (34-104); Anion Gap 9.0 (3-11); Bilirubin,Total 1.6 mg/dl (0.2-1.0); Blood Urea Nitrogen 39.0 mg/dl (6-23); Calcium 8.7 mg/dl (8.6-10.3); Carbon Dioxide 27.0 mmol/L (21-32); Chloride 100.0 mmol/L (98-107); Creatine Kinase 20.0 U/L (30-223); Creatinine Clr Calc Pharmacy 43.8 ml/min; Globulin 3.8 gm/dl (2.5-4.0); Glucose 213.0 mg/dl (70-99(Fasting)); Magnesium 2.3 mg/dl (1.7-2.4); Potassium 3.9 mmol/L (3.5-5.1); Sodium 136.0 mmol/L (136-145); Total Protein 6.7 gm/dl (6.0-8.3)
--- NOTE | 2025-01-15 19:34 | XRay Report ---
Exam: Chest one view portable. Reason for exam: Weakness Previous studies: 11/21/2023. FINDINGS: Heart remains moderately enlarged with chronic pulmonary venous hypertension. Areas of bibasilar atelectasis/fibrosis persist without new areas of consolidation. IMPRESSION: 1. Chronic cardiomegaly and pulmonary venous hypertension. 2. Chronic bibasilar fibrosis/atelectasis. Electronically signed by Booker Anthony 01-15-2025 7:33 PM
[2025-01-15 19:39] LABS: Partial Thromboplastin Time 53 Seconds (21-31); Prothrombin Time 70.2 Seconds (9.0-12.0)
[2025-01-15 19:40] LABS: Thyroid Stimulating Hormone 2.106 uIu/ml (0.300-4.500)
[2025-01-15 19:52] LABS: INR 7.4 (0.9-1.1)
[2025-01-15 19:54] LABS: Influenza A virus by PCR Negative (Neg); Influenza B virus by PCR Negative (Neg); SARS CoV2 RNA(COVID-19) Ceph NEGATIVE (Negative)
--- NOTE | 2025-01-15 20:01 | CT Scan Report ---
Exam: CT head/brain without contrast. Reason for exam: Weakness Previous studies: 10/31/2017. FINDINGS: Again the CSF density extra-axial space is increased on the right consistent with chronic hygroma unchanged since the previous study. At this time no acute intracranial mass, hemorrhage or edema is seen. Diffuse lucency again seen in the deep right matter. Vascular calcifications of the intercerebral artery is present. The mastoids and visualized sinuses remain well aerated. No acute process of the bony calvarium is noted. IMPRESSION: 1. Negative for acute intracranial process and unenhanced head CT scan. 2. 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 3. Stable appearance of the chronic ischemic angiopathy and atherosclerotic changes of the cerebral arteries. Electronically signed by Booker Anthony 01-15-2025 8:01 PM
[2025-01-15 20:21] LABS: Appearance Urine Clear (Clear); Bacteria Urine Automated None Seen (None Seen); Cast Urine Automated 0-2 /lpf (0-2); Epithelial Cell Urine Auto 0-2 /hpf (0-2); Glucose Urine UA 3+ (Negative); RBC Urine Automated 0-2 /hpf (0-2); WBC Urine Automated 0-5 /hpf (0-5)
[2025-01-15] MEDS: OPTIRAY 320 125ml IV ONE (20:28)
--- NOTE | 2025-01-15 21:23 | CT Scan Report ---
Exam(s): CTA CHEST IV Amt: 119ML OPTIRAY 320 EXAM: CT Angiography Chest With Intravenous Contrast CLINICAL HISTORY: Reason for exam: PE. TECHNIQUE: Axial computed tomographic angiography images of the chest with intravenous contrast. CTDI is 71.52 mGy and DLP is 2422.02 mGy-cm. Automated exposure control was utilized for the study. A dose lowering technique was utilized adhering to the principles of ALARA. MIP reconstructed images were created and reviewed. COMPARISON: No relevant prior studies available. FINDINGS: Pulmonary arteries: Unremarkable. No pulmonary embolism. Aorta: No acute findings. No thoracic aortic aneurysm. Lungs: See below. Pleural space: Large bilateral pleural effusions. Compressive atelectasis both lower lobes. No pneumothorax. Heart: Cardiomegaly. No significant pericardial effusion. No evidence of RV dysfunction. Bones/joints: No acute fracture. No dislocation. Soft tissues: Unremarkable. Lymph nodes: Unremarkable. No enlarged lymph nodes. IMPRESSION: No pulmonary embolus CHF with large bilateral pleural effusions [id number] Electronically signed by: Toby Scott MD 01/15/25 21:23 PM
--- NOTE | 2025-01-15 21:34 | CT Scan Report ---
Exam(s): CT ABDOMEN + PELVIS With Contrast IV Amt: 119ML OPTIRAY 320 EXAM: CT Abdomen and Pelvis With Intravenous Contrast CLINICAL HISTORY: Reason for exam: RUQ pain. TECHNIQUE: Axial computed tomography images of the abdomen and pelvis with intravenous contrast. CTDI is 71.52 mGy and DLP is 2422.02 mGy-cm. Automated exposure control was utilized for the study. A dose lowering technique was utilized adhering to the principles of ALARA. CONTRAST: Patient received 119ML OPTIRAY 320 of IV contrast COMPARISON: No relevant prior studies available. FINDINGS: Lung bases: Unremarkable. No mass. No consolidation. ABDOMEN: Liver: Unremarkable. No mass. Gallbladder and bile ducts: Cholelithiasis without evidence acute cholecystitis Pancreas: Unremarkable. No mass. No ductal dilation. Spleen: Unremarkable. No splenomegaly. Adrenals: Unremarkable. No mass. Kidneys and ureters: Unremarkable. No solid mass. No hydronephrosis. Stomach and bowel: Moderate amount of stool within the colon. Diverticulosis without evidence of diverticulitis. No obstruction. PELVIS: Appendix: Postop changes prior appendectomy. Bladder: Unremarkable. No mass. Reproductive: Unremarkable as visualized. ABDOMEN and PELVIS: Intraperitoneal space: Unremarkable. No free air. No significant fluid collection. Bones/joints: Please see separate dictation for details of the intrathoracic contents. No acute fracture. No dislocation. Soft tissues: Unremarkable. Vasculature: IVC filter is present. . No abdominal aortic aneurysm. Lymph nodes: Unremarkable. No enlarged lymph nodes. IMPRESSION: No acute findings in the abdomen or pelvis. Electronically signed by: Toby Scott MD 01/15/25 21:32 PM
--- NOTE | 2025-01-15 22:33 | History & Physical Report ---
Date of Service January 15, 2025 Assessment & Plan (1) Decompensated heart failure: Plan: Assessment and plan below following discussion of case with ED provider and reviewing patient history/pertinent normal/abnormal diagnostic test results. Decompensated heart failure History diastolic dysfunction, right-sided heart failure as per records Underlying pulmonary hypertension ALMITA/CPAP noncompliance A-fib/PE DVT on Coumadin, INR supratherapeutic without bleeding concerns valvular heart disease (mild MR/TR) hypertension, hyperlipidemia, stable CRI, creatinine at baseline DM 2 insulin requiring, well-controlled as of recent hemoglobin A1c of 6.07 November 2024 past tobacco abuse Admit to PCU Diuretic Rx Strict I/Os, daily weights, CHF education Recheck chest x-ray in a.m. to evaluate pleural effusion response to initial diuretic dose Monitor renal function daily Cardiology consult re: CHF Patient amenable to outpatient Sleep Medicine appointment to discuss CPAP options following discharge. Basal-bolus insulin, ISS BG goal 110-140, carb count coverage Oral Vitamin K 1 dose now for supratherapeutic INR without bleeding concerns DVT prophylaxis. Coumadin INR goal between 2 and 3 Full code Text document was generated using [employer] voice recognition software. It may contain grammatical or spelling errors. Kindly contact undersigned for clarification of any documentation item in question. History of Present Illness Chief Complaint: Shortness of breath Primary Care Provider: Rachael Dao MD History obtained from patient and records. Medical history significant for chronic diastolic heart failure/right-sided heart failure (EF 60%, TTE, 2023), A-fib/PE DVT status post IVC filter placement on Coumadin, valvular heart disease (mild MR/TR), hypertension, hyperlipidemia, pulmonary hypertension, ALMITA (CPAP noncompliance), CRI (baseline creatinine 1.7), DM 2 insulin requiring, BPH, gout, OCD, past tobacco abuse. Last confinement August 2018 for traumatic left acetabular fracture secondary to fall. No operative intervention. 2 weeks ago, patient noted exertional SOB and fatigue symptoms. Usual dry cough symptoms. Denies chest pain or unusual fluid retention. Denies headache or bleeding concerns. Voluntary weight loss from cutting down on food intake over the last few years as per patient. Patient seen at PCPs office last week. Outpatient chest x-ray showed New mild elevation/eventration of the posterior left hemidiaphragm. Mild bl unting of the left costophrenic angle. Outpatient CT chest recommended. Patient consulted ER for worsening symptoms. 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 Allergies Allergy/AdvReac Type Severity Reaction Status Date / Time No Known Allergies Allergy Verified 01/15/25 19:52 Home Medications Medication Instructions Recorded Confirmed Type warfarin 2.5 mg tablet 1.25 mg PO 2XWK 08/06/18 01/15/25 History warfarin 2.5 mg tablet 2.5 mg PO 5XWK 08/06/18 01/15/25 History furosemide 40 mg tablet (Lasix) 40 mg PO QAM 07/08/19 01/15/25 History allopurinol 300 mg tablet 300 mg PO QAM 11/04/19 01/15/25 History atorvastatin 40 mg tablet 40 mg PO QAM 01/15/25 01/15/25 History empagliflozin 25 mg tablet 25 mg PO QAM 01/15/25 01/15/25 History (Jardiance) furosemide 40 mg tablet (Lasix) 20 mg PO .QAFTERNOON 01/15/25 01/15/25 History insulin glargine 100 unit/mL (3 28 unit subcut QAM 01/15/25 01/15/25 History mL) subcutaneous pen (Lantus Solostar U-100 Insulin) magnesium oxide 400 mg PO DAILY 01/15/25 01/15/25 History metoprolol succinate 50 mg 25 mg PO QPM 01/15/25 01/15/25 History tablet,extended release 24 hr metoprolol succinate 50 mg 50 mg PO QAM 01/15/25 01/15/25 History tablet,extended release 24 hr Past Med/Surg History Problem List (Updated 01/16/25 @ 05:33 by Alessandro Cordero MD) Decompensated heart failure Elevated INR (Acute) Abnormal LFTs (Acute) Generalized weakness (Acute) Bilateral pleural effusion (Acute) Compression fracture of body of thoracic vertebra Encounter for pre-operative examination Diabetic ulcer of left foot associated with type 2 diabetes mellitus Acquired lymphedema (Chronic) Venous insufficiency Dyslipidemia Hypertension Obstructive sleep apnea of adult Paroxysmal atrial fibrillation Personal history of diabetic foot ulcer Diabetic peripheral neuropathy associated with type 2 diabetes mellitus Venous ulcer of right lower extremity without varicose veins (Acute) Obsessive compulsive disorder Obstructive sleep apnea Morbid obesity with BMI of 40.0-44.9, adult Chronic venous insufficiency of lower extremity (Chronic) Venous stasis ulcer of left lower leg with edema of left lower leg (Acute) Diabetic ulcer of left foot associated with diabetes mellitus due to underlying condition, limited to breakdown of skin (Acute) Abnormal finding on CT scan DVT prophylaxis T2DM (type 2 diabetes mellitus) CKD (chronic kidney disease) stage 3, GFR 30-59 ml/min Hyperparathyroidism Right heart failure PAF (paroxysmal atrial fibrillation) Gout Obesity History of pulmonary embolism History of DVT (deep vein thrombosis) senior care current use of anticoagulant History of inferior vena caval filter placement Ambulatory dysfunction Renal insufficiency Fall Atrial fibrillation (Acute) Medical History (Updated 01/16/25 @ 05:33 by Alessandro Cordero MD) Gout Diabetes mellitus, type 2 On anticoagulant therapy warfarin daily Hypertension Hyperlipidemia Pulmonary embolism hx of 11/2009--unknown cause--reason for warfarin Sleep apnea pt states sleep study test stated he need CPAP, pt does not have a CPAP Morbid obesity [place] syndrome Lytic bone lesion of left femur Osteoarthritis of hip Acute worsening of stage 3 chronic kidney disease Hyperkalemia History of adenomatous polyp of colon (Unknown) Surgical History History of left cataract surgery History of prior ablation treatment left leg History of colonoscopy with polypectomy History of repair of retinal defect by laser photocoagulation bilt eyes S/P insertion of IVC (inferior vena caval) filter 11/2009 @ [facility] Family History Brother Prostate cancer Diabetes Father Coronary heart disease, Onset Age: 78 during CABG - felt heparin allergy Family history of diabetes mellitus Mother Old age Family history of diabetes mellitus Other No family history of adverse response to anesthesia Social History Smoking Status: Never smoker Second Hand Exposure: No; Do You Dip or Chew Tobacco: No; Hx Alcohol Use: Yes Alcohol type: hard liquor Alcohol Intake Frequency Comment: 2 rum/cokes daily Hx Substance Use: No Preferred Language: Ghanaian Communication Ability: Effective Uptwister Tender Required: No Beliefs That Will Affect Care: None marital status: Current Living Situation: Spouse Current Living Situation Comment: - gilma Other Information That Helps Us Care for You: No Feels Safe at Home: Yes Safety Concerns: Feels Safe At This Time Diet: low salt during the past year weight has: remained stable Assistive Devices: Glasses and Walker Review of Systems Review of Systems: As per HPI, all other systems reviewed and negative Physical Exam Physical Exam: GENERAL: Comfortable, pleasant, obese, no respiratory distress SKIN: Pallor, warm HEENT: Pale palpebral conjunctivae, no ptosis, dry buccal mucosa NECK : Supple, no tenderness CHEST : Decreased breath sounds, no tenderness HEART : Irregular, no obvious murmurs ABDOMEN: Some distention, nontender EXTREMITIES : Bilateral LE venous stasis (chronic as per patient) without tenderness, palpable pulses, no other conspicuous deformities noted NEUROLOGIC : Coherent, no facial asymmetry, no other gross focality Results & Data Results & Data Vital Signs (Past 12 Hours) Vital Signs Temp Pulse Pulse Resp BP BP Pulse Ox 01/15/25 22:30 86 01/15/25 20:36 80 21 133/103 H 93 01/15/25 18:49 94 01/15/25 18:43 143/82 H 01/15/25 18:34 100 H 01/15/25 18:28 36.5 C 96 H 18 146/108 H 94 01/15/25 18:28 36.5 C 96 H 18 146/108 H 94 O2 Del Method 01/15/25 22:30 01/15/25 20:36 Room Air 01/15/25 18:49 Room Air 01/15/25 18:43 01/15/25 18:34 01/15/25 18:28 Room Air 01/15/25 18:28 Room Air Laboratory Results Laboratory Results WBC 11.64 K/ul (4.8-10.8) H 01/15/25 18:52 RBC 5.41 M/uL (4.70-6.10) 01/15/25 18:52 Hgb 16.4 g/dL (14.0-18.0) 01/15/25 18:52 Hct 48.2 % (42.0-52.0) 01/15/25 18:52 MCV 89.1 fL (80.0-100.0) 01/15/25 18:52 MCH 30.3 pg (25.0-34.0) 01/15/25 18:52 MCHC 34.0 g/dL (32.0-36.0) 01/15/25 18:52 RDW Std Deviation 48.7 fL (36.4-46.3) H 01/15/25 18:52 RDW Coeff of [place] 14.9 % (11.5-14.5) H 01/15/25 18:52 Plt Count 224 K/uL (130-400) 01/15/25 18:52 MPV 9.5 fL (9.4-12.4) 01/15/25 18:52 Immature Gran % (Auto) 0.9 % 01/15/25 18:52 Neut % (Auto) 73.8 % 01/15/25 18:52 Lymph % (Auto) 14.2 % 01/15/25 18:52 [place] % (Auto) 9.3 % 01/15/25 18:52 Eos % (Auto) 1.3 % 01/15/25 18:52 Baso % (Auto) 0.5 % 01/15/25 18:52 Neut # (Auto) 8.60 K/uL (1.40-6.50) H 01/15/25 18:52 Lymph # (Auto) 1.65 K/uL (1.20-3.40) 01/15/25 18:52 [place] # (Auto) 1.08 K/uL (0.11-0.59) H 01/15/25 18:52 Eos # (Auto) 0.15 K/uL (0.00-0.50) 01/15/25 18:52 Baso # (Auto) 0.06 K/uL (0.00-0.20) 01/15/25 18:52 Immature Gran # (Auto) 0.10 K/uL (0.01-0.20) 01/15/25 18:52 PT 70.2 Seconds (9.0-12.0) H 01/15/25 18:52 INR 7.4 (0.9-1.1) H* 01/15/25 18:52 APTT 53 Seconds (21-31) H 01/15/25 18:52 PTT Ratio 1.9 01/15/25 18:52 Sodium 136 mmol/L (136-145) 01/15/25 18:52 Potassium 3.9 mmol/L (3.5-5.1) 01/15/25 18:52 Chloride 100 mmol/L (98-107) 01/15/25 18:52 Carbon Dioxide 27 mmol/L (21-32) 01/15/25 18:52 Anion Gap 9 (3-11) 01/15/25 18:52 BUN 39 mg/dl (6-23) H 01/15/25 18:52 Creatinine 1.61 mg/dl (0.6-1.4) H 01/15/25 18:52 Est Cr Clr Drug Dosing 43.8 ml/min 01/15/25 18:52 eGFR 42.96 01/15/25 18:52 BUN/Creatinine Ratio 24.2 (10-20) H 01/15/25 18:52 Glucose 213 mg/dl (70-99(Fasting)) H 01/15/25 18:52 Calcium 8.7 mg/dl (8.6-10.3) 01/15/25 18:52 Magnesium 2.3 mg/dl (1.7-2.4) 01/15/25 18:52 Total Bilirubin 1.6 mg/dl (0.2-1.0) H 01/15/25 18:52 AST 80 U/L (13-39) H 01/15/25 18:52 ALT 105 U/L (7-52) H 01/15/25 18:52 Alkaline Phosphatase 177 U/L (34-104) H 01/15/25 18:52 Total Creatine Kinase 20 U/L (30-223) L 01/15/25 18:52 Troponin I High Sens 14.1 pg/ml (0-20) 01/15/25 18:52 Total Protein 6.7 gm/dl (6.0-8.3) 01/15/25 18:52 Albumin 2.9 gm/dl (3.4-5.0) L 01/15/25 18:52 Globulin 3.8 gm/dl (2.5-4.0) 01/15/25 18:52 Albumin/Globulin Ratio 0.8 (0.9-2) L 01/15/25 18:52 TSH 2.106 uIu/ml (0.300-4.500) 01/15/25 18:52 Urine Color Yellow 01/15/25 20:05 Urine Appearance Clear (Clear) 01/15/25 20:05 Urine pH 7.5 (4.5-7.5) 01/15/25 20:05 Ur Specific [place] 1.019 (1.000-1.030) 01/15/25 20:05 Urine Protein 2+ (Negative) H 01/15/25 20:05 Urine Glucose (UA) 3+ (Negative) H 01/15/25 20:05 Urine Ketones Negative (Negative) 01/15/25 20:05 Urine Blood Negative (Negative) 01/15/25 20:05 Urine Nitrite Negative (Negative) 01/15/25 20:05 Urine Bilirubin Negative (Negative) 01/15/25 20:05 Urine Urobilinogen Negative (Negative) 01/15/25 20:05 Ur Leukocyte Esterase Negative (Negative) 01/15/25 20:05 Urine WBC (Auto) 0-5 /hpf (0-5) 01/15/25 20:05 Urine RBC (Auto) 0-2 /hpf (0-2) 01/15/25 20:05 U Hyaline Cast (Auto) 0-2 /lpf (0-2) 01/15/25 20:05 U Epithel Cells (Auto) 0-2 /hpf (0-2) 01/15/25 20:05 Urine Bacteria (Auto) None Seen (None Seen) 01/15/25 20:05 Urine Comment 01/15/25 20:05 SARS-CoV-2 (PCR) NEGATIVE (Negative) 01/15/25 18:52 Influenza Type A (PCR) Negative (Neg) 01/15/25 18:52 Influenza Type B (PCR) Negative (Neg) 01/15/25 18:52 RSV (RT-PCR) Negative (Neg) 01/15/25 18:52 Impressions Chest X-Ray 01/15/25 18:41 Exam: Chest one view portable. Reason for exam: Weakness Previous studies: 11/21/2023. FINDINGS: Heart remains moderately enlarged with chronic pulmonary venous hypertension. Areas of bibasilar atelectasis/fibrosis persist without new areas of consolidation. IMPRESSION: 1. Chronic cardiomegaly and pulmonary venous hypertension. 2. Chronic bibasilar fibrosis/atelectasis. Electronically signed by Booker Anthony 01-15-2025 7:[address] 01/15/25 18:42 Exam: CT head/brain without contrast. Reason for exam: Weakness Previous studies: 10/31/2017. FINDINGS: Again the CSF density extra-axial space is increased on the right consistent with chronic hygroma unchanged since the previous study. At this time no acute intracranial mass, hemorrhage or edema is seen. Diffuse lucency again seen in the deep right matter. Vascular calcifications of the intercerebral artery is present. The mastoids and visualized sinuses remain well aerated. No acute process of the bony calvarium is noted. IMPRESSION: 1. Negative for acute intracranial process and unenhanced head CT scan. 2. 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 3. Stable appearance of the chronic ischemic angiopathy and atherosclerotic changes of the cerebral arteries. Electronically signed by Booker Anthony 01-15-2025 8:01 PM Abdomen/Pelvis CT 01/15/25 19:57 Exam(s): CT ABDOMEN + PELVIS With Contrast IV Amt: 119ML OPTIRAY 320 EXAM: CT Abdomen and Pelvis With Intravenous Contrast CLINICAL HISTORY: Reason for exam: RUQ pain. TECHNIQUE: Axial computed tomography images of the abdomen and pelvis with intravenous contrast. CTDI is 71.52 mGy and DLP is 2422.02 mGy-cm. Automated exposure control was utilized for the study. A dose lowering technique was utilized adhering to the principles of ALARA. CONTRAST: Patient received 119ML OPTIRAY 320 of IV contrast COMPARISON: No relevant prior studies available. FINDINGS: Lung bases: Unremarkable. No mass. No consolidation. ABDOMEN: Liver: Unremarkable. No mass. Gallbladder and bile ducts: Cholelithiasis without evidence acute cholecystitis Pancreas: Unremarkable. No mass. No ductal dilation. Spleen: Unremarkable. No splenomegaly. Adrenals: Unremarkable. No mass. Kidneys and ureters: Unremarkable. No solid mass. No hydronephrosis. Stomach and bowel: Moderate amount of stool within the colon. Diverticulosis without evidence of diverticulitis. No obstruction. PELVIS: Appendix: Postop changes prior appendectomy. Bladder: Unremarkable. No mass. Reproductive: Unremarkable as visualized. ABDOMEN and PELVIS: Intraperitoneal space: Unremarkable. No free air. No significant fluid collection. Bones/joints: Please see separate dictation for details of the intrathoracic contents. No acute fracture. No dislocation. Soft tissues: Unremarkable. Vasculature: IVC filter is present. . No abdominal aortic aneurysm. Lymph nodes: Unremarkable. No enlarged lymph nodes. IMPRESSION: No acute findings in the abdomen or pelvis. Electronically signed by: Toby Scott MD 01/15/25 21:32 PM Chest CTA 01/15/25 19:57 Exam(s): CTA CHEST IV Amt: 119ML OPTIRAY 320 EXAM: CT Angiography Chest With Intravenous Contrast CLINICAL HISTORY: Reason for exam: PE. TECHNIQUE: Axial computed tomographic angiography images of the chest with intravenous contrast. CTDI is 71.52 mGy and DLP is 2422.02 mGy-cm. Automated exposure control was utilized for the study. A dose lowering technique was utilized adhering to the principles of ALARA. MIP reconstructed images were created and reviewed. COMPARISON: No relevant prior studies available. FINDINGS: Pulmonary arteries: Unremarkable. No pulmonary embolism. Aorta: No acute findings. No thoracic aortic aneurysm. Lungs: See below. Pleural space: Large bilateral pleural effusions. Compressive atelectasis both lower lobes. No pneumothorax. Heart: Cardiomegaly. No significant pericardial effusion. No evidence of RV dysfunction. Bones/joints: No acute fracture. No dislocation. Soft tissues: Unremarkable. Lymph nodes: Unremarkable. No enlarged lymph nodes. IMPRESSION: No pulmonary embolus CHF with large bilateral pleural effusions [id number] Electronically signed by: Toby Scott MD 01/15/25 21:23 PM Diagnostic Findings EKG as per my interpretation :Rate 100, NSR, LAD, LAFB, RBBB, 1 AVB, inferior infarct, T wave abnormalities inferior leads
[2025-01-15] MEDS: FUROSEMIDE 40 MG/4 ML VIAL IV STA (22:35)
[2025-01-15] MEDS: ALBUMIN 25% 12.5 GM/50 ML VIAL IV STA (22:35)
[2025-01-15] MEDS: PHYTONADIONE 5 MG TAB PO STA (23:15)
[2025-01-15] MEDS ORDERED: GLUCAGON FOR INJ 1 MG VIAL SQ PRN (23:49)
[2025-01-15] MEDS ORDERED: DEXTROSE 50% 50 ML SYRINGE IV PRN (23:49)
[2025-01-15] MEDS ORDERED: GLUCOSE 10 TAB/TUBE PO PRN (23:49)
[2025-01-15] MEDS ORDERED: CARBOHYDRATES FOR HYPOGLYCEMIA PO PRN (23:49)
[2025-01-15] MEDS ORDERED: GLUCOSE 40% GEL 15 GM TUBE PO PRN (23:49)
[2025-01-16] MEDS: INSULIN ASPART PER UNIT CHARGE SC SCH (00:13)
[2025-01-16] MEDS: METOPROLOL SUCC 25MG EXT REL TAB PO SCH (00:13)
[2025-01-16] MEDS: ATORVASTATIN 40 MG TAB PO SCH (00:13)
[2025-01-16] MEDS: MAGNESIUM OXIDE 400 MG TAB PO SCH (00:13)
[2025-01-16] MEDS: POTASSIUM CHLORIDE CRTAB 20 MEQ TABCR PO STA (00:46)
[2025-01-16 07:31] LABS: Hematocrit (blood only) 45.5 % (42.0-52.0); Hemoglobin 15.7 g/dL (14.0-18.0); Immature Granulocytes # (auto) 0.12 K/uL (0.01-0.20); Immature Granulocytes % (auto) 0.9 %; Mean Corpuscular Hemoglobin 30.5 pg (25.0-34.0); Mean Corpuscular Volume 88.3 fL (80.0-100.0); Platelet Count 194 K/uL (130-400); RDW Standard Deviation 46.3 fL (36.4-46.3); Red Blood Count 5.15 M/uL (4.70-6.10); White Blood Count 12.85 K/ul (4.8-10.8)
[2025-01-16 07:51] LABS: INR 5.0 (0.9-1.1); Prothrombin Time 48.1 Seconds (9.0-12.0)
[2025-01-16 08:03] LABS: Anion Gap 10.0 (3-11); Blood Urea Nitrogen 37.0 mg/dl (6-23); Calcium 8.8 mg/dl (8.6-10.3); Carbon Dioxide 27.0 mmol/L (21-32); Chloride 102.0 mmol/L (98-107); Creatinine Clr Calc Pharmacy 44.2 ml/min; Glucose 102.0 mg/dl (70-99(Fasting)); Potassium 3.6 mmol/L (3.5-5.1); Sodium 139.0 mmol/L (136-145)
--- NOTE | 2025-01-16 08:39 | XRay Report ---
EXAM: XR chest 1V portable CLINICAL HISTORY: Ffup, chf/pleural effusion TECHNIQUE: An X-ray image of the chest is obtained in AP portable projection. COMPARISON: 01/15/2025. FINDINGS: Pulmonary Parenchyma: Interval stable, opacification/haziness of the right lower zone and in the left infrahilar region. Interval stable, bilateral blunting of both costophrenic recess. Heart and Mediastinum: Cardiomegaly.. No mediastinal widening or masses. No hilar or mediastinal lymphadenopathy. Bony Thorax: Bony thorax appears intact without fractures or deformities. Soft Tissues: Soft tissues overlying the chest wall are unremarkable. IMPRESSION: 1. Interval stable, opacification/haziness of the right lower zone and band of haziness seen in the left infrahilar region. 2. Interval stable bilateral mild pleural effusion. 3. Comparing the previous x-ray dated 01/15/2025 the findings remain stable. Electronically signed by Paolo Hampton 01-16-2025 08:38 AM
[2025-01-16] MEDS: DOCUSATE SODIUM 100 MG CAP PO SCH (08:46)
[2025-01-16] MEDS: POLYETHYLENE (MIRALAX) 17 GM PACK PO SCH (08:46)
[2025-01-16] MEDS: METOPROLOL SUCC 50MG EXT REL TAB PO SCH (08:46)
[2025-01-16] MEDS: EMPAGLIFLOZIN 25 MG TAB PO SCH (08:46)
[2025-01-16] MEDS: LANTUS PER UNIT CHARGE SQ SCH (08:47)
[2025-01-16] MEDS ORDERED: LANTUS PER UNIT CHARGE SQ SCH (09:00)
[2025-01-16] MEDS ORDERED: POLYETHYLENE (MIRALAX) 17 GM PACK PO PRN (09:17)
[2025-01-16] MEDS ORDERED: ACETAMINOPHEN 500 MG TAB PO PRN (09:26)
[2025-01-16] MEDS: FUROSEMIDE 40 MG/4 ML VIAL IV SCH ×2 (10:09→17:38)
[2025-01-16] MEDS: POTASSIUM CHLORIDE CRTAB 20 MEQ TABCR PO SCH (10:09)
--- NOTE | 2025-01-16 11:48 | Electrocardiogram Report ---
Test Reason : Blood Pressure : */* mmHG Vent. Rate : 99 BPM Atrial Rate : 99 BPM P-R Int : 216 ms QRS Dur : 158 ms QT Int : 424 ms P-R-T Axes : 99 -78 -29 degrees QTcB Int : 544 ms Sinus rhythm with 1st degree A-V block with Premature atrial complexes Left axis deviation Right bundle branch block Inferior infarct (cited on or before 05-Dec-2010) Anterolateral infarct (cited on or before 05-Dec-2010) Abnormal ECG When compared with ECG of 06-Aug-2018 02:04, Sinus rhythm has replaced Atrial fibrillation Vent. rate has increased by 34 bpm Serial changes of Anterior infarct Present Confirmed by Wing Naqvi ([id number]) on 01/16/2025 11:48:00 AM Referred By: REFERRED SELF Confirmed By: Wing Naqvi
--- NOTE | 2025-01-16 11:51 | Electrocardiogram Report ---
Test Reason : Blood Pressure : */* mmHG Vent. Rate : 94 BPM Atrial Rate : * BPM P-R Int : * ms QRS Dur : 162 ms QT Int : 430 ms P-R-T Axes : * -73 133 degrees QTcB Int : 537 ms Atrial fibrillation Left axis deviation Right bundle branch block Inferior infarct (cited on or before 05-Dec-2010) Anterolateral infarct (cited on or before 05-Dec-2010) Abnormal ECG When compared with ECG of 15-Jan-2025 18:28, (unconfirmed) Atrial fibrillation has replaced Sinus rhythm Serial changes of Anterior infarct Present Confirmed by Wing Naqvi ([id number]) on 01/16/2025 11:51:32 AM Referred By: REFERRED SELF Confirmed By: Wing Naqvi
--- NOTE | 2025-01-16 14:23 | Cardiology Consultation ---
<Statement entered by Gillian Cronin, DO - 01/16/25 19:59> I have reviewed the advanced practitioner's documentation and agree with the plan of care. I accept the responsibility for the associated risk. Pt seen in cardiology consultation due to acute on chronic heart failure with preserved EF due to right sided HF, NYHA Class III in the setting of non- compliance with diet due to a recent tooth issue and not able to eat his usual. Pt is responding to IV diuresis would increase IV lasix to 40mg IV BID and monitor daily weights and BMP along with monitor I/Os echo today unchanged from prior still reveals preserved EF with RV hypokinesis and enlargement along with severe pulmonary HTN continue toprol and lipitor I spent a total of 45 minutes coordinating, documenting, and providing care for this patient excluding time spent in the performance of separately billed services or time spent by another provider/QHP. Date of Consultation January 16, 2025 Assessment & Plan (1) Decompensated heart failure: (2) Generalized weakness: (3) Bilateral pleural effusion: Plan -HR and BP well controlled - Permanent A-fib with adequate rate control -known history of severe pulmonary hypertension with cor pulmonale - Suspect his dietary adjustment due to his recent dental work contributed to volume overload - Strict I/O's - 2 L fluid restriction - Monitor replace electrolytes as necessary - Continue IV diuresis, but would increase to 40 mg IV furosemide twice daily -Continue atorvastatin, Toprol Case discussed with Dr. Cronin. Please see attestation for additional recommendations. DANIS Choe Department of Cardiology, [facility] This chart was completed in part utilizing Speech Voice Recognition Software. Grammatical errors, random word insertions, pronoun errors, and incomplete sentences are an occasional consequence of this system due to software limitations, ambient noise, and hardware issues. Any formal questions or concerns about the content, text, or information contained within the body of this dictation should be directly addressed to the provider for clarification. History of Present Illness Reason for Consultation: CHF Requesting Physician: Hospitalist Attending Physician: Francois Abel MD History of Present Illness 79-year-old male seen in consultation today in regard to CHF exacerbation. He has been noticing worsening shortness of breath over the last 2 weeks. Reportedly had recently undergone dental work which did change his diet he has been eating more soups which are likely higher in sodium and since then has noticed that the shortness of breath is worsened. He is on diuretic therapy at home but advised that she has not missed any doses. Denies chest pain, orthopnea, lightheadedness, dizziness or palpitations. Allergies Allergy/AdvReac Type Severity Reaction Status Date / Time banana Allergy Verified 01/16/25 09:58 lactose AdvReac Verified 01/16/25 09:58 Home Medications Medication Instructions Recorded Confirmed Type warfarin 2.5 mg tablet 1.25 mg PO 2XWK 08/06/18 01/15/25 History warfarin 2.5 mg tablet 2.5 mg PO 5XWK 08/06/18 01/15/25 History furosemide 40 mg tablet (Lasix) 40 mg PO QAM 07/08/19 01/15/25 History allopurinol 300 mg tablet 300 mg PO QAM 11/04/19 01/15/25 History atorvastatin 40 mg tablet 40 mg PO QAM 01/15/25 01/15/25 History empagliflozin 25 mg tablet 25 mg PO QAM 01/15/25 01/15/25 History (Jardiance) furosemide 40 mg tablet (Lasix) 20 mg PO .QAFTERNOON 01/15/25 01/15/25 History insulin glargine 100 unit/mL (3 28 unit subcut QAM 01/15/25 01/15/25 History mL) subcutaneous pen (Lantus Solostar U-100 Insulin) magnesium oxide 400 mg PO DAILY 01/15/25 01/15/25 History metoprolol succinate 50 mg 25 mg PO QPM 01/15/25 01/15/25 History tablet,extended release 24 hr metoprolol succinate 50 mg 50 mg PO QAM 01/15/25 01/15/25 History tablet,extended release 24 hr Patient History Medical History (Updated 01/16/25 @ 05:33 by Alessandro Cordero MD) Gout Diabetes mellitus, type 2 On anticoagulant therapy warfarin daily Hypertension Hyperlipidemia Pulmonary embolism hx of 11/2009--unknown cause--reason for warfarin Sleep apnea pt states sleep study test stated he need CPAP, pt does not have a CPAP Morbid obesity 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 Osteoarthritis of hip Acute worsening of stage 3 chronic kidney disease Hyperkalemia History of adenomatous polyp of colon (Unknown) Surgical History History of left cataract surgery History of prior ablation treatment left leg History of colonoscopy with polypectomy History of repair of retinal defect by laser photocoagulation bilt eyes S/P insertion of IVC (inferior vena caval) filter 11/2009 @ [facility] Family History Brother Prostate cancer Diabetes Father Coronary heart disease, Onset Age: 78 during CABG - felt heparin allergy Family history of diabetes mellitus Mother Old age Family history of diabetes mellitus Other No family history of adverse response to anesthesia Social History Smoking Status: Never smoker Second Hand Exposure: No; Do You Dip or Chew Tobacco: No; Hx Alcohol Use: Yes Alcohol type: hard liquor Alcohol Intake Frequency Comment: 2 rum/cokes daily Hx Substance Use: No Preferred Language: Malagasy Communication Ability: Effective Super[employer] Installation Required: No Beliefs That Will Affect Care: None marital status: Current Living Situation: Spouse Current Living Situation Comment: - gilma Other Information That Helps Us Care for You: No Feels Safe at Home: Yes Safety Concerns: Feels Safe At This Time Diet: low salt during the past year weight has: remained stable Assistive Devices: Glasses and Walker Review of Systems Review of Systems: All systems reviewed & are unremarkable except as noted in HPI & below Results & Data Vital Signs (Past 12 Hours) Vital Signs Temp Pulse Pulse Resp BP Pulse Ox O2 Del Method 01/16/25 13:02 100 H 01/16/25 12:21 36.3 C L 96 H 20 120/79 92 Room Air 01/16/25 07:08 36.4 C L 94 H 20 135/82 91 Room Air 01/16/25 05:33 82 01/16/25 02:25 36.4 C L 81 18 137/91 91 Room Air Laboratory Results Cardiac Enzymes 01/15/25 Range/Units 18:52 AST 80 H (13-39) U/L Troponin I High Sens 14.1 (0-20) pg/ml Coagulation 01/15/25 01/16/25 Range/Units 18:52 07:04 PT 70.2 H 48.1 H (9.0-12.0) Seconds APTT 53 H (21-31) Seconds CBC 01/15/25 01/16/25 Range/Units 18:52 07:04 WBC 11.64 H 12.85 H (4.8-10.8) K/ul RBC 5.41 5.15 (4.70-6.10) M/uL Hgb 16.4 15.7 (14.0-18.0) g/dL Hct 48.2 45.5 (42.0-52.0) % Plt Count 224 194 (130-400) K/uL Neut # (Auto) 8.60 H 9.61 H (1.40-6.50) K/uL Lymph # (Auto) 1.65 1.67 (1.20-3.40) K/uL [place] # (Auto) 1.08 H 1.21 H (0.11-0.59) K/uL Eos # (Auto) 0.15 0.17 (0.00-0.50) K/uL Baso # (Auto) 0.06 0.07 (0.00-0.20) K/uL Comprehensive Metabolic Panel 01/15/25 01/16/25 Range/Units 18:52 07:04 Sodium 136 139 (136-145) mmol/L Potassium 3.9 3.6 (3.5-5.1) mmol/L Chloride 100 102 (98-107) mmol/L Carbon Dioxide 27 27 (21-32) mmol/L BUN 39 H 37 H (6-23) mg/dl Creatinine 1.61 H 1.55 H (0.6-1.4) mg/dl Glucose 213 H 102 H (70-99(Fasting)) mg/dl Calcium 8.7 8.8 (8.6-10.3) mg/dl AST 80 H (13-39) U/L ALT 105 H (7-52) U/L Alkaline Phosphatase 177 H (34-104) U/L Total Protein 6.7 (6.0-8.3) gm/dl Albumin 2.9 L (3.4-5.0) gm/dl Intake and Output 01/15/25 01/16/25 01/16/25 22:59 06:59 14:59 Intake Total 50 / 50 480 / 480 Output Total 1856 / 1856 512 / 512 Balance -1806 / -180 - / -32 Intake: IV 50 / 50 Albumin 25% 12.5 gm In 50 ml @ 50 / 50 50 mls/hr IV ONE STA Rx#: [id number] Oral 480 / 480 Output: Urine 1855 / 1855 510 / 510 # Bowel Movements 2 Other: Weight 101.9 kg 96.1 kg Weight Measurement Method Chair Scale Built in [facility] Care Time/CCT Total # of Minutes Spent Total Time Spent with Patient: Total time spent is greater than 50% in coordination of care (as documented) at patient's floor/unit and/or counseling patient: C[place] [address] IN/OBS CONSULT LVL 4,60M Patient Type Established Medical Decision Making Moderate Complexity Diagnoses Decompensated heart failure I50.9 Generalized weakness R53.1 Bilateral pleural effusion J90
--- NOTE | 2025-01-16 14:27 | XCELERA ---
[id number]
--- NOTE | 2025-01-16 14:32 | Hospitalist Progress Note ---
Date of Service January 16, 2025 Assessment & Plan (1) Decompensated heart failure: Plan: Acute on chronic diastolic heart failure Pulmonary hypertension --Chest CTA:No pulmonary embolus. CHF with large bilateral pleural effusions [id number] -- Echo pending --BNP pending Hold PO Lasix Started on IV Lasix 40mg daily Continue Jardiance, metoprolol succinate Monitor I's and O's, daily weight, volume status Continue fluid restriction Cardiology consulted Constipation --ABD CT:Moderate amount of stool within the colon. Diverticulosis without evidence of diverticulitis. No obstruction. Continue bowel regimen Atrial fibrillation PE/ DVT Supratherapeutic INR received vitamin K Denies any bleeding issues Continue metoprolol succinate Hold warfarin for now Monitor INR 5.0 today Generalized weakness Ambulatory dysfunction Continue PT OT Fall precautions Chronic right subdural hygroma Incidental finding on CT --CT head:Stable appearance of the chronic right subdural hygroma as compared to the study of 10/31/2017. Stable appearance of the chronic ischemic angiopathy and atherosclerotic changes of the cerebral arteries. Follow-up as outpatient DM II Update HbA1c Continue insulin while hospitalized Monitor blood glucose levels CKD III Creatinine at baseline Monitor renal function Avoid nephrotoxic agents as able Hypertension Hyperlipidemia Gout Continue home medications Monitor blood pressure ALMITA/CPAP--noncompliance Past tobacco abuse Needs follow-up with sleep medicine on discharge DVT Px: Supratherapeutic INR CODE STATUS Full code Disposition PT OT prior to discharge Admission and Anticipated Discharge Date Admission Date: January 15, 2025 Subjective Patient is seen and examined at bedside Dyspnea much improved Still has minimal cough Had small bowel movement this morning Denies any nausea, vomiting, chest pain, dizziness Saturating well on room air Review of Systems Review of Systems: All systems reviewed & are unremarkable except as noted in Subjective Physical Exam Physical Exam: Physical Exam: Vitals signs as noted above General Appearance:Moderately built and nourished, no apparent distress Head: normocephalic, Atraumatic Eyes: normal inspection, EOMI Neck: supple, Trachea midline Respiratory/Chest: Decreased breath sounds, + Basal Crackles, No accessory muscle use Cardiovascular: Irregularly irregular, No murmur Abdomen/GI:Soft, Non tender, Bowel sounds present Extremities/Musculoskeletal:normal inspection, B/L LE edema, + chronic venous stasis changes Neurologic/Psych:AAOX3, grossly no focal neurological deficits Skin: normal color, warm Results & Data Results & Data Vital Signs (Past 12 Hours) Vital Signs Temp Pulse Pulse Resp BP Pulse Ox O2 Del Method 01/16/25 13:02 100 H 01/16/25 12:21 36.3 C L 96 H 20 120/79 92 Room Air 01/16/25 07:08 36.4 C L 94 H 20 135/82 91 Room Air 01/16/25 05:33 82 01/16/25 02:25 36.4 C L 81 18 137/91 91 Room Air Laboratory Results Short CBC 01/15/25 01/16/25 Range/Units 18:52 07:04 WBC 11.64 H 12.85 H (4.8-10.8) K/ul Hgb 16.4 15.7 (14.0-18.0) g/dL Hct 48.2 45.5 (42.0-52.0) % Plt Count 224 194 (130-400) K/uL BMP 01/15/25 01/16/25 18:52 07:04 Sodium 136 139 Potassium 3.9 3.6 Chloride 100 102 Carbon Dioxide 27 27 BUN 39 H 37 H Creatinine 1.61 H 1.55 H Glucose 213 H 102 H Calcium 8.7 8.8 Cardiac Enzymes 01/15/25 Range/Units 18:52 Total Creatine Kinase 20 L (30-223) U/L Liver Function 01/15/25 Range/Units 18:52 Total Bilirubin 1.6 H (0.2-1.0) mg/dl AST 80 H (13-39) U/L ALT 105 H (7-52) U/L Alkaline Phosphatase 177 H (34-104) U/L Albumin 2.9 L (3.4-5.0) gm/dl Urine 01/15/25 Range/Units 20:05 Urine Color Yellow Urine Appearance Clear (Clear) Urine pH 7.5 (4.5-7.5) Ur Specific [place] 1.019 (1.000-1.030) Urine Protein 2+ H (Negative) Urine Glucose (UA) 3+ H (Negative)
[2025-01-17 06:50] LABS: Hematocrit (blood only) 43.8 % (42.0-52.0); Hemoglobin 15.1 g/dL (14.0-18.0); Mean Corpuscular Hemoglobin 30.6 pg (25.0-34.0); Mean Corpuscular Volume 88.7 fL (80.0-100.0); Platelet Count 200 K/uL (130-400); RDW Standard Deviation 48.2 fL (36.4-46.3); Red Blood Count 4.94 M/uL (4.70-6.10); White Blood Count 13.20 K/ul (4.8-10.8)
[2025-01-17 07:13] LABS: Alanine Aminotransferase 60.0 U/L (7-52); Albumin Level 3.0 gm/dl (3.4-5.0); Alkaline Phosphatase 128.0 U/L (34-104); Anion Gap 8.0 (3-11); Bilirubin,Total 2.2 mg/dl (0.2-1.0); Blood Urea Nitrogen 43.0 mg/dl (6-23); Calcium 8.8 mg/dl (8.6-10.3); Carbon Dioxide 29.0 mmol/L (21-32); Chloride 102.0 mmol/L (98-107); Creatinine Clr Calc Pharmacy 33.6 ml/min; Glucose 89.0 mg/dl (70-99(Fasting)); Magnesium 2.4 mg/dl (1.7-2.4); Potassium 3.7 mmol/L (3.5-5.1); Sodium 139.0 mmol/L (136-145); Total Protein 6.0 gm/dl (6.0-8.3)
[2025-01-17 07:23] LABS: INR 2.6 (0.9-1.1); Prothrombin Time 26.1 Seconds (9.0-12.0)
--- NOTE | 2025-01-17 13:47 | XRay Report ---
XR chest 2V PA/lateral HISTORY: 79 years-old Male CHF acute shortness of breath COMPARISON: 01/16/2025 TECHNIQUE: PA and lateral views of the chest FINDINGS: Cardiac silhouette is enlarged. Pulmonary vascular congestion with interstitial coarsening, slightly improved. Layering pleural effusions with dependent bibasilar consolidation, also slightly improved. No pneumothorax. Degenerative changes of the shoulders and spine. IMPRESSION: 1. Cardiomegaly with stable to slightly improved interstitial pulmonary edema. 2. Layering pleural effusions with bibasilar opacities, also mildly improved. ACT 112: Negative or not required by law. The above report was generated using voice recognition software. It may contain grammatical, syntax o r spelling errors. Electronically signed by: Logan Rodrigues M.D. 01/17/2025 1:46 PM
--- NOTE | 2025-01-17 13:51 | Hospitalist Progress Note ---
Date of Service January 17, 2025 Assessment & Plan (1) Decompensated heart failure: Plan: Acute on chronic diastolic heart failure Pulmonary hypertension Right heart failure Valvular heart disease --Chest CTA:No pulmonary embolus. CHF with large bilateral pleural effusions [id number] -- Echo: EF 55 to 60%. Diastolic dysfunction based on LA enlargement. Right ventricle systolic function is severely reduced. Right ventricle is severely dilated. Left atrium is moderately dilated. Right atrium is severely dilated. Aortic valve sclerosis mild, without significant stenosis. Trace aortic regurgitation. Mild mitral regurgitation. Moderate to severe tricuspid regurgitation. Estimated systolic pulmonary artery pressure 76 mmHg. --BNP 215 Hold PO Lasix Continue IV diuretics per cardiology Continue Jardiance, metoprolol succinate Monitor I's and O's, daily weight, volume status Continue fluid restriction Appreciate cardiology input Constipation --ABD CT:Moderate amount of stool within the colon. Diverticulosis without evidence of diverticulitis. No obstruction. Continue bowel regimen Improved Atrial fibrillation PE/ DVT Supratherapeutic INR received vitamin K--Resolved Denies any bleeding issues Continue metoprolol succinate Monitor INR: 7.4>5.0>2.6 today Resume warfarin today Adjust warfarin dose as needed Advised to follow-up with Coumadin clinic on discharge GABRIELA on CKD III Baseline creatinine ~ 1.7 Monitor renal function closely Avoid nephrotoxic agents as able Expected rise in creatinine due to IV diuretics Generalized weakness Ambulatory dysfunction Continue PT OT Fall precautions Chronic right subdural hygroma Incidental finding on CT --CT head:Stable appearance of the chronic right subdural hygroma as compared to the study of 10/31/2017. Stable appearance of the chronic ischemic angiopathy and atherosclerotic changes of the cerebral arteries. Follow-up as outpatient DM II HbA1c 6.2 Continue insulin while hospitalized Monitor blood glucose levels Hypertension Hyperlipidemia Gout Continue home medications Monitor blood pressure ALMITA/CPAP--noncompliance Past tobacco abuse Needs follow-up with sleep medicine on discharge DVT Px: Warfarin CODE STATUS Full code Disposition PT OT prior to discharge Admission and Anticipated Discharge Date Admission Date: January 15, 2025 Subjective Patient is seen and examined at bedside Leg edema improving No dyspnea at rest Constipation resolved Denies any nausea, vomiting, chest pain, dizziness Saturating well on room air No other complaints Review of Systems Review of Systems: All systems reviewed & are unremarkable except as noted in Subjective Physical Exam Physical Exam: Physical Exam: Vitals signs as noted above General Appearance:Moderately built and nourished, no apparent distress Head: normocephalic, Atraumatic Eyes: normal inspection, EOMI Neck: supple, Trachea midline Respiratory/Chest: Decreased breath sounds, + Basal Crackles, No accessory muscle use Cardiovascular: Irregularly irregular, No murmur Abdomen/GI:Soft, Non tender, Bowel sounds present Extremities/Musculoskeletal:normal inspection, B/L LE edema, + chronic venous stasis changes Neurologic/Psych:AAOX3, grossly no focal neurological deficits Skin: normal color, warm Results & Data Results & Data Vital Signs (Past 12 Hours) Vital Signs Temp Pulse Pulse Resp BP Pulse Ox O2 Del Method 01/17/25 13:00 101 H 01/17/25 11:10 36.5 C 89 18 119/85 92 Room Air 01/17/25 07:33 36.4 C L 92 H 18 128/84 94 Room Air 01/17/25 05:44 88 01/17/25 04:46 36.3 C L 78 17 137/93 94 Room Air Laboratory Results Short CBC 01/17/25 Range/Units 06:32 WBC 13.20 H (4.8-10.8) K/ul Hgb 15.1 (14.0-18.0) g/dL Hct 43.8 (42.0-52.0) % Plt Count 200 (130-400) K/uL BMP 01/17/25 06:32 Sodium 139 Potassium 3.7 Chloride 102 Carbon Dioxide 29 BUN 43 H Creatinine 2.02 H D Glucose 89 Calcium 8.8 Liver Function 01/17/25 Range/Units 06:32 Total Bilirubin 2.2 H (0.2-1.0) mg/dl Direct Bilirubin 0.5 H (0-0.2) mg/dl AST 40 H (13-39) U/L ALT 60 H (7-52) U/L Alkaline Phosphatase 128 H (34-104) U/L Albumin 3.0 L (3.4-5.0) gm/dl
--- NOTE | 2025-01-17 15:05 | Cardiology Progress Note ---
Date of Service January 17, 2025 Assessment & Plan (1) Decompensated heart failure: (2) Generalized weakness: (3) Bilateral pleural effusion: Plan Severe PHTN R Heart Failure B/L Pleural Effusion Acute HFpEF Permanent AFib with CVR with episodes of RVR GABRIELA on CKD Deconditioned status DM HTN HLD ALMITA correct and f/u electrolytes f/u renal function IV diuretics - may have to accept some azotemia to optimize CHF status continue anticoagulation GDMT for HFpEF limited due to renal insufficiency and BP adjust rate control meds keeping HR between 60 to 100 BPM and systolic BP between 100-140 mmHg adjust anti-HTN meds keeping systolic BP between 100-140 mmHg avoid hypovolemia keep patient euvolemic keep LE elevated when sitting 1.5 L / 24 hr fluid restriction strict I&Os salt restriction counseling Continue atorvastatin, Toprol repeat CXR Admission and Anticipated Discharge Date Admission Date: January 15, 2025 Subjective Patient on exam is sitting on the side of bed in NAD; no c/o cp, sob, palpitations, dizziness, LOC leg swelling has significantly improved Review of Systems Review of Systems: as per HPI Physical Exam Physical Exam: General: no apparent distress Head: normocephalic, Atraumatic Eyes: normal inspection, anicteric sclerae, pinkish conjunctiva Neck: supple, NT Respiratory/Chest: Decreased breath sounds at bases, no wheezing Cardiovascular: Irregularly irregular, + systolic murmur Abdomen/GI:Soft, Non tender, Bowel sounds present Extremities/Musculoskeletal:normal inspection, trace edema, + chronic venous stasis changes Neurologic/Psych:AAOX3, grossly no focal neurological deficits Skin: normal color, warm Results & Data Vital Signs (Past 12 Hours) Vital Signs Vital Signs Temp 36.5 C 01/17/25 11:10 Pulse 101 H 01/17/25 13:00 Resp 18 01/17/25 11:10 BP 119/85 01/17/25 11:10 Pulse Ox 92 01/17/25 11:10 O2 Del Method Room Air 01/17/25 11:10 Intake & Output 01/16/25 01/17/25 01/17/25 18:59 06:59 18:59 Intake Total 480 / 830 350 / 830 480 / 480 Output Total 832 / 1948 996 / 1948 371 / 371 Balance -352 / -1118 -646 / -1118 109 / 109 Weight 94 kg Intake: Oral 480 / 830 350 / 830 480 / 480 Output: Urine 830 / 1945 995 / 1945 370 / 370 # Bowel Movements 2 / 3 1 / 3 Other: # Unmeasured Voids 1 Weight Measurement Method Built in [facility] Pulse Pulse Resp BP Pulse Ox O2 Del Method 01/17/25 13:00 101 H 01/17/25 11:10 36.5 C 89 18 119/85 92 Room Air 01/17/25 07:33 36.4 C L 92 H 18 128/84 94 Room Air 01/17/25 05:44 88 01/17/25 04:46 36.3 C L 78 17 137/93 94 Room Air Laboratory Results Laboratory Results - last 48 hr 01/15/25 01/15/25 01/15/25 18:52 20:05 23:47 WBC 11.64 H RBC 5.41 Hgb 16.4 Hct 48.2 MCV 89.1 MCH 30.3 MCHC 34.0 RDW Std Deviation 48.7 H RDW Coeff of Tarun 14.9 H Plt Count 224 MPV 9.5 Immature Gran % (Auto) 0.9 Neut % (Auto) 73.8 Lymph % (Auto) 14.2 [place] % (Auto) 9.3 Eos % (Auto) 1.3 Baso % (Auto) 0.5 Neut # (Auto) 8.60 H Lymph # (Auto) 1.65 [place] # (Auto) 1.08 H Eos # (Auto) 0.15 Baso # (Auto) 0.06 Immature Gran # (Auto) 0.10 PT 70.2 H INR 7.4 H* APTT 53 H PTT Ratio 1.9 Sodium 136 Potassium 3.9 Chloride 100 Carbon Dioxide 27 Anion Gap 9 BUN 39 H Creatinine 1.61 H Est Cr Clr Drug Dosing 43.8 eGFR 42.96 BUN/Creatinine Ratio 24.2 H Glucose 213 H POC Glucose 121 H Calcium 8.7 Magnesium 2.3 Total Bilirubin 1.6 H Direct Bilirubin AST 80 H ALT 105 H Alkaline Phosphatase 177 H Total Creatine Kinase 20 L Troponin I High Sens 14.1 B-Natriuretic Peptide Total Protein 6.7 Albumin 2.9 L Globulin 3.8 Albumin/Globulin Ratio 0.8 L TSH 2.106 Urine Color Yellow Urine Appearance Clear Urine pH 7.5 Ur Specific [place] 1.019 Urine Protein 2+ H Urine Glucose (UA) 3+ H Urine Ketones Negative Urine Blood Negative Urine Nitrite Negative Urine Bilirubin Negative Urine Urobilinogen Negative Ur Leukocyte Esterase Negative Urine WBC (Auto) 0-5 Urine RBC (Auto) 0-2 U Hyaline Cast (Auto) 0-2 U Epithel Cells (Auto) 0-2 Urine Bacteria (Auto) None Seen Urine Comment SARS-CoV-2 (PCR) NEGATIVE Influenza Type A (PCR) Negative Influenza Type B (PCR) Negative RSV (RT-PCR) Negative 01/16/25 01/16/25 01/16/25 07:04 07:24 11:22 WBC 12.85 H RBC 5.15 Hgb 15.7 Hct 45.5 MCV 88.3 MCH 30.5 MCHC 34.5 RDW Std Deviation 46.3 RDW Coeff of Tarun 14.3 Plt Count 194 MPV 9.2 L Immature Gran % (Auto) 0.9 Neut % (Auto) 74.9 Lymph % (Auto) 13.0 [place] % (Auto) 9.4 Eos % (Auto) 1.3 Baso % (Auto) 0.5 Neut # (Auto) 9.61 H Lymph # (Auto) 1.67 [place] # (Auto) 1.21 H Eos # (Auto) 0.17 Baso # (Auto) 0.07 Immature Gran # (Auto) 0.12 PT 48.1 H INR 5.0 H APTT PTT Ratio Sodium 139 Potassium 3.6 Chloride 102 Carbon Dioxide 27 Anion Gap 10 BUN 37 H Creatinine 1.55 H Est Cr Clr Drug Dosing 44.2 eGFR 44.97 BUN/Creatinine Ratio 23.9 H Glucose 102 H POC Glucose 100 H 108 H Calcium 8.8 Magnesium Total Bilirubin Direct Bilirubin AST ALT Alkaline Phosphatase Total Creatine Kinase Troponin I High Sens B-Natriuretic Peptide Total Protein Albumin Globulin Albumin/Globulin Ratio TSH Urine Color Urine Appearance Urine pH Ur Specific [place] Urine Protein Urine Glucose (UA) Urine Ketones Urine Blood Urine Nitrite Urine Bilirubin Urine Urobilinogen Ur Leukocyte Esterase Urine WBC (Auto) Urine RBC (Auto) U Hyaline Cast (Auto) U Epithel Cells (Auto) Urine Bacteria (Auto) Urine Comment SARS-CoV-2 (PCR) Influenza Type A (PCR) Influenza Type B (PCR) RSV (RT-PCR) 01/16/25 01/16/25 01/17/25 16:16 20:00 06:32 WBC 13.20 H RBC 4.94 Hgb 15.1 Hct 43.8 MCV 88.7 MCH 30.6 MCHC 34.5 RDW Std Deviation 48.2 H RDW Coeff of Tarun 15.0 H Plt Count 200 MPV 9.1 L Immature Gran % (Auto) Neut % (Auto) Lymph % (Auto) [place] % (Auto) Eos % (Auto) Baso % (Auto) Neut # (Auto) Lymph # (Auto) [place] # (Auto) Eos # (Auto) Baso # (Auto) Immature Gran # (Auto) PT 26.1 H INR 2.6 H APTT PTT Ratio Sodium 139 Potassium 3.7 Chloride 102 Carbon Dioxide 29 Anion Gap 8 BUN 43 H Creatinine 2.02 H D Est Cr Clr Drug Dosing 33.6 eGFR 32.73 BUN/Creatinine Ratio 21.3 H Glucose 89 POC Glucose 115 H 159 H Calcium 8.8 Magnesium 2.4 Total Bilirubin 2.2 H Direct Bilirubin 0.5 H AST 40 H ALT 60 H Alkaline Phosphatase 128 H Total Creatine Kinase Troponin I High Sens B-Natriuretic Peptide 215 H Total Protein 6.0 Albumin 3.0 L Globulin Albumin/Globulin Ratio TSH Urine Color Urine Appearance Urine pH Ur Specific [place] Urine Protein Urine Glucose (UA) Urine Ketones Urine Blood Urine Nitrite Urine Bilirubin Urine Urobilinogen Ur Leukocyte Esterase Urine WBC (Auto) Urine RBC (Auto) U Hyaline Cast (Auto) U Epithel Cells (Auto) Urine Bacteria (Auto) Urine Comment SARS-CoV-2 (PCR) Influenza Type A (PCR) Influenza Type B (PCR) RSV (RT-PCR) 01/17/25 01/17/25 07:13 11:07 WBC RBC Hgb Hct MCV MCH MCHC RDW Std Deviation RDW Coeff of Tarun Plt Count MPV Immature Gran % (Auto) Neut % (Auto) Lymph % (Auto) [place] % (Auto) Eos % (Auto) Baso % (Auto) Neut # (Auto) Lymph # (Auto) [place] # (Auto) Eos # (Auto) Baso # (Auto) Immature Gran # (Auto) PT INR APTT PTT Ratio Sodium Potassium Chloride Carbon Dioxide Anion Gap BUN Creatinine Est Cr Clr Drug Dosing eGFR BUN/Creatinine Ratio Glucose POC Glucose 97 155 H Calcium Magnesium Total Bilirubin Direct Bilirubin AST ALT Alkaline Phosphatase Total Creatine Kinase Troponin I High Sens B-Natriuretic Peptide Total Protein Albumin Globulin Albumin/Globulin Ratio TSH Urine Color Urine Appearance Urine pH Ur Specific [place] Urine Protein Urine Glucose (UA) Urine Ketones Urine Blood Urine Nitrite Urine Bilirubin Urine Urobilinogen Ur Leukocyte Esterase Urine WBC (Auto) Urine RBC (Auto) U Hyaline Cast (Auto) U Epithel Cells (Auto) Urine Bacteria (Auto) Urine Comment SARS-CoV-2 (PCR) Influenza Type A (PCR) Influenza Type B (PCR) RSV (RT-PCR) Laboratory Results WBC 13.20 K/ul (4.8-10.8) H 01/17/25 06:32 RBC 4.94 M/uL (4.70-6.10) 01/17/25 06:32 Hgb 15.1 g/dL (14.0-18.0) 01/17/25 06:32 Hct 43.8 % (42.0-52.0) 01/17/25 06:32 MCV 88.7 fL (80.0-100.0) 01/17/25 06:32 MCH 30.6 pg (25.0-34.0) 01/17/25 06:32 MCHC 34.5 g/dL (32.0-36.0) 01/17/25 06:32 RDW Std Deviation 48.2 fL (36.4-46.3) H 01/17/25 06:32 RDW Coeff of Tarun 15.0 % (11.5-14.5) H 01/17/25 06:32 Plt Count 200 K/uL (130-400) 01/17/25 06:32 MPV 9.1 fL (9.4-12.4) L 01/17/25 06:32 Immature Gran % (Auto) 0.9 % 01/16/25 07:04 Neut % (Auto) 74.9 % 01/16/25 07:04 Lymph % (Auto) 13.0 % 01/16/25 07:04 [place] % (Auto) 9.4 % 01/16/25 07:04 Eos % (Auto) 1.3 % 01/16/25 07:04 Baso % (Auto) 0.5 % 01/16/25 07:04 Neut # (Auto) 9.61 K/uL (1.40-6.50) H 01/16/25 07:04 Lymph # (Auto) 1.67 K/uL (1.20-3.40) 01/16/25 07:04 [place] # (Auto) 1.21 K/uL (0.11-0.59) H 01/16/25 07:04 Eos # (Auto) 0.17 K/uL (0.00-0.50) 01/16/25 07:04 Baso # (Auto) 0.07 K/uL (0.00-0.20) 01/16/25 07:04 Immature Gran # (Auto) 0.12 K/uL (0.01-0.20) 01/16/25 07:04 PT 26.1 Seconds (9.0-12.0) H 01/17/25 06:32 INR 2.6 (0.9-1.1) H 01/17/25 06:32 APTT 53 Seconds (21-31) H 01/15/25 18:52 PTT Ratio 1.9 01/15/25 18:52 Sodium 139 mmol/L (136-145) 01/17/25 06:32 Potassium 3.7 mmol/L (3.5-5.1) 01/17/25 06:32 Chloride 102 mmol/L (98-107) 01/17/25 06:32 Carbon Dioxide 29 mmol/L (21-32) 01/17/25 06:32 Anion Gap 8 (3-11) 01/17/25 06:32 BUN 43 mg/dl (6-23) H 01/17/25 06:32 Creatinine 2.02 mg/dl (0.6-1.4) H D 01/17/25 06:32 Est Cr Clr Drug Dosing 33.6 ml/min 01/17/25 06:32 eGFR 32.73 01/17/25 06:32 BUN/Creatinine Ratio 21.3 (10-20) H 01/17/25 06:32 Glucose 89 mg/dl (70-99(Fasting)) 01/17/25 06:32 POC Glucose 155 mg/dl (70-99) H 01/17/25 11:07 Calcium 8.8 mg/dl (8.6-10.3) 01/17/25 06:32 Magnesium 2.4 mg/dl (1.7-2.4) 01/17/25 06:32 Total Bilirubin 2.2 mg/dl (0.2-1.0) H 01/17/25 06:32 Direct Bilirubin 0.5 mg/dl (0-0.2) H 01/17/25 06:32 AST 40 U/L (13-39) H 01/17/25 06:32 ALT 60 U/L (7-52) H 01/17/25 06:32 Alkaline Phosphatase 128 U/L (34-104) H 01/17/25 06:32 Total Creatine Kinase 20 U/L (30-223) L 01/15/25 18:52 Troponin I High Sens 14.1 pg/ml (0-20) 01/15/25 18:52 B-Natriuretic Peptide 215 pg/ml (0-100) H 01/17/25 06:32 Total Protein 6.0 gm/dl (6.0-8.3) 01/17/25 06:32 Albumin 3.0 gm/dl (3.4-5.0) L 01/17/25 06:32 Globulin 3.8 gm/dl (2.5-4.0) 01/15/25 18:52 Albumin/Globulin Ratio 0.8 (0.9-2) L 01/15/25 18:52 TSH 2.106 uIu/ml (0.300-4.500) 01/15/25 18:52 Urine Color Yellow 01/15/25 20:05 Urine Appearance Clear (Clear) 01/15/25 20:05 Urine pH 7.5 (4.5-7.5) 01/15/25 20:05 Ur Specific [place] 1.019 (1.000-1.030) 01/15/25 20:05 Urine Protein 2+ (Negative) H 01/15/25 20:05 Urine Glucose (UA) 3+ (Negative) H 01/15/25 20:05 Urine Ketones Negative (Negative) 01/15/25 20:05 Urine Blood Negative (Negative) 01/15/25 20:05 Urine Nitrite Negative (Negative) 01/15/25 20:05 Urine Bilirubin Negative (Negative) 01/15/25 20:05 Urine Urobilinogen Negative (Negative) 01/15/25 20:05 Ur Leukocyte Esterase Negative (Negative) 01/15/25 20:05 Urine WBC (Auto) 0-5 /hpf (0-5) 01/15/25 20:05 Urine RBC (Auto) 0-2 /hpf (0-2) 01/15/25 20:05 U Hyaline Cast (Auto) 0-2 /lpf (0-2) 01/15/25 20:05 U Epithel Cells (Auto) 0-2 /hpf (0-2) 01/15/25 20:05 Urine Bacteria (Auto) None Seen (None Seen) 01/15/25 20:05 Urine Comment 01/15/25 20:05 SARS-CoV-2 (PCR) NEGATIVE (Negative) 01/15/25 18:52 Influenza Type A (PCR) Negative (Neg) 01/15/25 18:52 Influenza Type B (PCR) Negative (Neg) 01/15/25 18:52 RSV (RT-PCR) Negative (Neg) 01/15/25 18:[address] 01/15/25 18:42 Exam: CT head/brain without contrast. Reason for exam: Weakness Previous studies: 10/31/2017. FINDINGS: Again the CSF density extra-axial space is increased on the right consistent with chronic hygroma unchanged since the previous study. At this time no acute intracranial mass, hemorrhage or edema is seen. Diffuse lucency again seen in the deep right matter. Vascular calcifications of the intercerebral artery is present. The mastoids and visualized sinuses remain well aerated. No acute process of the bony calvarium is noted. IMPRESSION: 1. Negative for acute intracranial process and unenhanced head CT scan. 2. 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 3. Stable appearance of the chronic ischemic angiopathy and atherosclerotic changes of the cerebral arteries. Electronically signed by Booker Anthony 01-15-2025 8:01 PM Abdomen/Pelvis CT 01/15/25 19:57 Exam(s): CT ABDOMEN + PELVIS With Contrast IV Amt: 119ML OPTIRAY 320 EXAM: CT Abdomen and Pelvis With Intravenous Contrast CLINICAL HISTORY: Reason for exam: RUQ pain. TECHNIQUE: Axial computed tomography images of the abdomen and pelvis with intravenous contrast. CTDI is 71.52 mGy and DLP is 2422.02 mGy-cm. Automated exposure control was utilized for the study. A dose lowering technique was utilized adhering to the principles of ALARA. CONTRAST: Patient received 119ML OPTIRAY 320 of IV contrast COMPARISON: No relevant prior studies available. FINDINGS: Lung bases: Unremarkable. No mass. No consolidation. ABDOMEN: Liver: Unremarkable. No mass. Gallbladder and bile ducts: Cholelithiasis without evidence acute cholecystitis Pancreas: Unremarkable. No mass. No ductal dilation. Spleen: Unremarkable. No splenomegaly. Adrenals: Unremarkable. No mass. Kidneys and ureters: Unremarkable. No solid mass. No hydronephrosis. Stomach and bowel: Moderate amount of stool within the colon. Diverticulosis without evidence of diverticulitis. No obstruction. PELVIS: Appendix: Postop changes prior appendectomy. Bladder: Unremarkable. No mass. Reproductive: Unremarkable as visualized. ABDOMEN and PELVIS: Intraperitoneal space: Unremarkable. No free air. No significant fluid collection. Bones/joints: Please see separate dictation for details of the intrathoracic contents. No acute fracture. No dislocation. Soft tissues: Unremarkable. Vasculature: IVC filter is present. . No abdominal aortic aneurysm. Lymph nodes: Unremarkable. No enlarged lymph nodes. IMPRESSION: No acute findings in the abdomen or pelvis. Electronically signed by: Toby Scott MD 01/15/25 21:32 PM Chest CTA 01/15/25 19:57 Exam(s): CTA CHEST IV Amt: 119ML OPTIRAY 320 EXAM: CT Angiography Chest With Intravenous Contrast CLINICAL HISTORY: Reason for exam: PE. TECHNIQUE: Axial computed tomographic angiography images of the chest with intravenous contrast. CTDI is 71.52 mGy and DLP is 2422.02 mGy-cm. Automated exposure control was utilized for the study. A dose lowering technique was utilized adhering to the principles of ALARA. MIP reconstructed images were created and reviewed. COMPARISON: No relevant prior studies available. FINDINGS: Pulmonary arteries: Unremarkable. No pulmonary embolism. Aorta: No acute findings. No thoracic aortic aneurysm. Lungs: See below. Pleural space: Large bilateral pleural effusions. Compressive atelectasis both lower lobes. No pneumothorax. Heart: Cardiomegaly. No significant pericardial effusion. No evidence of RV dysfunction. Bones/joints: No acute fracture. No dislocation. Soft tissues: Unremarkable. Lymph nodes: Unremarkable. No enlarged lymph nodes. IMPRESSION: No pulmonary embolus CHF with large bilateral pleural effusions [id number] Electronically signed by: Toby Scott MD 01/15/25 21:23 PM Chest X-Ray 01/17/25 11:50 XR chest 2V PA/lateral HISTORY: 79 years-old Male CHF acute shortness of breath COMPARISON: 01/16/2025 TECHNIQUE: PA and lateral views of the chest FINDINGS: Cardiac silhouette is enlarged. Pulmonary vascular congestion with interstitial coarsening, slightly improved. Layering pleural effusions with dependent bibasilar consolidation, also slightly improved. No pneumothorax. Degenerative changes of the shoulders and spine. IMPRESSION: 1. Cardiomegaly with stable to slightly improved interstitial pulmonary edema. 2. Layering pleural effusions with bibasilar opacities, also mildly improved. ACT 112: Negative or not required by law. The above report was generated using voice recognition software. It may contain grammatical, syntax or spelling errors. Electronically signed by: Logan Rodrigues M.D. 01/17/2025 1:46 PM Diagnostic Findings Cardiac Enzymes 01/17/25 Range/Units 06:32 AST 40 H (13-39) U/L B-Natriuretic Peptide 215 H (0-100) pg/ml Coagulation 01/17/25 Range/Units 06:32 PT 26.1 H (9.0-12.0) Seconds B-Natriuretic Peptide 215 H (0-100) pg/ml CBC 01/17/25 Range/Units 06:32 WBC 13.20 H (4.8-10.8) K/ul RBC 4.94 (4.70-6.10) M/uL Hgb 15.1 (14.0-18.0) g/dL Hct 43.8 (42.0-52.0) % Plt Count 200 (130-400) K/uL Comprehensive Metabolic Panel 01/17/25 Range/Units 06:32 Sodium 139 (136-145) mmol/L Potassium 3.7 (3.5-5.1) mmol/L Chloride 102 (98-107) mmol/L Carbon Dioxide 29 (21-32) mmol/L BUN 43 H (6-23) mg/dl Creatinine 2.02 H D (0.6-1.4) mg/dl Glucose 89 (70-99(Fasting)) mg/dl Calcium 8.8 (8.6-10.3) mg/dl Direct Bilirubin 0.5 H (0-0.2) mg/dl AST 40 H (13-39) U/L ALT 60 H (7-52) U/L Alkaline Phosphatase 128 H (34-104) U/L Total Protein 6.0 (6.0-8.3) gm/dl Albumin 3.0 L (3.4-5.0) gm/dl Intake and Output 01/16/25 01/17/25 01/17/25 22:59 06:59 14:59 Intake Total 350 / 830 480 / 480 Output Total 695 / 8 621 / 8 371 / 371 Balance -695 / -1118 -271 / -1118 109 / 109 Intake: Oral 350 / 830 480 / 480 Output: Urine / 5 620 / 1945 370 / 370 # Bowel Movements Other: # Unmeasured Voids 1 Weight 94 kg Weight Measurement Method Built in [facility] Medications Administered Home Medications Medication Instructions Recorded Confirmed Last Taken warfarin 2.5 mg tablet 1.25 mg PO 2XWK 08/06/18 01/15/25 01/10/25 warfarin 2.5 mg tablet 2.5 mg PO [id number] 08/06/18 01/15/25 01/13/25 furosemide 40 mg tablet (Lasix) 40 mg PO QAM 07/08/19 01/15/25 01/15/25 allopurinol 300 mg tablet 300 mg PO QAM 11/04/19 01/15/25 01/15/25 atorvastatin 40 mg tablet 40 mg PO QAM 01/15/25 01/15/25 01/15/25 empagliflozin 25 mg tablet 25 mg PO QAM 01/15/25 01/15/25 01/15/25 (Jardiance) furosemide 40 mg tablet (Lasix) 20 mg PO .QAFTERNOON 01/15/25 01/15/25 01/14/25 insulin glargine 100 unit/mL (3 28 unit subcut QAM 01/15/25 01/15/25 01/15/25 mL) subcutaneous pen (Lantus Solostar U-100 Insulin) magnesium oxide 400 mg PO DAILY 01/15/25 01/15/25 01/15/25 metoprolol succinate 50 mg 25 mg PO QPM 01/15/25 01/15/25 01/14/25 tablet,extended release 24 hr metoprolol succinate 50 mg 50 mg PO QAM 01/15/25 01/15/25 01/15/25 tablet,extended release 24 hr Active Medications Generic Name Dose Route Start Last Admin Trade Name Carolyn PRN Reason Stop Dose Admin Allopurinol 300 mg 01/16/25 09:00 01/17/25 08:53 Allopurinol 300 Mg Tab PO 02/15/25 08:59 300 mg QAM JESSICA Administration Atorvastatin Calcium 40 mg 01/15/25 23:00 01/16/25 20:43 Atorvastatin 40 Mg Tab PO 02/14/25 22:59 40 mg HS JESSICA Administration Docusate Sodium 100 mg 01/16/25 09:00 01/17/25 08:53 Docusate Sodium 100 Mg Cap PO 02/15/25 08:59 100 mg BID JESSICA Administration Empagliflozin 25 mg 01/16/25 09:00 01/17/25 08:53 Empagliflozin 25 Mg Tab PO 02/15/25 08:59 25 mg QAM JESSICA Administration Furosemide 40 mg 01/16/25 17:00 01/17/25 08:52 Furosemide 40 Mg/4 Ml Vial IV 02/15/25 16:59 40 mg BIDM JESSICA Administration Insulin Aspart 0 units 01/15/25 23:49 01/17/25 12:28 Insulin Aspart Per Unit Charge SC 02/14/25 23:48 Not Given ACHS [facility] Insulin Glargine 28 units 01/16/25 09:00 01/17/25 08:11 Lantus Per Unit Charge SQ 02/15/25 08:59 28 units QAM JESSICA Administration Magnesium Oxide 400 mg 01/15/25 23:15 01/16/25 20:44 Magnesium Oxide 400 Mg Tab PO 02/14/25 23:14 400 mg HS JESSICA Administration Metoprolol Succinate 50 mg 01/16/25 09:00 01/17/25 08:53 Metoprolol Succ 50mg Ext Rel Tab PO 02/15/25 08:59 50 mg QAM JESSICA Administration Metoprolol Succinate 25 mg 01/15/25 23:00 01/16/25 20:44 Metoprolol Succ 25mg Ext Rel Tab PO 02/14/25 22:59 25 mg QPM JESSICA Administration Potassium Chloride 20 meq 01/16/25 09:30 01/17/25 08:57 Potassium Chloride Crtab 20 Meq Tabcr PO 02/15/25 09:29 20 meq QAM JESSICA Administration PG Care Time/CCT Total # of Minutes Spent Total Time Spent with Patient: Total time spent is greater than 50% in coordination of care (as documented) at patient's floor/unit and/or counseling patient: Coding Level of Care Code 40520 SUB INP/OBS CARE 3/50MIN Diagnoses Decompensated heart failure I50.9 Generalized weakness R53.1 Bilateral pleural effusion J90
[2025-01-17] MEDS: WARFARIN SOD 1 MG TAB PO SCH (15:43)
[2025-01-18 07:09] LABS: INR 2.4 (0.9-1.1); Prothrombin Time 24.2 Seconds (9.0-12.0)
[2025-01-18 07:10] LABS: Anion Gap 10.0 (3-11); Blood Urea Nitrogen 49.0 mg/dl (6-23); Calcium 8.9 mg/dl (8.6-10.3); Carbon Dioxide 26.0 mmol/L (21-32); Chloride 101.0 mmol/L (98-107); Creatinine Clr Calc Pharmacy 35.6 ml/min; Glucose 124.0 mg/dl (70-99(Fasting)); Potassium 3.4 mmol/L (3.5-5.1); Sodium 137.0 mmol/L (136-145)
--- NOTE | 2025-01-18 10:10 | XRay Report ---
XR chest 2V PA/lateral CLINICAL HISTORY: pleural effusion COMPARISON STUDY: 01/17/2025 through 01/15/2025. FINDINGS: Stable cardiomegaly with mild pulmonary vascular congestion. Stable small to moderate bilat eral pleural effusions and lung base consolidation, left greater than right. No pneumothorax. IMPRESSION: Stable exam. ACT 112: Negative or not required by law. Electronically signed by: Booker Mann M.D. 01/18/2025 10:08 AM
--- NOTE | 2025-01-18 12:07 | Cardiology Progress Note ---
Date of Service January 18, 2025 Assessment & Plan (1) Decompensated heart failure: (2) Generalized weakness: (3) Bilateral pleural effusion: Plan Severe PHTN R Heart Failure B/L Pleural Effusion Acute HFpEF Permanent AFib with CVR GABRIELA on CKD Deconditioned status DM HTN HLD ALMITA correct and f/u electrolytes f/u renal function IV diuretics - may have to accept some azotemia to optimize CHF status Additional diuretics given today if persisitent / no significant improvement in pleural effusion on CXR tomorrow - may consider US guided thoracentesis - dw hospitalist continue anticoagulation GDMT for HFpEF limited due to renal insufficiency and BP adjust metoprolol dose for rate control keeping HR between 60 to 100 BPM and systolic BP between 100-140 mmHg adjust anti-HTN meds keeping systolic BP between 100-140 mmHg avoid hypovolemia keep patient euvolemic keep LE elevated when sitting 1.5 L / 24 hr fluid restriction strict I&Os salt restriction counseling Continue atorvastatin repeat CXR Admission and Anticipated Discharge Date Admission Date: January 15, 2025 Subjective Patient on exam is sitting in bed in NAD; no c/o cp, sob, palpitations, dizziness, LOC leg swelling is at baseline still has FARLEY Review of Systems Review of Systems: as per HPI Physical Exam Physical Exam: General: no apparent distress Head: normocephalic, Atraumatic Eyes: normal inspection, anicteric sclerae, pinkish conjunctiva Neck: supple, NT Respiratory/Chest: Decreased breath sounds at bases, no wheezing Cardiovascular: Irregularly irregular, + systolic murmur Abdomen/GI:Soft, Non tender, Bowel sounds present Extremities/Musculoskeletal:normal inspection, trace edema, + chronic venous stasis changes Neurologic/Psych:AOX3, grossly no focal neurological deficits Skin: normal color, warm Results & Data Vital Signs (Past 12 Hours) Vital Signs Vital Signs Temp 36.3 C L 01/18/25 11:44 Pulse 59 L 01/18/25 11:44 Resp 18 01/18/25 11:44 BP 114/79 01/18/25 11:44 Pulse Ox 96 01/18/25 11:44 O2 Del Method Room Air 01/18/25 11:44 Intake & Output 01/17/25 01/18/25 01/18/25 18:59 06:59 18:59 Intake Total 480 / 820 340 / 820 Output Total 511 / 1536 1025 / 1536 Balance -31 / -716 -685 / -716 Weight 93.5 kg Intake: Oral 480 / 820 340 / 820 Output: Urine 510 / 1535 1025 / 1535 # Bowel Movements Other: Other Intake Source sips Weight Measurement Method Built in [facility] Pulse Pulse Resp BP Pulse Ox O2 Del Method 01/18/25 11:44 36.3 C L 59 L 18 114/79 96 Room Air 01/18/25 08:00 80 01/18/25 07:16 36.4 C L 84 19 106/67 94 Room Air 01/18/25 02:56 36.3 C L 84 19 135/91 91 Room Air Laboratory Results Laboratory Results WBC 13.20 K/ul (4.8-10.8) H 01/17/25 06:32 RBC 4.94 M/uL (4.70-6.10) 01/17/25 06:32 Hgb 15.1 g/dL (14.0-18.0) 01/17/25 06:32 Hct 43.8 % (42.0-52.0) 01/17/25 06:32 MCV 88.7 fL (80.0-100.0) 01/17/25 06:32 MCH 30.6 pg (25.0-34.0) 01/17/25 06:32 MCHC 34.5 g/dL (32.0-36.0) 01/17/25 06:32 RDW Std Deviation 48.2 fL (36.4-46.3) H 01/17/25 06:32 RDW Coeff of Tarun 15.0 % (11.5-14.5) H 01/17/25 06:32 Plt Count 200 K/uL (130-400) 01/17/25 06:32 MPV 9.1 fL (9.4-12.4) L 01/17/25 06:32 Immature Gran % (Auto) 0.9 % 01/16/25 07:04 Neut % (Auto) 74.9 % 01/16/25 07:04 Lymph % (Auto) 13.0 % 01/16/25 07:04 [place] % (Auto) 9.4 % 01/16/25 07:04 Eos % (Auto) 1.3 % 01/16/25 07:04 Baso % (Auto) 0.5 % 01/16/25 07:04 Neut # (Auto) 9.61 K/uL (1.40-6.50) H 01/16/25 07:04 Lymph # (Auto) 1.67 K/uL (1.20-3.40) 01/16/25 07:04 [place] # (Auto) 1.21 K/uL (0.11-0.59) H 01/16/25 07:04 Eos # (Auto) 0.17 K/uL (0.00-0.50) 01/16/25 07:04 Baso # (Auto) 0.07 K/uL (0.00-0.20) 01/16/25 07:04 Immature Gran # (Auto) 0.12 K/uL (0.01-0.20) 01/16/25 07:04 PT 24.2 Seconds (9.0-12.0) H 01/18/25 06:17 INR 2.4 (0.9-1.1) H 01/18/25 06:17 APTT 53 Seconds (21-31) H 01/15/25 18:52 PTT Ratio 1.9 01/15/25 18:52 Sodium 137 mmol/L (136-145) 01/18/25 06:17 Potassium 3.4 mmol/L (3.5-5.1) L 01/18/25 06:17 Chloride 101 mmol/L (98-107) 01/18/25 06:17 Carbon Dioxide 26 mmol/L (21-32) 01/18/25 06:17 Anion Gap 10 (3-11) 01/18/25 06:17 BUN 49 mg/dl (6-23) H 01/18/25 06:17 Creatinine 1.90 mg/dl (0.6-1.4) H 01/18/25 06:17 Est Cr Clr Drug Dosing 35.6 ml/min 01/18/25 06:17 eGFR 35.22 01/18/25 06:17 BUN/Creatinine Ratio 25.8 (10-20) H 01/18/25 06:17 Glucose 124 mg/dl (70-99(Fasting)) H 01/18/25 06:17 POC Glucose 187 mg/dl (70-99) H 01/18/25 11:25 Calcium 8.9 mg/dl (8.6-10.3) 01/18/25 06:17 Magnesium 2.4 mg/dl (1.7-2.4) 01/17/25 06:32 Total Bilirubin 2.2 mg/dl (0.2-1.0) H 01/17/25 06:32 Direct Bilirubin 0.5 mg/dl (0-0.2) H 01/17/25 06:32 AST 40 U/L (13-39) H 01/17/25 06:32 ALT 60 U/L (7-52) H 01/17/25 06:32 Alkaline Phosphatase 128 U/L (34-104) H 01/17/25 06:32 Total Creatine Kinase 20 U/L (30-223) L 01/15/25 18:52 Troponin I High Sens 14.1 pg/ml (0-20) 01/15/25 18:52 B-Natriuretic Peptide 215 pg/ml (0-100) H 01/17/25 06:32 Total Protein 6.0 gm/dl (6.0-8.3) 01/17/25 06:32 Albumin 3.0 gm/dl (3.4-5.0) L 01/17/25 06:32 Globulin 3.8 gm/dl (2.5-4.0) 01/15/25 18:52 Albumin/Globulin Ratio 0.8 (0.9-2) L 01/15/25 18:52 TSH 2.106 uIu/ml (0.300-4.500) 01/15/25 18:52 Urine Color Yellow 01/15/25 20:05 Urine Appearance Clear (Clear) 01/15/25 20:05 Urine pH 7.5 (4.5-7.5) 01/15/25 20:05 Ur Specific Gerry 1.019 (1.000-1.030) 01/15/25 20:05 Urine Protein 2+ (Negative) H 01/15/25 20:05 Urine Glucose (UA) 3+ (Negative) H 01/15/25 20:05 Urine Ketones Negative (Negative) 01/15/25 20:05 Urine Blood Negative (Negative) 01/15/25 20:05 Urine Nitrite Negative (Negative) 01/15/25 20:05 Urine Bilirubin Negative (Negative) 01/15/25 20:05 Urine Urobilinogen Negative (Negative) 01/15/25 20:05 Ur Leukocyte Esterase Negative (Negative) 01/15/25 20:05 Urine WBC (Auto) 0-5 /hpf (0-5) 01/15/25 20:05 Urine RBC (Auto) 0-2 /hpf (0-2) 01/15/25 20:05 U Hyaline Cast (Auto) 0-2 /lpf (0-2) 01/15/25 20:05 U Epithel Cells (Auto) 0-2 /hpf (0-2) 01/15/25 20:05 Urine Bacteria (Auto) None Seen (None Seen) 01/15/25 20:05 Urine Comment 01/15/25 20:05 SARS-CoV-2 (PCR) NEGATIVE (Negative) 01/15/25 18:52 Influenza Type A (PCR) Negative (Neg) 01/15/25 18:52 Influenza Type B (PCR) Negative (Neg) 01/15/25 18:52 RSV (RT-PCR) Negative (Neg) 01/15/25 18:[address] 01/15/25 18:42 Exam: CT head/brain without contrast. Reason for exam: Weakness Previous studies: 10/31/2017. FINDINGS: Again the CSF density extra-axial space is increased on the right consistent with chronic hygroma unchanged since the previous study. At this time no acute intracranial mass, hemorrhage or edema is seen. Diffuse lucency again seen in the deep right matter. Vascular calcifications of the intercerebral artery is present. The mastoids and visualized sinuses remain well aerated. No acute process of the bony calvarium is noted. IMPRESSION: 1. Negative for acute intracranial process and unenhanced head CT scan. 2. 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 3. Stable appearance of the chronic ischemic angiopathy and atherosclerotic changes of the cerebral arteries. Electronically signed by Booker Anthony 01-15-2025 8:01 PM Abdomen/Pelvis CT 01/15/25 19:57 Exam(s): CT ABDOMEN + PELVIS With Contrast IV Amt: 119ML OPTIRAY 320 EXAM: CT Abdomen and Pelvis With Intravenous Contrast CLINICAL HISTORY: Reason for exam: RUQ pain. TECHNIQUE: Axial computed tomography images of the abdomen and pelvis with intravenous contrast. CTDI is 71.52 mGy and DLP is 2422.02 mGy-cm. Automated exposure control was utilized for the study. A dose lowering technique was utilized adhering to the principles of ALARA. CONTRAST: Patient received 119ML OPTIRAY 320 of IV contrast COMPARISON: No relevant prior studies available. FINDINGS: Lung bases: Unremarkable. No mass. No consolidation. ABDOMEN: Liver: Unremarkable. No mass. Gallbladder and bile ducts: Cholelithiasis without evidence acute cholecystitis Pancreas: Unremarkable. No mass. No ductal dilation. Spleen: Unremarkable. No splenomegaly. Adrenals: Unremarkable. No mass. Kidneys and ureters: Unremarkable. No solid mass. No hydronephrosis. Stomach and bowel: Moderate amount of stool within the colon. Diverticulosis without evidence of diverticulitis. No obstruction. PELVIS: Appendix: Postop changes prior appendectomy. Bladder: Unremarkable. No mass. Reproductive: Unremarkable as visualized. ABDOMEN and PELVIS: Intraperitoneal space: Unremarkable. No free air. No significant fluid collection. Bones/joints: Please see separate dictation for details of the intrathoracic contents. No acute fracture. No dislocation. Soft tissues: Unremarkable. Vasculature: IVC filter is present. . No abdominal aortic aneurysm. Lymph nodes: Unremarkable. No enlarged lymph nodes. IMPRESSION: No acute findings in the abdomen or pelvis. Electronically signed by: Toby Scott MD 01/15/25 21:32 PM Chest CTA 01/15/25 19:57 Exam(s): CTA CHEST IV Amt: 119ML OPTIRAY 320 EXAM: CT Angiography Chest With Intravenous Contrast CLINICAL HISTORY: Reason for exam: PE. TECHNIQUE: Axial computed tomographic angiography images of the chest with intravenous contrast. CTDI is 71.52 mGy and DLP is 2422.02 mGy-cm. Automated exposure control was utilized for the study. A dose lowering technique was utilized adhering to the principles of ALARA. MIP reconstructed images were created and reviewed. COMPARISON: No relevant prior studies available. FINDINGS: Pulmonary arteries: Unremarkable. No pulmonary embolism. Aorta: No acute findings. No thoracic aortic aneurysm. Lungs: See below. Pleural space: Large bilateral pleural effusions. Compressive atelectasis both lower lobes. No pneumothorax. Heart: Cardiomegaly. No significant pericardial effusion. No evidence of RV dysfunction. Bones/joints: No acute fracture. No dislocation. Soft tissues: Unremarkable. Lymph nodes: Unremarkable. No enlarged lymph nodes. IMPRESSION: No pulmonary embolus CHF with large bilateral pleural effusions [id number] Electronically signed by: Toby Scott MD 01/15/25 21:23 PM Chest X-Ray 01/18/25 08:33 XR chest 2V PA/lateral CLINICAL HISTORY: pleural effusion COMPARISON STUDY: 01/17/2025 through 01/15/2025. FINDINGS: Stable cardiomegaly with mild pulmonary vascular congestion. Stable small to moderate bilateral pleural effusions and lung base consolidation, left greater than right. No pneumothorax. IMPRESSION: Stable exam. ACT 112: Negative or not required by law. Electronically signed by: Booker Mann M.D. 01/18/2025 10:08 AM Diagnostic Findings Coagulation 01/18/25 Range/Units 06:17 PT 24.2 H (9.0-12.0) Seconds Comprehensive Metabolic Panel 01/18/25 Range/Units 06:17 Sodium 137 (136-145) mmol/L Potassium 3.4 L (3.5-5.1) mmol/L Chloride 101 (98-107) mmol/L Carbon Dioxide 26 (21-32) mmol/L BUN 49 H (6-23) mg/dl Creatinine 1.90 H (0.6-1.4) mg/dl Glucose 124 H (70-99(Fasting)) mg/dl Calcium 8.9 (8.6-10.3) mg/dl Intake and Output 01/17/25 01/18/25 01/18/25 22:59 06:59 14:59 Intake Total 340 / 820 Output Total 565 / 1536 600 / 1536 Balance -225 / -716 -600 / -716 Intake: Oral 340 / 820 Output: Urine 565 / 1535 600 / 1535 Other: Other Intake Source sips Weight 93.5 kg Weight Measurement Method Built in [facility] Medications Administered Home Medications Medication Instructions Recorded Confirmed Last Taken warfarin 2.5 mg tablet 1.25 mg PO 2XWK 08/06/18 01/15/25 01/10/25 warfarin 2.5 mg tablet 2.5 mg PO 5XWK 08/06/18 01/15/25 01/13/25 furosemide 40 mg tablet (Lasix) 40 mg PO QAM 05/09/1901/15/25 01/15/25 allopurinol 300 mg tablet 300 mg PO QAM 11/04/19 01/15/25 01/15/25 atorvastatin 40 mg tablet 40 mg PO QAM 01/15/25 01/15/25 01/15/25 empagliflozin 25 mg tablet 25 mg PO QAM 01/15/25 01/15/25 01/15/25 (Jardiance) furosemide 40 mg tablet (Lasix) 20 mg PO .QAFTERNOON 01/15/25 01/15/25 01/14/25 insulin glargine 100 unit/mL (3 28 unit subcut QAM 01/15/25 01/15/25 01/15/25 mL) subcutaneous pen (Lantus Solostar U-100 Insulin) magnesium oxide 400 mg PO DAILY 01/15/25 01/15/25 01/15/25 metoprolol succinate 50 mg 25 mg PO QPM 01/15/25 01/15/25 01/14/25 tablet,extended release 24 hr metoprolol succinate 50 mg 50 mg PO QAM 01/15/25 01/15/25 01/15/25 tablet,extended release 24 hr Active Medications Generic Name Dose Route Start Last Admin Trade Name Freq PRN Reason Stop Dose Admin Allopurinol 300 mg 01/16/25 09:00 01/18/25 08:29 Allopurinol 300 Mg Tab PO 02/15/25 08:59 300 mg QAM JESSICA Administration Atorvastatin Calcium 40 mg 01/15/25 23:00 01/17/25 20:09 Atorvastatin 40 Mg Tab PO 02/14/25 22:59 40 mg HS JESSICA Administration Docusate Sodium 100 mg 01/16/25 09:00 01/18/25 08:30 Docusate Sodium 100 Mg Cap PO 02/15/25 08:59 Not Given BID JESSICA Empagliflozin 25 mg 01/16/25 09:00 01/18/25 08:29 Empagliflozin 25 Mg Tab PO 02/15/25 08:59 25 mg QAM JESSICA Administration Furosemide 40 mg 01/16/25 17:00 01/18/25 08:30 Furosemide 40 Mg/4 Ml Vial IV 02/15/25 16:59 40 mg BIDM JESSICA Administration Insulin Aspart 0 units 01/15/25 23:49 01/18/25 11:49 Insulin Aspart Per Unit Charge SC 02/14/25 23:48 4 units ACHS JESSICA Administration Insulin Glargine 28 units 01/16/25 09:00 01/18/25 08:02 Lantus Per Unit Charge SQ 02/15/25 08:59 28 units QAM JESSICA Administration Magnesium Oxide 400 mg 01/15/25 23:15 01/17/25 20:09 Magnesium Oxide 400 Mg Tab PO 02/14/25 23:14 400 mg HS JESSICA Administration Metoprolol Succinate 50 mg 01/16/25 09:00 01/18/25 08:29 Metoprolol Succ 50mg Ext Rel Tab PO 02/15/25 08:59 50 mg QAM JESSICA Administration PG Care Time/CCT Total # of Minutes Spent Total Time Spent with Patient: Total time spent is greater than 50% in coordination of care (as documented) at patient's floor/unit and/or counseling patient: Coding Level of Care Code 14629 SUB INP/OBS CARE 3/50MIN Diagnoses Decompensated heart failure I50.9 Generalized weakness R53.1 Bilateral pleural effusion J90
[2025-01-18] MEDS: FUROSEMIDE 40 MG/4 ML VIAL IV ONE (12:18)
--- NOTE | 2025-01-18 13:38 | Pulmonary Consultation ---
Date of Consultation January 18, 2025 Assessment & Plan (1) Decompensated heart failure: (2) Paroxysmal atrial fibrillation: (3) Pleural effusion: (4) Obstructive sleep apnea: (5) Pulmonary hypertension: (6) Right heart failure: (7) History of pulmonary embolism: (8) History of inferior vena caval filter placement: Plan CT chest 01/15/2025 personally reviewed: Moderate right-sided, moderate to large left-sided pleural effusion Compressive atelectasis of the left lower lobe Cardiomegaly Motion degraded study No significant mediastinal lymphadenopathy 2D echo 01/16/2025: EF 55-60%, diastolic dysfunction, LA moderately dilated, RA severely dilated, RV systolic function severely reduced with RV severely dilated , PASP 76 mmHg -- Bilateral pleural effusion Small on the right, moderate to large in the left Etiology is HFpEF BNP 215 Negative for COVID, influenza A/B as well as RSV on 01/15/2025 --Pulmonary hypertension Severe Type II Etiology is most likely chronic A-fib with diastolic dysfunction --ALMITA Was diagnosed a while ago Was not able to tolerate CPAP --A-fib On warfarin -- History of pulmonary emboli s/p IVC filter placement In 2010 On warfarin Plan: In/out: -4.4 L since coming to the hospital Patient is saturating well on room air On bedside ultrasound does seem to have moderate to large left-sided pleural effusion with dependent atelectasis He has been diuresing well and he is creatinine is stable even though he has underlying CKD For the time being I would recommend to continue with diuresis, if there is any significant worsening in the creatinine or the patient is not able to diurese and/or significant shortness of breath then thoracentesis could be thought of I do not expect total resolution of left-sided pleural effusion but I do expect if the patient is diuresing for it to decrease in size Case was discussed with primary team I spent more than 75 minutes looking in the chart, images, discussing the plan of care with the patient, RN as well as primary team Please note the above document was generated using voice recognition software. It may contain grammatical, syntax or spelling errors.Any formal questions or concerns about the content, text or information contained within the body of this dictation should be directly addressed to the provider for clarification. History of Present Illness Attending Physician: Francois Abel MD History of Present Illness 79-year-old male coming to the hospital for shortness of breath Past medical history: HFpEF, A-fib/PE on warfarin, hypertension, dyslipidemia, pulmonary hypertension, ALMITA noncompliant with CPAP Pulmonary consult for pleural effusion At the time of examination patient was sitting comfortably not in respiratory distress Patient's was also in the room Patient says that he is feeling much better compared to how he was when he came to the hospital He had dental surgery done early December and due to change in his diet in mid December he started to feel exertional shortness of breath which progressively got worse leading him to come to the hospital Patient says that he is usually compliant with his medication and takes it on a regular basis Denies any fever or chills No dysuria, no diarrhea prior to coming to the hospital No unusual headache or blurry vision Patient denies gaining weight prior to coming to the hospital, he has lost some weight since he is in the hospital Social history: Approximate [id number] smoking history, quit in 1983. 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 Allergies Allergy/AdvReac Type Severity Reaction Status Date / Time banana Allergy Verified 01/16/25 09:58 lactose AdvReac Verified 01/16/25 09:58 Home Medications Medication Instructions Recorded Confirmed Type warfarin 2.5 mg tablet 1.25 mg PO 2XWK 08/06/18 01/15/25 History warfarin 2.5 mg tablet 2.5 mg PO 5XWK 08/06/18 01/15/25 History furosemide 40 mg tablet (Lasix) 40 mg PO QAM 07/08/19 01/15/25 History allopurinol 300 mg tablet 300 mg PO QAM 11/04/19 01/15/25 History atorvastatin 40 mg tablet 40 mg PO QAM 01/15/25 01/15/25 History empagliflozin 25 mg tablet 25 mg PO QAM 01/15/25 01/15/25 History (Jardiance) furosemide 40 mg tablet (Lasix) 20 mg PO .QAFTERNOON 01/15/25 01/15/25 History insulin glargine 100 unit/mL (3 28 unit subcut QA 01/15/25 01/15/25 History mL) subcutaneous pen (Lantus Solostar U-100 Insulin) magnesium oxide 400 mg PO DAILY 01/15/25 01/15/25 History metoprolol succinate 50 mg 25 mg PO QPM 01/15/25 01/15/25 History tablet,extended release 24 hr metoprolol succinate 50 mg 50 mg PO QAM 01/15/25 01/15/25 History tablet,extended release 24 hr Patient History Medical History (Updated 01/18/25 @ 14:32 by Taya Burgos MD, [facility]) Gout Diabetes mellitus, type 2 On anticoagulant therapy warfarin daily Hypertension Hyperlipidemia Pulmonary embolism hx of 11/2009--unknown cause--reason for warfarin Sleep apnea pt states sleep study test stated he need CPAP, pt does not have a CPAP Morbid obesity [place] syndrome Lytic bone lesion of left femur Osteoarthritis of hip Acute worsening of stage 3 chronic kidney disease Hyperkalemia History of adenomatous polyp of colon (Unknown) Surgical History History of left cataract surgery History of prior ablation treatment left leg History of colonoscopy with polypectomy History of repair of retinal defect by laser photocoagulation bilt eyes S/P insertion of IVC (inferior vena caval) filter 11/2009 @ [facility] Family History Brother Prostate cancer Diabetes Father Coronary heart disease, Onset Age: 78 during CABG - felt heparin allergy Family history of diabetes mellitus Mother Old age Family history of diabetes mellitus Other No family history of adverse response to anesthesia Social History Smoking Status: Never smoker Second Hand Exposure: No; Do You Dip or Chew Tobacco: No; Hx Alcohol Use: Yes Alcohol type: hard liquor Alcohol Intake Frequency Comment: 2 rum/cokes daily Hx Substance Use: No Preferred Language: [place] Communication Ability: Effective Weight Loss Consultant Required: No Beliefs That Will Affect Care: None marital status: Current Living Situation: Spouse Current Living Situation Comment: - gilma Other Information That Helps Us Care for You: No Feels Safe at Home: Yes Safety Concerns: Feels Safe At This Time Diet: low salt during the past year weight has: remained stable Assistive Devices: Walker Review of Systems 2 Review of Systems: All systems reviewed & are unremarkable except as noted in HPI & below Physical Exam 2 Physical Exam: Constitutional: No acute distress HEENT: EOMI, PERRLA Respiratory system: Decreased air entry on the left side, no wheeze, no rhonchi, positive crackles bilateral lower lobe CVS: S1-S2 positive, no murmurs or gallops, distant heart sounds Abdomen: Soft, nontender, nondistended, positive bowel sounds x4 Extremities: +2 pulses bilaterally radialis/ dorsalis pedis, no cyanosis, +2 pitting edema left lower extremity, +1 right lower extremity, stasis dermatitis appreciated bilaterally Neuro: Awake alert oriented x3 Psych: Normal mood and affect G/U: No [place] Skin: no rashes, warm and dry Lymphatic: no cervical or axillary lymphadenopathy Results & Data Results & Data Vital Signs (Past 12 Hours) Vital Signs Temp Pulse Pulse Resp BP Pulse Ox O2 Del Method 01/18/25 11:44 36.3 C L 59 L 18 114/79 96 Room Air 01/18/25 08:00 80 01/18/25 07:16 36.4 C L 84 19 106/67 94 Room Air 01/18/25 02:56 36.3 C L 84 19 135/91 91 Room Air Laboratory Results 01/17/25 06:32 01/18/25 06:17 PG Care Time/CCT Total # of Minutes Spent Total Time Spent with Patient: Total time spent is greater than 50% in coordination of care (as documented) at patient's floor/unit and/or counseling patient: Coding Level of Care Code 72260 INT INP/OBS CARE 3/75MIN Diagnoses Decompensated heart failure I50.9 Paroxysmal atrial fibrillation I48.0 Pleural effusion J90 Obstructive sleep apnea G47.33 Pulmonary hypertension I27.20 Right heart failure I50.810 History of pulmonary embolism Z86.711 History of inferior vena caval filter placement Z95.828
--- NOTE | 2025-01-18 14:05 | Hospitalist Progress Note ---
Date of Service January 18, 2025 Assessment & Plan (1) Decompensated heart failure: Plan: Acute on chronic diastolic heart failure Pulmonary hypertension Right heart failure Valvular heart disease --Chest CTA:No pulmonary embolus. CHF with large bilateral pleural effusions [id number] -- Echo: EF 55 to 60%. Diastolic dysfunction based on LA enlargement. Right ventricle systolic function is severely reduced. Right ventricle is severely dilated. Left atrium is moderately dilated. Right atrium is severely dilated. Aortic valve sclerosis mild, without significant stenosis. Trace aortic regurgitation. Mild mitral regurgitation. Moderate to severe tricuspid regurgitation. Estimated systolic pulmonary artery pressure 76 mmHg. --BNP 215 Hold PO Lasix Continue IV diuretics per cardiology Continue Jardiance, metoprolol succinate Also started on metoprolol Monitor I's and O's, daily weight, volume status Continue fluid restriction Appreciate cardiology input Chest x-ray today showed persistent pleural effusion, requested pulmonology evaluation for possible thoracentesis Monitor and replete electrolytes as needed Will repeat chest x-ray tomorrow Constipation --ABD CT:Moderate amount of stool within the colon. Diverticulosis without evidence of diverticulitis. No obstruction. Continue bowel regimen Resolved Atrial fibrillation PE/ DVT Supratherapeutic INR received vitamin K--Resolved Denies any bleeding issues Continue metoprolol succinate Monitor INR: 7.4>5.0>2.6>2.4 today Continue warfarin Advised to follow-up with Coumadin clinic on discharge Hypokalemia Replace and monitor GABRIELA on CKD III Baseline creatinine ~ 1.7 Creatinine 1.9 today Monitor renal function closely Avoid nephrotoxic agents as able Expected rise in creatinine due to IV diuretics Generalized weakness Ambulatory dysfunction Continue PT OT Fall precautions Chronic right subdural hygroma Incidental finding on CT --CT head:Stable appearance of the chronic right subdural hygroma as compared to the study of 10/31/2017. Stable appearance of the chronic ischemic angiopathy and atherosclerotic changes of the cerebral arteries. Follow-up as outpatient DM II HbA1c 6.2 Continue insulin while hospitalized Monitor blood glucose levels Hypertension Hyperlipidemia Gout Continue home medications Monitor blood pressure ALMITA/CPAP--noncompliance Past tobacco abuse Needs follow-up with sleep medicine on discharge DVT Px: INR therapeutic Warfarin CODE STATUS Full code Disposition PT OT: Recommends rehab Admission and Anticipated Discharge Date Admission Date: January 15, 2025 Subjective Patient is seen and examined at bedside Reports having some dyspnea on exertion Leg edema improving Discussed with cardiology, pulmonology today Denies any nausea, vomiting, chest pain, dizziness Review of Systems Review of Systems: All systems reviewed & are unremarkable except as noted in Subjective Physical Exam Physical Exam: Physical Exam: Vitals signs as noted above General Appearance:Moderately built and nourished, no apparent distress Head: normocephalic, Atraumatic Eyes: normal inspection, EOMI Neck: supple, Trachea midline Respiratory/Chest: Decreased breath sounds, + Basal Crackles, No accessory muscle use Cardiovascular: Irregularly irregular, No murmur Abdomen/GI:Soft, Non tender, Bowel sounds present Extremities/Musculoskeletal:normal inspection, B/L LE edema, + chronic venous stasis changes Neurologic/Psych:AAOX3, grossly no focal neurological deficits Skin: normal color, warm Results & Data Results & Data Vital Signs (Past 12 Hours) Vital Signs Temp Pulse Pulse Resp BP Pulse Ox O2 Del Method 01/18/25 11:44 36.3 C L 59 L 18 114/79 96 Room Air 01/18/25 08:00 80 01/18/25 07:16 36.4 C L 84 19 106/67 94 Room Air 01/18/25 02:56 36.3 C L 84 19 135/91 91 Room Air Laboratory Results [facility] 01/18/25 06:17 Sodium 137 Potassium 3.4 L Chloride 101 Carbon Dioxide 26 BUN 49 H Creatinine 1.90 H Glucose 124 H Calcium 8.9
[2025-01-18] MEDS: POTASSIUM CHLORIDE CRTAB 20 MEQ TABCR PO SCH (14:19)
--- NOTE | 2025-01-18 14:30 | Procedure Note ---
Procedure Note Date of Service January 18, 2025 Bedside Ultrasound: Lung: Right:-Minimal right-sided pleural effusion with curtain sign, B-lines posteriorly Left:-Moderate to large left-sided simple hypoechoic pleural effusion with compressive atelectasis of the left lower lobe Please note the above document was generated using voice recognition software. It may contain grammatical, syntax or spelling errors.Any formal questions or concerns about the content, text or information contained within the body of this dictation should be directly addressed to the provider for clarification. [facility] [place] Codes (Charges) Pulmonary/Thoracic Procedure 1: Pulmonary and Thoracic: 27929 US, Chest, real time with imaging documentation Coding CPT Codes Pulmonary/Thoracic - Pulmonary and Thoracic: 54650 US, Chest, real time with imaging documentation ([id number]) Additional Codes Date of Service (PG.SURGERY)
[2025-01-18 15:34] LABS: Magnesium 2.3 mg/dl (1.7-2.4); Potassium 3.7 mmol/L (3.5-5.1)
[2025-01-18] MEDS ORDERED: WARFARIN SOD 1 MG TAB PO SCH ×2 (16:00→21:00)
[2025-01-18] MEDS: WARFARIN SOD 1 MG TAB PO SCH (17:00)
[2025-01-18] MEDS ORDERED: POTASSIUM CHLORIDE CRTAB 20 MEQ TABCR PO SCH (21:00)
[2025-01-19 06:54] LABS: Hematocrit (blood only) 44.7 % (42.0-52.0); Hemoglobin 15.7 g/dL (14.0-18.0); Mean Corpuscular Hemoglobin 30.5 pg (25.0-34.0); Mean Corpuscular Volume 87.0 fL (80.0-100.0); Platelet Count 206 K/uL (130-400); RDW Standard Deviation 47.1 fL (36.4-46.3); Red Blood Count 5.14 M/uL (4.70-6.10); White Blood Count 14.46 K/ul (4.8-10.8)
[2025-01-19 07:11] LABS: Alanine Aminotransferase 57.0 U/L (7-52); Albumin Level 3.2 gm/dl (3.4-5.0); Alkaline Phosphatase 131.0 U/L (34-104); Anion Gap 11.0 (3-11); Bilirubin,Total 2.2 mg/dl (0.2-1.0); Blood Urea Nitrogen 57.0 mg/dl (6-23); Calcium 9.2 mg/dl (8.6-10.3); Carbon Dioxide 28.0 mmol/L (21-32); Chloride 97.0 mmol/L (98-107); Creatinine Clr Calc Pharmacy 32.0 ml/min; Glucose 157.0 mg/dl (70-99(Fasting)); Magnesium 2.5 mg/dl (1.7-2.4); Potassium 3.7 mmol/L (3.5-5.1); Sodium 136.0 mmol/L (136-145); Total Protein 6.5 gm/dl (6.0-8.3)
[2025-01-19 07:21] LABS: INR 2.3 (0.9-1.1); Prothrombin Time 23.0 Seconds (9.0-12.0)
--- NOTE | 2025-01-19 08:02 | XRay Report ---
EXAM: XR chest 1V portable CLINICAL HISTORY: Pleural effusion. TECHNIQUE: An X-ray image of the chest is obtained in AP portable projection. COMPARISON: 01/17/2025. FINDINGS: Pulmonary Parenchyma: Interval stable, opacification/haziness of the right lower zone and in the left infrahilar region. Interval stable, bilateral blunting of both costophrenic recess, suggests pleural effusion with atelectasis. Heart and Mediastinum: Heart size cannot be commented upon due to AP projection. Bony Thorax: Bony thorax appears intact without fractures or deformities. Soft Tissues: Soft tissues overlying the chest wall are unremarkable. IMPRESSION: 1. No gross interval changes. 2. Bilateral pleural effusion, grossly unchanged. 3. Opacification/haziness in the right lower and left infrahilar region, also appears unchanged. Electronically signed by Paolo Hampton 01-19-2025 08:01 AM
--- NOTE | 2025-01-19 09:00 | Pulmonology Progress Note ---
Date of Service January 19, 2025 Assessment & Plan (1) Decompensated heart failure: (2) Paroxysmal atrial fibrillation: (3) Pleural effusion: (4) Obstructive sleep apnea: (5) Pulmonary hypertension: (6) Right heart failure: (7) History of pulmonary embolism: (8) History of inferior vena caval filter placement: Plan CT chest 01/15/2025 personally reviewed: Moderate right-sided, moderate to large left-sided pleural effusion Compressive atelectasis of the left lower lobe Cardiomegaly Motion degraded study No significant mediastinal lymphadenopathy 2D echo 01/16/2025: EF 55-60%, diastolic dysfunction, LA moderately dilated, RA severely dilated, RV systolic function severely reduced with RV severely dilated , PASP 76 mmHg -- Bilateral pleural effusion Small on the right, moderate to large in the left Etiology is HFpEF BNP 215 Negative for COVID, influenza A/B as well as RSV on 01/15/2025 --Pulmonary hypertension Severe Type II Etiology is most likely chronic A-fib with diastolic dysfunction --ALMITA Was diagnosed a while ago Was not able to tolerate CPAP --A-fib On warfarin -- History of pulmonary emboli s/p IVC filter placement In 2010 On warfarin Plan: In/out: -5.1 L since coming to the hospital For the time being I would recommend to continue with diuresis, if there is any significant worsening in the creatinine or the patient is not able to diurese and/or significant shortness of breath then thoracentesis could be thought of I do not expect total resolution of left-sided pleural effusion but I do expect for it to decrease in size if the patient is diuresing Incentive spirometry will be helpful for atelectasis Case was discussed with primary team as well as RN Please note the above document was generated using voice recognition software. It may contain grammatical, syntax or spelling errors.Any formal questions or concerns about the content, text or information contained within the body of this dictation should be directly addressed to the provider for clarification. Admission and Anticipated Discharge Date Admission Date: January 15, 2025 Subjective Patient seen and examined at bedside. No acute distress, no adverse events overnight Was saturating 97% on room air. Has been diuresing well Denied any headache, no nausea, no vomiting No hematuria, no hematochezia Fair appetite Review of Systems 2 Review of Systems: All systems reviewed & are unremarkable except as noted in Subjective Physical Exam 2 Physical Exam: Constitutional: No acute distress HEENT: EOMI, PERRLA Respiratory system: Decreased air entry on the left side, no wheeze, no rhonchi, positive crackles bilateral lower lobe CVS: S1-S2 positive, no murmurs or gallops, distant heart sounds Abdomen: Soft, nontender, nondistended, positive bowel sounds x4 Extremities: +2 pulses bilaterally radialis/ dorsalis pedis, no cyanosis, +2 pitting edema left lower extremity, +1 right lower extremity, stasis dermatitis appreciated bilaterally Neuro: Awake alert oriented x3 Psych: Normal mood and affect G/U: No [place] Skin: no rashes, warm and dry Lymphatic: no cervical or axillary lymphadenopathy Results & Data Results & Data Vital Signs (Past 12 Hours) Vital Signs Temp Pulse Resp BP Pulse Ox O2 Del Method 01/19/25 07:31 36.2 C L 76 22 139/84 93 Room Air 01/19/25 02:42 36.3 C L 82 22 147/87 H 93 Room Air 01/18/25 23:10 36.4 C L 83 20 114/76 90 Room Air Laboratory Results 01/19/25 06:28 01/19/25 06:28 PG Care Time/CCT Total # of Minutes Spent Total Time Spent with Patient: Total time spent is greater than 50% in coordination of care (as documented) at patient's floor/unit and/or counseling patient: Coding Level of Care Code 88341 SUB INP/OBS CARE 2/35MIN Diagnoses Decompensated heart failure I50.9 Paroxysmal atrial fibrillation I48.0 Pleural effusion J90 Obstructive sleep apnea G47.33 Pulmonary hypertension I27.20 Right heart failure I50.810 History of pulmonary embolism Z86.711 History of inferior vena caval filter placement Z95.828
--- NOTE | 2025-01-19 10:32 | Hospitalist Progress Note ---
Date of Service January 19, 2025 Assessment & Plan (1) Decompensated heart failure: Plan: 79 year old man with history of chronic diastolic heart failure/right-sided heart failure (EF 60%, TTE, 2023), A-fib/PE DVT status post IVC filter placement on Coumadin, valvular heart disease (mild MR/TR), hypertension, hyperlipidemia, pulmonary hypertension, ALMITA (CPAP noncompliance), CRI (baseline creatinine 1.7), DM 2 insulin requiring, BPH, gout, OCD, past tobacco abuse who presented with FARLEY and fatigue for the past 2 weeks Acute on chronic diastolic heart failure Pulmonary hypertension Right heart failure Valvular heart disease Bilateral pleural effusion -Chest CTA:No pulmonary embolus. CHF with large bilateral pleural effusions [id number] - Echo: EF 55 to 60%. Diastolic dysfunction based on LA enlargement. Right ve ntricle systolic function is severely reduced. Right ventricle is severely dilated. Left atrium is moderately dilated. Right atrium is severely dilated. Aortic valve sclerosis mild, without significant stenosis. Trace aortic regurgitation. Mild mitral regurgitation. Moderate to severe tricuspid regurgitation. Estimated systolic pulmonary artery pressure 76 mmHg. -BNP 215 Currently on IV lasix 40mg BID. Reports he is on lasix 40mg AM and 20mg PM (was previously on 40mg BID and was changed many months ago) Continue Jardiance, metoprolol succinate Good diuresis so far. Wt down to 91.2kg today from 101.9kg on admisson Monitor I's and O's, daily weight, volume status Continue fluid restriction Cards rec noted Pulm recs noted Constipation -ABD CT:Moderate amount of stool within the colon. Diverticulosis without evidence of diverticulitis. No obstruction. Continue bowel regimen Resolved Atrial fibrillation PE/ DVT Supratherapeutic INR on admission. Received vitamin K Denies any bleeding issues Continue metoprolol succinate Monitor INR: 7.4>5.0>2.6>2.3 today Continue warfarin Advised to follow-up with Coumadin clinic on discharge GABRIELA on CKD III Baseline creatinine ~ 1.7 Creatinine 2.09 today Monitor renal function closely Avoid nephrotoxic agents as able Generalized weakness Ambulatory dysfunction Continue PT OT Fall precautions Chronic right subdural hygroma Incidental finding on CT --CT head:Stable appearance of the chronic right subdural hygroma as compared to the study of 10/31/2017. Stable appearance of the chronic ischemic angiopathy and atherosclerotic changes of the cerebral arteries. Follow-up as outpatient DM II HbA1c 6.2 Continue insulin while hospitalized Monitor blood glucose levels Hyperlipidemia - continue atorvastatin Gout - continue allopurinol ALMITA/CPAP--noncompliance. Needs follow-up with sleep medicine on discharge DVT Px: on warfarin CODE STATUS:Full code Plan to dc to rehab once medically stable I spent a total of 50 minutes coordinating, documenting and providing care for this patient excluding time spent in performance of separately billed services Admission and Anticipated Discharge Date Admission Date: January 15, 2025 Subjective Patient seen and examined Reports feeling better today with improvement in his fatigue No SOB so far No new complaints Physical Exam Constitutional: + well hydrated; no acute distress Eyes: PERRL, conjunctivae normal, anicteric sclerae ENMT: external ear and nose normal, oropharynx normal Respiratory: On room air, not in resp distress, +basilar crackles Cardiovascular: Rate/Rhythm: + irregularly irregular Gastrointestinal (Abdomen): normal bowel sounds, soft, nontender, no hepatosplenomegaly Musculoskeletal: Pedal edema (L>R, chronic per patient), stasis changes Neurologic: PERRL, EOMI, accommodation nl, no face palsy, no dysarthria Psychiatric: A+Ox3, euthymic affect Results & Data Results & Data Vital Signs (Past 12 Hours) Vital Signs Temp Pulse Resp BP Pulse Ox O2 Del Method 01/19/25 07:31 36.2 C L 76 22 139/84 93 Room Air 01/19/25 02:42 36.3 C L 82 22 147/87 H 93 Room Air 01/18/25 23:10 36.4 C L 83 20 114/76 90 Room Air Laboratory Results Abnormal lab results 01/18/25 01/18/25 01/19/25 Range/Units 16:16 20:13 06:28 WBC 14.46 H (4.8-10.8) K/ul RDW Std Deviation 47.1 H (36.4-46.3) fL RDW Coeff of Tarun 14.9 H (11.5-14.5) % PT 23.0 H (9.0-12.0) Seconds INR 2.3 H (0.9-1.1) Chloride 97 L (98-107) mmol/L BUN 57 H (6-23) mg/dl Creatinine 2.09 H (0.6-1.4) mg/dl BUN/Creatinine Ratio 27.3 H (10-20) Glucose 157 H (70-99(Fasting)) mg/dl POC Glucose 152 H 170 H (70-99) mg/dl Magnesium 2.5 H (1.7-2.4) mg/dl Total Bilirubin 2.2 H (0.2-1.0) mg/dl Direct Bilirubin 0.5 H (0-0.2) mg/dl ALT 57 H (7-52) U/L Alkaline Phosphatase 131 H (34-104) U/L Albumin 3.2 L (3.4-5.0) gm/dl 01/19/25 01/19/25 Range/Units 07:12 11:09 WBC (4.8-10.8) K/ul RDW Std Deviation (36.4-46.3) fL RDW Coeff of Tarun (11.5-14.5) % PT (9.0-12.0) Seconds INR (0.9-1.1) Chloride (98-107) mmol/L BUN (6-23) mg/dl Creatinine (0.6-1.4) mg/dl BUN/Creatinine Ratio (10-20) Glucose (70-99(Fasting)) mg/dl POC Glucose 163 H 248 H (70-99) mg/dl Magnesium (1.7-2.4) mg/dl Total Bilirubin (0.2-1.0) mg/dl Direct Bilirubin (0-0.2) mg/dl ALT (7-52) U/L Alkaline Phosphatase (34-104) U/L Albumin (3.4-5.0) gm/dl
--- NOTE | 2025-01-19 11:55 | Cardiology Progress Note ---
Date of Service January 19, 2025 Assessment & Plan (1) Decompensated heart failure: (2) Generalized weakness: (3) Bilateral pleural effusion: Plan Severe PHTN R Heart Failure B/L Pleural Effusion -> L > R Acute HFpEF Permanent AFib with CVR GABRIELA on CKD Deconditioned status DM HTN HLD ALMITA correct and f/u electrolytes f/u renal function continue IV diuretics - may have to accept some azotemia to optimize CHF status persisitent / no significant improvement in pleural effusion on CXR -> US guided thoracentesis continue anticoagulation GDMT for HFpEF limited due to renal insufficiency and BP adjust metoprolol dose for rate control keeping HR between 60 to 100 BPM and sys tolic BP between 100-140 mmHg adjust anti-HTN meds keeping systolic BP between 100-140 mmHg avoid hypovolemia keep patient euvolemic keep LE elevated when sitting 1.5 L / 24 hr fluid restriction strict I&Os salt restriction counseling Continue atorvastatin Admission and Anticipated Discharge Date Admission Date: January 15, 2025 Subjective Patient on exam is lying in bed in NAD; no c/o cp, sob, palpitations, dizziness, LOC, cough, fever states that FARLEY is better but still persistent; seen by pulmonary Review of Systems Review of Systems: as per HPI Physical Exam Physical Exam: General: no apparent distress Head: normocephalic, Atraumatic Eyes: anicteric sclerae, pinkish conjunctiva Neck: supple, NT Respiratory/Chest: Decreased breath sounds at bases, no wheezing Cardiovascular: Irregularly irregular, + systolic murmur Abdomen/GI:Soft, Non tender, Bowel sounds present Extremities/Musculoskeletal:normal inspection, trace edema, + chronic venous stasis changes Neurologic/Psych:AOX3, no gross focal neurological deficits Skin: normal color, warm Results & Data Vital Signs (Past 12 Hours) Vital Signs Vital Signs Temp 36.3 C L 01/19/25 11:42 Pulse 81 01/19/25 11:42 Resp 20 01/19/25 11:42 BP 119/77 01/19/25 11:42 Pulse Ox 95 01/19/25 11:42 O2 Del Method Room Air 01/19/25 11:42 Intake & Output 01/18/25 01/19/25 01/19/25 18:59 06:59 18:59 Intake Total 500 / 740 240 / 740 Output Total 1700 / 2400 700 / 2400 Balance -1200 / -1660 -460 / -1660 Weight 91.2 kg Intake: Oral 500 / 740 240 / 740 Output: Urine 1700 / 2400 700 / 2400 Other: Weight Measurement Method Built in [facility] Pulse Pulse Resp BP Pulse Ox O2 Del Method 01/19/25 11:42 36.3 C L 81 20 119/77 95 Room Air 01/19/25 07:31 36.2 C L 76 22 139/84 93 Room Air 01/19/25 07:00 87 01/19/25 02:42 36.3 C L 82 22 147/87 H 93 Room Air Laboratory Results Laboratory Results WBC 14.46 K/ul (4.8-10.8) H 01/19/25 06:28 RBC 5.14 M/uL (4.70-6.10) 01/19/25 06:28 Hgb 15.7 g/dL (14.0-18.0) 01/19/25 06:28 Hct 44.7 % (42.0-52.0) 01/19/25 06:28 MCV 87.0 fL (80.0-100.0) 01/19/25 06:28 MCH 30.5 pg (25.0-34.0) 01/19/25 06:28 MCHC 35.1 g/dL (32.0-36.0) 01/19/25 06:28 RDW Std Deviation 47.1 fL (36.4-46.3) H 01/19/25 06:28 RDW Coeff of Tarun 14.9 % (11.5-14.5) H 01/19/25 06:28 Plt Count 206 K/uL (130-400) 01/19/25 06:28 MPV 9.6 fL (9.4-12.4) 01/19/25 06:28 Immature Gran % (Auto) 0.9 % 01/16/25 07:04 Neut % (Auto) 74.9 % 01/16/25 07:04 Lymph % (Auto) 13.0 % 01/16/25 07:04 Slope % (Auto) 9.4 % 01/16/25 07:04 Eos % (Auto) 1.3 % 01/16/25 07:04 Baso % (Auto) 0.5 % 01/16/25 07:04 Neut # (Auto) 9.61 K/uL (1.40-6.50) H 01/16/25 07:04 Lymph # (Auto) 1.67 K/uL (1.20-3.40) 01/16/25 07:04 Slope # (Auto) 1.21 K/uL (0.11-0.59) H 01/16/25 07:04 Eos # (Auto) 0.17 K/uL (0.00-0.50) 01/16/25 07:04 Baso # (Auto) 0.07 K/uL (0.00-0.20) 01/16/25 07:04 Immature Gran # (Auto) 0.12 K/uL (0.01-0.20) 01/16/25 07:04 PT 23.0 Seconds (9.0-12.0) H 01/19/25 06:28 INR 2.3 (0.9-1.1) H 01/19/25 06:28 APTT 53 Seconds (21-31) H 01/15/25 18:52 PTT Ratio 1.9 01/15/25 18:52 Sodium 136 mmol/L (136-145) 01/19/25 06:28 Potassium 3.7 mmol/L (3.5-5.1) 01/19/25 06:28 Chloride 97 mmol/L (98-107) L 01/19/25 06:28 Carbon Dioxide 28 mmol/L (21-32) 01/19/25 06:28 Anion Gap 11 (3-11) 01/19/25 06:28 BUN 57 mg/dl (6-23) H 01/19/25 06:28 Creatinine 2.09 mg/dl (0.6-1.4) H 01/19/25 06:28 Est Cr Clr Drug Dosing 32.0 ml/min 01/19/25 06:28 eGFR 31.41 01/19/25 06:28 BUN/Creatinine Ratio 27.3 (10-20) H 01/19/25 06:28 Glucose 157 mg/dl (70-99(Fasting)) H 01/19/25 06:28 POC Glucose 248 mg/dl (70-99) H 01/19/25 11:09 Calcium 9.2 mg/dl (8.6-10.3) 01/19/25 06:28 Magnesium 2.5 mg/dl (1.7-2.4) H 01/19/25 06:28 Total Bilirubin 2.2 mg/dl (0.2-1.0) H 01/19/25 06:28 Direct Bilirubin 0.5 mg/dl (0-0.2) H 01/19/25 06:28 AST 39 U/L (13-39) 01/19/25 06:28 ALT 57 U/L (7-52) H 01/19/25 06:28 Alkaline Phosphatase 131 U/L (34-104) H 01/19/25 06:28 Total Creatine Kinase 20 U/L (30-223) L 01/15/25 18:52 Troponin I High Sens 14.1 pg/ml (0-20) 01/15/25 18:52 B-Natriuretic Peptide 215 pg/ml (0-100) H 01/17/25 06:32 Total Protein 6.5 gm/dl (6.0-8.3) 01/19/25 06:28 Albumin 3.2 gm/dl (3.4-5.0) L 01/19/25 06:28 Globulin 3.8 gm/dl (2.5-4.0) 01/15/25 18:52 Albumin/Globulin Ratio 0.8 (0.9-2) L 01/15/25 18:52 TSH 2.106 uIu/ml (0.300-4.500) 01/15/25 18:52 Urine Color Yellow 01/15/25 20:05 Urine Appearance Clear (Clear) 01/15/25 20: Urine pH 7.5 (4.5-7.5) 01/15/25 20:05 Ur Specific [place] 1.019 (1.000-1.030) 01/15/25 20:05 Urine Protein 2+ (Negative) H 01/15/25 20:05 Urine Glucose (UA) 3+ (Negative) H 01/15/25 20:05 Urine Ketones Negative (Negative) 01/15/25 20:05 Urine Blood Negative (Negative) 01/15/25 20:05 Urine Nitrite Negative (Negative) 01/15/25 20:05 Urine Bilirubin Negative (Negative) 01/15/25 20:05 Urine Urobilinogen Negative (Negative) 01/15/25 20:05 Ur Leukocyte Esterase Negative (Negative) 01/15/25 20:05 Urine WBC (Auto) 0-5 /hpf (0-5) 01/15/25 20:05 Urine RBC (Auto) 0-2 /hpf (0-2) 01/15/25 20:05 U Hyaline Cast (Auto) 0-2 /lpf (0-2) 01/15/25 20:05 U Epithel Cells (Auto) 0-2 /hpf (0-2) 01/15/25 20:05 Urine Bacteria (Auto) None Seen (None Seen) 01/15/25 20:05 Urine Comment 01/15/25 20:05 SARS-CoV-2 (PCR) NEGATIVE (Negative) 01/15/25 18:52 Influenza Type A (PCR) Negative (Neg) 01/15/25 18:52 Influenza Type B (PCR) Negative (Neg) 01/15/25 18:52 RSV (RT-PCR) Negative (Neg) 01/15/25 18:[address] 01/15/25 18:42 Exam: CT head/brain without contrast. Reason for exam: Weakness Previous studies: 10/31/2017. FINDINGS: Again the CSF density extra-axial space is increased on the right consistent with chronic hygroma unchanged since the previous study. At this time no acute intracranial mass, hemorrhage or edema is seen. Diffuse lucency again seen in the deep right matter. Vascular calcifications of the intercerebral artery is present. The mastoids and visualized sinuses remain well aerated. No acute process of the bony calvarium is noted. IMPRESSION: 1. Negative for acute intracranial process and unenhanced head CT scan. 2. 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 3. Stable appearance of the chronic ischemic angiopathy and atherosclerotic changes of the cerebral arteries. Electronically signed by Booker Anthony 01-15-2025 8:01 PM Abdomen/Pelvis CT 01/15/25 19:57 Exam(s): CT ABDOMEN + PELVIS With Contrast IV Amt: 119ML OPTIRAY 320 EXAM: CT Abdomen and Pelvis With Intravenous Contrast CLINICAL HISTORY: Reason for exam: RUQ pain. TECHNIQUE: Axial computed tomography images of the abdomen and pelvis with intravenous contrast. CTDI is 71.52 mGy and DLP is 2422.02 mGy-cm. Automated exposure control was utilized for the study. A dose lowering technique was utilized adhering to the principles of ALARA. CONTRAST: Patient received 119ML OPTIRAY 320 of IV contrast COMPARISON: No relevant prior studies available. FINDINGS: Lung bases: Unremarkable. No mass. No consolidation. ABDOMEN: Liver: Unremarkable. No mass. Gallbladder and bile ducts: Cholelithiasis without evidence acute cholecystitis Pancreas: Unremarkable. No mass. No ductal dilation. Spleen: Unremarkable. No splenomegaly. Adrenals: Unremarkable. No mass. Kidneys and ureters: Unremarkable. No solid mass. No hydronephrosis. Stomach and bowel: Moderate amount of stool within the colon. Diverticulosis without evidence of diverticulitis. No obstruction. PELVIS: Appendix: Postop changes prior appendectomy. Bladder: Unremarkable. No mass. Reproductive: Unremarkable as visualized. ABDOMEN and PELVIS: Intraperitoneal space: Unremarkable. No free air. No significant fluid collection. Bones/joints: Please see separate dictation for details of the intrathoracic contents. No acute fracture. No dislocation. Soft tissues: Unremarkable. Vasculature: IVC filter is present. . No abdominal aortic aneurysm. Lymph nodes: Unremarkable. No enlarged lymph nodes. IMPRESSION: No acute findings in the abdomen or pelvis. Electronically signed by: Toby Scott MD 01/15/25 21:32 PM Chest CTA 01/15/25 19:57 Exam(s): CTA CHEST IV Amt: 119ML OPTIRAY 320 EXAM: CT Angiography Chest With Intravenous Contrast CLINICAL HISTORY: Reason for exam: PE. TECHNIQUE: Axial computed tomographic angiography images of the chest with intravenous contrast. CTDI is 71.52 mGy and DLP is 2422.02 mGy-cm. Automated exposure control was utilized for the study. A dose lowering technique was utilized adhering to the principles of ALARA. MIP reconstructed images were created and reviewed. COMPARISON: No relevant prior studies available. FINDINGS: Pulmonary arteries: Unremarkable. No pulmonary embolism. Aorta: No acute findings. No thoracic aortic aneurysm. Lungs: See below. Pleural space: Large bilateral pleural effusions. Compressive atelectasis both lower lobes. No pneumothorax. Heart: Cardiomegaly. No significant pericardial effusion. No evidence of RV dysfunction. Bones/joints: No acute fracture. No dislocation. Soft tissues: Unremarkable. Lymph nodes: Unremarkable. No enlarged lymph nodes. IMPRESSION: No pulmonary embolus CHF with large bilateral pleural effusions [id number] Electronically signed by: Toby Scott MD 01/15/25 21:23 PM Chest X-Ray 01/19/25 07:00 EXAM: XR chest 1V portable CLINICAL HISTORY: Pleural effusion. TECHNIQUE: An X-ray image of the chest is obtained in AP portable projection. COMPARISON: 01/17/2025. FINDINGS: Pulmonary Parenchyma: Interval stable, opacification/haziness of the right lower zone and in the left infrahilar region. Interval stable, bilateral blunting of both costophrenic recess, suggests pleural effusion with atelectasis. Heart and Mediastinum: Heart size cannot be commented upon due to AP projection. Bony Thorax: Bony thorax appears intact without fractures or deformities. Soft Tissues: Soft tissues overlying the chest wall are unremarkable. IMPRESSION: 1. No gross interval changes. 2. Bilateral pleural effusion, grossly unchanged. 3. Opacification/haziness in the right lower and left infrahilar region, also appears unchanged. Electronically signed by Paolo Hampton 01-19-2025 08:01 AM Diagnostic Findings Cardiac Enzymes 01/19/25 Range/Units 06:28 AST 39 (13-39) U/L Coagulation 01/19/25 Range/Units 06:28 PT 23.0 H (9.0-12.0) Seconds CBC 01/19/25 Range/Units 06:28 WBC 14.46 H (4.8-10.8) K/ul RBC 5.14 (4.70-6.10) M/uL Hgb 15.7 (14.0-18.0) g/dL Hct 44.7 (42.0-52.0) % Plt Count 206 (130-400) K/uL Comprehensive Metabolic Panel 01/18/25 01/19/25 Range/Units 14:58 06:28 Sodium 136 (136-145) mmol/L Potassium 3.7 3.7 (3.5-5.1) mmol/L Chloride 97 L (98-107) mmol/L Carbon Dioxide 28 (21-32) mmol/L BUN 57 H (6-23) mg/dl Creatinine 2.09 H (0.6-1.4) mg/dl Glucose 157 H (70-99(Fasting)) mg/dl Calcium 9.2 (8.6-10.3) mg/dl Direct Bilirubin 0.5 H (0-0.2) mg/dl AST 39 (13-39) U/L ALT 57 H (7-52) U/L Alkaline Phosphatase 131 H (34-104) U/L Total Protein 6.5 (6.0-8.3) gm/dl Albumin 3.2 L (3.4-5.0) gm/dl Intake and Output 01/18/25 01/19/25 01/19/25 22:59 06:59 14:59 Intake Total 240 / 740 Output Total 900 / 2400 300 / 2400 Balance -660 / -1660 -300 / -1660 Intake: Oral 240 / 740 Output: Urine 900 / 2400 300 / 2400 Other: Weight 91.2 kg Weight Measurement Method Built in [facility] Medications Administered Home Medications Medication Instructions Recorded Confirmed Last Taken warfarin 2.5 mg tablet 1.25 mg PO 2XWK 08/06/18 01/15/25 01/10/25 warfarin 2.5 mg tablet 2.5 mg PO 5XWK 08/06/18 01/15/25 01/13/25 furosemide 40 mg tablet (Lasix) 40 mg PO QAM 07/08/19 01/15/25 01/15/25 allopurinol 300 mg tablet 300 mg PO QAM 11/04/19 01/15/25 01/15/25 atorvastatin 40 mg tablet 40 mg PO QAM 01/15/25 01/15/25 01/15/25 empagliflozin 25 mg tablet 25 mg PO QAM 01/15/25 01/15/25 01/15/25 (Jardiance) furosemide 40 mg tablet (Lasix) 20 mg PO .QAFTERNOON 01/15/25 01/15/25 01/14/25 insulin glargine 100 unit/mL (3 28 unit subcut QA 01/15/25 01/15/25 01/15/25 mL) subcutaneous pen (Lantus Solostar U-100 Insulin) magnesium oxide 400 mg PO DAILY 01/15/25 01/15/25 01/15/25 metoprolol succinate 50 mg 25 mg PO QPM 01/15/25 01/15/25 01/14/25 tablet,extended release 24 hr metoprolol succinate 50 mg 50 mg PO QAM 01/15/25 01/15/25 01/15/25 tablet,extended release 24 hr Active Medications Generic Name Dose Route Start Last Admin Trade Name Carolyn PRLeilani Reason Stop Dose Admin Allopurinol 300 mg 01/16/25 09:00 01/19/25 08:37 Allopurinol 300 Mg Tab PO 02/15/25 08:59 300 mg QAM JESSICA Administration Atorvastatin Calcium 40 mg 01/15/25 23:00 01/18/25 20:24 Atorvastatin 40 Mg Tab PO 02/14/25 22:59 40 mg HS JESSICA Administration Docusate Sodium 100 mg 01/16/25 09:00 01/19/25 08:39 Docusate Sodium 100 Mg Cap PO 02/15/25 08:59 100 mg BID JESSICA Administration Empagliflozin 25 mg 01/16/25 09:00 01/19/25 08:37 Empagliflozin 25 Mg Tab PO 02/15/25 08:59 25 mg QAM JESSICA Administration Furosemide 40 mg 01/16/25 17:00 01/19/25 08:39 Furosemide 40 Mg/4 Ml Vial IV 02/15/25 16:59 40 mg BIDM JESSICA Administration Insulin Aspart 0 units 01/15/25 23:49 01/19/25 08:36 Insulin Aspart Per Unit Charge SC 02/14/25 23:48 3 units ACHS JESSICA Administration Insulin Glargine 28 units 01/16/25 09:00 01/19/25 08:36 Lantus Per Unit Charge SQ 02/15/25 08:59 28 units QAM JESSICA Administration Magnesium Oxide 400 mg 01/15/25 23:15 01/18/25 20:25 Magnesium Oxide 400 Mg Tab PO 02/14/25 23:14 400 mg HS JESSICA Administration Metoprolol Succinate 50 mg 01/16/25 09:00 01/19/25 08:37 Metoprolol Succ 50mg Ext Rel Tab PO 02/15/25 08:59 50 mg QAM JESSICA Administration Potassium Chloride 20 meq 01/18/25 14:00 01/19/25 08:40 Potassium Chloride Crtab 20 Meq Tabcr PO 02/17/25 13:59 20 meq TID JESSICA Administration Warfarin Sodium 1 mg 01/18/25 16:00 01/18/25 17:00 Warfarin Sod 1 Mg Tab PO 02/17/25 15:59 1 mg DAILY@1600 JESSICA Administration PG Care Time/CCT Total # of Minutes Spent Total Time Spent with Patient: Total time spent is greater than 50% in coordination of care (as documented) at patient's floor/unit and/or counseling patient: Coding Level of Care Code 46286 SUB INP/OBS CARE 3/50MIN Diagnoses Decompensated heart failure I50.9 Generalized weakness R53.1 Bilateral pleural effusion J90
[2025-01-20 07:11] LABS: Hematocrit (blood only) 45.4 % (42.0-52.0); Hemoglobin 15.7 g/dL (14.0-18.0); Mean Corpuscular Hemoglobin 30.1 pg (25.0-34.0); Mean Corpuscular Volume 87.0 fL (80.0-100.0); Platelet Count 212 K/uL (130-400); RDW Standard Deviation 47.1 fL (36.4-46.3); Red Blood Count 5.22 M/uL (4.70-6.10); White Blood Count 14.90 K/ul (4.8-10.8)
--- NOTE | 2025-01-20 07:37 | Pulmonology Progress Note ---
Date of Service January 20, 2025 Assessment & Plan (1) Decompensated heart failure: (2) Paroxysmal atrial fibrillation: (3) Pleural effusion: (4) Obstructive sleep apnea: (5) Pulmonary hypertension: (6) Right heart failure: (7) History of pulmonary embolism: (8) History of inferior vena caval filter placement: Plan CT chest 01/15/2025 personally reviewed: Moderate right-sided, moderate to large left-sided pleural effusion Compressive atelectasis of the left lower lobe Cardiomegaly Motion degraded study No significant mediastinal lymphadenopathy 2D echo 01/16/2025: EF 55-60%, diastolic dysfunction, LA moderately dilated, RA severely dilated, RV systolic function severely reduced with RV severely dilated , PASP 76 mmHg -- Bilateral pleural effusion Small on the right, moderate to large in the left Etiology is HFpEF BNP 215 Negative for COVID, influenza A/B as well as RSV on 01/15/2025 --Pulmonary hypertension Severe Type II Etiology is most likely chronic A-fib with diastolic dysfunction --ALMITA Was diagnosed a while ago Was not able to tolerate CPAP --A-fib On warfarin -- History of pulmonary emboli s/p IVC filter placement In 2010 On warfarin Plan: In/out: -5.8 L since coming to the hospital For the time being I would recommend to continue with diuresis, if there is any significant worsening in the creatinine or the patient is not able to diurese and/or significant shortness of breath then thoracentesis could be thought of I do not expect total resolution of left-sided pleural effusion but I do expect for it to decrease in size if the patient is diuresing Incentive spirometry will be helpful for atelectasis Case was discussed with primary team as well as RN Recommend outpatient follow-up in 10 days No further recommendation from pulmonary perspective, will sign off Please call directly with any questions Please note the above document was generated using voice recognition software. It may contain grammatical, syntax or spelling errors.Any formal questions or concerns about the content, text or information contained within the body of this dictation should be directly addressed to the provider for clarification. Admission and Anticipated Discharge Date Admission Date: January 15, 2025 Subjective Patient seen and examined at bedside. No acute distress, no adverse events overnight He was saturating well on room air Overall he says he is feeling better compared to yesterday Has been still diuresing well No nausea or vomiting Fair appetite Denies any chest pain Review of Systems 2 Review of Systems: All systems reviewed & are unremarkable except as noted in Subjective Physical Exam 2 Physical Exam: Constitutional: No acute distress HEENT: EOMI, PERRLA Respiratory system: Decreased air entry on the left side, no wheeze, no rhonchi, positive crackles bilateral lower lobe CVS: S1-S2 positive, no murmurs or gallops, distant heart sounds Abdomen: Soft, nontender, nondistended, positive bowel sounds x4 Extremities: +2 pulses bilaterally radialis/ dorsalis pedis, no cyanosis, +1 pitting edema bilateral lower extremity, stasis dermatitis appreciated bilaterally Neuro: Awake alert oriented x3 Psych: Normal mood and affect G/U: No [place] Skin: no rashes, warm and dry Lymphatic: no cervical or axillary lymphadenopathy Results & Data Results & Data Vital Signs (Past 12 Hours) Vital Signs Temp Pulse Resp BP Pulse Ox O2 Del Method 01/20/25 03:23 36.6 C 90 16 120/81 93 Room Air 01/19/25 22:19 36.5 C 77 20 108/70 91 Room Air 01/19/25 20:33 Room Air 01/19/25 19:48 36.4 C L 81 20 101/67 93 Room Air Laboratory Results 01/20/25 06:29 01/20/25 06:29 PG Care Time/CCT Total # of Minutes Spent Total Time Spent with Patient: Total time spent is greater than 50% in coordination of care (as documented) at patient's floor/unit and/or counseling patient: Coding Level of Care Code 92102 SUB INP/OBS CARE 2/35MIN Diagnoses Decompensated heart failure I50.9 Paroxysmal atrial fibrillation I48.0 Pleural effusion J90 Obstructive sleep apnea G47.33 Pulmonary hypertension I27.20 Right heart failure I50.810 History of pulmonary embolism Z86.711 History of inferior vena caval filter placement Z95.828
[2025-01-20 07:38] LABS: Anion Gap 11.0 (3-11); Blood Urea Nitrogen 64.0 mg/dl (6-23); Calcium 9.0 mg/dl (8.6-10.3); Carbon Dioxide 27.0 mmol/L (21-32); Chloride 98.0 mmol/L (98-107); Creatinine Clr Calc Pharmacy 32.9 ml/min; Glucose 137.0 mg/dl (70-99(Fasting)); Magnesium 2.5 mg/dl (1.7-2.4); Potassium 3.5 mmol/L (3.5-5.1); Sodium 136.0 mmol/L (136-145)
[2025-01-20 07:51] LABS: INR 1.9 (0.9-1.1); Prothrombin Time 19.5 Seconds (9.0-12.0)
[2025-01-20 11:34] VITALS: BP 125/82; PULSE 79; RESP 20; TEMP 97.3; O2SAT 93
--- NOTE | 2025-01-20 12:28 | Discharge Summary ---
Date of Service January 20, 2025 Admission HPI Per Admitting Provider History obtained from patient and records. Medical history significant for chronic diastolic heart failure/right-sided heart failure (EF 60%, TTE, 2023), A-fib/PE DVT status post IVC filter placement on Coumadin, valvular heart disease (mild MR/TR), hypertension, hyperlipidemia, pulmonary hypertension, ALMITA (CPAP noncompliance), CRI (baseline creatinine 1.7), DM 2 insulin requiring, BPH, gout, OCD, past tobacco abuse. Last confinement August 2018 for traumatic left acetabular fracture secondary to fall. No operative intervention. 2 weeks ago, patient noted exertional SOB and fatigue symptoms. Usual dry cough symptoms. Denies chest pain or unusual fluid retention. Denies headache or bleeding concerns. Voluntary weight loss from cutting down on food intake over the last few years as per patient. Patient seen at PCPs office last week. Outpatient chest x-ray showed New mild elevation/eventration of the posterior left hemidiaphragm. Mild blunting of the left costophrenic angle. Outpatient CT chest recommended. Patient consulted ER for worsening symptoms. 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 Admission Exam Per Admitting Provider GENERAL: Comfortable, pleasant, obese, no respiratory distress SKIN: Pallor, warm HEENT: Pale palpebral conjunctivae, no ptosis, dry buccal mucosa NECK : Supple, no tenderness CHEST : Decreased breath sounds, no tenderness HEART : Irregular, no obvious murmurs ABDOMEN: Some distention, nontender EXTREMITIES : Bilateral LE venous stasis (chronic as per patient) without tenderness, palpable pulses, no other conspicuous deformities noted NEUROLOGIC : Coherent, no facial asymmetry, no other gross focality Principal Diagnosis Acute on chronic diastolic heart failure Pleural effusion Discharge Exam Constitutional + well hydrated; no acute distress Eyes PERRL, conjunctivae normal, anicteric sclerae ENMT external ear and nose normal, oropharynx normal Respiratory On room air, diminished breath sounds lung bases Cardiovascular Rate/Rhythm: + irregularly irregular Gastrointestinal (Abdomen) normal bowel sounds, soft, nontender, no hepatosplenomegaly Musculoskeletal +mild pedal edema, stasis changes Neurologic PERRL, EOMI, accommodation nl, no face palsy, no dysarthria Psychiatric A+Ox3, euthymic affect Discharge Data Allergies Allergy/AdvReac Type Severity Reaction Status Date / Time banana Allergy Verified 01/16/25 09:58 lactose AdvReac Verified 01/16/25 09:58 Consultations 01/15/25 21:45 ED Decision to Admit Stat 01/15/25 23:49 Consult Cardiology Routine 01/18/25 11:50 Consult Pulmonology Routine Ordered Studies 01/15/25 18:42 CT head/brain wo con Stat 01/15/25 19:57 CT abd pelvis IV con only Stat CT angio chest PE protocol Stat 01/18/25 13:45 US point of care ultrasound Stat Hospital Course (1) Decompensated heart failure: 79 year old man with history of chronic diastolic heart failure/right-sided heart failure (EF 60%, TTE, 2023), A-fib/PE DVT status post IVC filter placement on Coumadin, valvular heart disease (mild MR/TR), hypertension, hyperlipidemia, pulmonary hypertension, ALMITA (CPAP noncompliance), CRI (baseline creatinine 1.7), DM 2 insulin requiring, BPH, gout, OCD, past tobacco abuse who presented with FARLEY and fatigue for the past 2 weeks Acute on chronic diastolic heart failure Pulmonary hypertension Right heart failure Valvular heart disease Bilateral pleural effusion -Chest CTA:No pulmonary embolus. CHF with large bilateral pleural effusions [id number] - Echo: EF 55 to 60%. Diastolic dysfunction based on LA enlargement. Right ventricle systolic function is severely reduced. Right ventricle is severely dilated. Left atrium is moderately dilated. Right atrium is severely dilated. Aortic valve sclerosis mild, without significant stenosis. Trace aortic regurgitation. Mild mitral regurgitation. Moderate to severe tricuspid regurgitation. Estimated systolic pulmonary artery pressure 76 mmHg. -BNP 215 Was managed with IV lasix while inpatient with good diuresis Good diuresis so far. Wt down to 91.1kg today from 101.9kg on admisson Continue Jardiance, metoprolol succinate Continue fluid restriction 1500cc/day Lasix increased to 40mg BID on discharge Patient has been on potassium 20mEq TID while on IV lasix due to hypokalemia Started on potassium 20mEq daily on discharge Needs BMP to check renal function and potassium level within next 3 days at rehab facility to monitor Needs to follow up with Cardiology outpatient Constipation -ABD CT:Moderate amount of stool within the colon. Diverticulosis without evidence of diverticulitis. No obstruction. Continue bowel regimen Resolved Atrial fibrillation PE/ DVT Supratherapeutic INR on admission. Received vitamin K Denies any bleeding issues Continue metoprolol succinate Monitor INR: 7.4>5.0>2.6>1.9 today Warfarin changed from 2.5mg on STWTS, 1.25mg on MF to 2.5mg on STTS and 1.25mg on MWF Advised to follow-up with Coumadin clinic on discharge GABRIELA on CKD III Baseline creatinine ~ 1.7-2 Creatinine 2.03 today Monitor renal function closely Patient to follow up with Nephrology Generalized weakness Ambulatory dysfunction Continue PT OT Fall precautions Chronic right subdural hygroma Incidental finding on CT --CT head:Stable appearance of the chronic right subdural hygroma as compared to the study of 10/31/2017. Stable appearance of the chronic ischemic angiopathy and atherosclerotic changes of the cerebral arteries. Follow-up as outpatient DM II HbA1c 6.2 Continue PATIENT SERVICES REPRESENTATIVE antidiabetic regimen Hyperlipidemia - continue atorvastatin Gout - continue allopurinol ALMITA/CPAP--noncompliance. Needs follow-up with sleep medicine on discharge Called and updated her on findings, med changes, need for follow up lab as above and follow up with Specialists Total Time Total Time Spent Total Time Spent (In Minutes): 50 Total Time Includes: Examination of the Patient, Discharge Planning, Medication Reconciliation, Communication With Other Providers and Other Discharge Plan Discharge Items Patient Disposition: Transfer Inpatient Rehab Fac Reason For Visit: CHF Discharge Diagnosis: Acute on chronic diastolic heart failure Pleural effusion Condition on Discharge: Fair Activity: As commented below Activity Comment: Per PT/OT Non-emergency contact: Primary Care Provider, School Inspector and Fuse Cup Expander Call non-emergency contact if: you have any medication questions and your symptoms worsen Follow-up/Referrals: Rachael Dao MD [Primary Care Provider] - Diet: Carb Consistent or DM2 and Heart Healthy Fluids: 1500ml (6 cups) Addtl Attending Provider Instructions: Mr Pulido You were hospitalized and managed for the above listed diagnoses. You are being discharged to [facility] for rehab. Your lasix was increased to 40mg twice a day. Please ensure follow up with your Primary Doctor and School Inspector. The following changes were made to your medications: - Your lasix was increased to 40mg twice a day - You were started on potassium tab 20mEQ daily. Rehab facility should check BMP within the next 3 days to monitor - Your warfarin was changed to 1.25mg on Friday, Friday and Friday and 2.5mg on Fri, Fri, and Friday Please ensure follow up with Anticoagulation clinic. Rehab facility can also monitor your INR It was a pleasure taking care of you Pending Studies at Discharge: No Stand-Alone Forms: My [facility] Skilled Items Patient informed of condition?: Yes DNR: No Discharge Level of Care: Acute rehab Communicable Disease: No Discharge Prognosis: Stable Lines: None Urinary Catheter: No Medications and DC Order Prescriptions: New potassium chloride 20 mEq Tablet,Er Particles/Crystals 20 meq PO DAILY Qty: 30 0RF Continued atorvastatin 40 mg tablet 40 mg PO QAM Qty: 30 0RF metoprolol succinate 50 mg tablet extended release 24 hr 50 mg PO QAM Qty: 30 0RF metoprolol succinate 50 mg tablet extended release 24 hr 25 mg PO QPM 30 Days Qty: 15 0RF allopurinol 300 mg Tablet 300 mg PO QAM Qty: 30 0RF insulin glargine 100 unit/mL (3 mL) insulin pen 28 unit SUBCUT QAM Qty: 3 0RF Jardiance 25 mg Tablet 25 mg PO QAM Qty: 30 0RF magnesium oxide 400 mg magnesium Tablet 400 mg PO DAILY Qty: 30 0RF Changed furosemide 40 mg tablet 40 mg PO BID Qty: 60 0RF warfarin 2.5 mg tablet 2.5 mg PO 4XWK 30 Days Qty: 16 0RF Patient Comments: fri/fri//fri/sat Rx Instructions: FRI, , , & SAT EVENINGS warfarin 2.5 mg tablet 1.25 mg PO 3XWK 30 Days Qty: 15 0RF Patient Comments: takes on fri/fri in the qpm Rx Instructions: MON, FRI, FRI. EVENINGS Discontinued furosemide [Lasix] 40 mg Tablet 20 mg PO .QAFTERNOON Rx Instructions: MAY TAKE ADDITIONAL 20 MG FOR INCREASED SWELLING, IF NEEDED. Discharge Orders: Discharge Order- CHF (Routine); Ordered 01/20/25 Ordered By: Madisyn Hernandez Admission Data Admit Date/Time: 01/15/25 22:35 Attending Provider: Madisyn Hernandez I. Admit Provider: Alessandro Cordero Primary Care Provider: Rachael Dao Other Providers: Alessandro Cordero; Leticia Torres; Dave Moya; Can Acuña; Hilton Keene; Amilcar Rosas; Alex Christiansen; Orly Gomez; Magdalena Figueredo; Gillian Cronin; Alyssia Terrell; Leticia Ferguson; Eduardo Chen; Long Summers; Courtney Jerome; Diandra Carrasco; Cami Hancock; Rios Reyes; Joe Dean; Otilia Acuña; Ai Antonio; Carlos Manuel Young; Jarred Garcia; Carlee Petty at [place]; Taya Burgos; Francois Abel Other Interventions: Discharge Summary Assessment (RN) Last Done: 01/20/25 12:56
== END 2025-01-20 14:22 | DRG 291 ==
LOC: ED 18:24 → SUATTDRO 22:35 → 2S 22:35